=== PATIENT | male | born 1990 | race African-American/Black ===

== ENCOUNTER 2020-04-10 16:56 | Inpatient (IN) | payer OTHER ==
[2020-04-10] MEDS ORDERED: SODIUM CHLORIDE 1,000 ML IV STA (17:49)
[2020-04-10] MEDS ORDERED: SODIUM CHLORIDE 2,000 ML IV STA (18:03)
[2020-04-10 18:51] LABS: BASO % 0.6 % (0-2.0); EOS % 0.5 % (0-4.5); HEMATOCRIT 51.9 % (35.4-49); HEMOGLOBIN 17.6 GM/dL (11.7-16.9); LYMPH % 22.4 % (8-40); MCH 31.1 pg (25.7-33.7); MCHC 33.9 g/dl (32.0-35.9); MEAN CELL VOLUME 91.9 fl (80-96); MEAN PLT VOLUME 8.6 fl (7.5-11.1); MONO % 6.9 % (3.8-10.2); NEUT % 69.6 % (42.8-82.8); PLATELET COUNT 319 K/MM3 (134-434); RBC 5.65 M/mm3 (4.00-5.60); RDW 13.5 % (11.9-15.9); VENOUS BASE EXCESS -4.4 mmol/L (-2-2); VENOUS PCO2 45.8 mmHg (38-52); VENOUS PH 7.303 (7.310-7.410); WHITE BLOOD COUNT 7.6 K/mm3 (4.0-10.0)
[2020-04-10 18:59] LABS: INR 0.86 (0.83-1.09); PROTHROMBIN TIME (PATIENT) 10.4 SEC (9.7-13.0)
[2020-04-10 19:02] LABS: ACTIVATED PTT 32.2 SECONDS (25.2-36.5)
[2020-04-10 19:07] LABS: POTASSIUM 3.5 mmol/L (3.5-5.1)
[2020-04-10 19:10] LABS: ALBUMIN 3.8 g/dl (3.4-5.0); BLOOD UREA NITROGEN 7.3 mg/dL (7-18)
[2020-04-10 19:12] LABS: CREATININE 0.9 mg/dL (0.55-1.3)
[2020-04-10 19:13] LABS: TOT PROT 8.1 g/dl (6.4-8.2)
[2020-04-10] MEDS ORDERED: ONDANSETRON 4 MG/2 ML VIAL IVPUSH ONE (19:15)
[2020-04-10 19:18] LABS: BILIRUBIN,TOTAL 0.5 mg/dL (0.2-1)
[2020-04-10] MEDS ORDERED: ONDANSETRON 4 MG/2 ML VIAL ONE (19:23)
[2020-04-10] MEDS ORDERED: FAMOTIDINE 20 MG/50 ML IVPB 20 MG/50 ML MG IVPB ONE ×2 (19:26→19:31)
[2020-04-10 19:36] LABS: MAGNESIUM 2.2 mg/dL (1.8-2.4)
[2020-04-10 19:40] LABS: PHOSPHOROUS 4.1 mg/dL (2.5-4.9)
[2020-04-10 20:58] LABS: EPI CELLS 9 /uL (0-25.1); HYALINE CASTS 0 /uL (0-3.1); URINE APPEARANCE CLEAR; URINE BACTERIA 5 /uL (0-1359); URINE BILIRUBIN NEGATIVE (NEGATIVE); URINE COLOR YELLOW; URINE GLUCOSE (UA) 3+ (NEGATIVE); URINE KETONE NEGATIVE (NEGATIVE); URINE LEUK ESTERASE NEGATIVE (NEGATIVE); URINE NITRITE NEGATIVE (NEGATIVE); URINE PROTEIN NEGATIVE (NEGATIVE); URINE RBC 1 /uL (0-23.9); URINE UROBILINOGEN 0.2 mg/dL (0.2-1.0); URINE WBC 6 /uL (0-25.8)
[2020-04-10 21:23] LABS: HIV INTERPRETATION NEGATIVE (NEGATIVE)
[2020-04-10] MEDS ORDERED: MAG HYDROX/AL HYDROX/SIMETH 30 ML UNIT-DOSE CUP PO ONE (21:33)
[2020-04-10] MEDS ORDERED: LIDOCAINE VISCOUS 2% ORAL/TOP 20 ML UNIT-DOSE CUP MM ONE (21:38)
[2020-04-10] MEDS ORDERED: LIDOCAINE VISCOUS 2% ORAL/TOP 20 ML UNIT-DOSE CUP ONE (21:48)
[2020-04-10] MEDS ORDERED: MAG HYDROX/AL HYDROX/SIMETH 30 ML UNIT-DOSE CUP ONE (21:48)
[2020-04-11] MEDS ORDERED: HYDROCORTISONE 0.5% TOPICAL OINTMENT TUBE TP PRN (00:28)
[2020-04-11] MEDS ORDERED: SODIUM CHLORIDE 1,000 ML IV SCH ×2 (01:30→10:29)
[2020-04-11] MEDS: KCL 10 MEQ IVPB 10 MEQ/100 ML INFUS.BAG IVPB SCH ×6 (01:50→12:00)
[2020-04-11] MEDS: SODIUM CHLORIDE 1,000 ML IV SCH ×2 (01:50→10:06)
[2020-04-11] MEDS ORDERED: KCL 10 MEQ IVPB 10 MEQ/100 ML INFUS.BAG IVPB ONE ×4 (02:51→10:11)
[2020-04-11 03:38] LABS: POTASSIUM 3.3 mmol/L (3.5-5.1)
[2020-04-11 03:39] LABS: CALCIUM 8.2 mg/dL (8.5-10.1)
[2020-04-11 03:40] LABS: BLOOD UREA NITROGEN 6.6 mg/dL (7-18); MAGNESIUM 1.8 mg/dL (1.8-2.4)
[2020-04-11 03:44] LABS: CREATININE 0.7 mg/dL (0.55-1.3); IRON SERUM 66 ug/dL (50-175)
[2020-04-11 03:45] LABS: TOTAL IRON BINDING CAPACITY 270 ug/dL (250-450)
[2020-04-11 07:17] LABS: COCAINE, UR NEGATIVE ng/ml (CUTOFF=300); PHENCYCLIDINE,URINE NEGATIVE ng/ml (CUTOFF=25); URINE AMPHETAMINES NEGATIVE ng/ml (CUTOFF=500); URINE BARBITURATES NEGATIVE ng/ml (CUTOFF=200)
[2020-04-11 07:20] LABS: METHADONE, UR NEGATIVE ng/ml (CUTOFF=300); OPIATES, URI NEGATIVE ng/ml (CUTOFF=300); URINE BENZODIAZEPINES NEGATIVE ng/ml (CUTOFF=200)
[2020-04-11 08:20] LABS: HEMATOCRIT 45.6 % (35.4-49); HEMOGLOBIN 15.3 GM/dL (11.7-16.9); MCH 30.5 pg (25.7-33.7); MCHC 33.5 g/dl (32.0-35.9); MEAN CELL VOLUME 90.9 fl (80-96); MEAN PLT VOLUME 8.6 fl (7.5-11.1); PLATELET COUNT 311 K/MM3 (134-434); RBC 5.02 M/mm3 (4.00-5.60); RDW 13.4 % (11.9-15.9); WHITE BLOOD COUNT 6.7 K/mm3 (4.0-10.0)
[2020-04-11] MEDS: INSULIN SLIDING SCALE (NOVOLOG) 1 VIAL SQ SCH ×4 (08:26→22:50)
[2020-04-11 08:50] LABS: POTASSIUM 3.5 mmol/L (3.5-5.1)
[2020-04-11 08:52] LABS: ALBUMIN 3.1 g/dl (3.4-5.0); BLOOD UREA NITROGEN 6.2 mg/dL (7-18); CALCIUM 8.5 mg/dL (8.5-10.1); MAGNESIUM 2.1 mg/dL (1.8-2.4)
[2020-04-11 08:57] LABS: BILIRUBIN,TOTAL 0.5 mg/dL (0.2-1); CREATININE 0.6 mg/dL (0.55-1.3); PHOSPHOROUS 2.6 mg/dL (2.5-4.9); TOT PROT 6.6 g/dl (6.4-8.2)
[2020-04-11] MEDS ORDERED: NEOMYCIN/BACI/POLY/HC TOPICAL OINT 15 GM TUBE TP SCH (10:00)
[2020-04-11] MEDS ORDERED: ENOXAPARIN NA (PORCINE) 40 MG/0.4 ML DISP.SYRIN SQ ONE (10:11)
[2020-04-11] MEDS: ENOXAPARIN NA (PORCINE) 40 MG/0.4 ML DISP.SYRIN SQ SCH (11:00)
[2020-04-11] MEDS ORDERED: INSULIN (LEVEMIR) 100 UNITS/ML UNITS SQ SCH ×3 (12:24→22:00)
[2020-04-11] MEDS ORDERED: SODIUM CHLORIDE 1,000 ML IV STA (15:51)
[2020-04-12] MEDS: INSULIN SLIDING SCALE (NOVOLOG) 1 VIAL SQ SCH ×4 (06:44→21:23)
[2020-04-12 09:24] LABS: HEMATOCRIT 48.9 % (35.4-49); HEMOGLOBIN 16.1 GM/dL (11.7-16.9); MCHC 32.9 g/dl (32.0-35.9); MEAN CELL VOLUME 91.2 fl (80-96); MEAN PLT VOLUME 7.9 fl (7.5-11.1); PLATELET COUNT 316 K/MM3 (134-434); RBC 5.36 M/mm3 (4.00-5.60); RDW 13.3 % (11.9-15.9); WHITE BLOOD COUNT 6.4 K/mm3 (4.0-10.0)
[2020-04-12 09:47] LABS: POTASSIUM 3.2 mmol/L (3.5-5.1)
[2020-04-12 09:49] LABS: BLOOD UREA NITROGEN 14.4 mg/dL (7-18); CALCIUM 9.2 mg/dL (8.5-10.1); MAGNESIUM 2.2 mg/dL (1.8-2.4)
[2020-04-12 09:52] LABS: CREATININE 0.7 mg/dL (0.55-1.3)
[2020-04-12] MEDS: ENOXAPARIN NA (PORCINE) 40 MG/0.4 ML DISP.SYRIN SQ SCH (09:52)
[2020-04-12 09:53] LABS: PHOSPHOROUS 2.5 mg/dL (2.5-4.9)
[2020-04-12] MEDS ORDERED: POTASSIUM CHLORIDE TABS 10 MEQ TABLET.ER (FP) PO ONE (10:45)
[2020-04-12] MEDS: KCL 10 MEQ IVPB 10 MEQ/100 ML INFUS.BAG IVPB SCH ×2 (12:29→13:08)
[2020-04-12] MEDS ORDERED: POTASSIUM CHLORIDE TABS 20 MEQ TABLET.ER (FP) PO ONE ×2 (12:43→14:00)
[2020-04-12] MEDS ORDERED: SODIUM CHLORIDE 0.9%/KCL 20 MEQ/1,000 ML INFUS.BAG IV SCH (14:45)
[2020-04-12 15:21] VITALS: BMI 16.9
[2020-04-12] MEDS: LOPERAMIDE HCL 2 MG CAPSULE PO SCH (17:02)
[2020-04-12] MEDS: BANATROL PLUS POWDER PACKET PO SCH (21:23)
[2020-04-12] MEDS ORDERED: INSULIN (LEVEMIR) 100 UNITS/ML UNITS SQ SCH (22:00)
[2020-04-13] MEDS: INSULIN SLIDING SCALE (NOVOLOG) 1 VIAL SQ SCH ×2 (06:56→11:48)
[2020-04-13] MEDS: BANATROL PLUS POWDER PACKET PO SCH ×2 (06:56→15:22)
[2020-04-13] MEDS ORDERED: INSULIN (LEVEMIR) 100 UNITS/ML UNITS SQ SCH ×2 (07:00→10:25)
[2020-04-13 08:36] LABS: HEMATOCRIT 44.9 % (35.4-49); HEMOGLOBIN 14.5 GM/dL (11.7-16.9); MCH 29.6 pg (25.7-33.7); MCHC 32.4 g/dl (32.0-35.9); MEAN CELL VOLUME 91.5 fl (80-96); MEAN PLT VOLUME 8.2 fl (7.5-11.1); PLATELET COUNT 312 K/MM3 (134-434); RDW 13.5 % (11.9-15.9); WHITE BLOOD COUNT 6.4 K/mm3 (4.0-10.0)
[2020-04-13 08:56] LABS: POTASSIUM 4.1 mmol/L (3.5-5.1)
[2020-04-13 09:00] LABS: CALCIUM 8.9 mg/dL (8.5-10.1)
[2020-04-13 09:01] LABS: BLOOD UREA NITROGEN 17.8 mg/dL (7-18); MAGNESIUM 2.4 mg/dL (1.8-2.4)
[2020-04-13 09:04] LABS: CREATININE 0.6 mg/dL (0.55-1.3); PHOSPHOROUS 2.8 mg/dL (2.5-4.9)
[2020-04-13] MEDS: LOPERAMIDE HCL 2 MG CAPSULE PO SCH ×2 (09:34→12:32)
[2020-04-13] MEDS: ENOXAPARIN NA (PORCINE) 40 MG/0.4 ML DISP.SYRIN SQ SCH (09:35)
[2020-04-13] MEDS ORDERED: MULTIVITAMINS (DAILY MVI) TABLET (FP) PO SCH (10:00)
[2020-04-13 16:05] VITALS: BP 113/80; PULSE 130; TEMP 98.7
== END 2020-04-13 17:03 | disposition home or self-care (01) | DRG 420 ==
LOC: JER 16:56 → JERBED 22:22 → J6WEST-2 04-11 14:21
PROVIDERS: ADMIT Internal Medicine; ATTEND Student in an Organized Health Care Education/Training Program
DX: E10.10 Type 1 diabetes mellitus with ketoacidosis without coma (principal); R64 Cachexia; Z68.1 Body mass index [BMI] 19.9 or less, adult; R62.7 Adult failure to thrive; R35.8 Other polyuria; R63.1 Polydipsia; K52.9 Noninfective gastroenteritis and colitis, unspecified; R11.2 Nausea with vomiting, unspecified; F32.9 Major depressive disorder, single episode, unspecified; E87.6 Hypokalemia; R81 Glycosuria; F12.90 Cannabis use, unspecified, uncomplicated; E46 Unspecified protein-calorie malnutrition; H53.8 Other visual disturbances; Z91.11 Patient's noncompliance with dietary regimen; Z91.14 Patient's other noncompliance with medication regimen
CPT/HCPCS: 36415; 70470-TC; 71046-TC-FY; 71260-TC; 74177-TC; 80048; 80053; 80307; 81003; 82010; 82272; 82306; 82550; 82607; 82747; 82803; 82962; 83036; 83516; 83540; 83550; 83735; 84100; 84439; 84443; 84484; 85014; 85025; 85027; 85610; 85730; 87045; 87046; 87070; 87086; 87324; 87328; 87329; 87389; 87449; 87798; 87880; 93005; 93010; 99285-25; C9803; Q9967; U0003

== ENCOUNTER 2022-08-20 00:41 | Inpatient (IN) | payer OTHER ==
[2022-08-20] MEDS ORDERED: DEXTROSE 50%-WATER - 25 GM/50 ML VIAL IVPUSH ONE ×2 (01:15→06:44)
[2022-08-20] MEDS ORDERED: DEXTROSE 50%-WATER 25 GM/50 ML DISP.SYRIN ONE ×2 (01:52→06:14)
[2022-08-20 01:55] LABS: HEMATOCRIT 18.4 % (35.4-49); MCH 26.5 pg (25.7-33.7); MCHC 30.6 g/dl (32.0-35.9); MEAN CELL VOLUME 86.9 fl (80-96); PLATELET COUNT 622 10^3/uL (134-434); RBC 2.12 M/mm3 (4.00-5.60); RDW 16.8 % (11.9-15.9); WHITE BLOOD COUNT 15.4 K/mm3 (4.0-10.0)
[2022-08-20 01:59] LABS: HEMOGLOBIN 5.6 GM/dL (11.7-16.9)
[2022-08-20 02:37] LABS: LACTIC ACID 2.4 mmol/L (0.4-2.0)
[2022-08-20 03:02] LABS: INR 1.88 (0.83-1.09); PROTHROMBIN TIME (PATIENT) 21.7 SEC (9.7-13.0)
[2022-08-20 03:15] LABS: POTASSIUM 3.2 mmol/L (3.5-5.1)
[2022-08-20 03:17] LABS: ALBUMIN 1.1 g/dl (3.4-5.0); CALCIUM 9.3 mg/dL (8.5-10.1)
[2022-08-20 03:18] LABS: BLOOD UREA NITROGEN 14.3 mg/dL (7-18)
[2022-08-20 03:21] LABS: CREATININE 1.1 mg/dL (0.55-1.3)
[2022-08-20 03:22] LABS: BILIRUBIN,TOTAL 0.1 mg/dL (0.2-1); TOT PROT 6.3 g/dl (6.4-8.2)
[2022-08-20 05:21] LABS: ANISOCYTOSIS 3+; MACROCYTOSIS 1+
[2022-08-20] MEDS ORDERED: INSULIN (NOVOLOG) ASPART 100 UNITS/ML 10ML VIAL SQ SCH (07:00)
[2022-08-20] MEDS: LACTATED RINGERS SOLUTION 1,000 ML/1,000 ML INFUS.BAG IV SCH (08:08)
[2022-08-20 08:38] LABS: EPI CELLS 8 /uL (0-25.1); HYALINE CASTS 9 /uL (0-3.1); PH,URINE 6.5 (5.0-8.0); URINE APPEARANCE CLOUDY; URINE BILIRUBIN NEGATIVE (NEGATIVE); URINE COLOR YELLOW; URINE GLUCOSE (UA) TRACE (NEGATIVE); URINE KETONE TRACE (NEGATIVE); URINE LEUK ESTERASE 2+ (NEGATIVE); URINE NITRITE NEGATIVE (NEGATIVE); URINE PROTEIN 2+ (NEGATIVE); URINE RBC 84 /uL (0-23.9); URINE UROBILINOGEN 0.2 mg/dL (0.2-1.0); URINE WBC 433 /uL (0-25.8)
[2022-08-20] MEDS ORDERED: VANCOMYCIN/WATER FOR INJ (PEG) 1,000 MG/200 ML BAG IVPB SCH ×2 (10:00)
[2022-08-20] MEDS ORDERED: VANCOMYCIN 1 GM in D5W (PRE-DOCKED) 1,000 MG/250 ML (RESTRICTED TO ID ONLY IVPB SCH (10:00)
[2022-08-20] MEDS: PIPERACILLIN/TAZOB 3.375 GM 3.375 GM in DEXTROSE 5%-WATER - 50 ML IVPB SCH ×2 (10:00→18:34)
[2022-08-20 10:43] LABS: HEMATOCRIT 23.4 % (35.4-49); HEMOGLOBIN 7.6 GM/dL (11.7-16.9); MCH 27.5 pg (25.7-33.7); MCHC 32.5 g/dl (32.0-35.9); MEAN CELL VOLUME 84.6 fl (80-96); MEAN PLT VOLUME 6.8 fl (7.5-11.1); PLATELET COUNT 603 10^3/uL (134-434); RBC 2.76 M/mm3 (4.00-5.60); RDW 15.9 % (11.9-15.9); WHITE BLOOD COUNT 18.2 K/mm3 (4.0-10.0)
[2022-08-20] MEDS ORDERED: ACETAMINOPHEN 1000 MG/100 ML BAG IVPB PRN (10:51)
[2022-08-20 10:53] LABS: URINE BACTERIA MODERATE /uL (0-1359); URINE CRYSTALS NO SEEN /hpf; YEAST MANY (NEGATIVE)
[2022-08-20 11:10] LABS: POTASSIUM 3.5 mmol/L (3.5-5.1)
[2022-08-20 11:16] LABS: BLOOD UREA NITROGEN 14.9 mg/dL (7-18); CALCIUM 8.9 mg/dL (8.5-10.1)
[2022-08-20] MEDS: INSULIN SLIDING SCALE (NOVOLOG) 1 VIAL SQ SCH ×3 (11:35→21:16)
[2022-08-20] MEDS: ACETAMINOPHEN 1000 MG/100 ML BAG IVPB PRN (12:00)
[2022-08-20 12:20] LABS: MAGNESIUM 1.6 mg/dL (1.8-2.4); PHOSPHOROUS 2.7 mg/dL (2.5-4.9)
[2022-08-20] MEDS ORDERED: BISMUTH SUBSALICYLATE 262 MG/15 ML BTL PO PRN (14:58)
[2022-08-20] MEDS ORDERED: ERGOCALCIFEROL (VIT D2) 50,000 UNIT (1.25 MG) CAPSULE PO SCH ×2 (15:00→16:00)
[2022-08-20] MEDS ORDERED: PROMETHAZINE HCL 25 MG/1 ML VIAL IVPB PRN (16:06)
[2022-08-20] MEDS ORDERED: ONDANSETRON 4 MG/2 ML VIAL IVPUSH PRN (16:06)
[2022-08-20] MEDS ORDERED: LACTATED RINGERS SOLUTION 1,000 ML IV SCH (16:15)
[2022-08-20] MEDS ORDERED: METOCLOPRAMIDE HCL INJECTION 10 MG/2 ML VIAL IVPUSH ONE (16:31)
[2022-08-20] MEDS ORDERED: FAMOTIDINE 20 MG/50 ML IVPB 20 MG/50 ML MG IVPB ONE (16:32)
[2022-08-20] MEDS: CALCIUM ACETATE 667 MG CAPSULE (FP) PO SCH (16:40)
[2022-08-20] MEDS: DAPTOMYCIN 300 MG in SODIUM CHLORIDE 50 ML IVPB SCH (16:42)
[2022-08-20] MEDS: MIDODRINE HCL 5 MG TABLET PO SCH (18:05)
[2022-08-20] MEDS: CHOLESTYRAMINE/ASPARTAME 4 GM PACKET PO SCH ×2 (18:05→21:16)
[2022-08-20] MEDS: risperiDONE 1 MG TABLET PO SCH (21:16)
[2022-08-20] MEDS ORDERED: MIRTAZAPINE 15 MG TABLET (FP) PO SCH (22:00)
[2022-08-20] MEDS ORDERED: ATORVASTATIN CA 10 MG TABLET (FP) PO SCH (22:00)
[2022-08-21] MEDS: PIPERACILLIN/TAZOB 3.375 GM 3.375 GM in DEXTROSE 5%-WATER - 50 ML IVPB SCH ×3 (01:03→17:32)
[2022-08-21] MEDS ORDERED: DEXTROSE 50%-WATER 25 GM/50 ML DISP.SYRIN ONE ×2 (05:36→11:02)
[2022-08-21] MEDS ORDERED: DEXTROSE 50%-WATER - 25 GM/50 ML VIAL IVPUSH ONE (05:53)
[2022-08-21] MEDS ORDERED: DEXTROSE 5%-LACTATED RINGERS 1,000 ML IV SCH ×2 (06:00→13:11)
[2022-08-21] MEDS: INSULIN SLIDING SCALE (NOVOLOG) 1 VIAL SQ SCH ×4 (06:18→21:11)
[2022-08-21] MEDS ORDERED: LEVOTHYROXINE NA 25 MCG TABLET (FP) PO SCH (07:00)
[2022-08-21] MEDS: ACETAMINOPHEN 1000 MG/100 ML BAG IVPB PRN (07:13)
[2022-08-21] MEDS ORDERED: ETOMIDATE 20 MG/10 ML VIAL IVPUSH ONE (07:49)
[2022-08-21 08:05] LABS: POTASSIUM 3.3 mmol/L (3.5-5.1)
[2022-08-21 08:07] LABS: HEMATOCRIT 30.3 % (35.4-49); HEMOGLOBIN 10.3 GM/dL (11.7-16.9); MCH 28.2 pg (25.7-33.7); MCHC 33.8 g/dl (32.0-35.9); MEAN CELL VOLUME 83.4 fl (80-96); MEAN PLT VOLUME 6.8 fl (7.5-11.1); PLATELET COUNT 597 10^3/uL (134-434); RBC 3.63 M/mm3 (4.00-5.60); RDW 16.1 % (11.9-15.9); WHITE BLOOD COUNT 18.6 K/mm3 (4.0-10.0)
[2022-08-21 08:09] LABS: CALCIUM 8.4 mg/dL (8.5-10.1)
[2022-08-21 08:11] LABS: MAGNESIUM 1.5 mg/dL (1.8-2.4)
[2022-08-21 08:13] LABS: CREATININE 1.2 mg/dL (0.55-1.3)
[2022-08-21] MEDS ORDERED: ROCURONIUM BROMIDE 50 MG/5 ML SYRINGE ONE (08:24)
[2022-08-21] MEDS ORDERED: SUCCINYLCHOLINE CHLORIDE 200 MG/10 ML SYRINGE ONE (08:24)
[2022-08-21] MEDS: CALCIUM ACETATE 667 MG CAPSULE (FP) PO SCH ×3 (08:49→17:32)
[2022-08-21] MEDS: MIDODRINE HCL 5 MG TABLET PO SCH ×3 (09:08→17:32)
[2022-08-21] MEDS: LACTATED RINGERS SOLUTION 1,000 ML/1,000 ML INFUS.BAG IV SCH (09:08)
[2022-08-21] MEDS: risperiDONE 1 MG TABLET PO SCH ×2 (09:09→21:09)
[2022-08-21] MEDS: CHOLESTYRAMINE/ASPARTAME 4 GM PACKET PO SCH ×4 (09:09→21:08)
[2022-08-21] MEDS ORDERED: ONDANSETRON 4 MG/2 ML VIAL ONE (09:42)
[2022-08-21] MEDS ORDERED: DEXAMETHASONE SOD PHOSPHATE 4 MG/1 ML VIAL ONE (09:42)
[2022-08-21] MEDS ORDERED: GLYCOPYRROLATE 0.2 MG/1 ML VIAL ONE ×2 (09:43)
[2022-08-21] MEDS ORDERED: NEOSTIGMINE METHYLSULFATE 0.5 MG/1 ML - 10 ML MDV ONE (09:43)
[2022-08-21] MEDS ORDERED: THIAMINE HCL 100 MG TABLET (FP) PO SCH (10:00)
[2022-08-21] MEDS ORDERED: PATIENT'S OWN MEDICATION (NON-FORMULARY) (Budesonide [Budesonide Er] 9 MG Tabdr...Er) PO SCH (10:00)
[2022-08-21] MEDS ORDERED: CHOLECALCIFEROL (VIT D3) 1,000 UNIT (25 MCG) TABLET PO SCH (10:00)
[2022-08-21] MEDS ORDERED: FERROUS SO4 325 MG TABLET (FP) PO SCH ×2 (10:00→14:50)
[2022-08-21] MEDS ORDERED: MEGESTROL ACETATE 400 MG/10 ML UNIT DOSE CUP PO SCH (10:00)
[2022-08-21] MEDS ORDERED: MAGNESIUM 2GM/50ML STERILE WATER IVPB IVPB ONE (10:00)
[2022-08-21] MEDS ORDERED: oxyCODONE HCL 5 MG TABLET PO PRN (10:29)
[2022-08-21] MEDS ORDERED: ONDANSETRON 4 MG/2 ML VIAL IVPUSH PRN (10:29)
[2022-08-21] MEDS: KCL 10 MEQ IVPB 10 MEQ/100 ML INFUS.BAG IVPB SCH ×2 (11:01→12:29)
[2022-08-21] MEDS ORDERED: DEXTROSE 50%-WATER 25 GM/50 ML DISP.SYRIN IVPUSH ONE (11:30)
[2022-08-21 11:59] LABS: HIV INTERPRETATION NEGATIVE (NEGATIVE)
[2022-08-21] MEDS ORDERED: SODIUM CHLORIDE 500 ML IV STA (13:13)
[2022-08-21] MEDS: CLINDAMYCIN 600MG PREMIX IVPB 600 MG/50 ML BAG IVPB SCH ×2 (14:06→17:32)
[2022-08-21] MEDS: DAPTOMYCIN 300 MG in SODIUM CHLORIDE 50 ML IVPB SCH (14:41)
[2022-08-21] MEDS: DEXTROSE 5%-LACTATED RINGERS 1,000 ML IV SCH (15:01)
[2022-08-21 16:24] VITALS: BMI 16.2
[2022-08-21] MEDS: AMINO ACIDS/PROTEIN HYDROLYS 30 ML LIQUID.PKT PO SCH (17:33)
[2022-08-21] MEDS ORDERED: BISMUTH SUBSALICYLATE 262 MG/15 ML BTL PO PRN (19:34)
[2022-08-21 20:14] LABS: BASO % 0.2 % (0-2.0); EOS % 0.1 % (0-4.5); HEMATOCRIT 35.8 % (35.4-49); HEMOGLOBIN 11.6 GM/dL (11.7-16.9); LYMPH % 4.8 % (8-40); MCH 27.2 pg (25.7-33.7); MCHC 32.5 g/dl (32.0-35.9); MEAN CELL VOLUME 83.8 fl (80-96); MEAN PLT VOLUME 6.9 fl (7.5-11.1); MONO % 1.8 % (3.8-10.2); NEUT % 93.1 % (42.8-82.8); PLATELET COUNT 579 10^3/uL (134-434); RBC 4.27 M/mm3 (4.00-5.60); RDW 16.2 % (11.9-15.9); WHITE BLOOD COUNT 24.7 K/mm3 (4.0-10.0)
[2022-08-21 20:34] LABS: BLOOD UREA NITROGEN 16.4 mg/dL (7-18); CALCIUM 8.5 mg/dL (8.5-10.1); MAGNESIUM 1.9 mg/dL (1.8-2.4)
[2022-08-21 20:38] LABS: CREATININE 1.2 mg/dL (0.55-1.3); LACTIC ACID 2.6 mmol/L (0.4-2.0); PHOSPHOROUS 4.2 mg/dL (2.5-4.9)
[2022-08-21 20:39] LABS: BILIRUBIN,TOTAL 0.2 mg/dL (0.2-1); TOT PROT 5.8 g/dl (6.4-8.2)
[2022-08-21] MEDS ORDERED: ALBUMIN HUMAN 5% 250 ML IV SOLUTION IV ONE (20:43)
[2022-08-21] MEDS ORDERED: LACTATED RINGERS SOLUTION 1000 ML INFUS.BAG IV ONE (20:43)
[2022-08-21 20:53] LABS: ANISOCYTOSIS 2+; MACROCYTOSIS 1+; OVALOCYTE 1+
[2022-08-21] MEDS: MIRTAZAPINE 15 MG TABLET (FP) PO SCH (21:07)
[2022-08-21] MEDS: CALCIUM CARBONATE 650 MG TABLET PO SCH (21:07)
[2022-08-21] MEDS: ATORVASTATIN CA 10 MG TABLET (FP) PO SCH (21:08)
[2022-08-21] MEDS: CHLORHEXIDINE GLUCONATE 4% CLEANSER FOR DECOLONIZATION TP SCH (21:08)
[2022-08-21] MEDS: MUPIROCIN 2% TOPICAL OINTMENT FOR DECOLONIZATION NS SCH (21:09)
[2022-08-22] MEDS: CLINDAMYCIN 600MG PREMIX IVPB 600 MG/50 ML BAG IVPB SCH ×3 (02:09→17:14)
[2022-08-22] MEDS: PIPERACILLIN/TAZOB 3.375 GM 3.375 GM in DEXTROSE 5%-WATER - 50 ML IVPB SCH ×3 (03:11→17:05)
[2022-08-22] MEDS: DEXTROSE 5%-LACTATED RINGERS 1,000 ML IV SCH (03:20)
[2022-08-22] MEDS: INSULIN SLIDING SCALE (NOVOLOG) 1 VIAL SQ SCH ×4 (06:15→21:17)
[2022-08-22] MEDS: LEVOTHYROXINE NA 25 MCG TABLET (FP) PO SCH (06:16)
[2022-08-22] MEDS ORDERED: INSULIN (NOVOLOG) ASPART 100 UNITS/ML 10ML VIAL ONE (06:16)
[2022-08-22] MEDS: AMINO ACIDS/PROTEIN HYDROLYS 30 ML LIQUID.PKT PO SCH ×3 (07:20→17:06)
[2022-08-22] MEDS: CALCIUM ACETATE 667 MG CAPSULE (FP) PO SCH ×3 (07:21→17:05)
[2022-08-22] MEDS: CALCIUM CARBONATE 650 MG TABLET PO SCH ×2 (07:21→21:15)
[2022-08-22 08:14] LABS: BLOOD UREA NITROGEN 17.3 mg/dL (7-18)
[2022-08-22 08:16] LABS: CALCIUM 8.3 mg/dL (8.5-10.1); HEMATOCRIT 34.7 % (35.4-49); HEMOGLOBIN 11.6 GM/dL (11.7-16.9); MAGNESIUM 1.7 mg/dL (1.8-2.4); MCH 28.3 pg (25.7-33.7); MCHC 33.5 g/dl (32.0-35.9); MEAN CELL VOLUME 84.3 fl (80-96); PLATELET COUNT 591 10^3/uL (134-434); RBC 4.12 M/mm3 (4.00-5.60); RDW 16.6 % (11.9-15.9); WHITE BLOOD COUNT 24.1 K/mm3 (4.0-10.0)
[2022-08-22 08:17] LABS: CREATININE 1.2 mg/dL (0.55-1.3); PHOSPHOROUS 4.2 mg/dL (2.5-4.9)
[2022-08-22] MEDS: ZINC SULFATE 220 MG CAPSULE (FP) PO SCH (09:27)
[2022-08-22] MEDS: CHOLECALCIFEROL (VIT D3) 1,000 UNIT (25 MCG) TABLET PO SCH (09:27)
[2022-08-22] MEDS: MIDODRINE HCL 5 MG TABLET PO SCH ×3 (09:27→17:04)
[2022-08-22] MEDS: THIAMINE HCL 100 MG TABLET (FP) PO SCH (09:27)
[2022-08-22] MEDS: MULTIVITAMINS (DAILY MVI) TABLET (FP) PO SCH (09:28)
[2022-08-22] MEDS: FERROUS SO4 325 MG TABLET (FP) PO SCH (09:28)
[2022-08-22] MEDS: risperiDONE 1 MG TABLET PO SCH ×2 (09:30→21:16)
[2022-08-22] MEDS: predniSONE 20 MG TABLET (UD) PO SCH (09:30)
[2022-08-22] MEDS: ASCORBIC ACID 250 MG TABLET (FP) PO SCH (09:30)
[2022-08-22] MEDS: CHOLESTYRAMINE/ASPARTAME 4 GM PACKET PO SCH ×4 (09:30→21:16)
[2022-08-22] MEDS: MEGESTROL ACETATE 400 MG/10 ML UNIT DOSE CUP PO SCH (09:30)
[2022-08-22] MEDS: LACTATED RINGERS SOLUTION 1,000 ML/1,000 ML INFUS.BAG IV SCH (09:31)
[2022-08-22] MEDS: SODIUM HYPOCHLORITE 0.25%- 473 ML BULK BOTTLE TP SCH (09:32)
[2022-08-22] MEDS: MUPIROCIN 2% TOPICAL OINTMENT FOR DECOLONIZATION NS SCH ×2 (09:32→21:15)
[2022-08-22] MEDS ORDERED: SODIUM HYPOCHLORITE 0.25%- 473 ML BULK BOTTLE TP SCH (10:00)
[2022-08-22] MEDS ORDERED: DAPTOMYCIN 300 MG in SODIUM CHLORIDE 50 ML IVPB SCH (15:00)
[2022-08-22] MEDS: CHLORHEXIDINE GLUCONATE 4% CLEANSER FOR DECOLONIZATION TP SCH (21:14)
[2022-08-22] MEDS: ATORVASTATIN CA 10 MG TABLET (FP) PO SCH (21:14)
[2022-08-22] MEDS: MIRTAZAPINE 15 MG TABLET (FP) PO SCH (21:14)
[2022-08-22] MEDS: INSULIN (LEVEMIR) 100 UNITS/ML UNITS SQ SCH (21:14)
[2022-08-23] MEDS: PIPERACILLIN/TAZOB 3.375 GM 3.375 GM in DEXTROSE 5%-WATER - 50 ML IVPB SCH ×2 (02:00→10:54)
[2022-08-23] MEDS: CLINDAMYCIN 600MG PREMIX IVPB 600 MG/50 ML BAG IVPB SCH ×3 (02:58→17:26)
[2022-08-23] MEDS: INSULIN (NOVOLOG) ASPART 100 UNITS/ML 10ML VIAL SQ SCH ×3 (06:19→17:01)
[2022-08-23] MEDS: LEVOTHYROXINE NA 25 MCG TABLET (FP) PO SCH (06:19)
[2022-08-23] MEDS: INSULIN SLIDING SCALE (NOVOLOG) 1 VIAL SQ SCH ×4 (06:25→22:49)
[2022-08-23] MEDS: INSULIN (LEVEMIR) 100 UNITS/ML UNITS SQ SCH ×2 (06:26→22:47)
[2022-08-23 07:37] LABS: HEMATOCRIT 33.4 % (35.4-49); HEMOGLOBIN 11.3 GM/dL (11.7-16.9); MCH 28.2 pg (25.7-33.7); MCHC 33.7 g/dl (32.0-35.9); MEAN CELL VOLUME 83.6 fl (80-96); MEAN PLT VOLUME 7.2 fl (7.5-11.1); PLATELET COUNT 625 10^3/uL (134-434); RBC 3.99 M/mm3 (4.00-5.60); WHITE BLOOD COUNT 16.8 K/mm3 (4.0-10.0)
[2022-08-23 08:01] LABS: BLOOD UREA NITROGEN 21.8 mg/dL (7-18)
[2022-08-23 08:04] LABS: CALCIUM 8.3 mg/dL (8.5-10.1); CREATININE 1.1 mg/dL (0.55-1.3); MAGNESIUM 1.7 mg/dL (1.8-2.4); PHOSPHOROUS 2.9 mg/dL (2.5-4.9)
[2022-08-23] MEDS: CALCIUM CARBONATE 650 MG TABLET PO SCH ×2 (08:25→22:45)
[2022-08-23] MEDS: AMINO ACIDS/PROTEIN HYDROLYS 30 ML LIQUID.PKT PO SCH ×3 (08:25→17:01)
[2022-08-23] MEDS: CALCIUM ACETATE 667 MG CAPSULE (FP) PO SCH ×3 (08:25→17:01)
[2022-08-23] MEDS ORDERED: MAGNESIUM SULF 50% (8.12 MEQ/2 ML-1 GM VIAL) IVPB ONE (08:56)
[2022-08-23] MEDS: SODIUM HYPOCHLORITE 0.25%- 473 ML BULK BOTTLE TP SCH (10:00)
[2022-08-23] MEDS: CHOLESTYRAMINE/ASPARTAME 4 GM PACKET PO SCH ×4 (10:30→23:20)
[2022-08-23] MEDS: MUPIROCIN 2% TOPICAL OINTMENT FOR DECOLONIZATION NS SCH (10:30)
[2022-08-23] MEDS: MEGESTROL ACETATE 400 MG/10 ML UNIT DOSE CUP PO SCH (10:30)
[2022-08-23] MEDS: risperiDONE 1 MG TABLET PO SCH ×2 (10:30→23:20)
[2022-08-23] MEDS: MIDODRINE HCL 5 MG TABLET PO SCH ×3 (10:30→17:44)
[2022-08-23] MEDS: MULTIVITAMINS (DAILY MVI) TABLET (FP) PO SCH (10:57)
[2022-08-23] MEDS: ZINC SULFATE 220 MG CAPSULE (FP) PO SCH (10:58)
[2022-08-23] MEDS: ASCORBIC ACID 250 MG TABLET (FP) PO SCH (10:58)
[2022-08-23] MEDS: FERROUS SO4 325 MG TABLET (FP) PO SCH (10:58)
[2022-08-23] MEDS: predniSONE 20 MG TABLET (UD) PO SCH (10:58)
[2022-08-23] MEDS: CHOLECALCIFEROL (VIT D3) 1,000 UNIT (25 MCG) TABLET PO SCH (10:58)
[2022-08-23] MEDS: THIAMINE HCL 100 MG TABLET (FP) PO SCH (10:58)
[2022-08-23] MEDS: LACTATED RINGERS SOLUTION 1,000 ML/1,000 ML INFUS.BAG IV SCH ×2 (11:24→15:05)
[2022-08-23] MEDS ORDERED: ACETAMINOPHEN 500 MG TABLET (FP) PO PRN (13:37)
[2022-08-23] MEDS ORDERED: BISMUTH SUBSALICYLATE 262 MG/15 ML BTL PO PRN (14:48)
[2022-08-23] MEDS: DAPTOMYCIN 300 MG in SODIUM CHLORIDE 50 ML IVPB SCH (15:00)
[2022-08-23] MEDS ORDERED: INSULIN (NOVOLOG) ASPART 100 UNITS/ML 10ML VIAL ONE (17:13)
[2022-08-23] MEDS ORDERED: PIPERACILLIN/TAZOB 3.375 GM 3.375 GM in DEXTROSE 5%-WATER - 50 ML IVPB SCH (18:00)
[2022-08-23] MEDS ORDERED: CHLORHEXIDINE GLUCONATE 4% CLEANSER FOR DECOLONIZATION TP SCH (22:00)
[2022-08-23] MEDS ORDERED: MUPIROCIN 2% TOPICAL OINTMENT FOR DECOLONIZATION NS SCH (22:00)
[2022-08-23] MEDS: MIRTAZAPINE 15 MG TABLET (FP) PO SCH (22:45)
[2022-08-23] MEDS: ATORVASTATIN CA 10 MG TABLET (FP) PO SCH (22:46)
[2022-08-24] MEDS: MEROPENEM 1 GM in DEXTROSE 5%-WATER 100 ML IVPB SCH ×3 (01:20→17:26)
[2022-08-24] MEDS: CLINDAMYCIN 600MG PREMIX IVPB 600 MG/50 ML BAG IVPB SCH ×3 (02:34→17:26)
[2022-08-24] MEDS: LEVOTHYROXINE NA 25 MCG TABLET (FP) PO SCH (07:18)
[2022-08-24] MEDS: INSULIN (NOVOLOG) ASPART 100 UNITS/ML 10ML VIAL SQ SCH ×3 (07:19→16:32)
[2022-08-24] MEDS: INSULIN SLIDING SCALE (NOVOLOG) 1 VIAL SQ SCH ×4 (07:21→22:27)
[2022-08-24] MEDS: INSULIN (LEVEMIR) 100 UNITS/ML UNITS SQ SCH ×2 (07:22→22:26)
[2022-08-24] MEDS: LACTATED RINGERS SOLUTION 1,000 ML/1,000 ML INFUS.BAG IV SCH ×2 (07:41→17:25)
[2022-08-24] MEDS: CALCIUM ACETATE 667 MG CAPSULE (FP) PO SCH ×3 (07:58→17:45)
[2022-08-24] MEDS: AMINO ACIDS/PROTEIN HYDROLYS 30 ML LIQUID.PKT PO SCH ×3 (07:58→17:26)
[2022-08-24] MEDS: CALCIUM CARBONATE 650 MG TABLET PO SCH ×2 (07:59→22:30)
[2022-08-24 09:03] LABS: BASO % 0.5 % (0-2.0); EOS % 0.5 % (0-4.5); HEMATOCRIT 33.6 % (35.4-49); HEMOGLOBIN 11.3 GM/dL (11.7-16.9); LYMPH % 15.8 % (8-40); MCH 28.4 pg (25.7-33.7); MCHC 33.5 g/dl (32.0-35.9); MEAN CELL VOLUME 84.7 fl (80-96); MEAN PLT VOLUME 7.1 fl (7.5-11.1); MONO % 4.3 % (3.8-10.2); NEUT % 78.9 % (42.8-82.8); PLATELET COUNT 548 10^3/uL (134-434); RBC 3.97 M/mm3 (4.00-5.60); RDW 15.7 % (11.9-15.9); WHITE BLOOD COUNT 12.5 K/mm3 (4.0-10.0)
[2022-08-24 09:25] LABS: POTASSIUM 3.5 mmol/L (3.5-5.1)
[2022-08-24 09:28] LABS: CALCIUM 8.3 mg/dL (8.5-10.1)
[2022-08-24 09:29] LABS: BLOOD UREA NITROGEN 20.7 mg/dL (7-18); MAGNESIUM 1.9 mg/dL (1.8-2.4)
[2022-08-24 09:31] LABS: CREATININE 1.1 mg/dL (0.55-1.3); PHOSPHOROUS 1.6 mg/dL (2.5-4.9)
[2022-08-24 09:33] LABS: BILIRUBIN,TOTAL 0.3 mg/dL (0.2-1); TOT PROT 6.3 g/dl (6.4-8.2)
[2022-08-24 09:34] LABS: ALBUMIN 1.4 g/dl (3.4-5.0)
[2022-08-24] MEDS: CHOLECALCIFEROL (VIT D3) 1,000 UNIT (25 MCG) TABLET PO SCH (10:24)
[2022-08-24] MEDS: ASCORBIC ACID 250 MG TABLET (FP) PO SCH (10:28)
[2022-08-24] MEDS: MULTIVITAMINS (DAILY MVI) TABLET (FP) PO SCH (10:28)
[2022-08-24] MEDS: ZINC SULFATE 220 MG CAPSULE (FP) PO SCH (10:28)
[2022-08-24] MEDS: predniSONE 20 MG TABLET (UD) PO SCH (10:29)
[2022-08-24] MEDS: FERROUS SO4 325 MG TABLET (FP) PO SCH (10:29)
[2022-08-24] MEDS: THIAMINE HCL 100 MG TABLET (FP) PO SCH (10:29)
[2022-08-24] MEDS: MIDODRINE HCL 5 MG TABLET PO SCH ×3 (10:34→17:59)
[2022-08-24] MEDS: SODIUM HYPOCHLORITE 0.25%- 473 ML BULK BOTTLE TP SCH (10:34)
[2022-08-24] MEDS: CHOLESTYRAMINE/ASPARTAME 4 GM PACKET PO SCH ×5 (10:36→22:36)
[2022-08-24] MEDS: risperiDONE 1 MG TABLET PO SCH ×2 (10:40→22:30)
[2022-08-24] MEDS: MEGESTROL ACETATE 400 MG/10 ML UNIT DOSE CUP PO SCH (10:41)
[2022-08-24] MEDS: DAPTOMYCIN 300 MG in SODIUM CHLORIDE 50 ML IVPB SCH (14:08)
[2022-08-24] MEDS ORDERED: INSULIN (NOVOLOG) ASPART 100 UNITS/ML 10ML VIAL ONE ×2 (16:42→22:23)
[2022-08-24] MEDS: ATORVASTATIN CA 10 MG TABLET (FP) PO SCH (22:29)
[2022-08-24] MEDS: MIRTAZAPINE 15 MG TABLET (FP) PO SCH (22:29)
[2022-08-25] MEDS: LACTATED RINGERS SOLUTION 1,000 ML/1,000 ML INFUS.BAG IV SCH ×2 (00:30→15:09)
[2022-08-25] MEDS: CLINDAMYCIN 600MG PREMIX IVPB 600 MG/50 ML BAG IVPB SCH ×2 (01:27→10:11)
[2022-08-25] MEDS: MEROPENEM 1 GM in DEXTROSE 5%-WATER 100 ML IVPB SCH ×3 (02:10→18:46)
[2022-08-25] MEDS: INSULIN SLIDING SCALE (NOVOLOG) 1 VIAL SQ SCH ×4 (06:43→21:51)
[2022-08-25] MEDS: INSULIN (LEVEMIR) 100 UNITS/ML UNITS SQ SCH ×2 (06:44→21:36)
[2022-08-25] MEDS: LEVOTHYROXINE NA 25 MCG TABLET (FP) PO SCH (06:44)
[2022-08-25] MEDS: INSULIN (NOVOLOG) ASPART 100 UNITS/ML 10ML VIAL SQ SCH ×3 (06:45→16:37)
[2022-08-25] MEDS: CALCIUM ACETATE 667 MG CAPSULE (FP) PO SCH ×3 (08:37→18:47)
[2022-08-25] MEDS: CALCIUM CARBONATE 650 MG TABLET PO SCH ×2 (08:37→21:36)
[2022-08-25] MEDS: AMINO ACIDS/PROTEIN HYDROLYS 30 ML LIQUID.PKT PO SCH ×3 (08:40→18:16)
[2022-08-25] MEDS: THIAMINE HCL 100 MG TABLET (FP) PO SCH (10:11)
[2022-08-25] MEDS: FERROUS SO4 325 MG TABLET (FP) PO SCH (10:11)
[2022-08-25] MEDS: ZINC SULFATE 220 MG CAPSULE (FP) PO SCH (10:11)
[2022-08-25] MEDS: MULTIVITAMINS (DAILY MVI) TABLET (FP) PO SCH (10:11)
[2022-08-25] MEDS: ASCORBIC ACID 250 MG TABLET (FP) PO SCH (10:11)
[2022-08-25] MEDS: predniSONE 20 MG TABLET (UD) PO SCH (10:11)
[2022-08-25] MEDS: CHOLESTYRAMINE/ASPARTAME 4 GM PACKET PO SCH ×4 (10:12→21:31)
[2022-08-25] MEDS: CHOLECALCIFEROL (VIT D3) 1,000 UNIT (25 MCG) TABLET PO SCH (10:12)
[2022-08-25] MEDS: risperiDONE 1 MG TABLET PO SCH ×2 (10:12→21:36)
[2022-08-25] MEDS: MEGESTROL ACETATE 400 MG/10 ML UNIT DOSE CUP PO SCH (10:14)
[2022-08-25] MEDS: MIDODRINE HCL 5 MG TABLET PO SCH ×3 (10:14→18:47)
[2022-08-25] MEDS: SODIUM HYPOCHLORITE 0.25%- 473 ML BULK BOTTLE TP SCH (11:31)
[2022-08-25] MEDS: DAPTOMYCIN 300 MG in SODIUM CHLORIDE 50 ML IVPB SCH (16:26)
[2022-08-25] MEDS ORDERED: INSULIN (NOVOLOG) ASPART 100 UNITS/ML 10ML VIAL ONE (21:34)
[2022-08-25] MEDS: ATORVASTATIN CA 10 MG TABLET (FP) PO SCH (21:36)
[2022-08-25] MEDS: MIRTAZAPINE 15 MG TABLET (FP) PO SCH (21:36)
[2022-08-26] MEDS: MEROPENEM 1 GM in DEXTROSE 5%-WATER 100 ML IVPB SCH ×3 (01:45→17:44)
[2022-08-26] MEDS: LEVOTHYROXINE NA 25 MCG TABLET (FP) PO SCH (06:11)
[2022-08-26] MEDS: INSULIN SLIDING SCALE (NOVOLOG) 1 VIAL SQ SCH ×4 (06:12→22:09)
[2022-08-26] MEDS: INSULIN (NOVOLOG) ASPART 100 UNITS/ML 10ML VIAL SQ SCH ×3 (06:12→17:02)
[2022-08-26] MEDS: INSULIN (LEVEMIR) 100 UNITS/ML UNITS SQ SCH ×2 (06:12→21:53)
[2022-08-26] MEDS: CALCIUM CARBONATE 650 MG TABLET PO SCH ×2 (08:41→21:53)
[2022-08-26] MEDS: CALCIUM ACETATE 667 MG CAPSULE (FP) PO SCH ×3 (08:41→17:45)
[2022-08-26] MEDS: AMINO ACIDS/PROTEIN HYDROLYS 30 ML LIQUID.PKT PO SCH ×3 (08:42→17:45)
[2022-08-26 11:27] LABS: HEMATOCRIT 32.9 % (35.4-49); HEMOGLOBIN 10.8 GM/dL (11.7-16.9); MCH 27.9 pg (25.7-33.7); MCHC 32.9 g/dl (32.0-35.9); MEAN CELL VOLUME 84.8 fl (80-96); PLATELET COUNT 614 10^3/uL (134-434); RBC 3.87 M/mm3 (4.00-5.60); RDW 15.6 % (11.9-15.9); WHITE BLOOD COUNT 16.2 K/mm3 (4.0-10.0)
[2022-08-26] MEDS: LACTATED RINGERS SOLUTION 1,000 ML/1,000 ML INFUS.BAG IV SCH ×2 (11:29→15:38)
[2022-08-26] MEDS: FERROUS SO4 325 MG TABLET (FP) PO SCH (11:41)
[2022-08-26] MEDS: predniSONE 20 MG TABLET (UD) PO SCH (11:41)
[2022-08-26] MEDS ORDERED: DEXTROSE 50%-WATER 25 GM/50 ML DISP.SYRIN IVPUSH ONE (11:41)
[2022-08-26] MEDS: ZINC SULFATE 220 MG CAPSULE (FP) PO SCH (11:42)
[2022-08-26] MEDS: MEGESTROL ACETATE 400 MG/10 ML UNIT DOSE CUP PO SCH (11:42)
[2022-08-26] MEDS: CHOLESTYRAMINE/ASPARTAME 4 GM PACKET PO SCH ×5 (11:42→22:09)
[2022-08-26] MEDS: MIDODRINE HCL 5 MG TABLET PO SCH ×3 (11:42→18:04)
[2022-08-26] MEDS: risperiDONE 1 MG TABLET PO SCH ×2 (11:44→21:53)
[2022-08-26] MEDS: MULTIVITAMINS (DAILY MVI) TABLET (FP) PO SCH (11:44)
[2022-08-26] MEDS: ASCORBIC ACID 250 MG TABLET (FP) PO SCH (11:44)
[2022-08-26] MEDS: CHOLECALCIFEROL (VIT D3) 1,000 UNIT (25 MCG) TABLET PO SCH (11:44)
[2022-08-26] MEDS: THIAMINE HCL 100 MG TABLET (FP) PO SCH (11:44)
[2022-08-26 11:50] LABS: POTASSIUM 4.2 mmol/L (3.5-5.1)
[2022-08-26 11:58] LABS: CALCIUM 8.6 mg/dL (8.5-10.1)
[2022-08-26 11:59] LABS: MAGNESIUM 1.7 mg/dL (1.8-2.4)
[2022-08-26 12:02] LABS: CREATININE 0.8 mg/dL (0.55-1.3); PHOSPHOROUS 1.3 mg/dL (2.5-4.9)
[2022-08-26] MEDS: SODIUM HYPOCHLORITE 0.25%- 473 ML BULK BOTTLE TP SCH (13:09)
[2022-08-26] MEDS ORDERED: PROPOFOL 20 ML ONE (13:13)
[2022-08-26] MEDS ORDERED: MIDAZOLAM HCL 2 MG/2 ML SINGLE DOSE VIAL ONE (13:14)
[2022-08-26] MEDS ORDERED: MAGNESIUM SULF 50% (8.12 MEQ/2 ML-1 GM VIAL) IVPB ONE ×2 (14:00→15:04)
[2022-08-26] MEDS ORDERED: SODIUM PHOSPHATE - 30 MM in DEXTROSE 5%-WATER - 250 ML IVPB ONE ×2 (14:12→15:04)
[2022-08-26] MEDS ORDERED: THIAMINE HCL 200 MG/2 ML VIAL IVPB SCH (14:15)
[2022-08-26] MEDS ORDERED: DEXTROSE 5%-LACTATED RINGERS 1,000 ML IV SCH (14:15)
[2022-08-26] MEDS ORDERED: LACTATED RINGERS SOLUTION 1,000 ML/1,000 ML INFUS.BAG IV SCH (15:04)
[2022-08-26] MEDS ORDERED: SODIUM PHOSPHATE - 30 MM in DEXTROSE 5%-WATER - 500 ML IVPB ONE (15:04)
[2022-08-26] MEDS ORDERED: BISMUTH SUBSALICYLATE 262 MG/15 ML BTL PO PRN (15:04)
[2022-08-26] MEDS: SODIUM PHOSPHATE - 30 MM in DEXTROSE 5%-WATER - 500 ML IVPB ONE ×2 (15:36→17:45)
[2022-08-26] MEDS ORDERED: THIAMINE HCL 500 MG in SODIUM CHLORIDE 250 ML IM SCH (16:00)
[2022-08-26] MEDS: THIAMINE HCL 500 MG in SODIUM CHLORIDE 250 ML IVPB SCH (16:30)
[2022-08-26] MEDS: DEXTROSE 5%-LACTATED RINGERS 1,000 ML IV SCH (18:03)
[2022-08-26] MEDS: ATORVASTATIN CA 10 MG TABLET (FP) PO SCH (21:53)
[2022-08-26] MEDS: MIRTAZAPINE 15 MG TABLET (FP) PO SCH (21:53)
[2022-08-27] MEDS: MEROPENEM 1 GM in DEXTROSE 5%-WATER 100 ML IVPB SCH ×3 (01:20→17:10)
[2022-08-27] MEDS: THIAMINE HCL 500 MG in SODIUM CHLORIDE 250 ML IVPB SCH ×3 (06:05→17:11)
[2022-08-27] MEDS: INSULIN (NOVOLOG) ASPART 100 UNITS/ML 10ML VIAL SQ SCH ×3 (06:08→17:12)
[2022-08-27] MEDS: INSULIN (LEVEMIR) 100 UNITS/ML UNITS SQ SCH ×2 (06:08→22:29)
[2022-08-27] MEDS: INSULIN SLIDING SCALE (NOVOLOG) 1 VIAL SQ SCH ×4 (06:09→22:26)
[2022-08-27] MEDS: LEVOTHYROXINE NA 25 MCG TABLET (FP) PO SCH (06:10)
[2022-08-27] MEDS: CALCIUM ACETATE 667 MG CAPSULE (FP) PO SCH ×3 (08:59→17:08)
[2022-08-27] MEDS: ERGOCALCIFEROL (VIT D2) 50,000 UNIT (1.25 MG) CAPSULE PO SCH (08:59)
[2022-08-27] MEDS: CALCIUM CARBONATE 650 MG TABLET PO SCH ×2 (09:00→22:27)
[2022-08-27] MEDS: AMINO ACIDS/PROTEIN HYDROLYS 30 ML LIQUID.PKT PO SCH ×3 (09:00→17:08)
[2022-08-27] MEDS: ACETAMINOPHEN 500 MG TABLET (FP) PO PRN ×2 (09:14→18:43)
[2022-08-27] MEDS: ZINC SULFATE 220 MG CAPSULE (FP) PO SCH (09:14)
[2022-08-27] MEDS: THIAMINE HCL 100 MG TABLET (FP) PO SCH (09:15)
[2022-08-27] MEDS: FERROUS SO4 325 MG TABLET (FP) PO SCH (09:15)
[2022-08-27] MEDS: MULTIVITAMINS (DAILY MVI) TABLET (FP) PO SCH (09:15)
[2022-08-27] MEDS: MEGESTROL ACETATE 400 MG/10 ML UNIT DOSE CUP PO SCH (09:15)
[2022-08-27] MEDS: ASCORBIC ACID 250 MG TABLET (FP) PO SCH (09:15)
[2022-08-27] MEDS: CHOLECALCIFEROL (VIT D3) 1,000 UNIT (25 MCG) TABLET PO SCH (09:15)
[2022-08-27] MEDS: MIDODRINE HCL 5 MG TABLET PO SCH ×3 (09:17→17:09)
[2022-08-27] MEDS: CHOLESTYRAMINE/ASPARTAME 4 GM PACKET PO SCH ×5 (09:17→22:40)
[2022-08-27] MEDS: risperiDONE 1 MG TABLET PO SCH (09:18)
[2022-08-27] MEDS ORDERED: ERGOCALCIFEROL (VIT D2) 50,000 UNIT (1.25 MG) CAPSULE PO SCH ×2 (10:00)
[2022-08-27 10:28] LABS: HEMATOCRIT 25.5 % (35.4-49); HEMOGLOBIN 8.8 GM/dL (11.7-16.9); MCH 29.1 pg (25.7-33.7); MCHC 34.6 g/dl (32.0-35.9); MEAN CELL VOLUME 84.2 fl (80-96); MEAN PLT VOLUME 7.6 fl (7.5-11.1); PLATELET COUNT 543 10^3/uL (134-434); RBC 3.03 M/mm3 (4.00-5.60); RDW 15.8 % (11.9-15.9); WHITE BLOOD COUNT 15.4 K/mm3 (4.0-10.0)
[2022-08-27 10:52] LABS: POTASSIUM 4.1 mmol/L (3.5-5.1)
[2022-08-27 10:56] LABS: BLOOD UREA NITROGEN 12.5 mg/dL (7-18); CALCIUM 8.3 mg/dL (8.5-10.1); MAGNESIUM 2.1 mg/dL (1.8-2.4)
[2022-08-27 10:59] LABS: CREATININE 0.9 mg/dL (0.55-1.3)
[2022-08-27 11:00] LABS: PHOSPHOROUS 2.5 mg/dL (2.5-4.9)
[2022-08-27] MEDS: LOPERAMIDE HCL 2 MG CAPSULE PO SCH (17:08)
[2022-08-27] MEDS: DEXTROSE 5%-LACTATED RINGERS 1,000 ML IV SCH (17:13)
[2022-08-27] MEDS: SODIUM HYPOCHLORITE 0.25%- 473 ML BULK BOTTLE TP SCH (18:05)
[2022-08-27] MEDS ORDERED: INSULIN (NOVOLOG) ASPART 100 UNITS/ML 10ML VIAL ONE (21:46)
[2022-08-27] MEDS: MIRTAZAPINE 15 MG TABLET (FP) PO SCH (22:27)
[2022-08-27] MEDS: BISMUTH SUBSALICYLATE 524 MG/30 ML PO SCH ×2 (22:28→22:39)
[2022-08-27] MEDS: OLANZapine 5 MG TABLET PO SCH (22:28)
[2022-08-27] MEDS: ATORVASTATIN CA 10 MG TABLET (FP) PO SCH (22:28)
[2022-08-28] MEDS: LOPERAMIDE HCL 2 MG CAPSULE PO SCH ×3 (00:58→17:23)
[2022-08-28] MEDS: MEROPENEM 1 GM in DEXTROSE 5%-WATER 100 ML IVPB SCH ×3 (01:29→17:23)
[2022-08-28] MEDS: THIAMINE HCL 500 MG in SODIUM CHLORIDE 250 ML IVPB SCH ×2 (03:36→13:49)
[2022-08-28] MEDS: BISMUTH SUBSALICYLATE 524 MG/30 ML PO SCH ×3 (06:08→21:29)
[2022-08-28] MEDS: INSULIN SLIDING SCALE (NOVOLOG) 1 VIAL SQ SCH ×4 (06:09→21:29)
[2022-08-28] MEDS: INSULIN (NOVOLOG) ASPART 100 UNITS/ML 10ML VIAL SQ SCH ×3 (06:09→17:33)
[2022-08-28] MEDS: LEVOTHYROXINE NA 25 MCG TABLET (FP) PO SCH (06:17)
[2022-08-28] MEDS: INSULIN (LEVEMIR) 100 UNITS/ML UNITS SQ SCH ×2 (06:17→21:28)
[2022-08-28 08:13] LABS: HEMATOCRIT 25.6 % (35.4-49); HEMOGLOBIN 8.6 GM/dL (11.7-16.9); MCH 28.2 pg (25.7-33.7); MCHC 33.5 g/dl (32.0-35.9); MEAN CELL VOLUME 84.1 fl (80-96); MEAN PLT VOLUME 7.6 fl (7.5-11.1); PLATELET COUNT 619 10^3/uL (134-434); RBC 3.04 M/mm3 (4.00-5.60); RDW 15.3 % (11.9-15.9); WHITE BLOOD COUNT 15.3 K/mm3 (4.0-10.0)
[2022-08-28 08:55] LABS: CALCIUM 8.8 mg/dL (8.5-10.1)
[2022-08-28 08:56] LABS: BLOOD UREA NITROGEN 16.2 mg/dL (7-18); MAGNESIUM 1.9 mg/dL (1.8-2.4)
[2022-08-28 08:59] LABS: CREATININE 0.9 mg/dL (0.55-1.3); PHOSPHOROUS 2.2 mg/dL (2.5-4.9)
[2022-08-28] MEDS ORDERED: LACTATED RINGERS SOLUTION 1,000 ML/1,000 ML INFUS.BAG IV STA (10:01)
[2022-08-28] MEDS: CALCIUM ACETATE 667 MG CAPSULE (FP) PO SCH (10:10)
[2022-08-28] MEDS: CALCIUM CARBONATE 650 MG TABLET PO SCH ×2 (10:11→21:27)
[2022-08-28] MEDS: AMINO ACIDS/PROTEIN HYDROLYS 30 ML LIQUID.PKT PO SCH ×4 (10:12→17:23)
[2022-08-28] MEDS: FERROUS SO4 325 MG TABLET (FP) PO SCH (10:12)
[2022-08-28] MEDS: MEGESTROL ACETATE 400 MG/10 ML UNIT DOSE CUP PO SCH (10:12)
[2022-08-28] MEDS: MIDODRINE HCL 5 MG TABLET PO SCH ×3 (10:13→17:23)
[2022-08-28] MEDS: ZINC SULFATE 220 MG CAPSULE (FP) PO SCH (10:13)
[2022-08-28] MEDS: MULTIVITAMINS (DAILY MVI) TABLET (FP) PO SCH (10:14)
[2022-08-28] MEDS: CHOLESTYRAMINE/ASPARTAME 4 GM PACKET PO SCH ×4 (10:14→21:29)
[2022-08-28] MEDS: ASCORBIC ACID 250 MG TABLET (FP) PO SCH (10:15)
[2022-08-28] MEDS: THIAMINE HCL 100 MG TABLET (FP) PO SCH (10:15)
[2022-08-28] MEDS: CHOLECALCIFEROL (VIT D3) 1,000 UNIT (25 MCG) TABLET PO SCH (10:15)
[2022-08-28] MEDS: AMINO ACIDS 4.25%/D5W 1,000 ML IV SCH (10:16)
[2022-08-28] MEDS: SODIUM HYPOCHLORITE 0.25%- 473 ML BULK BOTTLE TP SCH (11:39)
[2022-08-28 13:16] LABS: VENOUS BASE EXCESS -3.7 mmol/L (-2-2); VENOUS O2 SATURATION 98.9 % (70-80); VENOUS PH 7.415 (7.310-7.410)
[2022-08-28] MEDS ORDERED: NAPH,MB-DB/K PH,MBDB POWDER PACKET PO ONE (14:00)
[2022-08-28] MEDS: MESALAMINE 800 MG TABLET.DR PO SCH ×2 (15:09→21:26)
[2022-08-28] MEDS: DEXTROSE 5%-LACTATED RINGERS 1,000 ML IV SCH (15:10)
[2022-08-28] MEDS: BANATROL PLUS POWDER PACKET PO SCH (21:27)
[2022-08-28] MEDS: ATORVASTATIN CA 10 MG TABLET (FP) PO SCH (21:28)
[2022-08-28] MEDS: MIRTAZAPINE 15 MG TABLET (FP) PO SCH (21:29)
[2022-08-28] MEDS: OLANZapine 5 MG TABLET PO SCH (21:30)
[2022-08-29] MEDS: LOPERAMIDE HCL 2 MG CAPSULE PO SCH ×4 (00:04→23:55)
[2022-08-29] MEDS: MEROPENEM 1 GM in DEXTROSE 5%-WATER 100 ML IVPB SCH ×3 (01:00→17:18)
[2022-08-29] MEDS: BISMUTH SUBSALICYLATE 524 MG/30 ML PO SCH ×3 (05:10→22:38)
[2022-08-29] MEDS: BANATROL PLUS POWDER PACKET PO SCH ×3 (05:10→22:35)
[2022-08-29] MEDS: MESALAMINE 800 MG TABLET.DR PO SCH ×3 (05:10→22:35)
[2022-08-29] MEDS: INSULIN (NOVOLOG) ASPART 100 UNITS/ML 10ML VIAL SQ SCH ×3 (06:01→16:54)
[2022-08-29] MEDS: INSULIN (LEVEMIR) 100 UNITS/ML UNITS SQ SCH ×2 (06:01→22:35)
[2022-08-29] MEDS: LEVOTHYROXINE NA 25 MCG TABLET (FP) PO SCH (06:01)
[2022-08-29] MEDS: INSULIN SLIDING SCALE (NOVOLOG) 1 VIAL SQ SCH ×4 (06:01→22:53)
[2022-08-29] MEDS: CALCIUM CARBONATE 650 MG TABLET PO SCH ×2 (08:43→22:34)
[2022-08-29] MEDS: AMINO ACIDS/PROTEIN HYDROLYS 30 ML LIQUID.PKT PO SCH ×5 (08:43→16:58)
[2022-08-29 09:20] LABS: HEMATOCRIT 26.1 % (35.4-49); HEMOGLOBIN 8.8 GM/dL (11.7-16.9); MCH 28.3 pg (25.7-33.7); MCHC 33.5 g/dl (32.0-35.9); MEAN CELL VOLUME 84.3 fl (80-96); PLATELET COUNT 652 10^3/uL (134-434); RDW 15.5 % (11.9-15.9); WHITE BLOOD COUNT 16.5 K/mm3 (4.0-10.0)
[2022-08-29 09:42] LABS: POTASSIUM 3.9 mmol/L (3.5-5.1)
[2022-08-29 09:45] LABS: BLOOD UREA NITROGEN 21.5 mg/dL (7-18); CALCIUM 8.6 mg/dL (8.5-10.1); MAGNESIUM 1.8 mg/dL (1.8-2.4)
[2022-08-29 09:49] LABS: PHOSPHOROUS 1.6 mg/dL (2.5-4.9)
[2022-08-29] MEDS ORDERED: THIAMINE HCL 200 MG/2 ML VIAL IVPB SCH (10:00)
[2022-08-29] MEDS: AMINO ACIDS 4.25%/D5W 1,000 ML IV SCH (10:35)
[2022-08-29] MEDS: ACETAMINOPHEN 500 MG TABLET (FP) PO PRN ×2 (10:37→18:07)
[2022-08-29] MEDS: CHOLECALCIFEROL (VIT D3) 1,000 UNIT (25 MCG) TABLET PO SCH (10:38)
[2022-08-29] MEDS: ZINC SULFATE 220 MG CAPSULE (FP) PO SCH (10:38)
[2022-08-29] MEDS: MIDODRINE HCL 5 MG TABLET PO SCH ×3 (10:39→18:00)
[2022-08-29] MEDS: THIAMINE HCL 100 MG TABLET (FP) PO SCH (10:39)
[2022-08-29] MEDS: FERROUS SO4 325 MG TABLET (FP) PO SCH (10:39)
[2022-08-29] MEDS: CHOLESTYRAMINE/ASPARTAME 4 GM PACKET PO SCH ×6 (10:39→22:34)
[2022-08-29] MEDS: ASCORBIC ACID 250 MG TABLET (FP) PO SCH (10:39)
[2022-08-29] MEDS: MEGESTROL ACETATE 400 MG/10 ML UNIT DOSE CUP PO SCH (10:40)
[2022-08-29] MEDS: MULTIVITAMINS (DAILY MVI) TABLET (FP) PO SCH (10:40)
[2022-08-29] MEDS: THIAMINE HCL 200 MG/2 ML VIAL IVPB SCH (10:55)
[2022-08-29] MEDS: SODIUM HYPOCHLORITE 0.25%- 473 ML BULK BOTTLE TP SCH (11:45)
[2022-08-29] MEDS ORDERED: SODIUM PHOSPHATE - 30 MM in SODIUM CHLORIDE 250 ML IVPB ONE (16:04)
[2022-08-29] MEDS: DEXTROSE 5%-LACTATED RINGERS 1,000 ML IV SCH ×2 (16:52→17:21)
[2022-08-29 17:09] LABS: GLIADIN ANTIBODY IGA 6 units (0-19); GLIADIN ANTIBODY IGG 4 units (0-19); TRANSGLUTAMINASE IGG 3 U/mL (0-5)
[2022-08-29] MEDS ORDERED: SODIUM PHOSPHATE - 15 MM in SODIUM CHLORIDE 250 ML IVPB ONE (17:10)
[2022-08-29] MEDS: OLANZapine 5 MG TABLET PO SCH (22:34)
[2022-08-29] MEDS: ATORVASTATIN CA 10 MG TABLET (FP) PO SCH (22:34)
[2022-08-29] MEDS: MIRTAZAPINE 15 MG TABLET (FP) PO SCH (22:34)
[2022-08-30] MEDS: MEROPENEM 1 GM in DEXTROSE 5%-WATER 100 ML IVPB SCH ×3 (01:50→18:48)
[2022-08-30] MEDS: DEXTROSE 5%-LACTATED RINGERS 1,000 ML IV SCH ×3 (02:01→15:09)
[2022-08-30] MEDS: BISMUTH SUBSALICYLATE 524 MG/30 ML PO SCH ×3 (06:16→21:44)
[2022-08-30] MEDS: LEVOTHYROXINE NA 25 MCG TABLET (FP) PO SCH (06:16)
[2022-08-30] MEDS: MESALAMINE 800 MG TABLET.DR PO SCH ×3 (06:16→21:43)
[2022-08-30] MEDS: BANATROL PLUS POWDER PACKET PO SCH ×3 (06:16→21:44)
[2022-08-30] MEDS: INSULIN (LEVEMIR) 100 UNITS/ML UNITS SQ SCH ×2 (06:23→21:44)
[2022-08-30] MEDS: INSULIN SLIDING SCALE (NOVOLOG) 1 VIAL SQ SCH ×4 (06:24→21:52)
[2022-08-30] MEDS: INSULIN (NOVOLOG) ASPART 100 UNITS/ML 10ML VIAL SQ SCH ×3 (06:24→17:14)
[2022-08-30] MEDS: ACETAMINOPHEN 500 MG TABLET (FP) PO PRN (06:30)
[2022-08-30] MEDS: AMINO ACIDS/PROTEIN HYDROLYS 30 ML LIQUID.PKT PO SCH ×3 (07:58→17:09)
[2022-08-30] MEDS: CALCIUM CARBONATE 650 MG TABLET PO SCH ×2 (08:00→21:42)
[2022-08-30] MEDS: THIAMINE HCL 200 MG/2 ML VIAL IVPB SCH (09:21)
[2022-08-30] MEDS: LOPERAMIDE HCL 2 MG CAPSULE PO SCH ×3 (09:22→23:46)
[2022-08-30] MEDS: FERROUS SO4 325 MG TABLET (FP) PO SCH (09:22)
[2022-08-30] MEDS: MULTIVITAMINS (DAILY MVI) TABLET (FP) PO SCH (09:22)
[2022-08-30] MEDS: ASCORBIC ACID 250 MG TABLET (FP) PO SCH (09:22)
[2022-08-30] MEDS: ZINC SULFATE 220 MG CAPSULE (FP) PO SCH (09:22)
[2022-08-30] MEDS: THIAMINE HCL 100 MG TABLET (FP) PO SCH (09:22)
[2022-08-30] MEDS: CHOLECALCIFEROL (VIT D3) 1,000 UNIT (25 MCG) TABLET PO SCH (09:22)
[2022-08-30] MEDS: SODIUM HYPOCHLORITE 0.25%- 473 ML BULK BOTTLE TP SCH (09:24)
[2022-08-30] MEDS: MIDODRINE HCL 5 MG TABLET PO SCH ×3 (09:26→18:27)
[2022-08-30] MEDS: CHOLESTYRAMINE/ASPARTAME 4 GM PACKET PO SCH ×4 (09:26→21:43)
[2022-08-30] MEDS: AMINO ACIDS 4.25%/D5W 1,000 ML IV SCH ×2 (09:26→10:36)
[2022-08-30] MEDS: MEGESTROL ACETATE 400 MG/10 ML UNIT DOSE CUP PO SCH (09:27)
[2022-08-30 09:49] LABS: POTASSIUM 3.9 mmol/L (3.5-5.1)
[2022-08-30 09:52] LABS: HEMOGLOBIN 8.7 GM/dL (11.7-16.9); MCH 28.9 pg (25.7-33.7); MCHC 34.9 g/dl (32.0-35.9); PLATELET COUNT 677 10^3/uL (134-434); RBC 3.01 M/mm3 (4.00-5.60); RDW 15.3 % (11.9-15.9); WHITE BLOOD COUNT 17.9 K/mm3 (4.0-10.0)
[2022-08-30 09:56] LABS: ALBUMIN 1.5 g/dl (3.4-5.0); CALCIUM 8.5 mg/dL (8.5-10.1); MAGNESIUM 1.6 mg/dL (1.8-2.4)
[2022-08-30 09:57] LABS: BLOOD UREA NITROGEN 21.7 mg/dL (7-18)
[2022-08-30 09:59] LABS: CREATININE 0.9 mg/dL (0.55-1.3); PHOSPHOROUS 1.9 mg/dL (2.5-4.9)
[2022-08-30 10:00] LABS: BILIRUBIN,TOTAL 0.1 mg/dL (0.2-1); TOT PROT 6.7 g/dl (6.4-8.2)
[2022-08-30] MEDS ORDERED: MAGNESIUM SULF 50% (8.12 MEQ/2 ML-1 GM VIAL) IVPB ONE (13:03)
[2022-08-30] MEDS ORDERED: SODIUM PHOSPHATE - 30 MM in SODIUM CHLORIDE 500 ML IVPB ONE (13:04)
[2022-08-30] MEDS: OLANZapine 5 MG TABLET PO SCH (21:43)
[2022-08-30] MEDS: ATORVASTATIN CA 10 MG TABLET (FP) PO SCH (21:43)
[2022-08-30] MEDS: MIRTAZAPINE 15 MG TABLET (FP) PO SCH (21:43)
[2022-08-31] MEDS: MEROPENEM 1 GM in DEXTROSE 5%-WATER 100 ML IVPB SCH ×3 (02:14→17:02)
[2022-08-31] MEDS: DEXTROSE 5%-LACTATED RINGERS 1,000 ML IV SCH ×2 (03:15→15:14)
[2022-08-31] MEDS: MESALAMINE 800 MG TABLET.DR PO SCH ×3 (06:28→21:53)
[2022-08-31] MEDS: LEVOTHYROXINE NA 25 MCG TABLET (FP) PO SCH (06:28)
[2022-08-31] MEDS: INSULIN (LEVEMIR) 100 UNITS/ML UNITS SQ SCH ×2 (06:28→21:55)
[2022-08-31] MEDS: INSULIN (NOVOLOG) ASPART 100 UNITS/ML 10ML VIAL SQ SCH ×3 (06:31→16:30)
[2022-08-31] MEDS: BANATROL PLUS POWDER PACKET PO SCH ×3 (06:31→21:51)
[2022-08-31] MEDS: BISMUTH SUBSALICYLATE 524 MG/30 ML PO SCH ×3 (06:31→21:54)
[2022-08-31] MEDS: INSULIN SLIDING SCALE (NOVOLOG) 1 VIAL SQ SCH ×4 (07:02→21:52)
[2022-08-31] MEDS: LOPERAMIDE HCL 2 MG CAPSULE PO SCH ×2 (08:49→17:02)
[2022-08-31] MEDS: AMINO ACIDS/PROTEIN HYDROLYS 30 ML LIQUID.PKT PO SCH ×4 (08:49→17:09)
[2022-08-31] MEDS: CALCIUM CARBONATE 650 MG TABLET PO SCH ×3 (08:49→21:55)
[2022-08-31] MEDS: CHOLECALCIFEROL (VIT D3) 1,000 UNIT (25 MCG) TABLET PO SCH (10:07)
[2022-08-31] MEDS: SODIUM HYPOCHLORITE 0.25%- 473 ML BULK BOTTLE TP SCH (10:07)
[2022-08-31] MEDS: ASCORBIC ACID 250 MG TABLET (FP) PO SCH (10:07)
[2022-08-31] MEDS: FERROUS SO4 325 MG TABLET (FP) PO SCH (10:07)
[2022-08-31] MEDS: MULTIVITAMINS (DAILY MVI) TABLET (FP) PO SCH (10:07)
[2022-08-31] MEDS: ZINC SULFATE 220 MG CAPSULE (FP) PO SCH (10:07)
[2022-08-31] MEDS: CHOLESTYRAMINE/ASPARTAME 4 GM PACKET PO SCH ×4 (10:08→21:51)
[2022-08-31] MEDS: THIAMINE HCL 100 MG TABLET (FP) PO SCH (10:08)
[2022-08-31] MEDS: MIDODRINE HCL 5 MG TABLET PO SCH ×3 (10:09→17:03)
[2022-08-31] MEDS: MEGESTROL ACETATE 400 MG/10 ML UNIT DOSE CUP PO SCH (10:09)
[2022-08-31] MEDS: THIAMINE HCL 200 MG/2 ML VIAL IVPB SCH (11:24)
[2022-08-31] MEDS: AMINO ACIDS 4.25%/D5W 1,000 ML IV SCH ×2 (11:25→15:14)
[2022-08-31] MEDS: MIRTAZAPINE 15 MG TABLET (FP) PO SCH (21:53)
[2022-08-31] MEDS: OLANZapine 5 MG TABLET PO SCH (21:53)
[2022-08-31] MEDS: ATORVASTATIN CA 10 MG TABLET (FP) PO SCH (21:53)
[2022-08-31] MEDS: morphine SULFATE 4 MG/ML VIAL IVPUSH PRN (22:19)
[2022-09-01] MEDS: MEROPENEM 1 GM in DEXTROSE 5%-WATER 100 ML IVPB SCH ×3 (01:45→17:18)
[2022-09-01] MEDS: LOPERAMIDE HCL 2 MG CAPSULE PO SCH ×3 (01:45→17:18)
[2022-09-01] MEDS: BANATROL PLUS POWDER PACKET PO SCH ×3 (06:05→21:55)
[2022-09-01] MEDS: INSULIN SLIDING SCALE (NOVOLOG) 1 VIAL SQ SCH ×4 (06:12→21:50)
[2022-09-01] MEDS: BISMUTH SUBSALICYLATE 524 MG/30 ML PO SCH ×3 (06:14→21:54)
[2022-09-01] MEDS: INSULIN (LEVEMIR) 100 UNITS/ML UNITS SQ SCH ×2 (06:19→21:51)
[2022-09-01] MEDS: INSULIN (NOVOLOG) ASPART 100 UNITS/ML 10ML VIAL SQ SCH ×3 (06:19→16:42)
[2022-09-01] MEDS: LEVOTHYROXINE NA 25 MCG TABLET (FP) PO SCH (06:19)
[2022-09-01] MEDS: MESALAMINE 800 MG TABLET.DR PO SCH ×3 (06:19→21:55)
[2022-09-01] MEDS: AMINO ACIDS/PROTEIN HYDROLYS 30 ML LIQUID.PKT PO SCH ×3 (08:31→17:26)
[2022-09-01] MEDS: CALCIUM CARBONATE 650 MG TABLET PO SCH ×2 (08:49→23:36)
[2022-09-01] MEDS: SODIUM HYPOCHLORITE 0.25%- 473 ML BULK BOTTLE TP SCH (10:02)
[2022-09-01] MEDS: ASCORBIC ACID 250 MG TABLET (FP) PO SCH ×2 (10:03→10:20)
[2022-09-01] MEDS: MULTIVITAMINS (DAILY MVI) TABLET (FP) PO SCH ×2 (10:03→10:20)
[2022-09-01] MEDS: THIAMINE HCL 100 MG TABLET (FP) PO SCH ×2 (10:03→10:20)
[2022-09-01] MEDS: FERROUS SO4 325 MG TABLET (FP) PO SCH ×2 (10:03→10:21)
[2022-09-01] MEDS: ZINC SULFATE 220 MG CAPSULE (FP) PO SCH ×2 (10:03→10:20)
[2022-09-01] MEDS: CHOLECALCIFEROL (VIT D3) 1,000 UNIT (25 MCG) TABLET PO SCH ×2 (10:03→10:20)
[2022-09-01] MEDS: MIDODRINE HCL 5 MG TABLET PO SCH ×4 (10:07→17:18)
[2022-09-01 10:08] LABS: HEMATOCRIT 23.6 % (35.4-49); HEMOGLOBIN 8.3 GM/dL (11.7-16.9); MEAN CELL VOLUME 82.9 fl (80-96); MEAN PLT VOLUME 7.3 fl (7.5-11.1); PLATELET COUNT 613 10^3/uL (134-434); RBC 2.85 M/mm3 (4.00-5.60); WHITE BLOOD COUNT 10.9 K/mm3 (4.0-10.0)
[2022-09-01] MEDS: MEGESTROL ACETATE 400 MG/10 ML UNIT DOSE CUP PO SCH (10:08)
[2022-09-01] MEDS: CHOLESTYRAMINE/ASPARTAME 4 GM PACKET PO SCH ×4 (10:08→21:53)
[2022-09-01] MEDS: THIAMINE HCL 200 MG/2 ML VIAL IVPB SCH ×2 (10:20→12:25)
[2022-09-01 11:10] LABS: POTASSIUM 3.7 mmol/L (3.5-5.1)
[2022-09-01] MEDS: AMINO ACIDS 4.25%/D5W 1,000 ML IV SCH ×2 (11:13→14:25)
[2022-09-01 11:23] LABS: CALCIUM 8.8 mg/dL (8.5-10.1)
[2022-09-01 11:24] LABS: ALBUMIN 1.6 g/dl (3.4-5.0)
[2022-09-01 11:26] LABS: PHOSPHOROUS 2.1 mg/dL (2.5-4.9)
[2022-09-01 11:27] LABS: BILIRUBIN,TOTAL 0.2 mg/dL (0.2-1); CREATININE 0.8 mg/dL (0.55-1.3); TOT PROT 6.8 g/dl (6.4-8.2)
[2022-09-01] MEDS: morphine SULFATE 4 MG/ML VIAL IVPUSH PRN ×2 (13:19→23:37)
[2022-09-01] MEDS ORDERED: POTASSIUM PHOSPHATE 20 MM in SODIUM CHLORIDE 250 ML IVPB ONE (14:01)
[2022-09-01] MEDS ORDERED: NAPH,MB-DB/K PH,MBDB POWDER PACKET PO ONE (14:03)
[2022-09-01] MEDS: DEXTROSE 5%-LACTATED RINGERS 1,000 ML IV SCH (16:43)
[2022-09-01] MEDS ORDERED: MEROPENEM 1 GM VIAL (RESTRICTED TO ID) IVPB ONE (17:16)
[2022-09-01] MEDS: ACETAMINOPHEN 500 MG TABLET (FP) PO PRN (17:17)
[2022-09-01] MEDS ORDERED: SODIUM CHLORIDE 1,000 ML IV STA (18:40)
[2022-09-01] MEDS: ATORVASTATIN CA 10 MG TABLET (FP) PO SCH (21:51)
[2022-09-01] MEDS: OLANZapine 5 MG TABLET PO SCH (21:51)
[2022-09-01] MEDS: MIRTAZAPINE 15 MG TABLET (FP) PO SCH (21:51)
[2022-09-02] MEDS: LOPERAMIDE HCL 2 MG CAPSULE PO SCH ×3 (00:07→17:33)
[2022-09-02] MEDS: MEROPENEM 1 GM in DEXTROSE 5%-WATER 100 ML IVPB SCH ×3 (02:12→17:34)
[2022-09-02] MEDS: DEXTROSE 5%-LACTATED RINGERS 1,000 ML IV SCH ×2 (05:38→14:23)
[2022-09-02] MEDS: BISMUTH SUBSALICYLATE 524 MG/30 ML PO SCH ×3 (06:03→21:04)
[2022-09-02] MEDS: BANATROL PLUS POWDER PACKET PO SCH ×3 (06:03→21:03)
[2022-09-02] MEDS: INSULIN (NOVOLOG) ASPART 100 UNITS/ML 10ML VIAL SQ SCH ×3 (06:03→17:33)
[2022-09-02] MEDS: LEVOTHYROXINE NA 25 MCG TABLET (FP) PO SCH (06:04)
[2022-09-02] MEDS: INSULIN (LEVEMIR) 100 UNITS/ML UNITS SQ SCH ×2 (06:04→21:06)
[2022-09-02] MEDS: MESALAMINE 800 MG TABLET.DR PO SCH ×3 (06:04→21:03)
[2022-09-02] MEDS: INSULIN SLIDING SCALE (NOVOLOG) 1 VIAL SQ SCH ×4 (06:04→21:06)
[2022-09-02 08:53] LABS: HEMATOCRIT 22.8 % (35.4-49); HEMOGLOBIN 7.6 GM/dL (11.7-16.9); MCH 27.6 pg (25.7-33.7); MCHC 33.2 g/dl (32.0-35.9); MEAN CELL VOLUME 83.1 fl (80-96); PLATELET COUNT 523 10^3/uL (134-434); RBC 2.74 M/mm3 (4.00-5.60); RDW 15.5 % (11.9-15.9); WHITE BLOOD COUNT 8.4 K/mm3 (4.0-10.0)
[2022-09-02 09:15] LABS: POTASSIUM 3.2 mmol/L (3.5-5.1)
[2022-09-02 09:17] LABS: CALCIUM 8.4 mg/dL (8.5-10.1)
[2022-09-02 09:18] LABS: ALBUMIN 1.4 g/dl (3.4-5.0); BLOOD UREA NITROGEN 14.7 mg/dL (7-18); MAGNESIUM 1.6 mg/dL (1.8-2.4)
[2022-09-02 09:21] LABS: CREATININE 0.8 mg/dL (0.55-1.3); PHOSPHOROUS 1.8 mg/dL (2.5-4.9)
[2022-09-02 09:22] LABS: TOT PROT 6.3 g/dl (6.4-8.2)
[2022-09-02 09:23] LABS: BILIRUBIN,TOTAL 0.2 mg/dL (0.2-1)
[2022-09-02] MEDS: SODIUM HYPOCHLORITE 0.25%- 473 ML BULK BOTTLE TP SCH (09:50)
[2022-09-02] MEDS: THIAMINE HCL 200 MG/2 ML VIAL IVPB SCH (09:51)
[2022-09-02] MEDS: AMINO ACIDS 4.25%/D5W 1,000 ML IV SCH (09:51)
[2022-09-02] MEDS: CALCIUM CARBONATE 650 MG TABLET PO SCH ×2 (10:20→21:03)
[2022-09-02] MEDS: AMINO ACIDS/PROTEIN HYDROLYS 30 ML LIQUID.PKT PO SCH ×3 (10:20→17:33)
[2022-09-02] MEDS: FERROUS SO4 325 MG TABLET (FP) PO SCH (10:20)
[2022-09-02] MEDS: CHOLECALCIFEROL (VIT D3) 1,000 UNIT (25 MCG) TABLET PO SCH (10:21)
[2022-09-02] MEDS: MIDODRINE HCL 5 MG TABLET PO SCH ×3 (10:21→17:34)
[2022-09-02] MEDS: MEGESTROL ACETATE 400 MG/10 ML UNIT DOSE CUP PO SCH (10:21)
[2022-09-02] MEDS: ZINC SULFATE 220 MG CAPSULE (FP) PO SCH (10:21)
[2022-09-02] MEDS: ASCORBIC ACID 250 MG TABLET (FP) PO SCH (10:21)
[2022-09-02] MEDS: THIAMINE HCL 100 MG TABLET (FP) PO SCH (10:21)
[2022-09-02] MEDS: MULTIVITAMINS (DAILY MVI) TABLET (FP) PO SCH (10:21)
[2022-09-02] MEDS: CHOLESTYRAMINE/ASPARTAME 4 GM PACKET PO SCH ×4 (10:21→21:04)
[2022-09-02] MEDS ORDERED: MAGNESIUM SULF 50% (8.12 MEQ/2 ML-1 GM VIAL) IVPB ONE (12:30)
[2022-09-02] MEDS ORDERED: POTASSIUM PHOSPHATE 30 MM in SODIUM CHLORIDE 500 ML IVPB ONE (13:00)
[2022-09-02] MEDS: morphine SULFATE 4 MG/ML VIAL IVPUSH PRN (13:36)
[2022-09-02] MEDS: MIRTAZAPINE 15 MG TABLET (FP) PO SCH (21:04)
[2022-09-02] MEDS: NAPH,MB-DB/K PH,MBDB POWDER PACKET PO SCH (21:04)
[2022-09-02] MEDS: OLANZapine 5 MG TABLET PO SCH (21:04)
[2022-09-03] MEDS: LOPERAMIDE HCL 2 MG CAPSULE PO SCH ×3 (00:04→16:08)
[2022-09-03] MEDS: MEROPENEM 1 GM in DEXTROSE 5%-WATER 100 ML IVPB SCH ×3 (01:05→17:07)
[2022-09-03] MEDS: MESALAMINE 800 MG TABLET.DR PO SCH ×3 (06:14→21:46)
[2022-09-03] MEDS: BISMUTH SUBSALICYLATE 524 MG/30 ML PO SCH ×3 (06:14→21:45)
[2022-09-03] MEDS: BANATROL PLUS POWDER PACKET PO SCH ×4 (06:14→21:47)
[2022-09-03] MEDS: INSULIN (LEVEMIR) 100 UNITS/ML UNITS SQ SCH ×2 (06:15→21:48)
[2022-09-03] MEDS: INSULIN (NOVOLOG) ASPART 100 UNITS/ML 10ML VIAL SQ SCH ×3 (06:15→16:32)
[2022-09-03] MEDS: LEVOTHYROXINE NA 25 MCG TABLET (FP) PO SCH (06:16)
[2022-09-03] MEDS: INSULIN SLIDING SCALE (NOVOLOG) 1 VIAL SQ SCH ×4 (06:16→21:48)
[2022-09-03] MEDS ORDERED: ERAVACYCLINE DI HYDROCHLORIDE IVPB SCH ×2 (08:30→12:15)
[2022-09-03] MEDS ORDERED: SODIUM CHLORIDE IVPB SCH ×2 (08:30→12:15)
[2022-09-03 09:10] LABS: HEMATOCRIT 22.7 % (35.4-49); HEMOGLOBIN 7.6 GM/dL (11.7-16.9); MCH 27.8 pg (25.7-33.7); MCHC 33.6 g/dl (32.0-35.9); MEAN CELL VOLUME 82.7 fl (80-96); MEAN PLT VOLUME 7.3 fl (7.5-11.1); PLATELET COUNT 482 10^3/uL (134-434); RBC 2.75 M/mm3 (4.00-5.60); RDW 15.1 % (11.9-15.9); WHITE BLOOD COUNT 8.1 K/mm3 (4.0-10.0)
[2022-09-03 09:30] LABS: POTASSIUM 3.7 mmol/L (3.5-5.1)
[2022-09-03 09:36] LABS: CALCIUM 8.5 mg/dL (8.5-10.1)
[2022-09-03 09:37] LABS: ALBUMIN 1.4 g/dl (3.4-5.0); MAGNESIUM 1.9 mg/dL (1.8-2.4)
[2022-09-03 09:40] LABS: CREATININE 0.8 mg/dL (0.55-1.3)
[2022-09-03 09:41] LABS: BILIRUBIN,TOTAL 0.2 mg/dL (0.2-1); TOT PROT 6.4 g/dl (6.4-8.2)
[2022-09-03] MEDS: CALCIUM CARBONATE 650 MG TABLET PO SCH ×2 (09:51→21:47)
[2022-09-03] MEDS: AMINO ACIDS/PROTEIN HYDROLYS 30 ML LIQUID.PKT PO SCH ×3 (09:52→17:08)
[2022-09-03] MEDS: CHOLECALCIFEROL (VIT D3) 1,000 UNIT (25 MCG) TABLET PO SCH (09:53)
[2022-09-03] MEDS: FERROUS SO4 325 MG TABLET (FP) PO SCH (09:53)
[2022-09-03] MEDS: THIAMINE HCL 100 MG TABLET (FP) PO SCH (09:53)
[2022-09-03] MEDS: ZINC SULFATE 220 MG CAPSULE (FP) PO SCH (09:53)
[2022-09-03] MEDS: NAPH,MB-DB/K PH,MBDB POWDER PACKET PO SCH (09:54)
[2022-09-03] MEDS: MULTIVITAMINS (DAILY MVI) TABLET (FP) PO SCH (09:54)
[2022-09-03] MEDS: ASCORBIC ACID 250 MG TABLET (FP) PO SCH (09:54)
[2022-09-03] MEDS: SODIUM HYPOCHLORITE 0.25%- 473 ML BULK BOTTLE TP SCH (09:57)
[2022-09-03] MEDS: predniSONE 20 MG TABLET (UD) PO SCH (09:57)
[2022-09-03] MEDS: CHOLESTYRAMINE/ASPARTAME 4 GM PACKET PO SCH ×5 (09:58→21:47)
[2022-09-03] MEDS: ERGOCALCIFEROL (VIT D2) 50,000 UNIT (1.25 MG) CAPSULE PO SCH (09:58)
[2022-09-03] MEDS: MIDODRINE HCL 5 MG TABLET PO SCH ×3 (10:00→17:10)
[2022-09-03] MEDS: AMINO ACIDS 4.25%/D5W 1,000 ML IV SCH (11:05)
[2022-09-03] MEDS: morphine SULFATE 4 MG/ML VIAL IVPUSH PRN (11:36)
[2022-09-03] MEDS ORDERED: POTASSIUM PHOSPHATE 20 MM in SODIUM CHLORIDE 250 ML IVPB ONE (11:58)
[2022-09-03] MEDS: THIAMINE HCL 200 MG/2 ML VIAL IVPB SCH (13:48)
[2022-09-03] MEDS: DEXTROSE 5%-LACTATED RINGERS 1,000 ML IV SCH (16:12)
[2022-09-03] MEDS: MIRTAZAPINE 15 MG TABLET (FP) PO SCH (21:46)
[2022-09-03] MEDS: OLANZapine 5 MG TABLET PO SCH (21:46)
[2022-09-04] MEDS: ERAVACYCLINE DI HYDROCHLORIDE IVPB SCH ×2 (00:04→12:48)
[2022-09-04] MEDS: SODIUM CHLORIDE IVPB SCH ×2 (00:04→12:48)
[2022-09-04] MEDS: DEXTROSE 5%-LACTATED RINGERS 1,000 ML IV SCH ×2 (00:07→16:10)
[2022-09-04] MEDS: LOPERAMIDE HCL 2 MG CAPSULE PO SCH ×3 (00:35→16:10)
[2022-09-04] MEDS: MEROPENEM 1 GM in DEXTROSE 5%-WATER 100 ML IVPB SCH ×3 (01:34→17:49)
[2022-09-04] MEDS: INSULIN (LEVEMIR) 100 UNITS/ML UNITS SQ SCH ×2 (06:10→22:28)
[2022-09-04] MEDS: MESALAMINE 800 MG TABLET.DR PO SCH ×3 (06:10→22:30)
[2022-09-04] MEDS: BISMUTH SUBSALICYLATE 524 MG/30 ML PO SCH ×3 (06:10→22:32)
[2022-09-04] MEDS: LEVOTHYROXINE NA 25 MCG TABLET (FP) PO SCH (06:10)
[2022-09-04] MEDS ORDERED: INSULIN (NOVOLOG) ASPART 100 UNITS/ML 10ML VIAL ONE (06:36)
[2022-09-04] MEDS: INSULIN SLIDING SCALE (NOVOLOG) 1 VIAL SQ SCH ×4 (06:47→22:29)
[2022-09-04] MEDS: INSULIN (NOVOLOG) ASPART 100 UNITS/ML 10ML VIAL SQ SCH ×3 (06:47→16:10)
[2022-09-04] MEDS: BANATROL PLUS POWDER PACKET PO SCH ×3 (06:51→22:31)
[2022-09-04] MEDS ORDERED: INSULIN (LEVEMIR) 100 UNITS/ML UNITS SQ ONE (06:58)
[2022-09-04 08:20] LABS: POTASSIUM 4.1 mmol/L (3.5-5.1)
[2022-09-04 08:26] LABS: ALBUMIN 1.4 g/dl (3.4-5.0); HEMATOCRIT 24.3 % (35.4-49); HEMOGLOBIN 8.5 GM/dL (11.7-16.9); MCH 28.6 pg (25.7-33.7); MCHC 34.8 g/dl (32.0-35.9); MEAN CELL VOLUME 82.2 fl (80-96); MEAN PLT VOLUME 7.8 fl (7.5-11.1); PLATELET COUNT 541 10^3/uL (134-434); RBC 2.95 M/mm3 (4.00-5.60); RDW 14.8 % (11.9-15.9); WHITE BLOOD COUNT 8.4 K/mm3 (4.0-10.0)
[2022-09-04 08:27] LABS: CREATININE 0.8 mg/dL (0.55-1.3)
[2022-09-04 08:29] LABS: BILIRUBIN,TOTAL 0.1 mg/dL (0.2-1); TOT PROT 6.7 g/dl (6.4-8.2)
[2022-09-04 08:31] LABS: BLOOD UREA NITROGEN 22.6 mg/dL (7-18); MAGNESIUM 1.8 mg/dL (1.8-2.4); PHOSPHOROUS 2.4 mg/dL (2.5-4.9)
[2022-09-04] MEDS: AMINO ACIDS/PROTEIN HYDROLYS 30 ML LIQUID.PKT PO SCH ×4 (09:28→17:50)
[2022-09-04] MEDS: CHOLECALCIFEROL (VIT D3) 1,000 UNIT (25 MCG) TABLET PO SCH (09:30)
[2022-09-04] MEDS: FERROUS SO4 325 MG TABLET (FP) PO SCH (09:30)
[2022-09-04] MEDS: ZINC SULFATE 220 MG CAPSULE (FP) PO SCH (09:30)
[2022-09-04] MEDS: ASCORBIC ACID 250 MG TABLET (FP) PO SCH (09:30)
[2022-09-04] MEDS: MULTIVITAMINS (DAILY MVI) TABLET (FP) PO SCH (09:31)
[2022-09-04] MEDS: SODIUM HYPOCHLORITE 0.25%- 473 ML BULK BOTTLE TP SCH (09:32)
[2022-09-04] MEDS: MIDODRINE HCL 5 MG TABLET PO SCH ×3 (09:32→17:51)
[2022-09-04] MEDS: CHOLESTYRAMINE/ASPARTAME 4 GM PACKET PO SCH ×4 (09:37→22:32)
[2022-09-04] MEDS ORDERED: SODIUM PHOSPHATE - 20 MM in SODIUM CHLORIDE 250 ML IVPB ONE (10:03)
[2022-09-04] MEDS: AMINO ACIDS 4.25%/D5W 1,000 ML IV SCH (10:33)
[2022-09-04] MEDS: THIAMINE HCL 200 MG/2 ML VIAL IVPB SCH (10:37)
[2022-09-04] MEDS: predniSONE 20 MG TABLET (UD) PO SCH (10:40)
[2022-09-04] MEDS: CALCIUM CARBONATE 650 MG TABLET PO SCH (12:22)
[2022-09-04 16:08] LABS: STOOL OSMO 551 mOsmol/kg (Not Estab.)
[2022-09-04] MEDS: OLANZapine 5 MG TABLET PO SCH (22:29)
[2022-09-04] MEDS: MIRTAZAPINE 15 MG TABLET (FP) PO SCH (22:29)
[2022-09-05] MEDS: CALCIUM CARBONATE 650 MG TABLET PO SCH ×3 (00:48→22:13)
[2022-09-05] MEDS: SODIUM CHLORIDE IVPB SCH ×2 (00:48→14:23)
[2022-09-05] MEDS: ERAVACYCLINE DI HYDROCHLORIDE IVPB SCH ×2 (00:48→14:23)
[2022-09-05] MEDS: LOPERAMIDE HCL 2 MG CAPSULE PO SCH ×3 (00:49→17:04)
[2022-09-05] MEDS: MEROPENEM 1 GM in DEXTROSE 5%-WATER 100 ML IVPB SCH ×3 (02:18→17:05)
[2022-09-05] MEDS: BANATROL PLUS POWDER PACKET PO SCH ×3 (06:31→22:14)
[2022-09-05] MEDS: BISMUTH SUBSALICYLATE 524 MG/30 ML PO SCH ×3 (06:31→22:14)
[2022-09-05] MEDS: MESALAMINE 800 MG TABLET.DR PO SCH ×3 (06:31→22:13)
[2022-09-05] MEDS: LEVOTHYROXINE NA 25 MCG TABLET (FP) PO SCH (06:31)
[2022-09-05] MEDS: INSULIN (LEVEMIR) 100 UNITS/ML UNITS SQ SCH ×2 (06:32→22:11)
[2022-09-05] MEDS: INSULIN SLIDING SCALE (NOVOLOG) 1 VIAL SQ SCH ×4 (06:34→22:12)
[2022-09-05] MEDS: INSULIN (NOVOLOG) ASPART 100 UNITS/ML 10ML VIAL SQ SCH ×3 (06:35→16:57)
[2022-09-05 08:22] LABS: POTASSIUM 4.1 mmol/L (3.5-5.1)
[2022-09-05 08:25] LABS: CALCIUM 8.6 mg/dL (8.5-10.1)
[2022-09-05 08:26] LABS: ALBUMIN 1.4 g/dl (3.4-5.0); MAGNESIUM 1.8 mg/dL (1.8-2.4)
[2022-09-05 08:29] LABS: CREATININE 0.9 mg/dL (0.55-1.3); PHOSPHOROUS 2.9 mg/dL (2.5-4.9)
[2022-09-05 08:31] LABS: BILIRUBIN,TOTAL 0.2 mg/dL (0.2-1); TOT PROT 6.8 g/dl (6.4-8.2)
[2022-09-05 08:32] LABS: INR 1.25 (0.83-1.09); PROTHROMBIN TIME (PATIENT) 14.5 SEC (9.7-13.0)
[2022-09-05] MEDS: AMINO ACIDS/PROTEIN HYDROLYS 30 ML LIQUID.PKT PO SCH ×3 (08:34→16:58)
[2022-09-05 08:42] LABS: HEMATOCRIT 22.5 % (35.4-49); HEMOGLOBIN 8.2 GM/dL (11.7-16.9); MCH 29.8 pg (25.7-33.7); MCHC 36.4 g/dl (32.0-35.9); MEAN CELL VOLUME 81.9 fl (80-96); MEAN PLT VOLUME 7.5 fl (7.5-11.1); PLATELET COUNT 561 10^3/uL (134-434); RBC 2.74 M/mm3 (4.00-5.60); RDW 14.8 % (11.9-15.9); WHITE BLOOD COUNT 7.5 K/mm3 (4.0-10.0)
[2022-09-05] MEDS: SODIUM HYPOCHLORITE 0.25%- 473 ML BULK BOTTLE TP SCH (09:15)
[2022-09-05] MEDS: THIAMINE HCL 200 MG/2 ML VIAL IVPB SCH (09:24)
[2022-09-05] MEDS: CHOLECALCIFEROL (VIT D3) 1,000 UNIT (25 MCG) TABLET PO SCH (09:25)
[2022-09-05] MEDS: predniSONE 20 MG TABLET (UD) PO SCH (09:25)
[2022-09-05] MEDS: MULTIVITAMINS (DAILY MVI) TABLET (FP) PO SCH (09:25)
[2022-09-05] MEDS: FERROUS SO4 325 MG TABLET (FP) PO SCH (09:25)
[2022-09-05] MEDS: ZINC SULFATE 220 MG CAPSULE (FP) PO SCH (09:25)
[2022-09-05] MEDS: ASCORBIC ACID 250 MG TABLET (FP) PO SCH (09:25)
[2022-09-05] MEDS: MIDODRINE HCL 5 MG TABLET PO SCH ×3 (09:26→17:05)
[2022-09-05] MEDS: CHOLESTYRAMINE/ASPARTAME 4 GM PACKET PO SCH ×4 (09:26→22:14)
[2022-09-05] MEDS: AMINO ACIDS 4.25%/D5W 1,000 ML IV SCH (14:22)
[2022-09-05] MEDS ORDERED: INSULIN (LEVEMIR) 100 UNITS/ML UNITS SQ ONE (18:21)
[2022-09-05] MEDS ORDERED: INSULIN (NOVOLOG) ASPART 100 UNITS/ML 10ML VIAL ONE (18:21)
[2022-09-05] MEDS: MIRTAZAPINE 15 MG TABLET (FP) PO SCH (22:12)
[2022-09-05] MEDS: OLANZapine 5 MG TABLET PO SCH (22:13)
[2022-09-06] MEDS: LOPERAMIDE HCL 2 MG CAPSULE PO SCH ×4 (00:44→23:52)
[2022-09-06] MEDS: SODIUM CHLORIDE IVPB SCH ×3 (01:06→23:52)
[2022-09-06] MEDS: ERAVACYCLINE DI HYDROCHLORIDE IVPB SCH ×3 (01:06→23:52)
[2022-09-06] MEDS: AMINO ACIDS 4.25%/D5W 1,000 ML IV SCH ×4 (01:37→22:49)
[2022-09-06] MEDS: MEROPENEM 1 GM in DEXTROSE 5%-WATER 100 ML IVPB SCH ×3 (02:08→17:52)
[2022-09-06] MEDS: INSULIN (LEVEMIR) 100 UNITS/ML UNITS SQ SCH ×2 (06:34→22:40)
[2022-09-06] MEDS: LEVOTHYROXINE NA 25 MCG TABLET (FP) PO SCH (06:34)
[2022-09-06] MEDS: MESALAMINE 800 MG TABLET.DR PO SCH ×3 (06:34→22:41)
[2022-09-06] MEDS: INSULIN (NOVOLOG) ASPART 100 UNITS/ML 10ML VIAL SQ SCH ×3 (06:35→16:33)
[2022-09-06] MEDS: INSULIN SLIDING SCALE (NOVOLOG) 1 VIAL SQ SCH ×4 (06:35→22:42)
[2022-09-06] MEDS: BISMUTH SUBSALICYLATE 524 MG/30 ML PO SCH ×3 (06:36→22:40)
[2022-09-06] MEDS: BANATROL PLUS POWDER PACKET PO SCH ×3 (06:36→22:37)
[2022-09-06 08:26] LABS: INR 1.17 (0.83-1.09); PROTHROMBIN TIME (PATIENT) 13.6 SEC (9.7-13.0)
[2022-09-06 08:28] LABS: HEMATOCRIT 25.5 % (35.4-49); HEMOGLOBIN 8.9 GM/dL (11.7-16.9); MCH 28.6 pg (25.7-33.7); MEAN CELL VOLUME 81.8 fl (80-96); MEAN PLT VOLUME 7.4 fl (7.5-11.1); PLATELET COUNT 556 10^3/uL (134-434); RBC 3.12 M/mm3 (4.00-5.60); RDW 14.5 % (11.9-15.9); WHITE BLOOD COUNT 9.4 K/mm3 (4.0-10.0)
[2022-09-06 08:39] LABS: POTASSIUM 3.7 mmol/L (3.5-5.1)
[2022-09-06 08:44] LABS: ALBUMIN 1.6 g/dl (3.4-5.0)
[2022-09-06 08:45] LABS: BLOOD UREA NITROGEN 45.2 mg/dL (7-18)
[2022-09-06 08:46] LABS: MAGNESIUM 1.7 mg/dL (1.8-2.4)
[2022-09-06 08:48] LABS: PHOSPHOROUS 1.9 mg/dL (2.5-4.9)
[2022-09-06 08:49] LABS: BILIRUBIN,TOTAL 0.4 mg/dL (0.2-1); CREATININE 0.9 mg/dL (0.55-1.3); TOT PROT 7.3 g/dl (6.4-8.2)
[2022-09-06] MEDS: CALCIUM CARBONATE 650 MG TABLET PO SCH ×2 (09:00→22:41)
[2022-09-06] MEDS: AMINO ACIDS/PROTEIN HYDROLYS 30 ML LIQUID.PKT PO SCH ×3 (09:00→17:53)
[2022-09-06] MEDS: ZINC SULFATE 220 MG CAPSULE (FP) PO SCH (11:11)
[2022-09-06] MEDS: predniSONE 20 MG TABLET (UD) PO SCH (11:12)
[2022-09-06] MEDS: CHOLECALCIFEROL (VIT D3) 1,000 UNIT (25 MCG) TABLET PO SCH (11:12)
[2022-09-06] MEDS: THIAMINE HCL 200 MG/2 ML VIAL IVPB SCH (11:13)
[2022-09-06] MEDS: ASCORBIC ACID 250 MG TABLET (FP) PO SCH (11:13)
[2022-09-06] MEDS: MIDODRINE HCL 5 MG TABLET PO SCH ×3 (11:14→17:52)
[2022-09-06] MEDS: FERROUS SO4 325 MG TABLET (FP) PO SCH (11:14)
[2022-09-06] MEDS: CHOLESTYRAMINE/ASPARTAME 4 GM PACKET PO SCH ×4 (11:15→22:42)
[2022-09-06] MEDS: MULTIVITAMINS (DAILY MVI) TABLET (FP) PO SCH (11:27)
[2022-09-06] MEDS ORDERED: MAGNESIUM SULF 50% (8.12 MEQ/2 ML-1 GM VIAL) IVPB ONE (11:33)
[2022-09-06] MEDS ORDERED: POTASSIUM PHOSPHATE 30 MM in SODIUM CHLORIDE 500 ML IVPB ONE ×2 (13:00→14:30)
[2022-09-06] MEDS: OLANZapine 5 MG TABLET PO SCH (22:41)
[2022-09-06] MEDS: MIRTAZAPINE 15 MG TABLET (FP) PO SCH (22:41)
[2022-09-07] MEDS ORDERED: MEROPENEM 1 GM VIAL (RESTRICTED TO ID) IVPB ONE ×2 (02:21→17:11)
[2022-09-07] MEDS: MEROPENEM 1 GM in DEXTROSE 5%-WATER 100 ML IVPB SCH ×3 (02:24→17:24)
[2022-09-07] MEDS: BISMUTH SUBSALICYLATE 524 MG/30 ML PO SCH ×3 (06:15→21:04)
[2022-09-07] MEDS: BANATROL PLUS POWDER PACKET PO SCH ×3 (06:15→21:03)
[2022-09-07] MEDS: LEVOTHYROXINE NA 25 MCG TABLET (FP) PO SCH (06:16)
[2022-09-07] MEDS: MESALAMINE 800 MG TABLET.DR PO SCH ×3 (06:16→21:03)
[2022-09-07] MEDS: INSULIN (LEVEMIR) 100 UNITS/ML UNITS SQ SCH ×2 (06:16→21:03)
[2022-09-07] MEDS: INSULIN (NOVOLOG) ASPART 100 UNITS/ML 10ML VIAL SQ SCH ×3 (06:17→16:27)
[2022-09-07] MEDS: INSULIN SLIDING SCALE (NOVOLOG) 1 VIAL SQ SCH ×4 (06:17→21:04)
[2022-09-07 07:54] LABS: HEMOGLOBIN 8.8 GM/dL (11.7-16.9); MCH 27.7 pg (25.7-33.7); MCHC 33.9 g/dl (32.0-35.9); MEAN CELL VOLUME 81.8 fl (80-96); MEAN PLT VOLUME 6.7 fl (7.5-11.1); PLATELET COUNT 541 10^3/uL (134-434); RBC 3.17 M/mm3 (4.00-5.60); RDW 14.7 % (11.9-15.9); WHITE BLOOD COUNT 9.5 K/mm3 (4.0-10.0)
[2022-09-07 08:02] LABS: INR 1.24 (0.83-1.09); PROTHROMBIN TIME (PATIENT) 14.4 SEC (9.7-13.0)
[2022-09-07] MEDS: AMINO ACIDS/PROTEIN HYDROLYS 30 ML LIQUID.PKT PO SCH ×3 (08:10→17:45)
[2022-09-07] MEDS: CALCIUM CARBONATE 650 MG TABLET PO SCH ×2 (08:10→21:03)
[2022-09-07] MEDS: LOPERAMIDE HCL 2 MG CAPSULE PO SCH ×2 (08:11→16:21)
[2022-09-07 08:13] LABS: POTASSIUM 3.5 mmol/L (3.5-5.1)
[2022-09-07 08:22] LABS: ALBUMIN 1.6 g/dl (3.4-5.0); BLOOD UREA NITROGEN 38.9 mg/dL (7-18); CALCIUM 8.5 mg/dL (8.5-10.1)
[2022-09-07 08:23] LABS: MAGNESIUM 1.9 mg/dL (1.8-2.4)
[2022-09-07 08:26] LABS: CREATININE 0.9 mg/dL (0.55-1.3); PHOSPHOROUS 2.6 mg/dL (2.5-4.9)
[2022-09-07 08:27] LABS: BILIRUBIN,TOTAL 0.1 mg/dL (0.2-1); TOT PROT 7.1 g/dl (6.4-8.2)
[2022-09-07] MEDS: ZINC SULFATE 220 MG CAPSULE (FP) PO SCH (09:15)
[2022-09-07] MEDS: MULTIVITAMINS (DAILY MVI) TABLET (FP) PO SCH (09:16)
[2022-09-07] MEDS: ASCORBIC ACID 250 MG TABLET (FP) PO SCH (09:16)
[2022-09-07] MEDS: predniSONE 20 MG TABLET (UD) PO SCH (09:23)
[2022-09-07] MEDS: THIAMINE HCL 200 MG/2 ML VIAL IVPB SCH (09:23)
[2022-09-07] MEDS: MIDODRINE HCL 5 MG TABLET PO SCH ×3 (09:23→17:26)
[2022-09-07] MEDS: FERROUS SO4 325 MG TABLET (FP) PO SCH (09:23)
[2022-09-07] MEDS: CHOLESTYRAMINE/ASPARTAME 4 GM PACKET PO SCH ×4 (09:24→21:05)
[2022-09-07] MEDS: CHOLECALCIFEROL (VIT D3) 1,000 UNIT (25 MCG) TABLET PO SCH (09:25)
[2022-09-07] MEDS: SODIUM CHLORIDE IVPB SCH ×2 (11:16→23:00)
[2022-09-07] MEDS: ERAVACYCLINE DI HYDROCHLORIDE IVPB SCH ×2 (11:16→23:00)
[2022-09-07] MEDS: AMINO ACIDS 4.25%/D5W 1,000 ML IV SCH (13:39)
[2022-09-07] MEDS ORDERED: INSULIN (NOVOLOG) ASPART 100 UNITS/ML 10ML VIAL ONE (20:32)
[2022-09-07] MEDS: MIRTAZAPINE 15 MG TABLET (FP) PO SCH (21:05)
[2022-09-07] MEDS: OLANZapine 5 MG TABLET PO SCH (21:05)
[2022-09-08] MEDS: LOPERAMIDE HCL 2 MG CAPSULE PO SCH ×3 (01:03→17:17)
[2022-09-08] MEDS: MEROPENEM 1 GM in DEXTROSE 5%-WATER 100 ML IVPB SCH ×3 (01:03→19:02)
[2022-09-08] MEDS: AMINO ACIDS 4.25%/D5W 1,000 ML IV SCH ×2 (02:14→15:41)
[2022-09-08] MEDS: BANATROL PLUS POWDER PACKET PO SCH ×2 (06:12→14:16)
[2022-09-08] MEDS: MESALAMINE 800 MG TABLET.DR PO SCH ×3 (06:12→22:40)
[2022-09-08] MEDS: BISMUTH SUBSALICYLATE 524 MG/30 ML PO SCH ×3 (06:12→22:40)
[2022-09-08] MEDS: INSULIN (NOVOLOG) ASPART 100 UNITS/ML 10ML VIAL SQ SCH ×3 (06:13→17:17)
[2022-09-08] MEDS: INSULIN (LEVEMIR) 100 UNITS/ML UNITS SQ SCH ×2 (06:13→22:01)
[2022-09-08] MEDS: INSULIN SLIDING SCALE (NOVOLOG) 1 VIAL SQ SCH ×4 (06:13→22:02)
[2022-09-08] MEDS: LEVOTHYROXINE NA 25 MCG TABLET (FP) PO SCH (06:14)
[2022-09-08 07:52] LABS: POTASSIUM 3.6 mmol/L (3.5-5.1)
[2022-09-08 07:56] LABS: CALCIUM 8.8 mg/dL (8.5-10.1)
[2022-09-08 07:57] LABS: ALBUMIN 1.6 g/dl (3.4-5.0); MAGNESIUM 1.8 mg/dL (1.8-2.4)
[2022-09-08 08:00] LABS: CREATININE 0.8 mg/dL (0.55-1.3); PHOSPHOROUS 1.4 mg/dL (2.5-4.9)
[2022-09-08 08:01] LABS: BILIRUBIN,TOTAL 0.3 mg/dL (0.2-1)
[2022-09-08 08:04] LABS: HEMATOCRIT 25.2 % (35.4-49); HEMOGLOBIN 8.6 GM/dL (11.7-16.9); MCH 28.2 pg (25.7-33.7); MCHC 34.1 g/dl (32.0-35.9); MEAN CELL VOLUME 82.5 fl (80-96); MEAN PLT VOLUME 7.5 fl (7.5-11.1); PLATELET COUNT 543 10^3/uL (134-434); RBC 3.05 M/mm3 (4.00-5.60); RDW 14.9 % (11.9-15.9)
[2022-09-08 08:11] LABS: INR 1.18 (0.83-1.09); PROTHROMBIN TIME (PATIENT) 13.7 SEC (9.7-13.0)
[2022-09-08] MEDS: CALCIUM CARBONATE 650 MG TABLET PO SCH ×2 (09:00→22:40)
[2022-09-08] MEDS: THIAMINE HCL 200 MG/2 ML VIAL IVPB SCH (10:11)
[2022-09-08] MEDS: CHOLECALCIFEROL (VIT D3) 1,000 UNIT (25 MCG) TABLET PO SCH (10:11)
[2022-09-08] MEDS: AMINO ACIDS/PROTEIN HYDROLYS 30 ML LIQUID.PKT PO SCH ×2 (10:11→13:04)
[2022-09-08] MEDS: predniSONE 20 MG TABLET (UD) PO SCH (10:12)
[2022-09-08] MEDS: MULTIVITAMINS (DAILY MVI) TABLET (FP) PO SCH (10:12)
[2022-09-08] MEDS: ZINC SULFATE 220 MG CAPSULE (FP) PO SCH (10:12)
[2022-09-08] MEDS: ASCORBIC ACID 250 MG TABLET (FP) PO SCH (10:13)
[2022-09-08] MEDS: FERROUS SO4 325 MG TABLET (FP) PO SCH (10:13)
[2022-09-08] MEDS: SODIUM CHLORIDE IVPB SCH (12:00)
[2022-09-08] MEDS: ERAVACYCLINE DI HYDROCHLORIDE IVPB SCH (12:00)
[2022-09-08] MEDS: CHOLESTYRAMINE/ASPARTAME 4 GM PACKET PO SCH ×4 (12:01→21:48)
[2022-09-08] MEDS: MIDODRINE HCL 5 MG TABLET PO SCH ×3 (12:01→19:03)
[2022-09-08] MEDS ORDERED: POTASSIUM PHOSPHATE 40 MM in SODIUM CHLORIDE 500 ML IVPB ONE (12:40)
[2022-09-08] MEDS: SILVER SULFADIAZINE 1% TOP CREAM 400 GM JAR TP SCH (15:00)
[2022-09-08] MEDS: OLANZapine 5 MG TABLET PO SCH (22:40)
[2022-09-08] MEDS: MIRTAZAPINE 15 MG TABLET (FP) PO SCH (22:40)
[2022-09-09] MEDS: LOPERAMIDE HCL 2 MG CAPSULE PO SCH ×3 (00:40→17:13)
[2022-09-09] MEDS: SODIUM CHLORIDE IVPB SCH ×2 (01:36→14:33)
[2022-09-09] MEDS: ERAVACYCLINE DI HYDROCHLORIDE IVPB SCH ×2 (01:36→14:33)
[2022-09-09] MEDS: MEROPENEM 1 GM in DEXTROSE 5%-WATER 100 ML IVPB SCH ×3 (03:00→17:13)
[2022-09-09] MEDS: INSULIN SLIDING SCALE (NOVOLOG) 1 VIAL SQ SCH ×4 (06:59→22:44)
[2022-09-09] MEDS: INSULIN (NOVOLOG) ASPART 100 UNITS/ML 10ML VIAL SQ SCH ×3 (07:00→17:12)
[2022-09-09] MEDS: MESALAMINE 800 MG TABLET.DR PO SCH ×2 (07:03→15:23)
[2022-09-09] MEDS: LEVOTHYROXINE NA 25 MCG TABLET (FP) PO SCH (07:03)
[2022-09-09] MEDS: INSULIN (LEVEMIR) 100 UNITS/ML UNITS SQ SCH ×2 (07:03→22:44)
[2022-09-09] MEDS: BISMUTH SUBSALICYLATE 524 MG/30 ML PO SCH ×3 (07:08→22:45)
[2022-09-09] MEDS: AMINO ACIDS/PROTEIN HYDROLYS 30 ML LIQUID.PKT PO SCH ×2 (07:50→08:01)
[2022-09-09] MEDS: CALCIUM CARBONATE 650 MG TABLET PO SCH ×2 (07:50→22:41)
[2022-09-09] MEDS: AMINO ACIDS 4.25%/D5W 1,000 ML IV SCH ×2 (07:51→13:31)
[2022-09-09 08:42] LABS: HEMATOCRIT 26.5 % (35.4-49); HEMOGLOBIN 9.2 GM/dL (11.7-16.9); MCH 28.3 pg (25.7-33.7); MCHC 34.6 g/dl (32.0-35.9); MEAN CELL VOLUME 81.9 fl (80-96); MEAN PLT VOLUME 7.4 fl (7.5-11.1); PLATELET COUNT 582 10^3/uL (134-434); RBC 3.24 M/mm3 (4.00-5.60); RDW 14.8 % (11.9-15.9); WHITE BLOOD COUNT 11.2 K/mm3 (4.0-10.0)
[2022-09-09 09:02] LABS: POTASSIUM 3.8 mmol/L (3.5-5.1)
[2022-09-09 09:09] LABS: ALBUMIN 1.7 g/dl (3.4-5.0); CALCIUM 8.7 mg/dL (8.5-10.1)
[2022-09-09 09:10] LABS: BLOOD UREA NITROGEN 43.5 mg/dL (7-18); MAGNESIUM 1.8 mg/dL (1.8-2.4)
[2022-09-09 09:12] LABS: PHOSPHOROUS 2.5 mg/dL (2.5-4.9)
[2022-09-09 09:13] LABS: BILIRUBIN,TOTAL 0.2 mg/dL (0.2-1); CREATININE 0.8 mg/dL (0.55-1.3); TOT PROT 7.1 g/dl (6.4-8.2)
[2022-09-09] MEDS: CHOLECALCIFEROL (VIT D3) 1,000 UNIT (25 MCG) TABLET PO SCH (09:30)
[2022-09-09] MEDS: ASCORBIC ACID 250 MG TABLET (FP) PO SCH (09:30)
[2022-09-09] MEDS: MULTIVITAMINS (DAILY MVI) TABLET (FP) PO SCH (09:30)
[2022-09-09] MEDS: FERROUS SO4 325 MG TABLET (FP) PO SCH (09:30)
[2022-09-09] MEDS: predniSONE 20 MG TABLET (UD) PO SCH (09:30)
[2022-09-09] MEDS: ZINC SULFATE 220 MG CAPSULE (FP) PO SCH (09:30)
[2022-09-09] MEDS: CHOLESTYRAMINE/ASPARTAME 4 GM PACKET PO SCH ×4 (10:35→22:46)
[2022-09-09] MEDS: MIDODRINE HCL 5 MG TABLET PO SCH ×3 (10:35→18:22)
[2022-09-09] MEDS: SILVER SULFADIAZINE 1% TOP CREAM 400 GM JAR TP SCH (10:38)
[2022-09-09] MEDS: THIAMINE HCL 200 MG/2 ML VIAL IVPB SCH (10:40)
[2022-09-09] MEDS: MIRTAZAPINE 15 MG TABLET (FP) PO SCH (22:41)
[2022-09-09] MEDS: OLANZapine 5 MG TABLET PO SCH (22:41)
[2022-09-10] MEDS: LOPERAMIDE HCL 2 MG CAPSULE PO SCH ×3 (00:32→17:28)
[2022-09-10] MEDS: ERAVACYCLINE DI HYDROCHLORIDE IVPB SCH ×3 (00:33→23:08)
[2022-09-10] MEDS: SODIUM CHLORIDE IVPB SCH ×3 (00:33→23:08)
[2022-09-10] MEDS: AMINO ACIDS 4.25%/D5W 1,000 ML IV SCH ×2 (00:38→13:40)
[2022-09-10] MEDS ORDERED: MEROPENEM 1 GM VIAL (RESTRICTED TO ID) IVPB ONE (01:35)
[2022-09-10] MEDS: MEROPENEM 1 GM in DEXTROSE 5%-WATER 100 ML IVPB SCH ×3 (02:07→17:23)
[2022-09-10] MEDS: MESALAMINE 800 MG TABLET.DR PO SCH ×4 (06:22→21:56)
[2022-09-10] MEDS: BISMUTH SUBSALICYLATE 524 MG/30 ML PO SCH ×3 (06:23→21:55)
[2022-09-10] MEDS: INSULIN (LEVEMIR) 100 UNITS/ML UNITS SQ SCH ×2 (06:23→22:05)
[2022-09-10] MEDS: INSULIN SLIDING SCALE (NOVOLOG) 1 VIAL SQ SCH ×4 (06:24→22:05)
[2022-09-10] MEDS: INSULIN (NOVOLOG) ASPART 100 UNITS/ML 10ML VIAL SQ SCH ×3 (06:24→17:37)
[2022-09-10] MEDS: LEVOTHYROXINE NA 25 MCG TABLET (FP) PO SCH (06:25)
[2022-09-10] MEDS ORDERED: predniSONE 20 MG TABLET (UD) PO SCH (10:30)
[2022-09-10 11:21] LABS: HEMOGLOBIN 8.9 GM/dL (11.7-16.9); MCH 27.3 pg (25.7-33.7); MCHC 33.1 g/dl (32.0-35.9); MEAN CELL VOLUME 82.6 fl (80-96); MEAN PLT VOLUME 7.1 fl (7.5-11.1); PLATELET COUNT 627 10^3/uL (134-434); RBC 3.27 M/mm3 (4.00-5.60); RDW 15.6 % (11.9-15.9); WHITE BLOOD COUNT 11.9 K/mm3 (4.0-10.0)
[2022-09-10] MEDS: MULTIVITAMINS (DAILY MVI) TABLET (FP) PO SCH (11:46)
[2022-09-10] MEDS: ZINC SULFATE 220 MG CAPSULE (FP) PO SCH (11:46)
[2022-09-10] MEDS: AMINO ACIDS/PROTEIN HYDROLYS 30 ML LIQUID.PKT PO SCH (11:46)
[2022-09-10] MEDS: ASCORBIC ACID 250 MG TABLET (FP) PO SCH (11:46)
[2022-09-10] MEDS: CHOLECALCIFEROL (VIT D3) 1,000 UNIT (25 MCG) TABLET PO SCH (11:47)
[2022-09-10] MEDS: CHOLESTYRAMINE/ASPARTAME 4 GM PACKET PO SCH ×4 (11:47→21:55)
[2022-09-10] MEDS: FERROUS SO4 325 MG TABLET (FP) PO SCH (11:47)
[2022-09-10] MEDS: CALCIUM CARBONATE 650 MG TABLET PO SCH ×2 (11:48→21:55)
[2022-09-10] MEDS: MIDODRINE HCL 5 MG TABLET PO SCH ×3 (11:48→17:28)
[2022-09-10] MEDS: ERGOCALCIFEROL (VIT D2) 50,000 UNIT (1.25 MG) CAPSULE PO SCH (11:49)
[2022-09-10] MEDS: SILVER SULFADIAZINE 1% TOP CREAM 400 GM JAR TP SCH (11:53)
[2022-09-10 12:05] LABS: POTASSIUM 3.6 mmol/L (3.5-5.1)
[2022-09-10 12:10] LABS: CALCIUM 8.5 mg/dL (8.5-10.1)
[2022-09-10 12:11] LABS: ALBUMIN 1.7 g/dl (3.4-5.0); MAGNESIUM 1.8 mg/dL (1.8-2.4)
[2022-09-10 12:12] LABS: BLOOD UREA NITROGEN 50.5 mg/dL (7-18)
[2022-09-10 12:14] LABS: CREATININE 0.8 mg/dL (0.55-1.3); PHOSPHOROUS 1.5 mg/dL (2.5-4.9)
[2022-09-10 12:15] LABS: BILIRUBIN,TOTAL 0.3 mg/dL (0.2-1); TOT PROT 7.1 g/dl (6.4-8.2)
[2022-09-10] MEDS: THIAMINE HCL 200 MG/2 ML VIAL IVPB SCH (13:10)
[2022-09-10] MEDS ORDERED: SODIUM PHOSPHATE - 30 MM in DEXTROSE 5%-WATER - 500 ML IVPB ONE (16:00)
[2022-09-10] MEDS: BUDESONIDE PO SCH (17:24)
[2022-09-10] MEDS: MIRTAZAPINE 15 MG TABLET (FP) PO SCH (21:54)
[2022-09-10] MEDS: OLANZapine 5 MG TABLET PO SCH (21:55)
[2022-09-11] MEDS: LOPERAMIDE HCL 2 MG CAPSULE PO SCH ×4 (00:33→23:58)
[2022-09-11] MEDS ORDERED: MEROPENEM 1 GM VIAL (RESTRICTED TO ID) IVPB ONE ×2 (01:04→17:36)
[2022-09-11] MEDS: MEROPENEM 1 GM in DEXTROSE 5%-WATER 100 ML IVPB SCH ×3 (01:14→17:48)
[2022-09-11] MEDS: MESALAMINE 800 MG TABLET.DR PO SCH ×3 (06:10→21:59)
[2022-09-11] MEDS: BISMUTH SUBSALICYLATE 524 MG/30 ML PO SCH ×3 (06:10→21:58)
[2022-09-11] MEDS: INSULIN SLIDING SCALE (NOVOLOG) 1 VIAL SQ SCH ×4 (06:17→22:25)
[2022-09-11] MEDS: INSULIN (LEVEMIR) 100 UNITS/ML UNITS SQ SCH ×2 (06:20→22:26)
[2022-09-11] MEDS: INSULIN (NOVOLOG) ASPART 100 UNITS/ML 10ML VIAL SQ SCH ×3 (06:20→17:25)
[2022-09-11] MEDS: LEVOTHYROXINE NA 25 MCG TABLET (FP) PO SCH (06:23)
[2022-09-11] MEDS: AMINO ACIDS/PROTEIN HYDROLYS 30 ML LIQUID.PKT PO SCH (08:34)
[2022-09-11] MEDS: CALCIUM CARBONATE 650 MG TABLET PO SCH ×2 (08:34→22:13)
[2022-09-11 10:17] LABS: HEMATOCRIT 27.4 % (35.4-49); HEMOGLOBIN 9.3 GM/dL (11.7-16.9); MCH 28.2 pg (25.7-33.7); MCHC 33.8 g/dl (32.0-35.9); MEAN CELL VOLUME 83.3 fl (80-96); MEAN PLT VOLUME 7.5 fl (7.5-11.1); PLATELET COUNT 637 10^3/uL (134-434); RBC 3.29 M/mm3 (4.00-5.60); RDW 15.4 % (11.9-15.9); WHITE BLOOD COUNT 11.4 K/mm3 (4.0-10.0)
[2022-09-11] MEDS: SILVER SULFADIAZINE 1% TOP CREAM 400 GM JAR TP SCH (10:25)
[2022-09-11 10:38] LABS: POTASSIUM 3.6 mmol/L (3.5-5.1)
[2022-09-11 10:43] LABS: BLOOD UREA NITROGEN 43.4 mg/dL (7-18); CALCIUM 8.3 mg/dL (8.5-10.1); MAGNESIUM 1.8 mg/dL (1.8-2.4)
[2022-09-11 10:44] LABS: ALBUMIN 1.7 g/dl (3.4-5.0)
[2022-09-11 10:46] LABS: CREATININE 0.7 mg/dL (0.55-1.3); PHOSPHOROUS 2.4 mg/dL (2.5-4.9)
[2022-09-11 10:48] LABS: BILIRUBIN,TOTAL 0.5 mg/dL (0.2-1)
[2022-09-11] MEDS: FERROUS SO4 325 MG TABLET (FP) PO SCH (11:23)
[2022-09-11] MEDS: CHOLECALCIFEROL (VIT D3) 1,000 UNIT (25 MCG) TABLET PO SCH (11:23)
[2022-09-11] MEDS: ZINC SULFATE 220 MG CAPSULE (FP) PO SCH (11:23)
[2022-09-11] MEDS: MULTIVITAMINS (DAILY MVI) TABLET (FP) PO SCH (11:23)
[2022-09-11] MEDS: ASCORBIC ACID 250 MG TABLET (FP) PO SCH (11:23)
[2022-09-11] MEDS: BUDESONIDE PO SCH (11:24)
[2022-09-11] MEDS: CHOLESTYRAMINE/ASPARTAME 4 GM PACKET PO SCH ×4 (11:25→22:04)
[2022-09-11] MEDS: MIDODRINE HCL 5 MG TABLET PO SCH ×3 (11:25→17:48)
[2022-09-11] MEDS: THIAMINE HCL 200 MG/2 ML VIAL IVPB SCH (11:30)
[2022-09-11] MEDS: SODIUM CHLORIDE IVPB SCH ×2 (12:21→23:14)
[2022-09-11] MEDS: ERAVACYCLINE DI HYDROCHLORIDE IVPB SCH ×2 (12:21→23:14)
[2022-09-11] MEDS: AMINO ACIDS 4.25%/D5W 1,000 ML IV SCH (14:14)
[2022-09-11] MEDS ORDERED: SODIUM PHOSPHATE - 30 MM in DEXTROSE 5%-WATER - 500 ML IVPB ONE (14:30)
[2022-09-11] MEDS: MIRTAZAPINE 15 MG TABLET (FP) PO SCH (22:01)
[2022-09-11] MEDS: OLANZapine 5 MG TABLET PO SCH (22:02)
[2022-09-12] MEDS: MEROPENEM 1 GM in DEXTROSE 5%-WATER 100 ML IVPB SCH ×3 (01:19→18:01)
[2022-09-12] MEDS: BISMUTH SUBSALICYLATE 524 MG/30 ML PO SCH ×3 (06:12→22:12)
[2022-09-12] MEDS: INSULIN (LEVEMIR) 100 UNITS/ML UNITS SQ SCH ×2 (07:05→22:18)
[2022-09-12] MEDS: MESALAMINE 800 MG TABLET.DR PO SCH ×3 (07:05→22:12)
[2022-09-12] MEDS: INSULIN SLIDING SCALE (NOVOLOG) 1 VIAL SQ SCH ×4 (07:06→22:17)
[2022-09-12] MEDS: INSULIN (NOVOLOG) ASPART 100 UNITS/ML 10ML VIAL SQ SCH ×3 (07:06→18:01)
[2022-09-12] MEDS: LEVOTHYROXINE NA 25 MCG TABLET (FP) PO SCH (07:07)
[2022-09-12 08:17] LABS: HEMATOCRIT 28.4 % (35.4-49); HEMOGLOBIN 9.5 GM/dL (11.7-16.9); MCH 27.7 pg (25.7-33.7); MCHC 33.3 g/dl (32.0-35.9); PLATELET COUNT 633 10^3/uL (134-434); RBC 3.42 M/mm3 (4.00-5.60); RDW 15.9 % (11.9-15.9); WHITE BLOOD COUNT 14.5 K/mm3 (4.0-10.0)
[2022-09-12 08:38] LABS: POTASSIUM 3.6 mmol/L (3.5-5.1)
[2022-09-12 08:43] LABS: CALCIUM 8.6 mg/dL (8.5-10.1)
[2022-09-12 08:44] LABS: ALBUMIN 1.7 g/dl (3.4-5.0); BLOOD UREA NITROGEN 47.8 mg/dL (7-18); MAGNESIUM 1.7 mg/dL (1.8-2.4)
[2022-09-12 08:46] LABS: PHOSPHOROUS 2.9 mg/dL (2.5-4.9)
[2022-09-12 08:47] LABS: CREATININE 0.9 mg/dL (0.55-1.3)
[2022-09-12 08:48] LABS: BILIRUBIN,TOTAL 0.3 mg/dL (0.2-1); TOT PROT 6.8 g/dl (6.4-8.2)
[2022-09-12] MEDS: CALCIUM CARBONATE 650 MG TABLET PO SCH ×2 (09:01→22:13)
[2022-09-12] MEDS: LOPERAMIDE HCL 2 MG CAPSULE PO SCH ×3 (09:02→23:52)
[2022-09-12] MEDS: AMINO ACIDS/PROTEIN HYDROLYS 30 ML LIQUID.PKT PO SCH (09:02)
[2022-09-12] MEDS: THIAMINE HCL 200 MG/2 ML VIAL IVPB SCH (10:25)
[2022-09-12] MEDS: MIDODRINE HCL 5 MG TABLET PO SCH ×3 (11:48→18:01)
[2022-09-12] MEDS: FERROUS SO4 325 MG TABLET (FP) PO SCH (11:48)
[2022-09-12] MEDS: BUDESONIDE PO SCH ×2 (11:48→12:50)
[2022-09-12] MEDS: CHOLESTYRAMINE/ASPARTAME 4 GM PACKET PO SCH ×4 (11:48→22:14)
[2022-09-12] MEDS: ZINC SULFATE 220 MG CAPSULE (FP) PO SCH (11:48)
[2022-09-12] MEDS: MULTIVITAMINS (DAILY MVI) TABLET (FP) PO SCH (11:49)
[2022-09-12] MEDS: CHOLECALCIFEROL (VIT D3) 1,000 UNIT (25 MCG) TABLET PO SCH (11:49)
[2022-09-12] MEDS: SILVER SULFADIAZINE 1% TOP CREAM 400 GM JAR TP SCH (11:49)
[2022-09-12] MEDS: ASCORBIC ACID 250 MG TABLET (FP) PO SCH (11:49)
[2022-09-12] MEDS: ERAVACYCLINE DI HYDROCHLORIDE IVPB SCH ×2 (12:13→23:52)
[2022-09-12] MEDS: SODIUM CHLORIDE IVPB SCH ×2 (12:13→23:52)
[2022-09-12] MEDS ORDERED: MAGNESIUM SULF 50% (8.12 MEQ/2 ML-1 GM VIAL) IVPB ONE (13:00)
[2022-09-12] MEDS: AMINO ACIDS 4.25%/D5W 1,000 ML IV SCH (14:16)
[2022-09-12] MEDS ORDERED: ROCURONIUM BROMIDE 50 MG/5 ML SYRINGE ONE (18:02)
[2022-09-12] MEDS ORDERED: PROPOFOL 20 ML ONE (18:02)
[2022-09-12] MEDS ORDERED: ONDANSETRON 4 MG/2 ML VIAL IVPUSH PRN ×2 (18:07→21:04)
[2022-09-12] MEDS ORDERED: LACTATED RINGERS SOLUTION 1,000 ML IV SCH ×2 (18:15→21:04)
[2022-09-12] MEDS ORDERED: LIDOCAINE HCL/PF 2% SDV 5ML VIAL ONE (18:19)
[2022-09-12] MEDS: MIRTAZAPINE 15 MG TABLET (FP) PO SCH (22:11)
[2022-09-12] MEDS: OLANZapine 5 MG TABLET PO SCH (22:11)
[2022-09-13] MEDS: MEROPENEM 1 GM in DEXTROSE 5%-WATER 100 ML IVPB SCH ×3 (02:08→17:22)
[2022-09-13] MEDS: BISMUTH SUBSALICYLATE 524 MG/30 ML PO SCH ×3 (05:05→22:17)
[2022-09-13] MEDS: MESALAMINE 800 MG TABLET.DR PO SCH ×3 (06:06→22:16)
[2022-09-13] MEDS: LEVOTHYROXINE NA 25 MCG TABLET (FP) PO SCH (06:06)
[2022-09-13] MEDS: INSULIN SLIDING SCALE (NOVOLOG) 1 VIAL SQ SCH ×4 (06:10→22:23)
[2022-09-13] MEDS: INSULIN (LEVEMIR) 100 UNITS/ML UNITS SQ SCH ×2 (06:14→22:21)
[2022-09-13] MEDS: INSULIN (NOVOLOG) ASPART 100 UNITS/ML 10ML VIAL SQ SCH ×3 (06:14→16:33)
[2022-09-13] MEDS ORDERED: INSULIN (LEVEMIR) 100 UNITS/ML UNITS SQ ONE (06:16)
[2022-09-13] MEDS ORDERED: INSULIN (NOVOLOG) ASPART 100 UNITS/ML 10ML VIAL ONE ×2 (06:16→19:55)
[2022-09-13] MEDS ORDERED: CALCIUM ACETATE 667 MG CAPSULE (FP) PO SCH (08:00)
[2022-09-13] MEDS: LOPERAMIDE HCL 2 MG CAPSULE PO SCH ×2 (08:57→17:18)
[2022-09-13] MEDS: CALCIUM CARBONATE 650 MG TABLET PO SCH ×2 (08:57→22:15)
[2022-09-13] MEDS: AMINO ACIDS/PROTEIN HYDROLYS 30 ML LIQUID.PKT PO SCH ×2 (08:58→09:01)
[2022-09-13] MEDS: BUDESONIDE 9 MG PO SCH (10:02)
[2022-09-13] MEDS: ZINC SULFATE 220 MG CAPSULE (FP) PO SCH (10:03)
[2022-09-13] MEDS: FERROUS SO4 325 MG TABLET (FP) PO SCH (10:03)
[2022-09-13] MEDS: MIDODRINE HCL 5 MG TABLET PO SCH ×3 (10:03→17:20)
[2022-09-13] MEDS: CHOLESTYRAMINE/ASPARTAME 4 GM PACKET PO SCH ×5 (10:04→22:17)
[2022-09-13] MEDS: ASCORBIC ACID 250 MG TABLET (FP) PO SCH (10:05)
[2022-09-13] MEDS: CHOLECALCIFEROL (VIT D3) 1,000 UNIT (25 MCG) TABLET PO SCH (10:05)
[2022-09-13] MEDS: MULTIVITAMINS (DAILY MVI) TABLET (FP) PO SCH (10:05)
[2022-09-13] MEDS: THIAMINE HCL 200 MG/2 ML VIAL IVPB SCH (10:07)
[2022-09-13 10:33] LABS: POTASSIUM 3.8 mmol/L (3.5-5.1)
[2022-09-13 10:34] LABS: HEMATOCRIT 27.8 % (35.4-49); HEMOGLOBIN 9.4 GM/dL (11.7-16.9); MCH 27.7 pg (25.7-33.7); MCHC 33.9 g/dl (32.0-35.9); MEAN CELL VOLUME 81.9 fl (80-96); MEAN PLT VOLUME 7.5 fl (7.5-11.1); PLATELET COUNT 638 10^3/uL (134-434); RDW 16.1 % (11.9-15.9); WHITE BLOOD COUNT 13.9 K/mm3 (4.0-10.0)
[2022-09-13 10:40] LABS: CALCIUM 8.5 mg/dL (8.5-10.1)
[2022-09-13 10:41] LABS: ALBUMIN 1.7 g/dl (3.4-5.0); BLOOD UREA NITROGEN 40.3 mg/dL (7-18); MAGNESIUM 2.5 mg/dL (1.8-2.4); PHOSPHOROUS 3.5 mg/dL (2.5-4.9)
[2022-09-13 10:42] LABS: BILIRUBIN,TOTAL 0.3 mg/dL (0.2-1); TOT PROT 6.5 g/dl (6.4-8.2)
[2022-09-13 10:43] LABS: CREATININE 0.9 mg/dL (0.55-1.3)
[2022-09-13] MEDS: SODIUM CHLORIDE IVPB SCH (11:36)
[2022-09-13] MEDS: ERAVACYCLINE DI HYDROCHLORIDE IVPB SCH (11:36)
[2022-09-13] MEDS: AMINO ACIDS 4.25%/D5W 1,000 ML IV SCH (13:24)
[2022-09-13] MEDS: SILVER SULFADIAZINE 1% TOP CREAM 400 GM JAR TP SCH (13:40)
[2022-09-13] MEDS: morphine SULFATE 4 MG/ML VIAL IVPUSH PRN (13:54)
[2022-09-13] MEDS: MIRTAZAPINE 15 MG TABLET (FP) PO SCH (22:14)
[2022-09-13] MEDS: OLANZapine 5 MG TABLET PO SCH (22:14)
[2022-09-14] MEDS: LOPERAMIDE HCL 2 MG CAPSULE PO SCH ×3 (01:46→16:58)
[2022-09-14] MEDS: SODIUM CHLORIDE IVPB SCH ×2 (01:46→12:37)
[2022-09-14] MEDS: ERAVACYCLINE DI HYDROCHLORIDE IVPB SCH ×2 (01:46→12:37)
[2022-09-14] MEDS: MEROPENEM 1 GM in DEXTROSE 5%-WATER 100 ML IVPB SCH ×3 (02:52→17:29)
[2022-09-14] MEDS: BISMUTH SUBSALICYLATE 524 MG/30 ML PO SCH ×3 (06:29→21:28)
[2022-09-14] MEDS: SILVER SULFADIAZINE 1% TOP CREAM 400 GM JAR TP SCH (06:30)
[2022-09-14] MEDS: LEVOTHYROXINE NA 25 MCG TABLET (FP) PO SCH (06:31)
[2022-09-14] MEDS: MESALAMINE 800 MG TABLET.DR PO SCH ×3 (06:31→21:26)
[2022-09-14] MEDS: INSULIN (NOVOLOG) ASPART 100 UNITS/ML 10ML VIAL SQ SCH ×3 (06:34→16:52)
[2022-09-14] MEDS: INSULIN (LEVEMIR) 100 UNITS/ML UNITS SQ SCH ×2 (06:34→21:24)
[2022-09-14] MEDS: INSULIN SLIDING SCALE (NOVOLOG) 1 VIAL SQ SCH ×4 (06:34→21:27)
[2022-09-14] MEDS ORDERED: INSULIN (LEVEMIR) 100 UNITS/ML UNITS SQ ONE (06:46)
[2022-09-14] MEDS ORDERED: INSULIN (NOVOLOG) ASPART 100 UNITS/ML 10ML VIAL ONE (06:46)
[2022-09-14] MEDS: CALCIUM CARBONATE 650 MG TABLET PO SCH ×2 (09:01→21:26)
[2022-09-14] MEDS: AMINO ACIDS/PROTEIN HYDROLYS 30 ML LIQUID.PKT PO SCH (09:01)
[2022-09-14] MEDS: AMINO ACIDS 4.25%/D5W 1,000 ML IV SCH ×2 (09:34→13:43)
[2022-09-14] MEDS: MIDODRINE HCL 5 MG TABLET PO SCH ×3 (09:41→17:29)
[2022-09-14] MEDS: CHOLECALCIFEROL (VIT D3) 1,000 UNIT (25 MCG) TABLET PO SCH (09:45)
[2022-09-14] MEDS: MULTIVITAMINS (DAILY MVI) TABLET (FP) PO SCH (09:45)
[2022-09-14] MEDS: ASCORBIC ACID 250 MG TABLET (FP) PO SCH (09:45)
[2022-09-14] MEDS: ZINC SULFATE 220 MG CAPSULE (FP) PO SCH (09:45)
[2022-09-14] MEDS: FERROUS SO4 325 MG TABLET (FP) PO SCH (09:45)
[2022-09-14] MEDS: THIAMINE HCL 200 MG/2 ML VIAL IVPB SCH (09:48)
[2022-09-14] MEDS: CHOLESTYRAMINE/ASPARTAME 4 GM PACKET PO SCH ×4 (09:48→21:29)
[2022-09-14 09:54] LABS: HEMATOCRIT 27.3 % (35.4-49); MCH 27.2 pg (25.7-33.7); MCHC 32.8 g/dl (32.0-35.9); MEAN PLT VOLUME 7.1 fl (7.5-11.1); PLATELET COUNT 589 10^3/uL (134-434); RBC 3.29 M/mm3 (4.00-5.60); RDW 15.8 % (11.9-15.9); WHITE BLOOD COUNT 17.4 K/mm3 (4.0-10.0)
[2022-09-14] MEDS: BUDESONIDE 9 MG PO SCH (10:10)
[2022-09-14 10:23] LABS: POTASSIUM 3.3 mmol/L (3.5-5.1)
[2022-09-14 10:25] LABS: ALBUMIN 1.6 g/dl (3.4-5.0); BLOOD UREA NITROGEN 47.1 mg/dL (7-18); CALCIUM 8.1 mg/dL (8.5-10.1)
[2022-09-14 10:28] LABS: CREATININE 0.8 mg/dL (0.55-1.3); PHOSPHOROUS 1.5 mg/dL (2.5-4.9)
[2022-09-14 10:30] LABS: BILIRUBIN,TOTAL 0.2 mg/dL (0.2-1); TOT PROT 6.2 g/dl (6.4-8.2)
[2022-09-14] MEDS: morphine SULFATE 4 MG/ML VIAL IVPUSH PRN (16:56)
[2022-09-14] MEDS ORDERED: POTASSIUM PHOSPHATE 30 MM in SODIUM CHLORIDE 500 ML IVPB ONE (17:30)
[2022-09-14] MEDS: MIRTAZAPINE 15 MG TABLET (FP) PO SCH (21:25)
[2022-09-14] MEDS: OLANZapine 5 MG TABLET PO SCH (21:25)
[2022-09-15] MEDS: LOPERAMIDE HCL 2 MG CAPSULE PO SCH ×3 (00:17→16:12)
[2022-09-15] MEDS: ERAVACYCLINE DI HYDROCHLORIDE IVPB SCH ×3 (01:00→17:08)
[2022-09-15] MEDS: SODIUM CHLORIDE IVPB SCH ×3 (01:00→17:08)
[2022-09-15] MEDS: MEROPENEM 1 GM in DEXTROSE 5%-WATER 100 ML IVPB SCH ×3 (01:03→17:08)
[2022-09-15] MEDS: AMINO ACIDS 4.25%/D5W 1,000 ML IV SCH ×2 (04:36→13:51)
[2022-09-15] MEDS: INSULIN SLIDING SCALE (NOVOLOG) 1 VIAL SQ SCH ×4 (06:05→22:34)
[2022-09-15] MEDS: BISMUTH SUBSALICYLATE 524 MG/30 ML PO SCH ×3 (06:05→22:33)
[2022-09-15] MEDS: INSULIN (NOVOLOG) ASPART 100 UNITS/ML 10ML VIAL SQ SCH ×3 (06:05→16:12)
[2022-09-15] MEDS: INSULIN (LEVEMIR) 100 UNITS/ML UNITS SQ SCH ×2 (06:05→22:34)
[2022-09-15] MEDS: MESALAMINE 800 MG TABLET.DR PO SCH ×3 (06:06→22:50)
[2022-09-15] MEDS: LEVOTHYROXINE NA 25 MCG TABLET (FP) PO SCH (06:06)
[2022-09-15] MEDS: MULTIVITAMINS (DAILY MVI) TABLET (FP) PO SCH (09:55)
[2022-09-15] MEDS: ZINC SULFATE 220 MG CAPSULE (FP) PO SCH (09:55)
[2022-09-15] MEDS: AMINO ACIDS/PROTEIN HYDROLYS 30 ML LIQUID.PKT PO SCH (09:55)
[2022-09-15] MEDS: CHOLECALCIFEROL (VIT D3) 1,000 UNIT (25 MCG) TABLET PO SCH (09:55)
[2022-09-15] MEDS: ASCORBIC ACID 250 MG TABLET (FP) PO SCH (09:56)
[2022-09-15] MEDS: CHOLESTYRAMINE/ASPARTAME 4 GM PACKET PO SCH ×4 (09:56→22:34)
[2022-09-15] MEDS: MIDODRINE HCL 5 MG TABLET PO SCH ×3 (09:56→17:09)
[2022-09-15] MEDS: THIAMINE HCL 200 MG/2 ML VIAL IVPB SCH (09:56)
[2022-09-15] MEDS: CALCIUM CARBONATE 650 MG TABLET PO SCH ×2 (09:56→22:33)
[2022-09-15] MEDS: FERROUS SO4 325 MG TABLET (FP) PO SCH (09:56)
[2022-09-15] MEDS: SILVER SULFADIAZINE 1% TOP CREAM 400 GM JAR TP SCH (09:56)
[2022-09-15] MEDS: BUDESONIDE 9 MG PO SCH (09:58)
[2022-09-15 10:23] LABS: BASO % 0.5 % (0-2.0); EOS % 1.5 % (0-4.5); HEMATOCRIT 25.3 % (35.4-49); HEMOGLOBIN 8.6 GM/dL (11.7-16.9); LYMPH % 15.1 % (8-40); MCHC 33.9 g/dl (32.0-35.9); MEAN CELL VOLUME 82.6 fl (80-96); MEAN PLT VOLUME 7.2 fl (7.5-11.1); MONO % 7.3 % (3.8-10.2); NEUT % 75.6 % (42.8-82.8); PLATELET COUNT 521 10^3/uL (134-434); RBC 3.07 M/mm3 (4.00-5.60); RDW 15.8 % (11.9-15.9)
[2022-09-15 10:29] LABS: POTASSIUM 3.6 mmol/L (3.5-5.1)
[2022-09-15 10:33] LABS: ALBUMIN 1.5 g/dl (3.4-5.0); BLOOD UREA NITROGEN 43.6 mg/dL (7-18); MAGNESIUM 1.9 mg/dL (1.8-2.4)
[2022-09-15 10:36] LABS: CREATININE 0.6 mg/dL (0.55-1.3); PHOSPHOROUS 2.1 mg/dL (2.5-4.9)
[2022-09-15 10:37] LABS: BILIRUBIN,TOTAL 0.3 mg/dL (0.2-1)
[2022-09-15] MEDS: morphine SULFATE 4 MG/ML VIAL IVPUSH PRN ×2 (15:12→22:55)
[2022-09-15] MEDS ORDERED: SODIUM PHOSPHATE - 20 MM in SODIUM CHLORIDE 250 ML IVPB ONE (17:00)
[2022-09-15] MEDS: MIRTAZAPINE 15 MG TABLET (FP) PO SCH (22:32)
[2022-09-15] MEDS: OLANZapine 5 MG TABLET PO SCH (22:32)
[2022-09-16] MEDS: MEROPENEM 1 GM in DEXTROSE 5%-WATER 100 ML IVPB SCH ×3 (01:31→18:27)
[2022-09-16] MEDS: LOPERAMIDE HCL 2 MG CAPSULE PO SCH ×3 (01:32→16:33)
[2022-09-16] MEDS: AMINO ACIDS 4.25%/D5W 1,000 ML IV SCH ×2 (06:15→13:53)
[2022-09-16] MEDS: LEVOTHYROXINE NA 25 MCG TABLET (FP) PO SCH (06:16)
[2022-09-16] MEDS: BISMUTH SUBSALICYLATE 524 MG/30 ML PO SCH ×3 (06:17→21:52)
[2022-09-16] MEDS: ERAVACYCLINE DI HYDROCHLORIDE IVPB SCH ×2 (06:25→16:52)
[2022-09-16] MEDS: INSULIN SLIDING SCALE (NOVOLOG) 1 VIAL SQ SCH ×4 (06:25→21:52)
[2022-09-16] MEDS: SODIUM CHLORIDE IVPB SCH ×2 (06:25→16:52)
[2022-09-16] MEDS: INSULIN (NOVOLOG) ASPART 100 UNITS/ML 10ML VIAL SQ SCH ×3 (06:25→16:36)
[2022-09-16] MEDS: INSULIN (LEVEMIR) 100 UNITS/ML UNITS SQ SCH ×2 (06:32→21:52)
[2022-09-16] MEDS: MESALAMINE 800 MG TABLET.DR PO SCH ×3 (06:32→21:37)
[2022-09-16] MEDS: THIAMINE HCL 200 MG/2 ML VIAL IVPB SCH (09:58)
[2022-09-16] MEDS: CALCIUM CARBONATE 650 MG TABLET PO SCH ×2 (11:25→21:52)
[2022-09-16] MEDS: CHOLESTYRAMINE/ASPARTAME 4 GM PACKET PO SCH ×4 (11:26→21:41)
[2022-09-16] MEDS: MULTIVITAMINS (DAILY MVI) TABLET (FP) PO SCH (11:26)
[2022-09-16] MEDS: FERROUS SO4 325 MG TABLET (FP) PO SCH (11:26)
[2022-09-16] MEDS: AMINO ACIDS/PROTEIN HYDROLYS 30 ML LIQUID.PKT PO SCH (11:26)
[2022-09-16] MEDS: ZINC SULFATE 220 MG CAPSULE (FP) PO SCH (11:26)
[2022-09-16] MEDS: BUDESONIDE 9 MG PO SCH (11:26)
[2022-09-16] MEDS: MIDODRINE HCL 5 MG TABLET PO SCH ×3 (11:26→17:41)
[2022-09-16] MEDS: ASCORBIC ACID 250 MG TABLET (FP) PO SCH (11:26)
[2022-09-16] MEDS: CHOLECALCIFEROL (VIT D3) 1,000 UNIT (25 MCG) TABLET PO SCH (11:27)
[2022-09-16 12:45] LABS: HEMOGLOBIN 8.8 GM/dL (11.7-16.9); MCHC 32.8 g/dl (32.0-35.9); MEAN CELL VOLUME 82.3 fl (80-96); MEAN PLT VOLUME 6.7 fl (7.5-11.1); PLATELET COUNT 539 10^3/uL (134-434); RBC 3.27 M/mm3 (4.00-5.60); RDW 15.9 % (11.9-15.9); WHITE BLOOD COUNT 13.8 K/mm3 (4.0-10.0)
[2022-09-16 13:04] LABS: POTASSIUM 3.2 mmol/L (3.5-5.1)
[2022-09-16 13:13] LABS: CALCIUM 8.4 mg/dL (8.5-10.1)
[2022-09-16 13:14] LABS: BLOOD UREA NITROGEN 39.3 mg/dL (7-18); MAGNESIUM 1.7 mg/dL (1.8-2.4)
[2022-09-16 13:17] LABS: CREATININE 0.8 mg/dL (0.55-1.3); PHOSPHOROUS 2.2 mg/dL (2.5-4.9)
[2022-09-16] MEDS: SILVER SULFADIAZINE 1% TOP CREAM 400 GM JAR TP SCH (14:59)
[2022-09-16] MEDS: morphine SULFATE 4 MG/ML VIAL IVPUSH PRN ×2 (16:50→21:38)
[2022-09-16] MEDS ORDERED: MAGNESIUM SULF 50% (8.12 MEQ/2 ML-1 GM VIAL) IVPB ONE (17:45)
[2022-09-16] MEDS: KCL 10 MEQ IVPB 10 MEQ/100 ML INFUS.BAG IVPB SCH ×2 (20:32→22:44)
[2022-09-16] MEDS ORDERED: INSULIN (NOVOLOG) ASPART 100 UNITS/ML 10ML VIAL ONE (21:32)
[2022-09-16] MEDS: MIRTAZAPINE 15 MG TABLET (FP) PO SCH (21:41)
[2022-09-16] MEDS: OLANZapine 5 MG TABLET PO SCH (21:41)
[2022-09-17] MEDS: LOPERAMIDE HCL 2 MG CAPSULE PO SCH ×3 (00:30→16:00)
[2022-09-17] MEDS: MEROPENEM 1 GM in DEXTROSE 5%-WATER 100 ML IVPB SCH ×3 (01:19→19:09)
[2022-09-17] MEDS: SODIUM CHLORIDE IVPB SCH ×2 (05:21→17:25)
[2022-09-17] MEDS: ERAVACYCLINE DI HYDROCHLORIDE IVPB SCH ×2 (05:21→17:25)
[2022-09-17] MEDS: AMINO ACIDS 4.25%/D5W 1,000 ML IV SCH ×2 (05:22→14:19)
[2022-09-17] MEDS: MESALAMINE 800 MG TABLET.DR PO SCH ×3 (05:52→22:16)
[2022-09-17] MEDS: BISMUTH SUBSALICYLATE 524 MG/30 ML PO SCH ×4 (05:52→22:28)
[2022-09-17] MEDS: INSULIN (NOVOLOG) ASPART 100 UNITS/ML 10ML VIAL SQ SCH ×3 (06:05→16:35)
[2022-09-17] MEDS: INSULIN (LEVEMIR) 100 UNITS/ML UNITS SQ SCH ×2 (06:05→22:32)
[2022-09-17] MEDS: LEVOTHYROXINE NA 25 MCG TABLET (FP) PO SCH (06:06)
[2022-09-17] MEDS: INSULIN SLIDING SCALE (NOVOLOG) 1 VIAL SQ SCH ×4 (06:06→22:32)
[2022-09-17 08:57] LABS: HEMATOCRIT 27.4 % (35.4-49); HEMOGLOBIN 9.2 GM/dL (11.7-16.9); MCH 27.5 pg (25.7-33.7); MCHC 33.6 g/dl (32.0-35.9); MEAN PLT VOLUME 6.9 fl (7.5-11.1); PLATELET COUNT 539 10^3/uL (134-434); RBC 3.34 M/mm3 (4.00-5.60); RDW 16.2 % (11.9-15.9); WHITE BLOOD COUNT 13.4 K/mm3 (4.0-10.0)
[2022-09-17 09:10] LABS: POTASSIUM 3.6 mmol/L (3.5-5.1)
[2022-09-17 09:12] LABS: BLOOD UREA NITROGEN 35.1 mg/dL (7-18); CALCIUM 8.1 mg/dL (8.5-10.1)
[2022-09-17 09:16] LABS: CREATININE 0.7 mg/dL (0.55-1.3); PHOSPHOROUS 2.4 mg/dL (2.5-4.9)
[2022-09-17] MEDS: BUDESONIDE 9 MG PO SCH (10:24)
[2022-09-17] MEDS: ZINC SULFATE 220 MG CAPSULE (FP) PO SCH (10:48)
[2022-09-17] MEDS: FERROUS SO4 325 MG TABLET (FP) PO SCH (10:48)
[2022-09-17] MEDS: MULTIVITAMINS (DAILY MVI) TABLET (FP) PO SCH (10:48)
[2022-09-17] MEDS: CHOLECALCIFEROL (VIT D3) 1,000 UNIT (25 MCG) TABLET PO SCH (10:48)
[2022-09-17] MEDS: THIAMINE HCL 200 MG/2 ML VIAL IVPB SCH (10:48)
[2022-09-17] MEDS: ASCORBIC ACID 250 MG TABLET (FP) PO SCH (10:49)
[2022-09-17] MEDS: MIDODRINE HCL 5 MG TABLET PO SCH ×3 (10:49→18:36)
[2022-09-17] MEDS: SILVER SULFADIAZINE 1% TOP CREAM 400 GM JAR TP SCH (10:50)
[2022-09-17] MEDS: CALCIUM CARBONATE 650 MG TABLET PO SCH ×2 (10:52→22:17)
[2022-09-17] MEDS: CHOLESTYRAMINE/ASPARTAME 4 GM PACKET PO SCH ×4 (10:53→22:18)
[2022-09-17] MEDS: AMINO ACIDS/PROTEIN HYDROLYS 30 ML LIQUID.PKT PO SCH (10:53)
[2022-09-17] MEDS: ERGOCALCIFEROL (VIT D2) 50,000 UNIT (1.25 MG) CAPSULE PO SCH (13:17)
[2022-09-17] MEDS: SODIUM PHOSPHATE - 20 MM in SODIUM CHLORIDE 250 ML IVPB ONE ×2 (14:16→16:36)
[2022-09-17] MEDS: morphine SULFATE 4 MG/ML VIAL IVPUSH PRN (16:41)
[2022-09-17] MEDS: OLANZapine 5 MG TABLET PO SCH (22:16)
[2022-09-17] MEDS: MIRTAZAPINE 15 MG TABLET (FP) PO SCH (22:17)
[2022-09-18] MEDS: LOPERAMIDE HCL 2 MG CAPSULE PO SCH ×3 (00:27→17:10)
[2022-09-18] MEDS: MEROPENEM 1 GM in DEXTROSE 5%-WATER 100 ML IVPB SCH ×3 (01:52→17:10)
[2022-09-18] MEDS: SODIUM CHLORIDE IVPB SCH ×2 (04:51→17:10)
[2022-09-18] MEDS: ERAVACYCLINE DI HYDROCHLORIDE IVPB SCH ×2 (04:51→17:10)
[2022-09-18] MEDS: BISMUTH SUBSALICYLATE 524 MG/30 ML PO SCH ×3 (05:38→22:54)
[2022-09-18] MEDS: LEVOTHYROXINE NA 25 MCG TABLET (FP) PO SCH (05:59)
[2022-09-18] MEDS: INSULIN (NOVOLOG) ASPART 100 UNITS/ML 10ML VIAL SQ SCH ×3 (06:07→17:10)
[2022-09-18] MEDS: INSULIN (LEVEMIR) 100 UNITS/ML UNITS SQ SCH ×2 (06:07→23:00)
[2022-09-18] MEDS: INSULIN SLIDING SCALE (NOVOLOG) 1 VIAL SQ SCH ×4 (06:08→23:00)
[2022-09-18] MEDS: MESALAMINE 800 MG TABLET.DR PO SCH ×3 (06:09→22:54)
[2022-09-18 10:20] LABS: HEMATOCRIT 23.5 % (35.4-49); HEMOGLOBIN 7.5 GM/dL (11.7-16.9); MCH 27.8 pg (25.7-33.7); MCHC 32.1 g/dl (32.0-35.9); MEAN CELL VOLUME 86.7 fl (80-96); MEAN PLT VOLUME 7.6 fl (7.5-11.1); PLATELET COUNT 437 10^3/uL (134-434); RBC 2.71 M/mm3 (4.00-5.60); WHITE BLOOD COUNT 14.2 K/mm3 (4.0-10.0)
[2022-09-18] MEDS: CHOLECALCIFEROL (VIT D3) 1,000 UNIT (25 MCG) TABLET PO SCH (10:41)
[2022-09-18] MEDS: MULTIVITAMINS (DAILY MVI) TABLET (FP) PO SCH (10:41)
[2022-09-18] MEDS: BUDESONIDE 9 MG PO SCH (10:42)
[2022-09-18] MEDS: ASCORBIC ACID 250 MG TABLET (FP) PO SCH (10:42)
[2022-09-18] MEDS: ZINC SULFATE 220 MG CAPSULE (FP) PO SCH (10:42)
[2022-09-18] MEDS: FERROUS SO4 325 MG TABLET (FP) PO SCH (10:42)
[2022-09-18] MEDS: AMINO ACIDS/PROTEIN HYDROLYS 30 ML LIQUID.PKT PO SCH (10:43)
[2022-09-18] MEDS: CHOLESTYRAMINE/ASPARTAME 4 GM PACKET PO SCH ×4 (10:44→22:54)
[2022-09-18] MEDS: CALCIUM CARBONATE 650 MG TABLET PO SCH ×2 (10:44→22:53)
[2022-09-18] MEDS: MIDODRINE HCL 5 MG TABLET PO SCH ×3 (10:44→17:13)
[2022-09-18] MEDS: SILVER SULFADIAZINE 1% TOP CREAM 400 GM JAR TP SCH (10:45)
[2022-09-18] MEDS: THIAMINE HCL 200 MG/2 ML VIAL IVPB SCH (10:45)
[2022-09-18] MEDS ORDERED: MAGNESIUM SULF 50% (8.12 MEQ/2 ML-1 GM VIAL) IVPB ONE (11:19)
[2022-09-18] MEDS ORDERED: POTASSIUM PHOSPHATE 30 MM in SODIUM CHLORIDE 500 ML IVPB ONE (11:20)
[2022-09-18] MEDS: morphine SULFATE 4 MG/ML VIAL IVPUSH PRN ×2 (12:11→20:30)
[2022-09-18 12:44] LABS: POTASSIUM 3.3 mmol/L (3.5-5.1)
[2022-09-18 12:46] LABS: BLOOD UREA NITROGEN 33.4 mg/dL (7-18); MAGNESIUM 1.8 mg/dL (1.8-2.4)
[2022-09-18 12:49] LABS: CREATININE 0.8 mg/dL (0.55-1.3); PHOSPHOROUS 2.3 mg/dL (2.5-4.9)
[2022-09-18] MEDS: AMINO ACIDS 4.25%/D5W 1,000 ML IV SCH (14:55)
[2022-09-18 17:13] LABS: HEMATOCRIT 22.5 % (35.4-49); HEMOGLOBIN 7.1 GM/dL (11.7-16.9); MCH 26.4 pg (25.7-33.7); MCHC 31.8 g/dl (32.0-35.9); MEAN PLT VOLUME 6.9 fl (7.5-11.1); PLATELET COUNT 456 10^3/uL (134-434); RBC 2.71 M/mm3 (4.00-5.60); RDW 15.7 % (11.9-15.9); WHITE BLOOD COUNT 14.1 K/mm3 (4.0-10.0)
[2022-09-18 18:11] LABS: RETICULOCYTES 1.07 % (0.5-1.5)
[2022-09-18] MEDS: OLANZapine 5 MG TABLET PO SCH (22:53)
[2022-09-18] MEDS: MIRTAZAPINE 15 MG TABLET (FP) PO SCH (22:53)
[2022-09-19] MEDS: LOPERAMIDE HCL 2 MG CAPSULE PO SCH ×3 (00:34→17:04)
[2022-09-19] MEDS ORDERED: MEROPENEM 1 GM VIAL (RESTRICTED TO ID) IVPB ONE (02:05)
[2022-09-19] MEDS: MEROPENEM 1 GM in DEXTROSE 5%-WATER 100 ML IVPB SCH ×3 (02:10→18:11)
[2022-09-19] MEDS: ERAVACYCLINE DI HYDROCHLORIDE IVPB SCH ×2 (05:30→17:05)
[2022-09-19] MEDS: SODIUM CHLORIDE IVPB SCH ×2 (05:30→17:05)
[2022-09-19] MEDS: AMINO ACIDS 4.25%/D5W 1,000 ML IV SCH ×2 (05:35→15:57)
[2022-09-19] MEDS: BISMUTH SUBSALICYLATE 524 MG/30 ML PO SCH ×3 (06:22→22:48)
[2022-09-19] MEDS: LEVOTHYROXINE NA 25 MCG TABLET (FP) PO SCH (06:23)
[2022-09-19] MEDS: MESALAMINE 800 MG TABLET.DR PO SCH ×3 (06:23→22:48)
[2022-09-19] MEDS: INSULIN (NOVOLOG) ASPART 100 UNITS/ML 10ML VIAL SQ SCH ×3 (06:34→16:35)
[2022-09-19] MEDS: INSULIN (LEVEMIR) 100 UNITS/ML UNITS SQ SCH ×2 (06:34→23:51)
[2022-09-19] MEDS: INSULIN SLIDING SCALE (NOVOLOG) 1 VIAL SQ SCH ×4 (06:36→23:52)
[2022-09-19] MEDS: CALCIUM CARBONATE 650 MG TABLET PO SCH ×2 (08:45→22:48)
[2022-09-19] MEDS: AMINO ACIDS/PROTEIN HYDROLYS 30 ML LIQUID.PKT PO SCH (08:45)
[2022-09-19] MEDS: morphine SULFATE 4 MG/ML VIAL IVPUSH PRN (09:19)
[2022-09-19] MEDS: ASCORBIC ACID 250 MG TABLET (FP) PO SCH (09:20)
[2022-09-19] MEDS: ZINC SULFATE 220 MG CAPSULE (FP) PO SCH (09:20)
[2022-09-19] MEDS: CHOLECALCIFEROL (VIT D3) 1,000 UNIT (25 MCG) TABLET PO SCH (09:21)
[2022-09-19] MEDS: FERROUS SO4 325 MG TABLET (FP) PO SCH (09:21)
[2022-09-19] MEDS: MULTIVITAMINS (DAILY MVI) TABLET (FP) PO SCH (09:23)
[2022-09-19] MEDS: MIDODRINE HCL 5 MG TABLET PO SCH ×3 (09:25→18:06)
[2022-09-19] MEDS: CHOLESTYRAMINE/ASPARTAME 4 GM PACKET PO SCH ×4 (10:28→22:49)
[2022-09-19] MEDS: SILVER SULFADIAZINE 1% TOP CREAM 400 GM JAR TP SCH (10:30)
[2022-09-19] MEDS: BUDESONIDE 9 MG PO SCH (10:40)
[2022-09-19] MEDS: THIAMINE HCL 200 MG/2 ML VIAL IVPB SCH (16:28)
[2022-09-19] MEDS: OLANZapine 5 MG TABLET PO SCH (22:49)
[2022-09-19] MEDS: MIRTAZAPINE 15 MG TABLET (FP) PO SCH (22:49)
[2022-09-20] MEDS: morphine SULFATE 4 MG/ML VIAL IVPUSH PRN (00:17)
[2022-09-20] MEDS: LOPERAMIDE HCL 2 MG CAPSULE PO SCH ×3 (01:07→16:29)
[2022-09-20] MEDS: MEROPENEM 1 GM in DEXTROSE 5%-WATER 100 ML IVPB SCH ×3 (02:57→17:49)
[2022-09-20] MEDS: SODIUM CHLORIDE IVPB SCH ×2 (04:04→16:28)
[2022-09-20] MEDS: ERAVACYCLINE DI HYDROCHLORIDE IVPB SCH ×2 (04:04→16:28)
[2022-09-20] MEDS: LEVOTHYROXINE NA 25 MCG TABLET (FP) PO SCH (06:18)
[2022-09-20] MEDS: INSULIN (LEVEMIR) 100 UNITS/ML UNITS SQ SCH ×2 (06:23→21:50)
[2022-09-20] MEDS: BISMUTH SUBSALICYLATE 524 MG/30 ML PO SCH ×4 (06:24→21:58)
[2022-09-20] MEDS: MESALAMINE 800 MG TABLET.DR PO SCH ×3 (06:24→21:56)
[2022-09-20] MEDS: INSULIN SLIDING SCALE (NOVOLOG) 1 VIAL SQ SCH ×4 (06:24→22:05)
[2022-09-20] MEDS: INSULIN (NOVOLOG) ASPART 100 UNITS/ML 10ML VIAL SQ SCH ×3 (06:26→16:29)
[2022-09-20] MEDS: AMINO ACIDS/PROTEIN HYDROLYS 30 ML LIQUID.PKT PO SCH (08:37)
[2022-09-20] MEDS: CALCIUM CARBONATE 650 MG TABLET PO SCH ×2 (08:37→21:56)
[2022-09-20] MEDS: MULTIVITAMINS (DAILY MVI) TABLET (FP) PO SCH (09:09)
[2022-09-20] MEDS: MIDODRINE HCL 5 MG TABLET PO SCH ×3 (09:09→17:49)
[2022-09-20] MEDS: ASCORBIC ACID 250 MG TABLET (FP) PO SCH (09:09)
[2022-09-20] MEDS: CHOLECALCIFEROL (VIT D3) 1,000 UNIT (25 MCG) TABLET PO SCH (09:10)
[2022-09-20] MEDS: BUDESONIDE 9 MG PO SCH (09:10)
[2022-09-20] MEDS: ZINC SULFATE 220 MG CAPSULE (FP) PO SCH (09:10)
[2022-09-20] MEDS: FERROUS SO4 325 MG TABLET (FP) PO SCH (09:10)
[2022-09-20] MEDS: CHOLESTYRAMINE/ASPARTAME 4 GM PACKET PO SCH ×5 (09:10→21:59)
[2022-09-20] MEDS: SILVER SULFADIAZINE 1% TOP CREAM 400 GM JAR TP SCH ×2 (09:16→23:16)
[2022-09-20] MEDS: THIAMINE HCL 100 MG TABLET (FP) PO SCH (09:16)
[2022-09-20 10:16] LABS: HEMATOCRIT 25.1 % (35.4-49); HEMOGLOBIN 8.5 GM/dL (11.7-16.9); MCH 27.8 pg (25.7-33.7); MCHC 33.9 g/dl (32.0-35.9); MEAN CELL VOLUME 82.1 fl (80-96); MEAN PLT VOLUME 7.3 fl (7.5-11.1); PLATELET COUNT 406 10^3/uL (134-434); RBC 3.06 M/mm3 (4.00-5.60); RDW 15.8 % (11.9-15.9); WHITE BLOOD COUNT 12.3 K/mm3 (4.0-10.0)
[2022-09-20] MEDS: AMINO ACIDS 4.25%/D5W 1,000 ML IV SCH ×3 (10:31→23:19)
[2022-09-20 10:33] LABS: POTASSIUM 3.5 mmol/L (3.5-5.1)
[2022-09-20 10:35] LABS: CALCIUM 8.4 mg/dL (8.5-10.1)
[2022-09-20 10:36] LABS: BLOOD UREA NITROGEN 32.4 mg/dL (7-18); MAGNESIUM 2.1 mg/dL (1.8-2.4)
[2022-09-20 10:39] LABS: PHOSPHOROUS 2.2 mg/dL (2.5-4.9)
[2022-09-20 10:40] LABS: CREATININE 0.8 mg/dL (0.55-1.3)
[2022-09-20] MEDS: OLANZapine 5 MG TABLET PO SCH (21:55)
[2022-09-20] MEDS: MIRTAZAPINE 15 MG TABLET (FP) PO SCH (21:55)
[2022-09-21] MEDS: LOPERAMIDE HCL 2 MG CAPSULE PO SCH ×4 (00:25→23:47)
[2022-09-21] MEDS: MEROPENEM 1 GM in DEXTROSE 5%-WATER 100 ML IVPB SCH ×3 (01:39→17:50)
[2022-09-21] MEDS: ERAVACYCLINE DI HYDROCHLORIDE IVPB SCH ×2 (04:56→17:05)
[2022-09-21] MEDS: SODIUM CHLORIDE IVPB SCH ×2 (04:56→17:05)
[2022-09-21] MEDS: MESALAMINE 800 MG TABLET.DR PO SCH ×3 (06:18→22:41)
[2022-09-21] MEDS: LEVOTHYROXINE NA 25 MCG TABLET (FP) PO SCH (06:18)
[2022-09-21] MEDS: BISMUTH SUBSALICYLATE 524 MG/30 ML PO SCH ×3 (06:26→22:42)
[2022-09-21] MEDS: INSULIN SLIDING SCALE (NOVOLOG) 1 VIAL SQ SCH ×4 (06:27→22:56)
[2022-09-21] MEDS: INSULIN (LEVEMIR) 100 UNITS/ML UNITS SQ SCH ×2 (06:27→22:56)
[2022-09-21] MEDS: INSULIN (NOVOLOG) ASPART 100 UNITS/ML 10ML VIAL SQ SCH ×3 (06:28→17:03)
[2022-09-21] MEDS: ASCORBIC ACID 500 MG TABLET (FP) PO SCH ×2 (09:55→22:40)
[2022-09-21] MEDS: MULTIVITAMINS (DAILY MVI) TABLET (FP) PO SCH (09:56)
[2022-09-21] MEDS: CALCIUM CARBONATE 650 MG TABLET PO SCH ×2 (09:56→22:41)
[2022-09-21] MEDS: MIDODRINE HCL 5 MG TABLET PO SCH ×3 (09:56→17:06)
[2022-09-21] MEDS: THIAMINE HCL 100 MG TABLET (FP) PO SCH (09:56)
[2022-09-21] MEDS: CHOLECALCIFEROL (VIT D3) 1,000 UNIT (25 MCG) TABLET PO SCH (09:56)
[2022-09-21] MEDS: ZINC SULFATE 220 MG CAPSULE (FP) PO SCH (09:57)
[2022-09-21] MEDS: FERROUS SO4 325 MG TABLET (FP) PO SCH (09:57)
[2022-09-21] MEDS: BUDESONIDE 9 MG PO SCH (09:58)
[2022-09-21] MEDS: SILVER SULFADIAZINE 1% TOP CREAM 400 GM JAR TP SCH ×2 (10:00→22:40)
[2022-09-21] MEDS: AMINO ACIDS/PROTEIN HYDROLYS 30 ML LIQUID.PKT PO SCH (10:54)
[2022-09-21] MEDS: CHOLESTYRAMINE/ASPARTAME 4 GM PACKET PO SCH ×4 (10:55→22:40)
[2022-09-21] MEDS: AMINO ACIDS 4.25%/D5W 1,000 ML IV SCH (12:41)
[2022-09-21] MEDS: OLANZapine 5 MG TABLET PO SCH (22:40)
[2022-09-21] MEDS: MIRTAZAPINE 15 MG TABLET (FP) PO SCH (22:40)
[2022-09-22] MEDS: MEROPENEM 1 GM in DEXTROSE 5%-WATER 100 ML IVPB SCH ×3 (02:26→17:31)
[2022-09-22] MEDS: ERAVACYCLINE DI HYDROCHLORIDE IVPB SCH ×2 (06:09→17:27)
[2022-09-22] MEDS: SODIUM CHLORIDE IVPB SCH ×2 (06:09→17:27)
[2022-09-22] MEDS: MESALAMINE 800 MG TABLET.DR PO SCH ×3 (06:21→23:32)
[2022-09-22] MEDS: BISMUTH SUBSALICYLATE 524 MG/30 ML PO SCH ×3 (06:22→22:58)
[2022-09-22] MEDS: LEVOTHYROXINE NA 25 MCG TABLET (FP) PO SCH (06:22)
[2022-09-22] MEDS: INSULIN (LEVEMIR) 100 UNITS/ML UNITS SQ SCH ×2 (06:27→17:27)
[2022-09-22] MEDS: INSULIN (NOVOLOG) ASPART 100 UNITS/ML 10ML VIAL SQ SCH ×2 (06:27→11:21)
[2022-09-22] MEDS: INSULIN SLIDING SCALE (NOVOLOG) 1 VIAL SQ SCH ×4 (06:28→22:58)
[2022-09-22] MEDS: CALCIUM CARBONATE 650 MG TABLET PO SCH ×2 (09:18→23:03)
[2022-09-22] MEDS: AMINO ACIDS/PROTEIN HYDROLYS 30 ML LIQUID.PKT PO SCH (09:19)
[2022-09-22] MEDS: FERROUS SO4 325 MG TABLET (FP) PO SCH (09:19)
[2022-09-22] MEDS: LOPERAMIDE HCL 2 MG CAPSULE PO SCH ×2 (09:19→17:28)
[2022-09-22] MEDS: CHOLESTYRAMINE/ASPARTAME 4 GM PACKET PO SCH ×4 (09:20→23:03)
[2022-09-22] MEDS: ZINC SULFATE 220 MG CAPSULE (FP) PO SCH (09:20)
[2022-09-22] MEDS: MIDODRINE HCL 5 MG TABLET PO SCH ×3 (09:20→17:27)
[2022-09-22] MEDS: THIAMINE HCL 100 MG TABLET (FP) PO SCH (09:21)
[2022-09-22] MEDS: MULTIVITAMINS (DAILY MVI) TABLET (FP) PO SCH (09:21)
[2022-09-22] MEDS: CHOLECALCIFEROL (VIT D3) 1,000 UNIT (25 MCG) TABLET PO SCH (09:21)
[2022-09-22] MEDS: ASCORBIC ACID 500 MG TABLET (FP) PO SCH ×2 (09:21→22:59)
[2022-09-22] MEDS: BUDESONIDE 9 MG PO SCH (09:27)
[2022-09-22] MEDS: SILVER SULFADIAZINE 1% TOP CREAM 400 GM JAR TP SCH ×2 (09:28→23:04)
[2022-09-22 11:04] LABS: CHLORIDE 105 mmol/L (98-107); POTASSIUM 3.4 mmol/L (3.5-5.1); SODIUM 136 mmol/L (136-145)
[2022-09-22 11:12] LABS: ANION GAP 7 MMOL/L (8-16); BLOOD UREA NITROGEN 37.7 mg/dL (7-18); CALCIUM 8.9 mg/dL (8.5-10.1); CO2 25 mmol/L (21-32); MAGNESIUM 1.9 mg/dL (1.8-2.4)
[2022-09-22 11:15] LABS: CREATININE 0.7 mg/dL (0.55-1.3); PHOSPHOROUS 2.4 mg/dL (2.5-4.9)
[2022-09-22 11:19] LABS: GLUCOSE,RANDOM 46 mg/dL (74-106)
[2022-09-22] MEDS ORDERED: DEXTROSE 50%-WATER 25 GM/50 ML DISP.SYRIN IVPUSH PRN (14:28)
[2022-09-22] MEDS ORDERED: POTASSIUM PHOSPHATE 30 MM in DEXTROSE 5%-WATER - 500 ML IVPB ONE (16:35)
[2022-09-22] MEDS: AMINO ACIDS 4.25%/D5W 1,000 ML IV SCH (17:30)
[2022-09-22] MEDS: MIRTAZAPINE 15 MG TABLET (FP) PO SCH (22:58)
[2022-09-22] MEDS: OLANZapine 10 MG TABLET PO SCH (22:59)
[2022-09-23] MEDS: MEROPENEM 1 GM in DEXTROSE 5%-WATER 100 ML IVPB SCH ×3 (02:49→17:41)
[2022-09-23] MEDS: BISMUTH SUBSALICYLATE 524 MG/30 ML PO SCH ×3 (05:52→22:28)
[2022-09-23] MEDS: ERAVACYCLINE DI HYDROCHLORIDE IVPB SCH ×2 (05:52→17:42)
[2022-09-23] MEDS: SODIUM CHLORIDE IVPB SCH ×2 (05:52→17:42)
[2022-09-23] MEDS: MESALAMINE 800 MG TABLET.DR PO SCH ×3 (05:52→22:27)
[2022-09-23] MEDS: LEVOTHYROXINE NA 25 MCG TABLET (FP) PO SCH (06:03)
[2022-09-23] MEDS: INSULIN SLIDING SCALE (NOVOLOG) 1 VIAL SQ SCH ×4 (06:03→22:27)
[2022-09-23] MEDS: INSULIN (LEVEMIR) 100 UNITS/ML UNITS SQ SCH (06:40)
[2022-09-23] MEDS: AMINO ACIDS/PROTEIN HYDROLYS 30 ML LIQUID.PKT PO SCH ×2 (07:53→09:23)
[2022-09-23] MEDS: LOPERAMIDE HCL 2 MG CAPSULE PO SCH ×3 (07:53→17:41)
[2022-09-23] MEDS: CALCIUM CARBONATE 650 MG TABLET PO SCH ×2 (07:53→22:26)
[2022-09-23] MEDS: MULTIVITAMINS (DAILY MVI) TABLET (FP) PO SCH (09:10)
[2022-09-23] MEDS: CHOLECALCIFEROL (VIT D3) 1,000 UNIT (25 MCG) TABLET PO SCH (09:11)
[2022-09-23] MEDS: ZINC SULFATE 220 MG CAPSULE (FP) PO SCH (09:11)
[2022-09-23] MEDS: FERROUS SO4 325 MG TABLET (FP) PO SCH (09:11)
[2022-09-23] MEDS: ASCORBIC ACID 500 MG TABLET (FP) PO SCH ×2 (09:11→22:26)
[2022-09-23] MEDS: THIAMINE HCL 100 MG TABLET (FP) PO SCH (09:11)
[2022-09-23] MEDS: CHOLESTYRAMINE/ASPARTAME 4 GM PACKET PO SCH ×5 (09:11→22:28)
[2022-09-23] MEDS: BUDESONIDE 9 MG PO SCH (09:15)
[2022-09-23] MEDS: SILVER SULFADIAZINE 1% TOP CREAM 400 GM JAR TP SCH ×2 (10:43→22:28)
[2022-09-23] MEDS ORDERED: DEXTROSE 50%-WATER - 25 GM/50 ML VIAL IVPUSH PRN (11:59)
[2022-09-23] MEDS: MIDODRINE HCL 5 MG TABLET PO SCH ×3 (12:10→17:42)
[2022-09-23] MEDS: AMINO ACIDS 4.25%/D5W 1,000 ML IV SCH (13:43)
[2022-09-23] MEDS: OLANZapine 10 MG TABLET PO SCH (22:26)
[2022-09-23] MEDS: MIRTAZAPINE 15 MG TABLET (FP) PO SCH (22:26)
[2022-09-24] MEDS ORDERED: MEROPENEM 1 GM VIAL (RESTRICTED TO ID) IVPB ONE (01:18)
[2022-09-24] MEDS: LOPERAMIDE HCL 2 MG CAPSULE PO SCH ×3 (01:21→17:04)
[2022-09-24] MEDS: MEROPENEM 1 GM in DEXTROSE 5%-WATER 100 ML IVPB SCH ×3 (02:25→17:02)
[2022-09-24] MEDS: SODIUM CHLORIDE IVPB SCH ×2 (05:52→17:06)
[2022-09-24] MEDS: ERAVACYCLINE DI HYDROCHLORIDE IVPB SCH ×2 (05:52→17:06)
[2022-09-24] MEDS ORDERED: INSULIN (NOVOLOG) ASPART 100 UNITS/ML 10ML VIAL ONE (06:10)
[2022-09-24] MEDS: INSULIN (LEVEMIR) 100 UNITS/ML UNITS SQ SCH (06:43)
[2022-09-24] MEDS: MESALAMINE 800 MG TABLET.DR PO SCH ×3 (06:43→22:46)
[2022-09-24] MEDS: LEVOTHYROXINE NA 25 MCG TABLET (FP) PO SCH (06:43)
[2022-09-24] MEDS: BISMUTH SUBSALICYLATE 524 MG/30 ML PO SCH ×3 (06:44→22:45)
[2022-09-24] MEDS: INSULIN SLIDING SCALE (NOVOLOG) 1 VIAL SQ SCH ×3 (06:44→16:52)
[2022-09-24] MEDS: CALCIUM CARBONATE 650 MG TABLET PO SCH ×2 (08:53→22:45)
[2022-09-24] MEDS: AMINO ACIDS/PROTEIN HYDROLYS 30 ML LIQUID.PKT PO SCH (09:02)
[2022-09-24] MEDS: AMINO ACIDS 4.25%/D5W 1,000 ML IV SCH ×2 (09:47→12:54)
[2022-09-24] MEDS: CHOLECALCIFEROL (VIT D3) 1,000 UNIT (25 MCG) TABLET PO SCH (09:53)
[2022-09-24] MEDS: FERROUS SO4 325 MG TABLET (FP) PO SCH (09:53)
[2022-09-24] MEDS: THIAMINE HCL 100 MG TABLET (FP) PO SCH (09:53)
[2022-09-24] MEDS: ZINC SULFATE 220 MG CAPSULE (FP) PO SCH (09:53)
[2022-09-24] MEDS: CHOLESTYRAMINE/ASPARTAME 4 GM PACKET PO SCH ×4 (09:54→22:45)
[2022-09-24] MEDS: MULTIVITAMINS (DAILY MVI) TABLET (FP) PO SCH (09:54)
[2022-09-24] MEDS: SILVER SULFADIAZINE 1% TOP CREAM 400 GM JAR TP SCH ×2 (09:54→22:46)
[2022-09-24] MEDS: ASCORBIC ACID 500 MG TABLET (FP) PO SCH ×2 (09:54→22:44)
[2022-09-24] MEDS: MIDODRINE HCL 5 MG TABLET PO SCH ×3 (09:55→17:06)
[2022-09-24] MEDS: ERGOCALCIFEROL (VIT D2) 50,000 UNIT (1.25 MG) CAPSULE PO SCH (09:55)
[2022-09-24] MEDS: BUDESONIDE 9 MG PO SCH (09:56)
[2022-09-24 11:07] LABS: HEMATOCRIT 23.9 % (35.4-49); HEMOGLOBIN 8.2 GM/dL (11.7-16.9); MCH 27.9 pg (25.7-33.7); MCHC 34.3 g/dl (32.0-35.9); MEAN CELL VOLUME 81.4 fl (80-96); MEAN PLT VOLUME 7.5 fl (7.5-11.1); PLATELET COUNT 395 10^3/uL (134-434); RBC 2.93 M/mm3 (4.00-5.60); RDW 15.5 % (11.9-15.9); WHITE BLOOD COUNT 10.3 K/mm3 (4.0-10.0)
[2022-09-24 11:35] LABS: POTASSIUM 3.5 mmol/L (3.5-5.1)
[2022-09-24 11:40] LABS: CHOLESTEROL 70 mg/dL (50-200)
[2022-09-24 11:41] LABS: LDL CHOLESTEROL (ONLY SJRH) 22 mg/dL (5-100)
[2022-09-24 11:43] LABS: CALCIUM 8.3 mg/dL (8.5-10.1); HDL CHOLESTEROL 28 mg/dL (40-60)
[2022-09-24 11:44] LABS: MAGNESIUM 1.7 mg/dL (1.8-2.4)
[2022-09-24 11:48] LABS: CREATININE 0.7 mg/dL (0.55-1.3); PHOSPHOROUS 2.2 mg/dL (2.5-4.9)
[2022-09-24] MEDS ORDERED: MAGNESIUM 2GM/50ML STERILE WATER IVPB IVPB ONE (12:30)
[2022-09-24] MEDS ORDERED: SODIUM PHOSPHATE - 20 MM in SODIUM CHLORIDE 250 ML IVPB ONE (13:00)
[2022-09-24] MEDS ORDERED: SODIUM CHLORIDE 500 ML IV STA (15:03)
[2022-09-24] MEDS ORDERED: ACETAMINOPHEN 1000 MG/100 ML BAG IVPB ONE (15:06)
[2022-09-24] MEDS: oxyCODONE HCL 5 MG TABLET PO PRN (15:17)
[2022-09-24] MEDS: OLANZapine 10 MG TABLET PO SCH (22:44)
[2022-09-24] MEDS: MIRTAZAPINE 15 MG TABLET (FP) PO SCH (22:44)
[2022-09-25] MEDS: INSULIN SLIDING SCALE (NOVOLOG) 1 VIAL SQ SCH ×5 (00:23→22:27)
[2022-09-25] MEDS: AMINO ACIDS 4.25%/D5W 1,000 ML IV SCH ×3 (00:32→23:27)
[2022-09-25] MEDS: oxyCODONE HCL 5 MG TABLET PO PRN ×4 (01:56→22:42)
[2022-09-25] MEDS: LOPERAMIDE HCL 2 MG CAPSULE PO SCH ×3 (01:57→17:32)
[2022-09-25] MEDS: MEROPENEM 1 GM in DEXTROSE 5%-WATER 100 ML IVPB SCH ×3 (01:57→17:32)
[2022-09-25] MEDS: BISMUTH SUBSALICYLATE 524 MG/30 ML PO SCH ×3 (07:07→22:26)
[2022-09-25] MEDS: SODIUM CHLORIDE IVPB SCH ×2 (07:07→18:24)
[2022-09-25] MEDS: ERAVACYCLINE DI HYDROCHLORIDE IVPB SCH ×2 (07:07→18:24)
[2022-09-25] MEDS: MESALAMINE 800 MG TABLET.DR PO SCH ×3 (07:07→22:26)
[2022-09-25] MEDS: INSULIN (LEVEMIR) 100 UNITS/ML UNITS SQ SCH (07:07)
[2022-09-25] MEDS: LEVOTHYROXINE NA 25 MCG TABLET (FP) PO SCH (07:08)
[2022-09-25] MEDS: BUDESONIDE 9 MG PO SCH (10:00)
[2022-09-25] MEDS: MIDODRINE HCL 5 MG TABLET PO SCH ×3 (10:19→17:32)
[2022-09-25] MEDS: CHOLECALCIFEROL (VIT D3) 1,000 UNIT (25 MCG) TABLET PO SCH (10:20)
[2022-09-25] MEDS: CALCIUM CARBONATE 650 MG TABLET PO SCH ×2 (11:21→22:27)
[2022-09-25] MEDS: AMINO ACIDS/PROTEIN HYDROLYS 30 ML LIQUID.PKT PO SCH (11:21)
[2022-09-25] MEDS: CHOLESTYRAMINE/ASPARTAME 4 GM PACKET PO SCH ×4 (11:21→22:26)
[2022-09-25] MEDS: ZINC SULFATE 220 MG CAPSULE (FP) PO SCH (11:21)
[2022-09-25] MEDS: MULTIVITAMINS (DAILY MVI) TABLET (FP) PO SCH (11:21)
[2022-09-25] MEDS: THIAMINE HCL 100 MG TABLET (FP) PO SCH (11:21)
[2022-09-25] MEDS: ASCORBIC ACID 500 MG TABLET (FP) PO SCH ×2 (11:21→22:25)
[2022-09-25] MEDS: FERROUS SO4 325 MG TABLET (FP) PO SCH (11:21)
[2022-09-25] MEDS: SILVER SULFADIAZINE 1% TOP CREAM 400 GM JAR TP SCH ×2 (11:22→22:45)
[2022-09-25 11:30] LABS: POTASSIUM 3.6 mmol/L (3.5-5.1)
[2022-09-25 11:36] LABS: BLOOD UREA NITROGEN 38.2 mg/dL (7-18)
[2022-09-25 11:37] LABS: CALCIUM 8.5 mg/dL (8.5-10.1)
[2022-09-25 11:38] LABS: MAGNESIUM 1.9 mg/dL (1.8-2.4)
[2022-09-25 11:40] LABS: CREATININE 0.7 mg/dL (0.55-1.3); PHOSPHOROUS 2.7 mg/dL (2.5-4.9)
[2022-09-25] MEDS ORDERED: INSULIN (LEVEMIR) 100 UNITS/ML UNITS SQ SCH (11:48)
[2022-09-25] MEDS ORDERED: ERAVACYCLINE DI HYDROCHLORIDE IVPB SCH (17:00)
[2022-09-25] MEDS ORDERED: SODIUM CHLORIDE IVPB SCH (17:00)
[2022-09-25] MEDS: OLANZapine 10 MG TABLET PO SCH (22:25)
[2022-09-25] MEDS: MIRTAZAPINE 15 MG TABLET (FP) PO SCH (22:25)
[2022-09-26] MEDS: LOPERAMIDE HCL 2 MG CAPSULE PO SCH ×4 (01:26→23:56)
[2022-09-26] MEDS: MEROPENEM 1 GM in DEXTROSE 5%-WATER 100 ML IVPB SCH ×3 (01:27→17:33)
[2022-09-26] MEDS ORDERED: SODIUM CHLORIDE 0.9% 500 ML INFUS.BAG IV ONE (05:06)
[2022-09-26] MEDS ORDERED: INSULIN (NOVOLOG) ASPART 100 UNITS/ML 10ML VIAL ONE (06:11)
[2022-09-26] MEDS: BISMUTH SUBSALICYLATE 524 MG/30 ML PO SCH ×3 (06:23→23:56)
[2022-09-26] MEDS: LEVOTHYROXINE NA 25 MCG TABLET (FP) PO SCH (06:24)
[2022-09-26] MEDS: MESALAMINE 800 MG TABLET.DR PO SCH ×3 (06:24→23:57)
[2022-09-26] MEDS: INSULIN SLIDING SCALE (NOVOLOG) 1 VIAL SQ SCH ×3 (06:28→16:51)
[2022-09-26 06:35] VITALS: RESP 18
[2022-09-26] MEDS: ERAVACYCLINE DI HYDROCHLORIDE IVPB SCH ×2 (06:55→18:19)
[2022-09-26] MEDS: SODIUM CHLORIDE IVPB SCH ×2 (06:55→18:19)
[2022-09-26] MEDS: AMINO ACIDS/PROTEIN HYDROLYS 30 ML LIQUID.PKT PO SCH (07:33)
[2022-09-26] MEDS: CALCIUM CARBONATE 650 MG TABLET PO SCH ×2 (08:39→23:57)
[2022-09-26] MEDS: FERROUS SO4 325 MG TABLET (FP) PO SCH (09:57)
[2022-09-26] MEDS: MULTIVITAMINS (DAILY MVI) TABLET (FP) PO SCH (09:57)
[2022-09-26] MEDS: CHOLECALCIFEROL (VIT D3) 1,000 UNIT (25 MCG) TABLET PO SCH (09:57)
[2022-09-26] MEDS: THIAMINE HCL 100 MG TABLET (FP) PO SCH (09:58)
[2022-09-26] MEDS: ASCORBIC ACID 500 MG TABLET (FP) PO SCH ×2 (09:58→23:55)
[2022-09-26] MEDS: BUDESONIDE 9 MG PO SCH (09:59)
[2022-09-26] MEDS: ZINC SULFATE 220 MG CAPSULE (FP) PO SCH (09:59)
[2022-09-26] MEDS: MIDODRINE HCL 5 MG TABLET PO SCH ×3 (10:00→17:31)
[2022-09-26] MEDS: SILVER SULFADIAZINE 1% TOP CREAM 400 GM JAR TP SCH (10:01)
[2022-09-26] MEDS: oxyCODONE HCL 5 MG TABLET PO PRN ×2 (10:01→14:19)
[2022-09-26] MEDS: CHOLESTYRAMINE/ASPARTAME 4 GM PACKET PO SCH ×4 (10:02→23:56)
[2022-09-26] MEDS: AMINO ACIDS 4.25%/D5W 1,000 ML IV SCH (14:34)
[2022-09-26] MEDS ORDERED: AMINO ACIDS 4.25%/D5W 1,000 ML IV SCH (15:00)
[2022-09-26 17:01] LABS: BLOOD UREA NITROGEN 41.5 mg/dL (7-18); CALCIUM 8.4 mg/dL (8.5-10.1); POTASSIUM 3.5 mmol/L (3.5-5.1)
[2022-09-26 17:02] LABS: MAGNESIUM 1.8 mg/dL (1.8-2.4)
[2022-09-26 17:05] LABS: CREATININE 0.7 mg/dL (0.55-1.3); PHOSPHOROUS 1.5 mg/dL (2.5-4.9)
[2022-09-26] MEDS ORDERED: POTASSIUM PHOSPHATE 30 MM in DEXTROSE 5%-WATER - 500 ML IVPB ONE (19:00)
[2022-09-26] MEDS: MIRTAZAPINE 15 MG TABLET (FP) PO SCH (23:55)
[2022-09-26] MEDS: OLANZapine 10 MG TABLET PO SCH (23:56)
[2022-09-27] MEDS: INSULIN SLIDING SCALE (NOVOLOG) 1 VIAL SQ SCH (00:02)
[2022-09-27 00:29] VITALS: BP 97/71; PULSE 88; TEMP 98.4
[2022-09-27] MEDS: MEROPENEM 1 GM in DEXTROSE 5%-WATER 100 ML IVPB SCH (01:31)
== END 2022-09-27 02:45 | disposition short-term general hospital (02) | DRG 710 ==
LOC: JER 00:41 → JERBED 05:13 → JICU 05:41 → J6S 08-23 14:37
PROVIDERS: ADMIT Internal Medicine Pulmonary Disease; ATTEND Internal Medicine
PROC: 30233N1 Transfusion of Nonautologous Red Blood Cells into Peripheral Vein, Percutaneous Approach (ICD-10-PCS; principal; 2022-08-20)
PROC: 02HV33Z Insertion of Infusion Device into Superior Vena Cava, Percutaneous Approach (ICD-10-PCS; 2022-08-20)
PROC: B518ZZA Fluoroscopy of Superior Vena Cava, Guidance (ICD-10-PCS; 2022-08-20)
PROC: 0KBN0ZZ Excision of Right Hip Muscle, Open Approach (ICD-10-PCS; 2022-08-21)
PROC: 0KBQ0ZZ Excision of Right Upper Leg Muscle, Open Approach (ICD-10-PCS; 2022-08-21)
PROC: 0KBQ0ZZ Excision of Right Upper Leg Muscle, Open Approach (ICD-10-PCS; 2022-08-26)
PROC: 0QB20ZX Excision of Right Pelvic Bone, Open Approach, Diagnostic (ICD-10-PCS; 2022-08-26)
PROC: 0JBL0ZZ Excision of Right Upper Leg Subcutaneous Tissue and Fascia, Open Approach (ICD-10-PCS; 2022-08-26)
PROC: 0JDL0ZZ Extraction of Right Upper Leg Subcutaneous Tissue and Fascia, Open Approach (ICD-10-PCS; 2022-08-26)
DX: A41.59 Other Gram-negative sepsis (principal); R65.20 Severe sepsis without septic shock; L89.210 Pressure ulcer of right hip, unstageable; L89.894 Pressure ulcer of other site, stage 4; M72.6 Necrotizing fasciitis; N17.9 Acute kidney failure, unspecified; E03.9 Hypothyroidism, unspecified; F31.89 Other bipolar disorder; K52.832 Lymphocytic colitis; R62.7 Adult failure to thrive; D64.9 Anemia, unspecified; D72.829 Elevated white blood cell count, unspecified; R64 Cachexia; K50.90 Crohn's disease, unspecified, without complications; N31.9 Neuromuscular dysfunction of bladder, unspecified; E43 Unspecified severe protein-calorie malnutrition; Z68.1 Body mass index [BMI] 19.9 or less, adult; Z93.51 Cutaneous-vesicostomy status; R33.9 Retention of urine, unspecified; L02.415 Cutaneous abscess of right lower limb; B96.4 Proteus (mirabilis) (morganii) as the cause of diseases classified elsewhere; B95.2 Enterococcus as the cause of diseases classified elsewhere; B96.5 Pseudomonas (aeruginosa) (mallei) (pseudomallei) as the cause of diseases classified elsewhere; B96.1 Klebsiella pneumoniae [K. pneumoniae] as the cause of diseases classified elsewhere; E11.65 Type 2 diabetes mellitus with hyperglycemia; M86.8X8 Other osteomyelitis, other site; D63.8 Anemia in other chronic diseases classified elsewhere; R53.2 Functional quadriplegia; L03.115 Cellulitis of right lower limb; N39.0 Urinary tract infection, site not specified; K52.9 Noninfective gastroenteritis and colitis, unspecified; R94.5 Abnormal results of liver function studies; E83.39 Other disorders of phosphorus metabolism; D75.838 Other thrombocytosis; L89.152 Pressure ulcer of sacral region, stage 2
CPT/HCPCS: 0241U-QW; 36415; 36430; 36569; 71045-TC-FY; 72194-TC; 73702-TC-RT; 74177-TC; 76705-TC; 77001-TC-FY; 80048; 80053; 80061; 81003; 82105; 82272; 82550; 82553; 82607; 82728; 82746; 82784; 82803; 82962; 82977; 83036; 83516; 83540; 83550; 83605; 83735; 83993; 84100; 84439; 84443; 84484; 84999; 85025; 85027; 85045; 85610; 86038; 86704; 86803; 86900; 86922; 87040; 87045; 87046; 87070; 87077; 87086; 87184; 87186; 87205; 87209; 87324; 87328; 87329; 87340; 87389; 87449; 88304-TC; 93005; 93010; 93306-TC; 94760; 99285-25; C1751; C9803-CS; J0878; P9058; Q9967; U0003; U0005

== ENCOUNTER 2022-11-03 18:45 | Inpatient (IN) | payer OTHER ==
[2022-11-03 21:17] LABS: BASO % 0.9 % (0-2.0); EOS % 3.1 % (0-4.5); HEMATOCRIT 26.9 % (35.4-49); HEMOGLOBIN 8.4 GM/dL (11.7-16.9); LYMPH % 22.8 % (8-40); MCHC 31.5 g/dl (32.0-35.9); MEAN CELL VOLUME 82.6 fl (80-96); MEAN PLT VOLUME 7.8 fl (7.5-11.1); MONO % 8.4 % (3.8-10.2); NEUT % 64.8 % (42.8-82.8); PLATELET COUNT 532 10^3/uL (134-434); RBC 3.25 M/mm3 (4.00-5.60); RDW 16.4 % (11.9-15.9); WHITE BLOOD COUNT 8.6 K/mm3 (4.0-10.0)
[2022-11-03 21:21] LABS: INR 1.14 (0.83-1.09); PROTHROMBIN TIME (PATIENT) 13.2 SEC (9.7-13.0)
[2022-11-03 21:23] LABS: ACTIVATED PTT 44.5 SECONDS (25.2-36.5)
[2022-11-03 21:33] LABS: POTASSIUM 4.2 mmol/L (3.5-5.1)
[2022-11-03 21:35] LABS: BLOOD UREA NITROGEN 18.3 mg/dL (7-18); CALCIUM 11.1 mg/dL (8.5-10.1)
[2022-11-03 21:38] LABS: CREATININE 1.1 mg/dL (0.55-1.3)
[2022-11-03 21:40] LABS: BILIRUBIN,TOTAL 0.2 mg/dL (0.2-1); TOT PROT 7.3 g/dl (6.4-8.2)
[2022-11-04] MEDS ORDERED: PATIENT'S OWN MEDICATION (NON-FORMULARY) (Calcium Alginate [Kendall] 1 EACH Bandage) TP PRN (11:07)
[2022-11-04] MEDS ORDERED: DOCUSATE SODIUM 100 MG CAPSULE (FP) PO PRN (11:12)
[2022-11-04] MEDS ORDERED: oxyCODONE HCL 5 MG TABLET ONE (11:39)
[2022-11-04] MEDS: oxyCODONE HCL 5 MG TABLET PO PRN (11:42)
[2022-11-04] MEDS ORDERED: GABAPENTIN 100 MG CAPSULE ONE (14:14)
[2022-11-04] MEDS: CHOLESTYRAMINE/ASPARTAME 4 GM PACKET PO SCH ×3 (14:17→22:52)
[2022-11-04] MEDS: CYPROHEPTADINE HCL 4 MG TABLET PO SCH ×2 (14:17→22:51)
[2022-11-04] MEDS: MIDODRINE HCL 5 MG TABLET PO SCH ×2 (14:17→18:10)
[2022-11-04] MEDS: GABAPENTIN 100 MG CAPSULE PO SCH ×2 (14:17→22:39)
[2022-11-04] MEDS: MESALAMINE 800 MG TABLET.DR PO SCH ×2 (14:17→22:40)
[2022-11-04 15:36] VITALS: BMI 14.4
[2022-11-04] MEDS: CEFTRIAXONE 1 GM in DEXTROSE 5%-WATER - 50 ML IVPB SCH (16:52)
[2022-11-04] MEDS: SODIUM CHLORIDE 1,000 ML IV SCH (16:53)
[2022-11-04] MEDS: INSULIN (NOVOLOG) ASPART 100 UNITS/ML 10ML VIAL SQ SCH ×2 (17:01→22:41)
[2022-11-04] MEDS: BISMUTH SUBSALICYLATE 524 MG/30 ML PO SCH (18:26)
[2022-11-04] MEDS ORDERED: MIRTAZAPINE 15 MG TABLET (FP) ONE (21:17)
[2022-11-04] MEDS ORDERED: INSULIN (LEVEMIR) 100 UNITS/ML UNITS SQ SCH (22:00)
[2022-11-04] MEDS ORDERED: MIRTAZAPINE 30 MG TABLET PO SCH (22:00)
[2022-11-04] MEDS: OLANZapine 10 MG TABLET PO SCH (22:39)
[2022-11-04] MEDS: NYSTATIN 100,000 UNIT/GM TOPICAL CREAM 15 GM TUBE TP SCH (22:41)
[2022-11-04] MEDS: CALCIUM CARBONATE 650 MG TABLET PO SCH (22:42)
[2022-11-04] MEDS: MIRTAZAPINE 15 MG TABLET (FP) PO SCH (23:00)
[2022-11-05] MEDS: SODIUM CHLORIDE 1,000 ML IV SCH ×2 (01:25→18:43)
[2022-11-05] MEDS: MESALAMINE 800 MG TABLET.DR PO SCH ×3 (06:20→23:21)
[2022-11-05] MEDS: GABAPENTIN 100 MG CAPSULE PO SCH ×3 (06:21→23:18)
[2022-11-05] MEDS: LEVOTHYROXINE NA 25 MCG TABLET (FP) PO SCH (06:21)
[2022-11-05] MEDS: INSULIN (NOVOLOG) ASPART 100 UNITS/ML 10ML VIAL SQ SCH ×4 (06:22→23:56)
[2022-11-05] MEDS: CYPROHEPTADINE HCL 4 MG TABLET PO SCH ×3 (06:22→23:19)
[2022-11-05] MEDS: BISMUTH SUBSALICYLATE 524 MG/30 ML PO SCH ×3 (06:24→18:32)
[2022-11-05 09:07] LABS: BASO % 0.6 % (0-2.0); EOS % 2.9 % (0-4.5); HEMATOCRIT 22.3 % (35.4-49); HEMOGLOBIN 7.2 GM/dL (11.7-16.9); LYMPH % 17.5 % (8-40); MCH 26.3 pg (25.7-33.7); MCHC 32.1 g/dl (32.0-35.9); MEAN PLT VOLUME 7.7 fl (7.5-11.1); MONO % 8.9 % (3.8-10.2); NEUT % 70.1 % (42.8-82.8); PLATELET COUNT 564 10^3/uL (134-434); RBC 2.72 M/mm3 (4.00-5.60); RDW 16.5 % (11.9-15.9); WHITE BLOOD COUNT 8.2 K/mm3 (4.0-10.0)
[2022-11-05 09:23] LABS: POTASSIUM 3.8 mmol/L (3.5-5.1)
[2022-11-05 09:26] LABS: ALBUMIN 1.8 g/dl (3.4-5.0); BLOOD UREA NITROGEN 19.8 mg/dL (7-18)
[2022-11-05 09:29] LABS: CREATININE 1.3 mg/dL (0.55-1.3)
[2022-11-05] MEDS: ARIPiprazole 5 MG TABLET PO SCH (09:29)
[2022-11-05] MEDS: TAMSULOSIN HCL 0.4 MG CAP PO SCH (09:29)
[2022-11-05] MEDS: FERROUS SO4 325 MG TABLET (FP) PO SCH (09:29)
[2022-11-05] MEDS: CALCIUM CARBONATE 650 MG TABLET PO SCH ×2 (09:29→23:22)
[2022-11-05] MEDS: ZINC SULFATE 220 MG CAPSULE (FP) PO SCH (09:29)
[2022-11-05 09:30] LABS: BILIRUBIN,TOTAL 0.2 mg/dL (0.2-1); TOT PROT 6.5 g/dl (6.4-8.2)
[2022-11-05] MEDS: PANTOPRAZOLE 40 MG TABLET PO SCH (09:30)
[2022-11-05] MEDS: MIDODRINE HCL 5 MG TABLET PO SCH ×3 (09:30→19:25)
[2022-11-05] MEDS: MULTIVITAMINS (DAILY MVI) TABLET (FP) PO SCH (09:30)
[2022-11-05] MEDS: THIAMINE HCL 100 MG TABLET (FP) PO SCH (09:30)
[2022-11-05] MEDS: ASCORBIC ACID 500 MG TABLET (FP) PO SCH (09:30)
[2022-11-05] MEDS: CHOLESTYRAMINE/ASPARTAME 4 GM PACKET PO SCH ×6 (09:30→23:19)
[2022-11-05] MEDS ORDERED: SILVER SULFADIAZINE 1% TOP CREAM 400 GM JAR TP SCH (10:00)
[2022-11-05] MEDS ORDERED: SILVER SULFADIAZINE 1% TOP CREAM 50 GM JAR TP SCH (10:00)
[2022-11-05] MEDS: CEFTRIAXONE 1 GM in DEXTROSE 5%-WATER - 50 ML IVPB SCH (10:37)
[2022-11-05] MEDS: AMINO ACIDS/PROTEIN HYDROLYS 30 ML LIQUID.PKT PO SCH (10:37)
[2022-11-05] MEDS ORDERED: ACETAMINOPHEN 1000 MG/100 ML BAG IVPB PRN (13:38)
[2022-11-05] MEDS: AMINO ACIDS 4.25%/D5W 1,000 ML IV SCH (17:13)
[2022-11-05] MEDS: MINERAL OIL/PET HY-PHL TOPICAL OINTMENT 454 GM JAR TP SCH ×2 (18:40→23:21)
[2022-11-05] MEDS: COLLAGENASE CLOSTRIDIUM HIST. 30 GRAMS TUBE TP SCH (18:40)
[2022-11-05] MEDS: NYSTATIN 100,000 UNIT/GM TOPICAL CREAM 15 GM TUBE TP SCH ×2 (18:42→23:22)
[2022-11-05] MEDS ORDERED: IRON SUCROSE INJECTION 200 MG in SODIUM CHLORIDE 90 ML IVPB ONE (19:00)
[2022-11-05] MEDS: oxyCODONE HCL 5 MG TABLET PO PRN (21:01)
[2022-11-05 22:20] LABS: EPI CELLS 3 /uL (0-25.1); HYALINE CASTS 4 /uL (0-3.1); PH,URINE 6.5 (5.0-8.0); URINE APPEARANCE CLOUDY; URINE BACTERIA >9,000 /uL (0-1359); URINE BILIRUBIN NEGATIVE (NEGATIVE); URINE COLOR ORANGE; URINE GLUCOSE (UA) NEGATIVE (NEGATIVE); URINE KETONE TRACE (NEGATIVE); URINE LEUK ESTERASE 3+ (NEGATIVE); URINE NITRITE NEGATIVE (NEGATIVE); URINE PROTEIN 2+ (NEGATIVE); URINE RBC 1694 /uL (0-23.9); URINE UROBILINOGEN 0.2 mg/dL (0.2-1.0); URINE WBC 1833 /uL (0-25.8)
[2022-11-05 22:33] LABS: YEAST OCCASIONAL (NEGATIVE)
[2022-11-05] MEDS: MIRTAZAPINE 15 MG TABLET (FP) PO SCH (23:18)
[2022-11-05] MEDS: OLANZapine 10 MG TABLET PO SCH (23:18)
[2022-11-06] MEDS: AMINO ACIDS 4.25%/D5W 1,000 ML IV SCH ×3 (02:26→12:49)
[2022-11-06] MEDS: MESALAMINE 800 MG TABLET.DR PO SCH ×3 (06:20→22:18)
[2022-11-06] MEDS: LEVOTHYROXINE NA 25 MCG TABLET (FP) PO SCH (06:21)
[2022-11-06] MEDS: CYPROHEPTADINE HCL 4 MG TABLET PO SCH ×3 (06:21→22:19)
[2022-11-06] MEDS: GABAPENTIN 100 MG CAPSULE PO SCH ×3 (06:21→22:16)
[2022-11-06] MEDS: BISMUTH SUBSALICYLATE 524 MG/30 ML PO SCH ×3 (06:21→16:45)
[2022-11-06] MEDS: INSULIN (NOVOLOG) ASPART 100 UNITS/ML 10ML VIAL SQ SCH ×2 (07:40→11:57)
[2022-11-06] MEDS ORDERED: INSULIN (NOVOLOG) ASPART 100 UNITS/ML 10ML VIAL ONE (07:45)
[2022-11-06] MEDS: TAMSULOSIN HCL 0.4 MG CAP PO SCH (08:25)
[2022-11-06] MEDS: AMINO ACIDS/PROTEIN HYDROLYS 30 ML LIQUID.PKT PO SCH ×2 (08:25→08:29)
[2022-11-06] MEDS: CALCIUM CARBONATE 650 MG TABLET PO SCH ×2 (08:25→22:18)
[2022-11-06 10:23] LABS: BASO % 0.4 % (0-2.0); EOS % 1.9 % (0-4.5); HEMATOCRIT 21.2 % (35.4-49); LYMPH % 29.8 % (8-40); MCHC 31.7 g/dl (32.0-35.9); MEAN CELL VOLUME 82.3 fl (80-96); MEAN PLT VOLUME 7.6 fl (7.5-11.1); MONO % 9.5 % (3.8-10.2); NEUT % 58.4 % (42.8-82.8); PLATELET COUNT 537 10^3/uL (134-434); RBC 2.58 M/mm3 (4.00-5.60); RDW 16.4 % (11.9-15.9); WHITE BLOOD COUNT 9.2 K/mm3 (4.0-10.0)
[2022-11-06] MEDS: PANTOPRAZOLE 40 MG TABLET PO SCH (10:43)
[2022-11-06] MEDS: CEFTRIAXONE 1 GM in DEXTROSE 5%-WATER - 50 ML IVPB SCH (10:43)
[2022-11-06] MEDS: FERROUS SO4 325 MG TABLET (FP) PO SCH (10:43)
[2022-11-06] MEDS: ZINC SULFATE 220 MG CAPSULE (FP) PO SCH (10:44)
[2022-11-06] MEDS: MULTIVITAMINS (DAILY MVI) TABLET (FP) PO SCH (10:44)
[2022-11-06] MEDS: ARIPiprazole 5 MG TABLET PO SCH (10:44)
[2022-11-06] MEDS: ASCORBIC ACID 500 MG TABLET (FP) PO SCH (10:44)
[2022-11-06] MEDS: MIDODRINE HCL 5 MG TABLET PO SCH ×3 (10:44→18:54)
[2022-11-06] MEDS: THIAMINE HCL 100 MG TABLET (FP) PO SCH (10:44)
[2022-11-06] MEDS: CHOLESTYRAMINE/ASPARTAME 4 GM PACKET PO SCH ×4 (10:45→22:17)
[2022-11-06 10:57] LABS: HEMOGLOBIN 6.7 GM/dL (11.7-16.9)
[2022-11-06 11:11] LABS: POTASSIUM 3.4 mmol/L (3.5-5.1)
[2022-11-06 11:29] LABS: CALCIUM 9.7 mg/dL (8.5-10.1)
[2022-11-06 11:30] LABS: ALBUMIN 1.7 g/dl (3.4-5.0); BLOOD UREA NITROGEN 17.3 mg/dL (7-18)
[2022-11-06 11:33] LABS: CREATININE 1.1 mg/dL (0.55-1.3)
[2022-11-06] MEDS: COLLAGENASE CLOSTRIDIUM HIST. 30 GRAMS TUBE TP SCH (11:34)
[2022-11-06] MEDS: MINERAL OIL/PET HY-PHL TOPICAL OINTMENT 454 GM JAR TP SCH ×2 (11:34→22:16)
[2022-11-06] MEDS: NYSTATIN 100,000 UNIT/GM TOPICAL CREAM 15 GM TUBE TP SCH ×2 (11:34→22:41)
[2022-11-06 11:35] LABS: BILIRUBIN,TOTAL 0.3 mg/dL (0.2-1); TOT PROT 6.4 g/dl (6.4-8.2)
[2022-11-06] MEDS ORDERED: ACETAMINOPHEN 1000 MG/100 ML BAG IVPB PRN (11:55)
[2022-11-06] MEDS: INSULIN SLIDING SCALE (NOVOLOG) 1 VIAL SQ SCH ×3 (12:48→22:42)
[2022-11-06] MEDS: MESALAMINE 500 MG PO SCH ×2 (12:52→12:53)
[2022-11-06] MEDS: BUDESONIDE 9 MG PO SCH (12:53)
[2022-11-06] MEDS ORDERED: POTASSIUM CHLORIDE ORAL LIQUID 20 MEQ/15 ML PO ONE ×2 (12:54→13:45)
[2022-11-06] MEDS ORDERED: BENZOIN/ALOE VERA/STORAX/TOLU 58 ML BOTTLE TP ONE (13:50)
[2022-11-06] MEDS: OLANZapine 10 MG TABLET PO SCH (22:17)
[2022-11-06] MEDS: MIRTAZAPINE 15 MG TABLET (FP) PO SCH (22:17)
[2022-11-07] MEDS: AMINO ACIDS 4.25%/D5W 1,000 ML IV SCH ×2 (01:34→17:36)
[2022-11-07] MEDS: GABAPENTIN 100 MG CAPSULE PO SCH ×2 (05:09→13:16)
[2022-11-07] MEDS: MESALAMINE 800 MG TABLET.DR PO SCH ×2 (05:09→13:16)
[2022-11-07] MEDS: CYPROHEPTADINE HCL 4 MG TABLET PO SCH ×2 (05:10→13:16)
[2022-11-07] MEDS: BISMUTH SUBSALICYLATE 524 MG/30 ML PO SCH ×3 (06:23→16:37)
[2022-11-07] MEDS: INSULIN SLIDING SCALE (NOVOLOG) 1 VIAL SQ SCH ×3 (06:23→17:08)
[2022-11-07] MEDS: LEVOTHYROXINE NA 25 MCG TABLET (FP) PO SCH (06:24)
[2022-11-07] MEDS: CALCIUM CARBONATE 650 MG TABLET PO SCH (08:47)
[2022-11-07] MEDS: TAMSULOSIN HCL 0.4 MG CAP PO SCH (08:47)
[2022-11-07] MEDS: ARIPiprazole 5 MG TABLET PO SCH (10:18)
[2022-11-07] MEDS: FERROUS SO4 325 MG TABLET (FP) PO SCH (10:18)
[2022-11-07] MEDS: MINERAL OIL/PET HY-PHL TOPICAL OINTMENT 454 GM JAR TP SCH ×2 (10:18→23:05)
[2022-11-07] MEDS: THIAMINE HCL 100 MG TABLET (FP) PO SCH (10:19)
[2022-11-07] MEDS: NYSTATIN 100,000 UNIT/GM TOPICAL CREAM 15 GM TUBE TP SCH ×2 (10:19→23:05)
[2022-11-07] MEDS: MULTIVITAMINS (DAILY MVI) TABLET (FP) PO SCH (10:19)
[2022-11-07] MEDS: ZINC SULFATE 220 MG CAPSULE (FP) PO SCH (10:19)
[2022-11-07] MEDS: MIDODRINE HCL 5 MG TABLET PO SCH ×3 (10:19→17:04)
[2022-11-07] MEDS: ASCORBIC ACID 500 MG TABLET (FP) PO SCH (10:19)
[2022-11-07] MEDS: CHOLESTYRAMINE/ASPARTAME 4 GM PACKET PO SCH ×3 (10:19→17:04)
[2022-11-07] MEDS: PANTOPRAZOLE 40 MG TABLET PO SCH (10:19)
[2022-11-07 10:42] LABS: BASO % 0.9 % (0-2.0); EOS % 2.7 % (0-4.5); HEMATOCRIT 34.7 % (35.4-49); HEMOGLOBIN 10.9 GM/dL (11.7-16.9); LYMPH % 16.2 % (8-40); MCH 30.5 pg (25.7-33.7); MCHC 31.5 g/dl (32.0-35.9); MEAN PLT VOLUME 9.2 fl (7.5-11.1); MONO % 10.3 % (3.8-10.2); NEUT % 69.9 % (42.8-82.8); PLATELET COUNT 132 10^3/uL (134-434); RBC 3.58 M/mm3 (4.00-5.60); RDW 14.3 % (11.9-15.9); WHITE BLOOD COUNT 4.4 K/mm3 (4.0-10.0)
[2022-11-07 10:43] LABS: MEAN CELL VOLUME 96.9 fl (80-96)
[2022-11-07] MEDS ORDERED: FENTANYL CITRATE/PF 50 MCG/ML VIAL ONE ×2 (12:22→12:45)
[2022-11-07] MEDS ORDERED: FENTANYL CITRATE/PF 50 MCG/ML VIAL IVPUSH ONE (12:40)
[2022-11-07] MEDS ORDERED: GLUCAGON 1 MG KIT IVPUSH ONE (12:50)
[2022-11-07] MEDS ORDERED: FENTANYL CITRATE/PF 50 MCG/ML VIAL IVPUSH SCH (14:23)
[2022-11-07] MEDS ORDERED: TRIPLE LUMEN FLUSH 4 ML ML IVPUSH PRN (14:29)
[2022-11-07] MEDS: COLLAGENASE CLOSTRIDIUM HIST. 30 GRAMS TUBE TP SCH (17:37)
[2022-11-08] MEDS: CALCIUM CARBONATE 650 MG TABLET PO SCH ×3 (00:03→22:05)
[2022-11-08] MEDS: MESALAMINE 800 MG TABLET.DR PO SCH ×5 (00:03→22:05)
[2022-11-08] MEDS: GABAPENTIN 100 MG CAPSULE PO SCH ×5 (00:04→22:07)
[2022-11-08] MEDS: CYPROHEPTADINE HCL 4 MG TABLET PO SCH ×5 (00:05→22:20)
[2022-11-08] MEDS: MIRTAZAPINE 15 MG TABLET (FP) PO SCH ×2 (00:08→22:07)
[2022-11-08] MEDS: OLANZapine 10 MG TABLET PO SCH ×2 (00:08→22:07)
[2022-11-08] MEDS: CHOLESTYRAMINE/ASPARTAME 4 GM PACKET PO SCH ×5 (00:08→22:20)
[2022-11-08] MEDS: INSULIN SLIDING SCALE (NOVOLOG) 1 VIAL SQ SCH ×5 (00:19→22:22)
[2022-11-08] MEDS: AMINO ACIDS 4.25%/D5W 1,000 ML IV SCH ×3 (06:40→17:08)
[2022-11-08] MEDS: LEVOTHYROXINE NA 25 MCG TABLET (FP) PO SCH ×2 (07:05→07:34)
[2022-11-08] MEDS: BISMUTH SUBSALICYLATE 524 MG/30 ML PO SCH ×5 (07:05→17:06)
[2022-11-08] MEDS: SODIUM CHLORIDE 1,000 ML IV SCH ×3 (08:44→17:08)
[2022-11-08] MEDS: TAMSULOSIN HCL 0.4 MG CAP PO SCH (11:38)
[2022-11-08] MEDS: PANTOPRAZOLE 40 MG TABLET PO SCH (11:39)
[2022-11-08] MEDS: MIDODRINE HCL 5 MG TABLET PO SCH ×3 (11:39→17:04)
[2022-11-08] MEDS: FERROUS SO4 325 MG TABLET (FP) PO SCH (11:39)
[2022-11-08] MEDS: ARIPiprazole 5 MG TABLET PO SCH (11:39)
[2022-11-08] MEDS: ZINC SULFATE 220 MG CAPSULE (FP) PO SCH (11:39)
[2022-11-08] MEDS: MULTIVITAMINS (DAILY MVI) TABLET (FP) PO SCH (11:40)
[2022-11-08] MEDS: THIAMINE HCL 100 MG TABLET (FP) PO SCH (11:40)
[2022-11-08] MEDS: ASCORBIC ACID 500 MG TABLET (FP) PO SCH (11:40)
[2022-11-08] MEDS: NYSTATIN 100,000 UNIT/GM TOPICAL CREAM 15 GM TUBE TP SCH ×2 (12:23→22:05)
[2022-11-08] MEDS: MINERAL OIL/PET HY-PHL TOPICAL OINTMENT 454 GM JAR TP SCH ×2 (12:23→22:04)
[2022-11-08] MEDS: COLLAGENASE CLOSTRIDIUM HIST. 30 GRAMS TUBE TP SCH (12:25)
[2022-11-08] MEDS ORDERED: ACETAMINOPHEN 1000 MG/100 ML BAG IVPB ONE (20:15)
[2022-11-09] MEDS: AMINO ACIDS 4.25%/D5W 1,000 ML IV SCH ×3 (03:07→15:45)
[2022-11-09] MEDS: GABAPENTIN 100 MG CAPSULE PO SCH ×3 (05:39→22:52)
[2022-11-09] MEDS: CYPROHEPTADINE HCL 4 MG TABLET PO SCH ×3 (05:39→22:50)
[2022-11-09] MEDS: MESALAMINE 800 MG TABLET.DR PO SCH ×3 (05:40→22:47)
[2022-11-09] MEDS: LEVOTHYROXINE NA 25 MCG TABLET (FP) PO SCH (06:11)
[2022-11-09] MEDS: BISMUTH SUBSALICYLATE 524 MG/30 ML PO SCH ×3 (06:16→16:41)
[2022-11-09] MEDS: INSULIN SLIDING SCALE (NOVOLOG) 1 VIAL SQ SCH ×4 (06:40→23:11)
[2022-11-09] MEDS: ASCORBIC ACID 500 MG TABLET (FP) PO SCH (10:00)
[2022-11-09] MEDS: ZINC SULFATE 220 MG CAPSULE (FP) PO SCH (10:00)
[2022-11-09] MEDS: MIDODRINE HCL 5 MG TABLET PO SCH ×3 (10:00→17:16)
[2022-11-09] MEDS: THIAMINE HCL 100 MG TABLET (FP) PO SCH (10:00)
[2022-11-09] MEDS: TAMSULOSIN HCL 0.4 MG CAP PO SCH (10:00)
[2022-11-09] MEDS: MULTIVITAMINS (DAILY MVI) TABLET (FP) PO SCH (10:00)
[2022-11-09] MEDS: FERROUS SO4 325 MG TABLET (FP) PO SCH (10:00)
[2022-11-09] MEDS: ARIPiprazole 5 MG TABLET PO SCH (10:00)
[2022-11-09] MEDS: CALCIUM CARBONATE 650 MG TABLET PO SCH ×2 (10:01→22:48)
[2022-11-09] MEDS: MINERAL OIL/PET HY-PHL TOPICAL OINTMENT 454 GM JAR TP SCH ×2 (10:05→23:10)
[2022-11-09] MEDS: NYSTATIN 100,000 UNIT/GM TOPICAL CREAM 15 GM TUBE TP SCH ×2 (10:05→23:10)
[2022-11-09] MEDS: PANTOPRAZOLE 40 MG TABLET PO SCH (10:06)
[2022-11-09] MEDS: CHOLESTYRAMINE/ASPARTAME 4 GM PACKET PO SCH ×4 (10:06→22:50)
[2022-11-09] MEDS: COLLAGENASE CLOSTRIDIUM HIST. 30 GRAMS TUBE TP SCH (10:06)
[2022-11-09] MEDS: predniSONE 20 MG TABLET (UD) PO SCH (14:21)
[2022-11-09] MEDS: SODIUM CHLORIDE 1,000 ML IV SCH (15:45)
[2022-11-09] MEDS: ACETAMINOPHEN 325 MG TABLET (FP) PO PRN (16:40)
[2022-11-09] MEDS ORDERED: INSULIN (NOVOLOG) ASPART 100 UNITS/ML 10ML VIAL ONE (17:14)
[2022-11-09 20:19] LABS: BASO % 0.1 % (0-2.0); HEMATOCRIT 27.2 % (35.4-49); HEMOGLOBIN 8.6 GM/dL (11.7-16.9); LYMPH % 3.5 % (8-40); MCH 25.8 pg (25.7-33.7); MCHC 31.7 g/dl (32.0-35.9); MEAN CELL VOLUME 81.3 fl (80-96); MEAN PLT VOLUME 7.1 fl (7.5-11.1); MONO % 2.3 % (3.8-10.2); NEUT % 94.1 % (42.8-82.8); PLATELET COUNT 534 10^3/uL (134-434); RBC 3.34 M/mm3 (4.00-5.60); RDW 16.8 % (11.9-15.9); WHITE BLOOD COUNT 17.9 K/mm3 (4.0-10.0)
[2022-11-09 20:24] LABS: CHLORIDE 111 mmol/L (98-107); POTASSIUM 3.5 mmol/L (3.5-5.1); SODIUM 135 mmol/L (136-145)
[2022-11-09 20:26] LABS: CALCIUM 10.2 mg/dL (8.5-10.1)
[2022-11-09 20:27] LABS: ALBUMIN 1.9 g/dl (3.4-5.0); ANION GAP 6 MMOL/L (8-16); BLOOD UREA NITROGEN 17.6 mg/dL (7-18); CO2 18 mmol/L (21-32); GLUCOSE,RANDOM 182 mg/dL (74-106); MAGNESIUM 1.4 mg/dL (1.8-2.4)
[2022-11-09 20:30] LABS: CREATININE 0.7 mg/dL (0.55-1.3); SGOT/AST 6 U/L (15-37); SGPT/ALT < 6 U/L (13-61)
[2022-11-09 20:31] LABS: BILIRUBIN,TOTAL < 0.1 mg/dL (0.2-1); TOT PROT 7.1 g/dl (6.4-8.2)
[2022-11-09 20:32] LABS: ALK PHOS 85 U/L (45-117)
[2022-11-09 20:35] LABS: PHOSPHOROUS 0.8 mg/dL (2.5-4.9)
[2022-11-09 20:55] LABS: ANISOCYTOSIS 2+; MACROCYTOSIS 1+; TARGET CELLS 1+
[2022-11-09] MEDS: OLANZapine 10 MG TABLET PO SCH (22:51)
[2022-11-09] MEDS: MIRTAZAPINE 15 MG TABLET (FP) PO SCH (22:52)
[2022-11-10] MEDS: CYPROHEPTADINE HCL 4 MG TABLET PO SCH ×3 (06:58→22:34)
[2022-11-10] MEDS: MESALAMINE 800 MG TABLET.DR PO SCH ×3 (06:58→22:34)
[2022-11-10] MEDS: LEVOTHYROXINE NA 25 MCG TABLET (FP) PO SCH (06:58)
[2022-11-10] MEDS: BISMUTH SUBSALICYLATE 524 MG/30 ML PO SCH ×4 (06:59→18:23)
[2022-11-10] MEDS: AMINO ACIDS 4.25%/D5W 1,000 ML IV SCH (06:59)
[2022-11-10] MEDS: GABAPENTIN 100 MG CAPSULE PO SCH ×3 (06:59→22:12)
[2022-11-10] MEDS: CALCIUM CARBONATE 650 MG TABLET PO SCH ×2 (07:01→22:37)
[2022-11-10] MEDS: INSULIN SLIDING SCALE (NOVOLOG) 1 VIAL SQ SCH ×4 (07:13→22:37)
[2022-11-10] MEDS ORDERED: MAGNESIUM SULF 50% (8.12 MEQ/2 ML-1 GM VIAL) IVPB ONE (10:10)
[2022-11-10] MEDS ORDERED: SODIUM PHOSPHATE - 30 MM in SODIUM CHLORIDE 500 ML IVPB ONE (10:11)
[2022-11-10] MEDS: ASCORBIC ACID 500 MG TABLET (FP) PO SCH (10:14)
[2022-11-10] MEDS: PANTOPRAZOLE 40 MG TABLET PO SCH (10:14)
[2022-11-10] MEDS: MULTIVITAMINS (DAILY MVI) TABLET (FP) PO SCH (10:14)
[2022-11-10] MEDS: FERROUS SO4 325 MG TABLET (FP) PO SCH (10:14)
[2022-11-10] MEDS: ARIPiprazole 5 MG TABLET PO SCH (10:14)
[2022-11-10] MEDS: predniSONE 20 MG TABLET (UD) PO SCH (10:14)
[2022-11-10] MEDS: MIDODRINE HCL 5 MG TABLET PO SCH ×3 (10:14→18:30)
[2022-11-10] MEDS: MINERAL OIL/PET HY-PHL TOPICAL OINTMENT 454 GM JAR TP SCH ×2 (10:15→22:11)
[2022-11-10] MEDS: ZINC SULFATE 220 MG CAPSULE (FP) PO SCH (10:15)
[2022-11-10] MEDS: CHOLESTYRAMINE/ASPARTAME 4 GM PACKET PO SCH ×5 (10:15→22:35)
[2022-11-10] MEDS: TAMSULOSIN HCL 0.4 MG CAP PO SCH (10:15)
[2022-11-10] MEDS: NYSTATIN 100,000 UNIT/GM TOPICAL CREAM 15 GM TUBE TP SCH ×2 (10:15→22:12)
[2022-11-10] MEDS: COLLAGENASE CLOSTRIDIUM HIST. 30 GRAMS TUBE TP SCH (10:16)
[2022-11-10] MEDS: THIAMINE HCL 100 MG TABLET (FP) PO SCH (10:17)
[2022-11-10] MEDS: NAPH,MB-DB/K PH,MBDB POWDER PACKET PO SCH ×2 (11:26→22:14)
[2022-11-10] MEDS: ACETAMINOPHEN 325 MG TABLET (FP) PO PRN (11:26)
[2022-11-10] MEDS ORDERED: INSULIN (NOVOLOG) ASPART 100 UNITS/ML 10ML VIAL ONE ×2 (11:45→11:49)
[2022-11-10 12:29] LABS: BASO % 0.2 % (0-2.0); EOS % 0.4 % (0-4.5); HEMATOCRIT 22.7 % (35.4-49); HEMOGLOBIN 7.1 GM/dL (11.7-16.9); LYMPH % 9.2 % (8-40); MCH 25.7 pg (25.7-33.7); MCHC 31.5 g/dl (32.0-35.9); MEAN CELL VOLUME 81.5 fl (80-96); MEAN PLT VOLUME 7.3 fl (7.5-11.1); MONO % 6.3 % (3.8-10.2); NEUT % 83.9 % (42.8-82.8); PLATELET COUNT 523 10^3/uL (134-434); RBC 2.78 M/mm3 (4.00-5.60); RDW 16.6 % (11.9-15.9); WHITE BLOOD COUNT 18.2 K/mm3 (4.0-10.0)
[2022-11-10 12:52] LABS: CHLORIDE 115 mmol/L (98-107); POTASSIUM 3.2 mmol/L (3.5-5.1); SODIUM 143 mmol/L (136-145)
[2022-11-10 13:15] LABS: ALBUMIN 1.6 g/dl (3.4-5.0); ANION GAP 11 MMOL/L (8-16); BLOOD UREA NITROGEN 22.2 mg/dL (7-18); CALCIUM 9.6 mg/dL (8.5-10.1); CO2 17 mmol/L (21-32); GLUCOSE,RANDOM 150 mg/dL (74-106); MAGNESIUM 1.9 mg/dL (1.8-2.4)
[2022-11-10 13:18] LABS: SGOT/AST 7 U/L (15-37); SGPT/ALT 8 U/L (13-61)
[2022-11-10 13:19] LABS: CREATININE 0.6 mg/dL (0.55-1.3)
[2022-11-10 13:20] LABS: BILIRUBIN,TOTAL 0.3 mg/dL (0.2-1); TOT PROT 6.4 g/dl (6.4-8.2)
[2022-11-10 13:21] LABS: ALK PHOS 81 U/L (45-117)
[2022-11-10 14:34] LABS: PHOSPHOROUS 10.3 mg/dL (2.5-4.9)
[2022-11-10] MEDS: SODIUM CHLORIDE 1,000 ML IV SCH (14:49)
[2022-11-10 17:36] LABS: BASO % 0.1 % (0-2.0); HEMATOCRIT 25.9 % (35.4-49); HEMOGLOBIN 8.2 GM/dL (11.7-16.9); LYMPH % 4.2 % (8-40); MCHC 31.6 g/dl (32.0-35.9); MEAN CELL VOLUME 82.2 fl (80-96); MEAN PLT VOLUME 7.5 fl (7.5-11.1); MONO % 1.3 % (3.8-10.2); NEUT % 94.4 % (42.8-82.8); PLATELET COUNT 567 10^3/uL (134-434); RBC 3.14 M/mm3 (4.00-5.60); RDW 16.9 % (11.9-15.9); WHITE BLOOD COUNT 17.3 K/mm3 (4.0-10.0)
[2022-11-10 18:23] LABS: ANISOCYTOSIS 2+; MACROCYTOSIS 1+; OVALOCYTE 1+
[2022-11-10 18:25] LABS: POTASSIUM 3.5 mmol/L (3.5-5.1)
[2022-11-10 18:28] LABS: ALBUMIN 1.8 g/dl (3.4-5.0); BLOOD UREA NITROGEN 21.2 mg/dL (7-18); MAGNESIUM 2.6 mg/dL (1.8-2.4)
[2022-11-10 18:30] LABS: PHOSPHOROUS 1.9 mg/dL (2.5-4.9)
[2022-11-10 18:31] LABS: CREATININE 0.8 mg/dL (0.55-1.3)
[2022-11-10 18:32] LABS: BILIRUBIN,TOTAL 0.1 mg/dL (0.2-1); TOT PROT 7.2 g/dl (6.4-8.2)
[2022-11-10] MEDS ORDERED: POTASSIUM PHOSPHATE 15 MM in SODIUM CHLORIDE 250 ML IVPB ONE (21:00)
[2022-11-10] MEDS: MIRTAZAPINE 15 MG TABLET (FP) PO SCH (22:10)
[2022-11-10] MEDS: OLANZapine 10 MG TABLET PO SCH (22:11)
[2022-11-11] MEDS: ACETAMINOPHEN 325 MG TABLET (FP) PO PRN ×4 (04:51→23:40)
[2022-11-11] MEDS: MESALAMINE 800 MG TABLET.DR PO SCH ×3 (05:14→23:00)
[2022-11-11] MEDS: CYPROHEPTADINE HCL 4 MG TABLET PO SCH ×3 (05:15→23:35)
[2022-11-11] MEDS: GABAPENTIN 100 MG CAPSULE PO SCH ×3 (05:15→23:00)
[2022-11-11] MEDS ORDERED: TUBE FEED DECLOGGING SOLUTION 12,000 UNITS GT ONE (05:43)
[2022-11-11] MEDS: BISMUTH SUBSALICYLATE 524 MG/30 ML PO SCH ×3 (06:01→16:11)
[2022-11-11] MEDS: LEVOTHYROXINE NA 25 MCG TABLET (FP) PO SCH (06:01)
[2022-11-11] MEDS: INSULIN SLIDING SCALE (NOVOLOG) 1 VIAL SQ SCH ×4 (06:02→23:00)
[2022-11-11 07:58] LABS: BASO % 0.2 % (0-2.0); EOS % 0.2 % (0-4.5); HEMATOCRIT 25.1 % (35.4-49); LYMPH % 6.7 % (8-40); MCH 26.1 pg (25.7-33.7); MCHC 31.9 g/dl (32.0-35.9); MEAN CELL VOLUME 81.8 fl (80-96); MEAN PLT VOLUME 7.3 fl (7.5-11.1); MONO % 3.9 % (3.8-10.2); PLATELET COUNT 596 10^3/uL (134-434); RBC 3.07 M/mm3 (4.00-5.60); RDW 16.6 % (11.9-15.9); WHITE BLOOD COUNT 16.3 K/mm3 (4.0-10.0)
[2022-11-11 08:10] LABS: POTASSIUM 3.3 mmol/L (3.5-5.1)
[2022-11-11 08:12] LABS: CALCIUM 9.3 mg/dL (8.5-10.1)
[2022-11-11 08:13] LABS: BLOOD UREA NITROGEN 21.1 mg/dL (7-18)
[2022-11-11 08:16] LABS: CREATININE 0.7 mg/dL (0.55-1.3); PHOSPHOROUS 4.1 mg/dL (2.5-4.9)
[2022-11-11] MEDS ORDERED: LACTATED RINGERS SOLUTION 1,000 ML/1,000 ML INFUS.BAG IV SCH (09:00)
[2022-11-11] MEDS ORDERED: predniSONE 20 MG TABLET (UD) PO SCH (10:00)
[2022-11-11] MEDS: PANTOPRAZOLE 40 MG TABLET PO SCH (10:05)
[2022-11-11] MEDS: TAMSULOSIN HCL 0.4 MG CAP PO SCH (10:05)
[2022-11-11] MEDS: predniSONE 20 MG TABLET (UD) PO SCH (10:05)
[2022-11-11] MEDS: ARIPiprazole 5 MG TABLET PO SCH (10:05)
[2022-11-11] MEDS: MIDODRINE HCL 5 MG TABLET PO SCH ×3 (10:05→18:10)
[2022-11-11] MEDS: THIAMINE HCL 100 MG TABLET (FP) PO SCH (10:05)
[2022-11-11] MEDS: FERROUS SO4 325 MG TABLET (FP) PO SCH (10:05)
[2022-11-11] MEDS: ASCORBIC ACID 500 MG TABLET (FP) PO SCH (10:05)
[2022-11-11] MEDS: MULTIVITAMINS (DAILY MVI) TABLET (FP) PO SCH (10:05)
[2022-11-11] MEDS: ZINC SULFATE 220 MG CAPSULE (FP) PO SCH (10:06)
[2022-11-11] MEDS: NAPH,MB-DB/K PH,MBDB POWDER PACKET PO SCH ×2 (10:06→23:30)
[2022-11-11] MEDS: NYSTATIN 100,000 UNIT/GM TOPICAL CREAM 15 GM TUBE TP SCH ×2 (10:08→23:00)
[2022-11-11] MEDS: MINERAL OIL/PET HY-PHL TOPICAL OINTMENT 454 GM JAR TP SCH ×2 (10:08→23:00)
[2022-11-11] MEDS: CHOLESTYRAMINE/ASPARTAME 4 GM PACKET PO SCH ×4 (10:08→23:38)
[2022-11-11] MEDS: COLLAGENASE CLOSTRIDIUM HIST. 30 GRAMS TUBE TP SCH (10:09)
[2022-11-11] MEDS: CALCIUM CARBONATE 650 MG TABLET PO SCH ×2 (10:16→23:00)
[2022-11-11] MEDS ORDERED: INSULIN (NOVOLOG) ASPART 100 UNITS/ML 10ML VIAL ONE (12:15)
[2022-11-11] MEDS: HEPARIN NA (PORCINE) 5,000 UNITS/ML 1ML VIAL SQ SCH (23:00)
[2022-11-11] MEDS: MIRTAZAPINE 15 MG TABLET (FP) PO SCH (23:00)
[2022-11-11] MEDS: OLANZapine 10 MG TABLET PO SCH (23:38)
[2022-11-12] MEDS: GABAPENTIN 100 MG CAPSULE PO SCH ×2 (07:00→14:10)
[2022-11-12] MEDS: MESALAMINE 800 MG TABLET.DR PO SCH ×3 (07:00→22:06)
[2022-11-12] MEDS: CYPROHEPTADINE HCL 4 MG TABLET PO SCH ×3 (07:00→22:10)
[2022-11-12] MEDS: INSULIN SLIDING SCALE (NOVOLOG) 1 VIAL SQ SCH ×4 (07:07→22:08)
[2022-11-12] MEDS: LEVOTHYROXINE NA 25 MCG TABLET (FP) PO SCH (07:09)
[2022-11-12] MEDS: BISMUTH SUBSALICYLATE 524 MG/30 ML PO SCH ×3 (07:11→18:07)
[2022-11-12] MEDS: NAPH,MB-DB/K PH,MBDB POWDER PACKET PO SCH ×3 (09:03→22:11)
[2022-11-12] MEDS: TAMSULOSIN HCL 0.4 MG CAP PO SCH (09:03)
[2022-11-12] MEDS: ZINC SULFATE 220 MG CAPSULE (FP) PO SCH (09:04)
[2022-11-12] MEDS: ARIPiprazole 5 MG TABLET PO SCH (09:04)
[2022-11-12] MEDS: ACETAMINOPHEN 325 MG TABLET (FP) PO PRN ×2 (09:04→18:09)
[2022-11-12] MEDS: PANTOPRAZOLE 40 MG TABLET PO SCH (09:04)
[2022-11-12] MEDS: ASCORBIC ACID 500 MG TABLET (FP) PO SCH (09:04)
[2022-11-12] MEDS: FERROUS SO4 325 MG TABLET (FP) PO SCH (09:04)
[2022-11-12] MEDS: THIAMINE HCL 100 MG TABLET (FP) PO SCH (09:04)
[2022-11-12] MEDS: MULTIVITAMINS (DAILY MVI) TABLET (FP) PO SCH (09:04)
[2022-11-12] MEDS: predniSONE 20 MG TABLET (UD) PO SCH (09:05)
[2022-11-12] MEDS: NYSTATIN 100,000 UNIT/GM TOPICAL CREAM 15 GM TUBE TP SCH ×2 (09:05→22:06)
[2022-11-12] MEDS: MINERAL OIL/PET HY-PHL TOPICAL OINTMENT 454 GM JAR TP SCH ×2 (09:05→22:02)
[2022-11-12] MEDS: CHOLESTYRAMINE/ASPARTAME 4 GM PACKET PO SCH ×3 (09:06→14:11)
[2022-11-12] MEDS: HEPARIN NA (PORCINE) 5,000 UNITS/ML 1ML VIAL SQ SCH ×2 (09:06→22:04)
[2022-11-12] MEDS: CALCIUM CARBONATE 650 MG TABLET PO SCH (09:06)
[2022-11-12] MEDS: MIDODRINE HCL 5 MG TABLET PO SCH ×3 (09:07→18:07)
[2022-11-12] MEDS: COLLAGENASE CLOSTRIDIUM HIST. 30 GRAMS TUBE TP SCH (09:07)
[2022-11-12 10:17] LABS: CHLORIDE 120 mmol/L (98-107); POTASSIUM 3.5 mmol/L (3.5-5.1); SODIUM 144 mmol/L (136-145)
[2022-11-12 10:18] LABS: BASO % 0.2 % (0-2.0); HEMATOCRIT 24.7 % (35.4-49); HEMOGLOBIN 7.8 GM/dL (11.7-16.9); LYMPH % 5.5 % (8-40); MCH 25.8 pg (25.7-33.7); MCHC 31.5 g/dl (32.0-35.9); MEAN PLT VOLUME 7.3 fl (7.5-11.1); MONO % 5.4 % (3.8-10.2); NEUT % 87.9 % (42.8-82.8); PLATELET COUNT 606 10^3/uL (134-434); RBC 3.01 M/mm3 (4.00-5.60); RDW 16.9 % (11.9-15.9); WHITE BLOOD COUNT 17.6 K/mm3 (4.0-10.0)
[2022-11-12 10:23] LABS: CALCIUM 10.4 mg/dL (8.5-10.1)
[2022-11-12 10:24] LABS: ALBUMIN 1.8 g/dl (3.4-5.0); ANION GAP 7 MMOL/L (8-16); BLOOD UREA NITROGEN 20.6 mg/dL (7-18); CO2 18 mmol/L (21-32); GLUCOSE,RANDOM 106 mg/dL (74-106); MAGNESIUM 2.2 mg/dL (1.8-2.4)
[2022-11-12 10:26] LABS: SGPT/ALT 15 U/L (13-61)
[2022-11-12 10:27] LABS: CREATININE 0.8 mg/dL (0.55-1.3); PHOSPHOROUS 2.4 mg/dL (2.5-4.9); SGOT/AST 4 U/L (15-37)
[2022-11-12 10:28] LABS: BILIRUBIN,TOTAL < 0.1 mg/dL (0.2-1)
[2022-11-12 10:29] LABS: ALK PHOS 97 U/L (45-117)
[2022-11-12] MEDS ORDERED: LOPERAMIDE HCL 1 MG/7.5 ML LIQUID GT SCH (15:45)
[2022-11-12] MEDS ORDERED: POTASSIUM PHOSPHATE 10 MM in SODIUM CHLORIDE 250 ML IVPB ONE (16:24)
[2022-11-12] MEDS: CHOLESTYRAMINE/ASPARTAME 4 GM PACKET GT SCH ×2 (17:30→22:11)
[2022-11-12] MEDS: GABAPENTIN 100 MG CAPSULE GT SCH (22:02)
[2022-11-12] MEDS: MIRTAZAPINE 15 MG TABLET (FP) GT SCH (22:03)
[2022-11-12] MEDS: OLANZapine 10 MG TABLET GT SCH (22:11)
[2022-11-13] MEDS: GABAPENTIN 100 MG CAPSULE GT SCH ×3 (06:45→22:48)
[2022-11-13] MEDS: MESALAMINE 800 MG TABLET.DR PO SCH ×3 (06:45→22:51)
[2022-11-13] MEDS: INSULIN SLIDING SCALE (NOVOLOG) 1 VIAL SQ SCH ×3 (06:46→18:10)
[2022-11-13] MEDS: CYPROHEPTADINE HCL 4 MG TABLET PO SCH ×3 (06:46→22:49)
[2022-11-13] MEDS: BISMUTH SUBSALICYLATE 524 MG/30 ML GT SCH ×3 (06:47→17:47)
[2022-11-13] MEDS ORDERED: BISMUTH SUBSALICYLATE 524 MG/30 ML PO SCH (07:30)
[2022-11-13] MEDS: LEVOTHYROXINE NA 25 MCG TABLET (FP) PO SCH (08:29)
[2022-11-13 08:41] LABS: BASO % 0.1 % (0-2.0); HEMATOCRIT 25.1 % (35.4-49); HEMOGLOBIN 7.7 GM/dL (11.7-16.9); LYMPH % 7.6 % (8-40); MCH 25.7 pg (25.7-33.7); MCHC 30.6 g/dl (32.0-35.9); MEAN CELL VOLUME 84.1 fl (80-96); MEAN PLT VOLUME 7.9 fl (7.5-11.1); MONO % 4.4 % (3.8-10.2); NEUT % 86.9 % (42.8-82.8); PLATELET COUNT 669 10^3/uL (134-434); RBC 2.99 M/mm3 (4.00-5.60); RDW 17.3 % (11.9-15.9); WHITE BLOOD COUNT 17.9 K/mm3 (4.0-10.0)
[2022-11-13 09:00] LABS: POTASSIUM 3.6 mmol/L (3.5-5.1)
[2022-11-13 09:05] LABS: CALCIUM 10.2 mg/dL (8.5-10.1)
[2022-11-13 09:06] LABS: ALBUMIN 1.8 g/dl (3.4-5.0); BLOOD UREA NITROGEN 20.5 mg/dL (7-18); MAGNESIUM 2.2 mg/dL (1.8-2.4)
[2022-11-13 09:08] LABS: CREATININE 0.9 mg/dL (0.55-1.3); PHOSPHOROUS 2.5 mg/dL (2.5-4.9)
[2022-11-13 09:10] LABS: BILIRUBIN,TOTAL 0.2 mg/dL (0.2-1); TOT PROT 6.9 g/dl (6.4-8.2)
[2022-11-13] MEDS: ACETAMINOPHEN 325 MG TABLET (FP) PO PRN ×2 (10:16→17:47)
[2022-11-13] MEDS: ASCORBIC ACID 500 MG TABLET (FP) PO SCH (10:17)
[2022-11-13] MEDS: predniSONE 20 MG TABLET (UD) PO SCH (10:17)
[2022-11-13] MEDS: MIDODRINE HCL 5 MG TABLET PO SCH ×3 (10:17→17:46)
[2022-11-13] MEDS: TAMSULOSIN HCL 0.4 MG CAP PO SCH (10:17)
[2022-11-13] MEDS: PANTOPRAZOLE 40 MG TABLET PO SCH (10:17)
[2022-11-13] MEDS: FERROUS SO4 325 MG TABLET (FP) PO SCH (10:17)
[2022-11-13] MEDS: ZINC SULFATE 220 MG CAPSULE (FP) GT SCH (10:17)
[2022-11-13] MEDS: MULTIVITAMINS (DAILY MVI) TABLET (FP) PO SCH (10:17)
[2022-11-13] MEDS: LOPERAMIDE HCL 2 MG CAPSULE GT SCH ×3 (10:17→22:48)
[2022-11-13] MEDS: THIAMINE HCL 100 MG TABLET (FP) PO SCH (10:17)
[2022-11-13] MEDS: ARIPiprazole 5 MG TABLET PO SCH (10:18)
[2022-11-13] MEDS: HEPARIN NA (PORCINE) 5,000 UNITS/ML 1ML VIAL SQ SCH ×2 (10:18→22:49)
[2022-11-13] MEDS: CHOLESTYRAMINE/ASPARTAME 4 GM PACKET GT SCH ×4 (10:18→22:51)
[2022-11-13] MEDS: BUDESONIDE 3 MG GT SCH (10:22)
[2022-11-13] MEDS: MINERAL OIL/PET HY-PHL TOPICAL OINTMENT 454 GM JAR TP SCH ×2 (10:24→22:52)
[2022-11-13] MEDS: COLLAGENASE CLOSTRIDIUM HIST. 30 GRAMS TUBE TP SCH (10:25)
[2022-11-13] MEDS: NYSTATIN 100,000 UNIT/GM TOPICAL CREAM 15 GM TUBE TP SCH ×2 (10:25→22:52)
[2022-11-13] MEDS: NAPH,MB-DB/K PH,MBDB POWDER PACKET PO SCH ×2 (10:25→22:48)
[2022-11-13] MEDS: OLANZapine 10 MG TABLET GT SCH (22:47)
[2022-11-13] MEDS: MIRTAZAPINE 15 MG TABLET (FP) GT SCH (22:48)
[2022-11-14] MEDS ORDERED: INSULIN (NOVOLOG) ASPART 100 UNITS/ML 10ML VIAL ONE (00:07)
[2022-11-14] MEDS: INSULIN SLIDING SCALE (NOVOLOG) 1 VIAL SQ SCH ×5 (00:08→23:37)
[2022-11-14] MEDS: CYPROHEPTADINE HCL 4 MG TABLET PO SCH ×3 (06:57→22:27)
[2022-11-14] MEDS: GABAPENTIN 100 MG CAPSULE GT SCH ×3 (06:58→22:27)
[2022-11-14] MEDS: LOPERAMIDE HCL 2 MG CAPSULE GT SCH ×3 (06:58→23:45)
[2022-11-14] MEDS: LEVOTHYROXINE NA 25 MCG TABLET (FP) PO SCH (06:58)
[2022-11-14] MEDS: BISMUTH SUBSALICYLATE 524 MG/30 ML GT SCH ×3 (07:01→17:39)
[2022-11-14] MEDS: MESALAMINE 800 MG TABLET.DR PO SCH ×3 (07:02→22:27)
[2022-11-14 09:49] LABS: BASO % 0.1 % (0-2.0); EOS % 1.2 % (0-4.5); HEMATOCRIT 24.5 % (35.4-49); HEMOGLOBIN 7.6 GM/dL (11.7-16.9); LYMPH % 8.5 % (8-40); MCH 25.8 pg (25.7-33.7); MCHC 30.9 g/dl (32.0-35.9); MEAN CELL VOLUME 83.4 fl (80-96); MEAN PLT VOLUME 7.7 fl (7.5-11.1); MONO % 3.6 % (3.8-10.2); NEUT % 86.6 % (42.8-82.8); PLATELET COUNT 664 10^3/uL (134-434); RBC 2.93 M/mm3 (4.00-5.60); RDW 17.4 % (11.9-15.9); WHITE BLOOD COUNT 14.4 K/mm3 (4.0-10.0)
[2022-11-14 10:02] LABS: POTASSIUM 3.5 mmol/L (3.5-5.1)
[2022-11-14 10:06] LABS: CALCIUM 9.6 mg/dL (8.5-10.1)
[2022-11-14 10:07] LABS: ALBUMIN 1.7 g/dl (3.4-5.0); MAGNESIUM 2.1 mg/dL (1.8-2.4)
[2022-11-14] MEDS: MIDODRINE HCL 5 MG TABLET PO SCH ×3 (10:09→17:38)
[2022-11-14] MEDS: ZINC SULFATE 220 MG CAPSULE (FP) GT SCH (10:09)
[2022-11-14 10:10] LABS: CREATININE 0.8 mg/dL (0.55-1.3); PHOSPHOROUS 2.8 mg/dL (2.5-4.9)
[2022-11-14] MEDS: NAPH,MB-DB/K PH,MBDB POWDER PACKET PO SCH ×2 (10:10→22:27)
[2022-11-14] MEDS: THIAMINE HCL 100 MG TABLET (FP) PO SCH (10:10)
[2022-11-14] MEDS: FERROUS SO4 325 MG TABLET (FP) PO SCH (10:10)
[2022-11-14] MEDS: ASCORBIC ACID 500 MG TABLET (FP) PO SCH (10:10)
[2022-11-14] MEDS: MULTIVITAMINS (DAILY MVI) TABLET (FP) PO SCH (10:10)
[2022-11-14] MEDS: PANTOPRAZOLE 40 MG TABLET PO SCH (10:10)
[2022-11-14] MEDS: BUDESONIDE 3 MG GT SCH (10:10)
[2022-11-14] MEDS: TAMSULOSIN HCL 0.4 MG CAP PO SCH (10:10)
[2022-11-14] MEDS: ARIPiprazole 5 MG TABLET PO SCH (10:10)
[2022-11-14 10:11] LABS: BILIRUBIN,TOTAL 0.2 mg/dL (0.2-1); TOT PROT 6.9 g/dl (6.4-8.2)
[2022-11-14] MEDS: HEPARIN NA (PORCINE) 5,000 UNITS/ML 1ML VIAL SQ SCH ×2 (10:11→22:27)
[2022-11-14] MEDS: CHOLESTYRAMINE/ASPARTAME 4 GM PACKET GT SCH ×4 (10:12→22:27)
[2022-11-14] MEDS: MINERAL OIL/PET HY-PHL TOPICAL OINTMENT 454 GM JAR TP SCH ×2 (10:26→22:27)
[2022-11-14] MEDS: NYSTATIN 100,000 UNIT/GM TOPICAL CREAM 15 GM TUBE TP SCH ×2 (10:27→22:27)
[2022-11-14] MEDS: ACETAMINOPHEN 325 MG TABLET (FP) PO PRN ×3 (10:28→17:39)
[2022-11-14] MEDS: COLLAGENASE CLOSTRIDIUM HIST. 30 GRAMS TUBE TP SCH (11:23)
[2022-11-14 21:13] VITALS: RESP 18
[2022-11-14] MEDS: OLANZapine 10 MG TABLET GT SCH (22:27)
[2022-11-14] MEDS: MIRTAZAPINE 15 MG TABLET (FP) GT SCH (22:27)
[2022-11-15] MEDS: ACETAMINOPHEN 325 MG TABLET (FP) PO PRN ×3 (00:03→23:07)
[2022-11-15] MEDS: MESALAMINE 800 MG TABLET.DR PO SCH ×3 (06:11→23:00)
[2022-11-15] MEDS: CYPROHEPTADINE HCL 4 MG TABLET PO SCH ×3 (06:11→23:00)
[2022-11-15] MEDS: GABAPENTIN 100 MG CAPSULE GT SCH ×3 (06:11→23:00)
[2022-11-15] MEDS: BISMUTH SUBSALICYLATE 524 MG/30 ML GT SCH ×3 (06:12→18:34)
[2022-11-15] MEDS: LEVOTHYROXINE NA 25 MCG TABLET (FP) PO SCH (06:12)
[2022-11-15] MEDS: INSULIN SLIDING SCALE (NOVOLOG) 1 VIAL SQ SCH ×4 (06:38→23:23)
[2022-11-15 09:30] LABS: POTASSIUM 3.2 mmol/L (3.5-5.1)
[2022-11-15 09:32] LABS: ALBUMIN 1.7 g/dl (3.4-5.0); CALCIUM 8.9 mg/dL (8.5-10.1)
[2022-11-15 09:33] LABS: BASO % 0.4 % (0-2.0); BLOOD UREA NITROGEN 19.3 mg/dL (7-18); EOS % 2.6 % (0-4.5); HEMATOCRIT 25.4 % (35.4-49); HEMOGLOBIN 7.8 GM/dL (11.7-16.9); LYMPH % 11.4 % (8-40); MCH 25.6 pg (25.7-33.7); MCHC 30.8 g/dl (32.0-35.9); MEAN CELL VOLUME 83.4 fl (80-96); MEAN PLT VOLUME 7.7 fl (7.5-11.1); MONO % 7.7 % (3.8-10.2); NEUT % 77.9 % (42.8-82.8); PLATELET COUNT 633 10^3/uL (134-434); RBC 3.05 M/mm3 (4.00-5.60); RDW 17.8 % (11.9-15.9); WHITE BLOOD COUNT 11.4 K/mm3 (4.0-10.0)
[2022-11-15 09:36] LABS: CREATININE 0.7 mg/dL (0.55-1.3)
[2022-11-15 09:37] LABS: BILIRUBIN,TOTAL 0.1 mg/dL (0.2-1); TOT PROT 6.5 g/dl (6.4-8.2)
[2022-11-15] MEDS: HEPARIN NA (PORCINE) 5,000 UNITS/ML 1ML VIAL SQ SCH ×2 (11:05→23:00)
[2022-11-15] MEDS: PANTOPRAZOLE 40 MG TABLET PO SCH (11:05)
[2022-11-15] MEDS: THIAMINE HCL 100 MG TABLET (FP) PO SCH (11:05)
[2022-11-15] MEDS: TAMSULOSIN HCL 0.4 MG CAP PO SCH (11:05)
[2022-11-15] MEDS: MULTIVITAMINS (DAILY MVI) TABLET (FP) PO SCH (11:05)
[2022-11-15] MEDS: ARIPiprazole 5 MG TABLET PO SCH (11:05)
[2022-11-15] MEDS: ASCORBIC ACID 500 MG TABLET (FP) PO SCH (11:05)
[2022-11-15] MEDS: ZINC SULFATE 220 MG CAPSULE (FP) GT SCH (11:06)
[2022-11-15] MEDS: LOPERAMIDE HCL 2 MG CAPSULE GT SCH ×3 (11:06→23:06)
[2022-11-15] MEDS: FERROUS SO4 325 MG TABLET (FP) PO SCH (11:06)
[2022-11-15] MEDS: MIDODRINE HCL 5 MG TABLET PO SCH ×3 (11:06→18:22)
[2022-11-15] MEDS: BUDESONIDE 3 MG GT SCH (11:08)
[2022-11-15] MEDS: NAPH,MB-DB/K PH,MBDB POWDER PACKET PO SCH ×2 (11:11→23:13)
[2022-11-15] MEDS: CHOLESTYRAMINE/ASPARTAME 4 GM PACKET GT SCH ×4 (11:12→23:13)
[2022-11-15] MEDS: MINERAL OIL/PET HY-PHL TOPICAL OINTMENT 454 GM JAR TP SCH ×2 (11:13→23:00)
[2022-11-15] MEDS: COLLAGENASE CLOSTRIDIUM HIST. 30 GRAMS TUBE TP SCH (11:13)
[2022-11-15] MEDS: NYSTATIN 100,000 UNIT/GM TOPICAL CREAM 15 GM TUBE TP SCH ×2 (11:13→23:00)
[2022-11-15] MEDS: MIRTAZAPINE 15 MG TABLET (FP) GT SCH (23:00)
[2022-11-15] MEDS: OLANZapine 10 MG TABLET GT SCH (23:00)
[2022-11-16] MEDS: LEVOTHYROXINE NA 25 MCG TABLET (FP) PO SCH (06:41)
[2022-11-16] MEDS: GABAPENTIN 100 MG CAPSULE GT SCH ×3 (06:41→21:30)
[2022-11-16] MEDS: CYPROHEPTADINE HCL 4 MG TABLET PO SCH ×3 (06:42→21:32)
[2022-11-16] MEDS: MESALAMINE 800 MG TABLET.DR PO SCH ×3 (06:44→21:31)
[2022-11-16] MEDS: BISMUTH SUBSALICYLATE 524 MG/30 ML GT SCH ×4 (06:44→17:16)
[2022-11-16] MEDS: LOPERAMIDE HCL 2 MG CAPSULE GT SCH ×2 (06:47→14:55)
[2022-11-16] MEDS: INSULIN SLIDING SCALE (NOVOLOG) 1 VIAL SQ SCH ×3 (07:01→17:30)
[2022-11-16] MEDS: FERROUS SO4 325 MG TABLET (FP) PO SCH (10:04)
[2022-11-16] MEDS: THIAMINE HCL 100 MG TABLET (FP) PO SCH (10:04)
[2022-11-16] MEDS: MIDODRINE HCL 5 MG TABLET PO SCH ×3 (10:04→17:25)
[2022-11-16] MEDS: NAPH,MB-DB/K PH,MBDB POWDER PACKET PO SCH ×2 (10:04→21:32)
[2022-11-16] MEDS: ASCORBIC ACID 500 MG TABLET (FP) PO SCH (10:05)
[2022-11-16] MEDS: TAMSULOSIN HCL 0.4 MG CAP PO SCH (10:05)
[2022-11-16] MEDS: HEPARIN NA (PORCINE) 5,000 UNITS/ML 1ML VIAL SQ SCH ×2 (10:05→21:30)
[2022-11-16] MEDS: MULTIVITAMINS (DAILY MVI) TABLET (FP) PO SCH (10:05)
[2022-11-16] MEDS: ARIPiprazole 5 MG TABLET PO SCH (10:05)
[2022-11-16] MEDS: ZINC SULFATE 220 MG CAPSULE (FP) GT SCH (10:05)
[2022-11-16] MEDS: PANTOPRAZOLE 40 MG TABLET PO SCH (10:05)
[2022-11-16] MEDS: BUDESONIDE 3 MG GT SCH (10:07)
[2022-11-16] MEDS: CHOLESTYRAMINE/ASPARTAME 4 GM PACKET GT SCH ×5 (10:07→21:32)
[2022-11-16] MEDS: MINERAL OIL/PET HY-PHL TOPICAL OINTMENT 454 GM JAR TP SCH ×2 (10:08→21:30)
[2022-11-16] MEDS: COLLAGENASE CLOSTRIDIUM HIST. 30 GRAMS TUBE TP SCH (10:09)
[2022-11-16 10:37] LABS: MAGNESIUM 2.1 mg/dL (1.8-2.4)
[2022-11-16 10:42] LABS: PHOSPHOROUS 4.3 mg/dL (2.5-4.9)
[2022-11-16] MEDS: NYSTATIN 100,000 UNIT/GM TOPICAL CREAM 15 GM TUBE TP SCH ×2 (11:03→21:31)
[2022-11-16] MEDS: ACETAMINOPHEN 325 MG TABLET (FP) PO PRN (15:40)
[2022-11-16] MEDS: MIRTAZAPINE 15 MG TABLET (FP) GT SCH (21:30)
[2022-11-16] MEDS: OLANZapine 10 MG TABLET GT SCH (21:30)
[2022-11-17] MEDS: INSULIN SLIDING SCALE (NOVOLOG) 1 VIAL SQ SCH ×4 (01:03→16:41)
[2022-11-17] MEDS: LOPERAMIDE HCL 2 MG CAPSULE GT SCH ×3 (01:03→16:29)
[2022-11-17] MEDS: CYPROHEPTADINE HCL 4 MG TABLET PO SCH ×2 (05:47→16:29)
[2022-11-17] MEDS: GABAPENTIN 100 MG CAPSULE GT SCH ×2 (05:47→16:29)
[2022-11-17] MEDS: LEVOTHYROXINE NA 25 MCG TABLET (FP) PO SCH (06:33)
[2022-11-17] MEDS: MESALAMINE 800 MG TABLET.DR PO SCH ×2 (06:34→16:29)
[2022-11-17] MEDS: BISMUTH SUBSALICYLATE 524 MG/30 ML GT SCH ×3 (06:40→16:36)
[2022-11-17] MEDS: ARIPiprazole 5 MG TABLET PO SCH (09:32)
[2022-11-17] MEDS: MIDODRINE HCL 5 MG TABLET PO SCH ×3 (09:32→19:06)
[2022-11-17] MEDS: ZINC SULFATE 220 MG CAPSULE (FP) GT SCH (09:32)
[2022-11-17] MEDS: FERROUS SO4 325 MG TABLET (FP) PO SCH (09:32)
[2022-11-17] MEDS: PANTOPRAZOLE 40 MG TABLET PO SCH (09:32)
[2022-11-17] MEDS: NAPH,MB-DB/K PH,MBDB POWDER PACKET PO SCH (09:32)
[2022-11-17] MEDS: ASCORBIC ACID 500 MG TABLET (FP) PO SCH (09:32)
[2022-11-17] MEDS: HEPARIN NA (PORCINE) 5,000 UNITS/ML 1ML VIAL SQ SCH (09:32)
[2022-11-17] MEDS: MINERAL OIL/PET HY-PHL TOPICAL OINTMENT 454 GM JAR TP SCH (09:33)
[2022-11-17] MEDS: NYSTATIN 100,000 UNIT/GM TOPICAL CREAM 15 GM TUBE TP SCH (09:33)
[2022-11-17] MEDS: MULTIVITAMINS (DAILY MVI) TABLET (FP) PO SCH (09:33)
[2022-11-17] MEDS: THIAMINE HCL 100 MG TABLET (FP) PO SCH (09:33)
[2022-11-17] MEDS: TAMSULOSIN HCL 0.4 MG CAP PO SCH (09:33)
[2022-11-17] MEDS: BUDESONIDE 3 MG GT SCH (09:34)
[2022-11-17] MEDS: CHOLESTYRAMINE/ASPARTAME 4 GM PACKET GT SCH ×3 (09:34→18:44)
[2022-11-17] MEDS: COLLAGENASE CLOSTRIDIUM HIST. 30 GRAMS TUBE TP SCH (09:35)
[2022-11-17 16:27] VITALS: BP 107/71; PULSE 95; TEMP 97.7
[2022-11-17] MEDS: ACETAMINOPHEN 325 MG TABLET (FP) PO PRN (16:31)
== END 2022-11-17 20:30 | DRG 249 ==
LOC: JER 18:45 → JERBED 11-04 04:30 → J8W 11-04 14:57
PROVIDERS: ADMIT Internal Medicine; ATTEND Internal Medicine
PROC: 0DH63UZ Insertion of Feeding Device into Stomach, Percutaneous Approach (ICD-10-PCS; principal; 2022-11-07)
PROC: 0T9B30Z Drainage of Bladder with Drainage Device, Percutaneous Approach (ICD-10-PCS; 2022-11-07)
PROC: 0D20XUZ Change Feeding Device in Upper Intestinal Tract, External Approach (ICD-10-PCS; 2022-11-17)
DX: K52.832 Lymphocytic colitis (principal); E43 Unspecified severe protein-calorie malnutrition; R64 Cachexia; L89.220 Pressure ulcer of left hip, unstageable; K94.23 Gastrostomy malfunction; Y83.8 Other surgical procedures as the cause of abnormal reaction of the patient, or of later complication, without mention of misadventure at the time of the procedure; N31.9 Neuromuscular dysfunction of bladder, unspecified; I95.89 Other hypotension; D64.9 Anemia, unspecified; R33.9 Retention of urine, unspecified; F31.9 Bipolar disorder, unspecified; E03.9 Hypothyroidism, unspecified; R62.7 Adult failure to thrive; Z68.1 Body mass index [BMI] 19.9 or less, adult; Z79.4 Long term (current) use of insulin; E10.9 Type 1 diabetes mellitus without complications; T83.028A Displacement of other urinary catheter, initial encounter; Y84.6 Urinary catheterization as the cause of abnormal reaction of the patient, or of later complication, without mention of misadventure at the time of the procedure; D75.839 Thrombocytosis, unspecified; R31.0 Gross hematuria
CPT/HCPCS: 36415; 36430; 49440; 49450; 51102; 71045-TC-FY; 72192-TC; 74018-TC-FY; 74177-TC; 80048; 80053; 81003; 82272; 82962; 83036; 83605; 83735; 84100; 84443; 85025; 85610; 85730; 86850; 86900; 86901; 86922; 87015; 87040; 87077; 87086; 87186; 87207; 87324; 87328; 87329; 87449; 87635; 93005; 93010; 99285-25; J1644; J1756; P9058; Q9967

== ENCOUNTER 2022-12-09 10:29 | Observation (INO) | payer OTHER ==
[2022-12-09 12:07] LABS: EOS % 2.8 % (0-4.5); HEMATOCRIT 23.9 % (35.4-49); HEMOGLOBIN 7.4 GM/dL (11.7-16.9); LYMPH % 20.6 % (8-40); MCH 25.5 pg (25.7-33.7); MCHC 30.8 g/dl (32.0-35.9); MEAN CELL VOLUME 82.8 fl (80-96); MEAN PLT VOLUME 7.6 fl (7.5-11.1); MONO % 6.4 % (3.8-10.2); NEUT % 69.2 % (42.8-82.8); PLATELET COUNT 653 10^3/uL (134-434); RBC 2.88 M/mm3 (4.00-5.60); RDW 16.5 % (11.9-15.9); WHITE BLOOD COUNT 8.7 K/mm3 (4.0-10.0)
[2022-12-09 12:14] LABS: INR 1.18 (0.83-1.09); PROTHROMBIN TIME (PATIENT) 13.7 SEC (9.7-13.0)
[2022-12-09 12:17] LABS: ACTIVATED PTT 43.2 SECONDS (25.2-36.5)
[2022-12-09 12:22] LABS: CHLORIDE 111 mmol/L (98-107); POTASSIUM 4.4 mmol/L (3.5-5.1); SODIUM 141 mmol/L (136-145)
[2022-12-09 12:25] LABS: ALBUMIN 1.5 g/dl (3.4-5.0); ANION GAP 6 MMOL/L (8-16); BLOOD UREA NITROGEN 22.8 mg/dL (7-18); CALCIUM 9.3 mg/dL (8.5-10.1); CO2 23 mmol/L (21-32); GLUCOSE,RANDOM 62 mg/dL (74-106)
[2022-12-09 12:28] LABS: CREATININE 0.7 mg/dL (0.55-1.3); SGOT/AST 17 U/L (15-37)
[2022-12-09 12:30] LABS: BILIRUBIN,TOTAL 0.2 mg/dL (0.2-1)
[2022-12-09 12:32] LABS: ALK PHOS 117 U/L (45-117)
[2022-12-09 12:43] LABS: SGPT/ALT < 6 U/L (13-61)
[2022-12-09] MEDS ORDERED: DEXTROSE 5%-WATER 500 ML PVC-FREE INFUS.BAG IV ONE (14:16)
[2022-12-09 16:38] VITALS: RESP 20
[2022-12-09 17:56] VITALS: BMI 14.3
[2022-12-09] MEDS: DEXTROSE 5%-NORMAL SALINE 1,000 ML IV SCH (18:57)
[2022-12-10 00:02] VITALS: TEMP 97.6
[2022-12-10] MEDS: DEXTROSE 5%-NORMAL SALINE 1,000 ML IV SCH (07:00)
[2022-12-10 14:35] VITALS: BP 86/62; PULSE 113
== END 2022-12-10 15:45 ==
LOC: JER 10:29 → JERBED 14:14 → J8W 17:06
PROVIDERS: ADMIT Internal Medicine; ATTEND Internal Medicine
PROC: 0D20XUZ Change Feeding Device in Upper Intestinal Tract, External Approach (ICD-10-PCS; principal; 2022-12-09)
DX: K94.23 Gastrostomy malfunction (principal); E11.9 Type 2 diabetes mellitus without complications; F31.9 Bipolar disorder, unspecified; R64 Cachexia; K50.90 Crohn's disease, unspecified, without complications; E03.9 Hypothyroidism, unspecified; Z87.440 Personal history of urinary (tract) infections; E46 Unspecified protein-calorie malnutrition; Z68.1 Body mass index [BMI] 19.9 or less, adult; N31.2 Flaccid neuropathic bladder, not elsewhere classified; I10 Essential (primary) hypertension; N17.9 Acute kidney failure, unspecified; D64.9 Anemia, unspecified
CPT/HCPCS: 0241U-QW; 36415; 49450; 80053; 82962; 85025; 85610; 85730; 86850; 86900; 86901; 93005; 93010; 99285-25; G0378

== ENCOUNTER 2022-12-19 14:39 | Inpatient (IN) | payer OTHER ==
[2022-12-19] MEDS ORDERED: ACETAMINOPHEN 1000 MG/100 ML BAG IVPB ONE (15:53)
[2022-12-19] MEDS ORDERED: SODIUM CHLORIDE 0.9% 500 ML INFUS.BAG IV ONE ×2 (15:53→20:18)
[2022-12-19] MEDS ORDERED: ACETAMINOPHEN INJECTION 100 ML IVPB ONE (16:32)
[2022-12-19] MEDS ORDERED: PIPERACILLIN/TAZOB 4.5 GM 4.5 GM in DEXTROSE 5%-WATER 100 ML IVPB ONE (16:48)
[2022-12-19] MEDS ORDERED: VANCOMYCIN 1,000 MG in DEXTROSE 5%-WATER - 250 ML IVPB ONE (16:48)
[2022-12-19 17:17] LABS: INR 1.24 (0.83-1.09); PROTHROMBIN TIME (PATIENT) 14.3 SEC (9.7-13.0)
[2022-12-19 17:20] LABS: ACTIVATED PTT 41.8 SECONDS (25.2-36.5)
[2022-12-19 17:35] LABS: POTASSIUM 4.3 mmol/L (3.5-5.1)
[2022-12-19 17:37] LABS: BLOOD UREA NITROGEN 23.8 mg/dL (7-18); CALCIUM 9.8 mg/dL (8.5-10.1)
[2022-12-19 17:38] LABS: ALBUMIN 1.5 g/dl (3.4-5.0)
[2022-12-19 17:40] LABS: CREATININE 0.9 mg/dL (0.55-1.3)
[2022-12-19 17:42] LABS: BILIRUBIN,TOTAL 0.2 mg/dL (0.2-1); TOT PROT 6.9 g/dl (6.4-8.2)
[2022-12-19] MEDS ORDERED: VANCOMYCIN 1 GRAM (PRE-DOCKED) 1,000 MG/250 ML BAG IVPB ONE (18:16)
[2022-12-19] MEDS ORDERED: PIPERACILLIN/TAZOB 4.5 GM 4.5 GM/100 ML BAG IVPB ONE (18:26)
[2022-12-19 18:38] LABS: BASO % 0.7 % (0-2.0); EOS % 2.2 % (0-4.5); HEMATOCRIT 20.8 % (35.4-49); LYMPH % 12.8 % (8-40); MCH 25.2 pg (25.7-33.7); MCHC 30.2 g/dl (32.0-35.9); MEAN CELL VOLUME 83.3 fl (80-96); MEAN PLT VOLUME 7.6 fl (7.5-11.1); NEUT % 77.3 % (42.8-82.8); PLATELET COUNT 831 10^3/uL (134-434); RDW 17.8 % (11.9-15.9); WHITE BLOOD COUNT 15.4 K/mm3 (4.0-10.0)
[2022-12-19 19:02] LABS: HEMOGLOBIN 6.3 GM/dL (11.7-16.9)
[2022-12-19] MEDS ORDERED: LOPERAMIDE HCL 2 MG CAPSULE PO PRN (21:30)
[2022-12-19 22:28] LABS: RETICULOCYTES 1.34 % (0.5-1.5)
[2022-12-20] MEDS ORDERED: ACETAMINOPHEN 1000 MG/100 ML BAG IVPB PRN ×2 (04:11→04:21)
[2022-12-20] MEDS ORDERED: MEROPENEM 1 GM VIAL (RESTRICTED TO ID) IVPB ONE (04:52)
[2022-12-20] MEDS: SODIUM CHLORIDE 1,000 ML IV SCH (04:53)
[2022-12-20] MEDS: MEROPENEM 1 GM in DEXTROSE 5%-WATER 100 ML IVPB SCH ×3 (04:55→17:13)
[2022-12-20] MEDS ORDERED: MEROPENEM 1 GM in DEXTROSE 5%-WATER 100 ML IVPB SCH (06:00)
[2022-12-20] MEDS: INSULIN SLIDING SCALE (NOVOLOG) 1 VIAL SQ SCH ×5 (07:10→21:56)
[2022-12-20] MEDS: LEVOTHYROXINE NA 25 MCG TABLET (FP) PO SCH (08:28)
[2022-12-20 09:50] LABS: HEMOGLOBIN 9.5 GM/dL (11.7-16.9); MCHC 32.9 g/dl (32.0-35.9); MEAN CELL VOLUME 81.9 fl (80-96); MEAN PLT VOLUME 6.9 fl (7.5-11.1); PLATELET COUNT 614 10^3/uL (134-434); RBC 3.54 M/mm3 (4.00-5.60); RDW 16.1 % (11.9-15.9); WHITE BLOOD COUNT 13.2 K/mm3 (4.0-10.0)
[2022-12-20 10:09] LABS: CHLORIDE 114 mmol/L (98-107); SODIUM 142 mmol/L (136-145)
[2022-12-20] MEDS: ZINC SULFATE 220 MG CAPSULE (FP) PO SCH (10:11)
[2022-12-20] MEDS: THIAMINE HCL 100 MG TABLET (FP) PO SCH (10:11)
[2022-12-20] MEDS: AMINO ACIDS/PROTEIN HYDROLYS 30 ML LIQUID.PKT PO SCH (10:11)
[2022-12-20] MEDS: TAMSULOSIN HCL 0.4 MG CAP PO SCH (10:12)
[2022-12-20] MEDS: CHOLECALCIFEROL (VIT D3) 1,000 UNIT (25 MCG) TABLET PO SCH (10:12)
[2022-12-20] MEDS: ASCORBIC ACID 500 MG TABLET (FP) PO SCH (10:12)
[2022-12-20] MEDS: PANTOPRAZOLE 40 MG TABLET PO SCH (10:12)
[2022-12-20] MEDS: FERROUS SO4 325 MG TABLET (FP) PO SCH (10:13)
[2022-12-20 10:17] LABS: ALBUMIN 1.3 g/dl (3.4-5.0); GLUCOSE,RANDOM 60 mg/dL (74-106)
[2022-12-20] MEDS: MIRTAZAPINE 15 MG TABLET (FP) PO SCH ×2 (10:17→21:48)
[2022-12-20] MEDS: NYSTATIN 100,000 UNIT/GM TOPICAL CREAM 15 GM TUBE TP SCH ×3 (10:17→21:49)
[2022-12-20] MEDS: OLANZapine 10 MG TABLET PO SCH ×2 (10:17→21:48)
[2022-12-20 10:18] LABS: ANION GAP 6 MMOL/L (8-16); BLOOD UREA NITROGEN 20.4 mg/dL (7-18); CALCIUM 8.8 mg/dL (8.5-10.1); CO2 22 mmol/L (21-32); MAGNESIUM 1.6 mg/dL (1.8-2.4); PHOSPHOROUS 4.2 mg/dL (2.5-4.9)
[2022-12-20 10:19] LABS: BILIRUBIN,TOTAL 0.3 mg/dL (0.2-1); TOT PROT 6.1 g/dl (6.4-8.2)
[2022-12-20 10:20] LABS: ALK PHOS 119 U/L (45-117); CREATININE 0.7 mg/dL (0.55-1.3)
[2022-12-20 10:21] LABS: SGOT/AST 8 U/L (15-37)
[2022-12-20 10:27] LABS: SGPT/ALT < 6 U/L (13-61)
[2022-12-20] MEDS ORDERED: MAGNESIUM 2GM/50ML STERILE WATER IVPB IVPB ONE (10:30)
[2022-12-20] MEDS ORDERED: PATIENT'S OWN MEDICATION (NON-FORMULARY) (Budesonide [Budesonide Er] 9 MG Tabdr...Er) PO SCH (10:30)
[2022-12-20] MEDS ORDERED: BISMUTH SUBSALICYLATE 524 MG/30 ML PO SCH (11:30)
[2022-12-20] MEDS: COLLAGENASE CLOSTRIDIUM HIST. 30 GRAMS TUBE TP SCH (11:38)
[2022-12-20] MEDS: INSULIN (LEVEMIR) 100 UNITS/ML UNITS SQ SCH ×2 (11:58→21:56)
[2022-12-20] MEDS: ARIPiprazole 5 MG TABLET PO SCH (12:28)
[2022-12-20] MEDS: MIDODRINE HCL 5 MG TABLET PO SCH ×2 (13:25→17:12)
[2022-12-20] MEDS: BISMUTH SUBSALICYLATE 262 MG/15 ML BTL PO SCH ×2 (13:26→17:15)
[2022-12-20] MEDS ORDERED: INSULIN (NOVOLOG) ASPART 100 UNITS/ML 10ML VIAL ONE (21:13)
[2022-12-20] MEDS: HEPARIN NA (PORCINE) 5,000 UNITS/ML 1ML VIAL SQ SCH (21:49)
[2022-12-20] MEDS: MESALAMINE 800 MG TABLET.DR PO SCH (22:10)
[2022-12-21] MEDS: MEROPENEM 1 GM in DEXTROSE 5%-WATER 100 ML IVPB SCH ×3 (01:11→18:03)
[2022-12-21] MEDS: MESALAMINE 800 MG TABLET.DR PO SCH ×4 (01:27→22:39)
[2022-12-21] MEDS: SODIUM CHLORIDE 1,000 ML IV SCH (05:49)
[2022-12-21] MEDS ORDERED: INSULIN (NOVOLOG) ASPART 100 UNITS/ML 10ML VIAL ONE (06:03)
[2022-12-21] MEDS: LEVOTHYROXINE NA 25 MCG TABLET (FP) PO SCH (06:08)
[2022-12-21] MEDS: BISMUTH SUBSALICYLATE 262 MG/15 ML BTL PO SCH ×3 (06:08→18:04)
[2022-12-21] MEDS: INSULIN SLIDING SCALE (NOVOLOG) 1 VIAL SQ SCH ×5 (06:12→22:44)
[2022-12-21] MEDS: INSULIN (LEVEMIR) 100 UNITS/ML UNITS SQ SCH ×2 (06:13→22:48)
[2022-12-21 09:13] LABS: BASO % 0.6 % (0-2.0); EOS % 2.9 % (0-4.5); HEMATOCRIT 30.3 % (35.4-49); HEMOGLOBIN 9.8 GM/dL (11.7-16.9); MCH 26.4 pg (25.7-33.7); MCHC 32.2 g/dl (32.0-35.9); MEAN CELL VOLUME 81.9 fl (80-96); MEAN PLT VOLUME 6.9 fl (7.5-11.1); MONO % 6.8 % (3.8-10.2); NEUT % 77.7 % (42.8-82.8); PLATELET COUNT 643 10^3/uL (134-434); RDW 16.6 % (11.9-15.9)
[2022-12-21 09:53] LABS: BLOOD UREA NITROGEN 15.6 mg/dL (7-18); CREATININE 0.8 mg/dL (0.55-1.3); MAGNESIUM 2.1 mg/dL (1.8-2.4); PHOSPHOROUS 2.4 mg/dL (2.5-4.9); POTASSIUM 3.2 mmol/L (3.5-5.1)
[2022-12-21] MEDS: PANTOPRAZOLE 40 MG TABLET PO SCH (11:21)
[2022-12-21] MEDS: THIAMINE HCL 100 MG TABLET (FP) PO SCH (11:22)
[2022-12-21] MEDS: ZINC SULFATE 220 MG CAPSULE (FP) PO SCH (11:22)
[2022-12-21] MEDS: AMINO ACIDS/PROTEIN HYDROLYS 30 ML LIQUID.PKT PO SCH (11:22)
[2022-12-21] MEDS: TAMSULOSIN HCL 0.4 MG CAP PO SCH (11:22)
[2022-12-21] MEDS: ASCORBIC ACID 500 MG TABLET (FP) PO SCH (11:22)
[2022-12-21] MEDS: MIDODRINE HCL 5 MG TABLET PO SCH ×3 (11:22→18:03)
[2022-12-21] MEDS: ARIPiprazole 5 MG TABLET PO SCH (11:23)
[2022-12-21] MEDS: FERROUS SO4 325 MG TABLET (FP) PO SCH (11:23)
[2022-12-21] MEDS: CHOLECALCIFEROL (VIT D3) 1,000 UNIT (25 MCG) TABLET PO SCH (11:24)
[2022-12-21] MEDS: HEPARIN NA (PORCINE) 5,000 UNITS/ML 1ML VIAL SQ SCH ×3 (11:24→22:39)
[2022-12-21] MEDS: COLLAGENASE CLOSTRIDIUM HIST. 30 GRAMS TUBE TP SCH (11:28)
[2022-12-21] MEDS: NYSTATIN 100,000 UNIT/GM TOPICAL CREAM 15 GM TUBE TP SCH ×2 (11:28→22:39)
[2022-12-21] MEDS ORDERED: POTASSIUM PHOSPHATE 15 MM in SODIUM CHLORIDE 250 ML IVPB ONE (12:00)
[2022-12-21] MEDS: KCL 10 MEQ IVPB 10 MEQ/100 ML INFUS.BAG IVPB SCH ×3 (12:24→15:48)
[2022-12-21] MEDS ORDERED: KCL 10 MEQ IVPB 10 MEQ/100 ML INFUS.BAG IVPB SCH (15:30)
[2022-12-21 16:49] VITALS: BMI 15.1
[2022-12-21] MEDS ORDERED: MEROPENEM 1 GM VIAL (RESTRICTED TO ID) IVPB ONE (17:24)
[2022-12-21] MEDS: MIRTAZAPINE 15 MG TABLET (FP) PO SCH (22:39)
[2022-12-21] MEDS: OLANZapine 10 MG TABLET PO SCH (22:39)
[2022-12-22] MEDS: SODIUM CHLORIDE 1,000 ML IV SCH (06:24)
[2022-12-22] MEDS: BISMUTH SUBSALICYLATE 262 MG/15 ML BTL PO SCH ×2 (06:27→13:12)
[2022-12-22] MEDS: MESALAMINE 800 MG TABLET.DR PO SCH ×3 (06:27→22:35)
[2022-12-22] MEDS: INSULIN SLIDING SCALE (NOVOLOG) 1 VIAL SQ SCH ×4 (06:32→22:55)
[2022-12-22] MEDS: INSULIN (LEVEMIR) 100 UNITS/ML UNITS SQ SCH ×2 (06:32→22:55)
[2022-12-22] MEDS: MEROPENEM 1 GM in DEXTROSE 5%-WATER 100 ML IVPB SCH ×3 (07:33→18:00)
[2022-12-22] MEDS: LEVOTHYROXINE NA 25 MCG TABLET (FP) PO SCH (07:33)
[2022-12-22] MEDS: AMINO ACIDS/PROTEIN HYDROLYS 30 ML LIQUID.PKT PO SCH (10:46)
[2022-12-22] MEDS: HEPARIN NA (PORCINE) 5,000 UNITS/ML 1ML VIAL SQ SCH ×2 (10:46→22:55)
[2022-12-22] MEDS: FERROUS SO4 325 MG TABLET (FP) PO SCH (10:47)
[2022-12-22] MEDS: MIDODRINE HCL 5 MG TABLET PO SCH ×3 (10:47→18:02)
[2022-12-22] MEDS: CHOLECALCIFEROL (VIT D3) 1,000 UNIT (25 MCG) TABLET PO SCH (10:47)
[2022-12-22] MEDS: ZINC SULFATE 220 MG CAPSULE (FP) PO SCH (10:47)
[2022-12-22] MEDS: THIAMINE HCL 100 MG TABLET (FP) PO SCH (10:47)
[2022-12-22] MEDS: PANTOPRAZOLE 40 MG TABLET PO SCH (10:47)
[2022-12-22] MEDS: TAMSULOSIN HCL 0.4 MG CAP PO SCH (10:47)
[2022-12-22] MEDS: ASCORBIC ACID 500 MG TABLET (FP) PO SCH (10:47)
[2022-12-22] MEDS: COLLAGENASE CLOSTRIDIUM HIST. 30 GRAMS TUBE TP SCH (10:48)
[2022-12-22] MEDS: NYSTATIN 100,000 UNIT/GM TOPICAL CREAM 15 GM TUBE TP SCH ×2 (10:48→22:50)
[2022-12-22] MEDS: ARIPiprazole 5 MG TABLET PO SCH (11:00)
[2022-12-22 11:11] LABS: BASO % 0.6 % (0-2.0); EOS % 3.2 % (0-4.5); HEMATOCRIT 29.6 % (35.4-49); HEMOGLOBIN 9.7 GM/dL (11.7-16.9); LYMPH % 20.2 % (8-40); MCH 26.6 pg (25.7-33.7); MCHC 32.7 g/dl (32.0-35.9); MEAN CELL VOLUME 81.2 fl (80-96); MEAN PLT VOLUME 6.7 fl (7.5-11.1); MONO % 5.9 % (3.8-10.2); NEUT % 70.1 % (42.8-82.8); PLATELET COUNT 562 10^3/uL (134-434); RBC 3.65 M/mm3 (4.00-5.60); RDW 16.6 % (11.9-15.9); WHITE BLOOD COUNT 9.8 K/mm3 (4.0-10.0)
[2022-12-22 11:24] LABS: CHLORIDE 112 mmol/L (98-107); POTASSIUM 4.3 mmol/L (3.5-5.1); SODIUM 138 mmol/L (136-145)
[2022-12-22 11:32] LABS: CALCIUM 7.9 mg/dL (8.5-10.1); GLUCOSE,RANDOM 121 mg/dL (74-106); MAGNESIUM 1.9 mg/dL (1.8-2.4)
[2022-12-22 11:33] LABS: SGOT/AST 10 U/L (15-37)
[2022-12-22 11:35] LABS: ALBUMIN 1.2 g/dl (3.4-5.0); ANION GAP 6 MMOL/L (8-16); BILIRUBIN,TOTAL 0.1 mg/dL (0.2-1); BLOOD UREA NITROGEN 14.9 mg/dL (7-18); CO2 21 mmol/L (21-32); CREATININE 0.6 mg/dL (0.55-1.3); PHOSPHOROUS 1.9 mg/dL (2.5-4.9)
[2022-12-22 11:36] LABS: ALK PHOS 126 U/L (45-117)
[2022-12-22 11:49] LABS: SGPT/ALT < 6 U/L (13-61)
[2022-12-22] MEDS: VANCOMYCIN/WATER FOR INJ (PEG) 750 MG/150 ML BAG IVPB SCH (15:29)
[2022-12-22] MEDS: BISMUTH SUBSALICYLATE 524 MG/30 ML PO SCH (18:01)
[2022-12-22] MEDS: OLANZapine 10 MG TABLET PO SCH (22:35)
[2022-12-22] MEDS: MIRTAZAPINE 15 MG TABLET (FP) PO SCH (22:36)
[2022-12-23] MEDS: MEROPENEM 1 GM in DEXTROSE 5%-WATER 100 ML IVPB SCH ×3 (01:09→17:56)
[2022-12-23] MEDS: VANCOMYCIN/WATER FOR INJ (PEG) 750 MG/150 ML BAG IVPB SCH ×2 (02:57→14:44)
[2022-12-23] MEDS: MESALAMINE 800 MG TABLET.DR PO SCH ×3 (05:49→22:02)
[2022-12-23] MEDS: LEVOTHYROXINE NA 25 MCG TABLET (FP) PO SCH (06:02)
[2022-12-23] MEDS: BISMUTH SUBSALICYLATE 524 MG/30 ML PO SCH ×3 (06:02→19:29)
[2022-12-23] MEDS: INSULIN (LEVEMIR) 100 UNITS/ML UNITS SQ SCH ×2 (06:35→22:13)
[2022-12-23] MEDS: INSULIN SLIDING SCALE (NOVOLOG) 1 VIAL SQ SCH ×4 (06:35→22:13)
[2022-12-23 10:18] LABS: BASO % 0.8 % (0-2.0); EOS % 3.6 % (0-4.5); HEMATOCRIT 29.9 % (35.4-49); HEMOGLOBIN 9.9 GM/dL (11.7-16.9); LYMPH % 17.7 % (8-40); MCH 26.9 pg (25.7-33.7); MEAN CELL VOLUME 81.6 fl (80-96); MEAN PLT VOLUME 6.6 fl (7.5-11.1); MONO % 4.7 % (3.8-10.2); NEUT % 73.2 % (42.8-82.8); PLATELET COUNT 549 10^3/uL (134-434); RBC 3.66 M/mm3 (4.00-5.60); RDW 16.2 % (11.9-15.9); WHITE BLOOD COUNT 10.9 K/mm3 (4.0-10.0)
[2022-12-23] MEDS: ARIPiprazole 5 MG TABLET PO SCH (10:47)
[2022-12-23] MEDS: TAMSULOSIN HCL 0.4 MG CAP PO SCH (10:48)
[2022-12-23] MEDS: MIDODRINE HCL 5 MG TABLET PO SCH ×3 (10:48→19:30)
[2022-12-23] MEDS: FERROUS SO4 325 MG TABLET (FP) PO SCH (10:48)
[2022-12-23] MEDS: ZINC SULFATE 220 MG CAPSULE (FP) PO SCH (10:48)
[2022-12-23] MEDS: AMINO ACIDS/PROTEIN HYDROLYS 30 ML LIQUID.PKT PO SCH (10:49)
[2022-12-23] MEDS: ASCORBIC ACID 500 MG TABLET (FP) PO SCH (10:50)
[2022-12-23] MEDS: THIAMINE HCL 100 MG TABLET (FP) PO SCH (10:50)
[2022-12-23] MEDS: CHOLECALCIFEROL (VIT D3) 1,000 UNIT (25 MCG) TABLET PO SCH (10:50)
[2022-12-23] MEDS: HEPARIN NA (PORCINE) 5,000 UNITS/ML 1ML VIAL SQ SCH (10:51)
[2022-12-23] MEDS: NYSTATIN 100,000 UNIT/GM TOPICAL CREAM 15 GM TUBE TP SCH ×2 (10:52→22:03)
[2022-12-23 10:58] LABS: CHLORIDE 111 mmol/L (98-107); POTASSIUM 3.9 mmol/L (3.5-5.1)
[2022-12-23 11:30] LABS: CALCIUM 8.4 mg/dL (8.5-10.1)
[2022-12-23 11:31] LABS: ALBUMIN 1.3 g/dl (3.4-5.0); BLOOD UREA NITROGEN 13.2 mg/dL (7-18); CO2 21 mmol/L (21-32); GLUCOSE,RANDOM 63 mg/dL (74-106); MAGNESIUM 1.9 mg/dL (1.8-2.4)
[2022-12-23 11:34] LABS: CREATININE 0.6 mg/dL (0.55-1.3)
[2022-12-23 11:35] LABS: BILIRUBIN,TOTAL 0.2 mg/dL (0.2-1)
[2022-12-23 11:36] LABS: ALK PHOS 123 U/L (45-117); SGOT/AST 6 U/L (15-37)
[2022-12-23 11:38] LABS: TOT PROT 6.5 g/dl (6.4-8.2)
[2022-12-23 11:40] LABS: ANION GAP 6 MMOL/L (8-16); SGPT/ALT < 6 U/L (13-61); SODIUM 138 mmol/L (136-145)
[2022-12-23] MEDS: CHOLESTYRAMINE/ASPARTAME 4 GM PACKET PO SCH ×4 (11:58→22:03)
[2022-12-23] MEDS ORDERED: NAPH,MB-DB/K PH,MBDB POWDER PACKET PO ONE (14:00)
[2022-12-23] MEDS ORDERED: NAPH,MB-DB/K PH,MBDB POWDER PACKET GT ONE (14:00)
[2022-12-23] MEDS: COLLAGENASE CLOSTRIDIUM HIST. 30 GRAMS TUBE TP SCH (14:07)
[2022-12-23] MEDS ORDERED: TUBE FEED DECLOGGING SOLUTION 12,000 UNITS GT ONE (16:00)
[2022-12-23] MEDS ORDERED: PEG 3350/NA SULF BICARB CL/KCL 4000 ML SOLN.RECON PO ONE (17:00)
[2022-12-23] MEDS: PANTOPRAZOLE 40 MG TABLET PO SCH (19:30)
[2022-12-23] MEDS: MIRTAZAPINE 15 MG TABLET (FP) PO SCH (22:02)
[2022-12-23] MEDS: OLANZapine 10 MG TABLET PO SCH (22:02)
[2022-12-24] MEDS: MEROPENEM 1 GM in DEXTROSE 5%-WATER 100 ML IVPB SCH ×3 (01:48→19:07)
[2022-12-24] MEDS: VANCOMYCIN/WATER FOR INJ (PEG) 750 MG/150 ML BAG IVPB SCH ×2 (02:37→14:28)
[2022-12-24] MEDS ORDERED: DEXTROSE 5%-NORMAL SALINE 1,000 ML IV SCH (04:15)
[2022-12-24] MEDS: LEVOTHYROXINE NA 25 MCG TABLET (FP) PO SCH (06:45)
[2022-12-24] MEDS: INSULIN (LEVEMIR) 100 UNITS/ML UNITS SQ SCH ×2 (06:52→21:49)
[2022-12-24] MEDS: MESALAMINE 800 MG TABLET.DR PO SCH ×3 (06:52→21:44)
[2022-12-24] MEDS: BISMUTH SUBSALICYLATE 524 MG/30 ML PO SCH ×3 (06:52→19:07)
[2022-12-24] MEDS: INSULIN SLIDING SCALE (NOVOLOG) 1 VIAL SQ SCH ×4 (06:52→21:49)
[2022-12-24] MEDS ORDERED: INSULIN (NOVOLOG) ASPART 100 UNITS/ML 10ML VIAL ONE (07:03)
[2022-12-24] MEDS ORDERED: INSULIN (LEVEMIR) 100 UNITS/ML UNITS SQ ONE (07:04)
[2022-12-24 10:44] LABS: BASO % 0.9 % (0-2.0); EOS % 4.4 % (0-4.5); HEMATOCRIT 31.3 % (35.4-49); HEMOGLOBIN 10.1 GM/dL (11.7-16.9); LYMPH % 17.5 % (8-40); MCH 27.3 pg (25.7-33.7); MCHC 32.2 g/dl (32.0-35.9); MEAN CELL VOLUME 84.7 fl (80-96); MONO % 5.7 % (3.8-10.2); NEUT % 71.5 % (42.8-82.8); PLATELET COUNT 574 10^3/uL (134-434); RDW 16.5 % (11.9-15.9); WHITE BLOOD COUNT 8.8 K/mm3 (4.0-10.0)
[2022-12-24 11:38] LABS: CHLORIDE 113 mmol/L (98-107); POTASSIUM 3.6 mmol/L (3.5-5.1); SODIUM 139 mmol/L (136-145)
[2022-12-24 12:06] LABS: GLUCOSE,RANDOM 77 mg/dL (74-106)
[2022-12-24 12:07] LABS: ALK PHOS 122 U/L (45-117); CREATININE 0.8 mg/dL (0.55-1.3); PHOSPHOROUS 2.6 mg/dL (2.5-4.9); SGOT/AST 7 U/L (15-37); SGPT/ALT < 6 U/L (13-61)
[2022-12-24 12:08] LABS: TOT PROT 6.5 g/dl (6.4-8.2)
[2022-12-24 12:09] LABS: BILIRUBIN,TOTAL 0.2 mg/dL (0.2-1)
[2022-12-24 12:12] LABS: ALBUMIN 1.4 g/dl (3.4-5.0); ANION GAP 8 MMOL/L (8-16); BLOOD UREA NITROGEN 13.6 mg/dL (7-18); CALCIUM 8.3 mg/dL (8.5-10.1); CO2 18 mmol/L (21-32)
[2022-12-24 12:13] LABS: MAGNESIUM 1.9 mg/dL (1.8-2.4)
[2022-12-24] MEDS: PANTOPRAZOLE 40 MG TABLET PO SCH (14:14)
[2022-12-24] MEDS: MIDODRINE HCL 5 MG TABLET PO SCH ×3 (14:14→19:08)
[2022-12-24] MEDS: CHOLESTYRAMINE/ASPARTAME 4 GM PACKET PO SCH ×4 (14:15→21:49)
[2022-12-24] MEDS: ZINC SULFATE 220 MG CAPSULE (FP) PO SCH (14:16)
[2022-12-24] MEDS: THIAMINE HCL 100 MG TABLET (FP) PO SCH (14:16)
[2022-12-24] MEDS: ASCORBIC ACID 500 MG TABLET (FP) PO SCH (14:16)
[2022-12-24] MEDS: CHOLECALCIFEROL (VIT D3) 1,000 UNIT (25 MCG) TABLET PO SCH (14:17)
[2022-12-24] MEDS: ARIPiprazole 5 MG TABLET PO SCH (14:18)
[2022-12-24] MEDS: ERGOCALCIFEROL (VIT D2) 50,000 UNIT (1.25 MG) CAPSULE PO SCH (14:18)
[2022-12-24] MEDS: NYSTATIN 100,000 UNIT/GM TOPICAL CREAM 15 GM TUBE TP SCH ×2 (14:19→21:45)
[2022-12-24] MEDS: COLLAGENASE CLOSTRIDIUM HIST. 30 GRAMS TUBE TP SCH (14:20)
[2022-12-24] MEDS: AMINO ACIDS/PROTEIN HYDROLYS 30 ML LIQUID.PKT PO SCH (14:36)
[2022-12-24] MEDS: FERROUS SO4 325 MG TABLET (FP) PO SCH (14:36)
[2022-12-24] MEDS: TAMSULOSIN HCL 0.4 MG CAP PO SCH (14:37)
[2022-12-24] MEDS ORDERED: oxyCODONE HCL 5 MG TABLET GT PRN (16:26)
[2022-12-24] MEDS ORDERED: MEROPENEM 1 GM VIAL (RESTRICTED TO ID) IVPB ONE (19:02)
[2022-12-24] MEDS: OLANZapine 10 MG TABLET PO SCH (21:44)
[2022-12-24] MEDS: MIRTAZAPINE 15 MG TABLET (FP) PO SCH (21:44)
[2022-12-25] MEDS: MEROPENEM 1 GM in DEXTROSE 5%-WATER 100 ML IVPB SCH ×3 (01:10→17:25)
[2022-12-25] MEDS: VANCOMYCIN/WATER FOR INJ (PEG) 750 MG/150 ML BAG IVPB SCH ×2 (02:15→13:50)
[2022-12-25] MEDS: MESALAMINE 800 MG TABLET.DR PO SCH ×3 (06:03→21:15)
[2022-12-25] MEDS: INSULIN SLIDING SCALE (NOVOLOG) 1 VIAL SQ SCH ×4 (06:03→21:19)
[2022-12-25] MEDS: INSULIN (LEVEMIR) 100 UNITS/ML UNITS SQ SCH ×2 (06:03→21:16)
[2022-12-25] MEDS: LEVOTHYROXINE NA 25 MCG TABLET (FP) PO SCH (06:04)
[2022-12-25] MEDS: BISMUTH SUBSALICYLATE 524 MG/30 ML PO SCH ×3 (06:04→17:28)
[2022-12-25] MEDS: FERROUS SO4 325 MG TABLET (FP) PO SCH (08:55)
[2022-12-25] MEDS: TAMSULOSIN HCL 0.4 MG CAP PO SCH (08:55)
[2022-12-25] MEDS: AMINO ACIDS/PROTEIN HYDROLYS 30 ML LIQUID.PKT PO SCH (08:56)
[2022-12-25 10:32] LABS: POTASSIUM 3.5 mmol/L (3.5-5.1)
[2022-12-25 10:35] LABS: CALCIUM 8.9 mg/dL (8.5-10.1)
[2022-12-25 10:36] LABS: ALBUMIN 1.4 g/dl (3.4-5.0); BLOOD UREA NITROGEN 12.8 mg/dL (7-18); MAGNESIUM 2.2 mg/dL (1.8-2.4)
[2022-12-25 10:38] LABS: CREATININE 0.8 mg/dL (0.55-1.3); PHOSPHOROUS 2.2 mg/dL (2.5-4.9)
[2022-12-25 10:40] LABS: BILIRUBIN,TOTAL 0.2 mg/dL (0.2-1); TOT PROT 7.4 g/dl (6.4-8.2)
[2022-12-25] MEDS: CHOLECALCIFEROL (VIT D3) 1,000 UNIT (25 MCG) TABLET PO SCH (11:22)
[2022-12-25] MEDS: ASCORBIC ACID 500 MG TABLET (FP) PO SCH (11:22)
[2022-12-25] MEDS: ZINC SULFATE 220 MG CAPSULE (FP) PO SCH (11:22)
[2022-12-25] MEDS: PANTOPRAZOLE 40 MG TABLET PO SCH (11:23)
[2022-12-25] MEDS: MIDODRINE HCL 5 MG TABLET PO SCH ×3 (11:23→19:41)
[2022-12-25] MEDS: THIAMINE HCL 100 MG TABLET (FP) PO SCH (11:23)
[2022-12-25] MEDS: ARIPiprazole 5 MG TABLET PO SCH (11:24)
[2022-12-25] MEDS: CHOLESTYRAMINE/ASPARTAME 4 GM PACKET PO SCH ×4 (11:26→21:16)
[2022-12-25] MEDS: COLLAGENASE CLOSTRIDIUM HIST. 30 GRAMS TUBE TP SCH (11:28)
[2022-12-25] MEDS: NYSTATIN 100,000 UNIT/GM TOPICAL CREAM 15 GM TUBE TP SCH ×2 (11:28→21:16)
[2022-12-25 13:37] LABS: BASO % 1.2 % (0-2.0); EOS % 3.8 % (0-4.5); HEMATOCRIT 33.6 % (35.4-49); HEMOGLOBIN 10.7 GM/dL (11.7-16.9); MCH 26.5 pg (25.7-33.7); MCHC 31.9 g/dl (32.0-35.9); MEAN CELL VOLUME 83.3 fl (80-96); MONO % 6.3 % (3.8-10.2); NEUT % 69.7 % (42.8-82.8); PLATELET COUNT 626 10^3/uL (134-434); RBC 4.03 M/mm3 (4.00-5.60); RDW 16.5 % (11.9-15.9)
[2022-12-25] MEDS ORDERED: DEXTROSE 50%-WATER 25 GM/50 ML DISP.SYRIN IVPUSH ONE (16:47)
[2022-12-25] MEDS: PEG 3350/NA SULF BICARB CL/KCL 4000 ML SOLN.RECON PO ONE ×2 (17:56→20:33)
[2022-12-25] MEDS: OLANZapine 10 MG TABLET PO SCH (21:15)
[2022-12-25] MEDS: MIRTAZAPINE 15 MG TABLET (FP) PO SCH (21:15)
[2022-12-26] MEDS: MEROPENEM 1 GM in DEXTROSE 5%-WATER 100 ML IVPB SCH ×3 (01:04→18:24)
[2022-12-26] MEDS: VANCOMYCIN/WATER FOR INJ (PEG) 750 MG/150 ML BAG IVPB SCH ×3 (01:24→15:25)
[2022-12-26] MEDS: MESALAMINE 800 MG TABLET.DR PO SCH ×4 (05:31→22:43)
[2022-12-26] MEDS: INSULIN SLIDING SCALE (NOVOLOG) 1 VIAL SQ SCH ×4 (06:05→22:43)
[2022-12-26] MEDS: INSULIN (LEVEMIR) 100 UNITS/ML UNITS SQ SCH ×2 (06:05→22:44)
[2022-12-26] MEDS: BISMUTH SUBSALICYLATE 524 MG/30 ML PO SCH ×3 (06:06→17:02)
[2022-12-26] MEDS: LEVOTHYROXINE NA 25 MCG TABLET (FP) PO SCH (06:13)
[2022-12-26] MEDS ORDERED: DEXTROSE 50%-WATER 25 GM/50 ML DISP.SYRIN IVPUSH ONE (06:14)
[2022-12-26] MEDS ORDERED: DEXTROSE 50%-WATER 25 GM/50 ML DISP.SYRIN ONE (06:23)
[2022-12-26] MEDS: AMINO ACIDS/PROTEIN HYDROLYS 30 ML LIQUID.PKT PO SCH (08:36)
[2022-12-26] MEDS: TAMSULOSIN HCL 0.4 MG CAP PO SCH (08:36)
[2022-12-26] MEDS: MIDODRINE HCL 5 MG TABLET PO SCH ×3 (08:58→18:24)
[2022-12-26] MEDS ORDERED: SODIUM CHLORIDE 1,000 ML IV STA ×2 (09:08→09:12)
[2022-12-26] MEDS: ASCORBIC ACID 500 MG TABLET (FP) PO SCH (10:11)
[2022-12-26] MEDS: THIAMINE HCL 100 MG TABLET (FP) PO SCH (10:11)
[2022-12-26] MEDS: PANTOPRAZOLE 40 MG TABLET PO SCH (10:11)
[2022-12-26] MEDS: CHOLECALCIFEROL (VIT D3) 1,000 UNIT (25 MCG) TABLET PO SCH (10:11)
[2022-12-26] MEDS: ZINC SULFATE 220 MG CAPSULE (FP) PO SCH (10:11)
[2022-12-26] MEDS: ARIPiprazole 5 MG TABLET PO SCH (10:11)
[2022-12-26] MEDS: CHOLESTYRAMINE/ASPARTAME 4 GM PACKET PO SCH ×4 (10:12→22:43)
[2022-12-26 10:24] LABS: BASO % 0.7 % (0-2.0); EOS % 3.1 % (0-4.5); HEMATOCRIT 32.5 % (35.4-49); HEMOGLOBIN 10.7 GM/dL (11.7-16.9); LYMPH % 22.3 % (8-40); MCH 26.8 pg (25.7-33.7); MCHC 32.9 g/dl (32.0-35.9); MEAN CELL VOLUME 81.3 fl (80-96); MEAN PLT VOLUME 6.8 fl (7.5-11.1); MONO % 5.2 % (3.8-10.2); NEUT % 68.7 % (42.8-82.8); PLATELET COUNT 622 10^3/uL (134-434); RDW 16.7 % (11.9-15.9); WHITE BLOOD COUNT 11.2 K/mm3 (4.0-10.0)
[2022-12-26 10:34] LABS: CHLORIDE 110 mmol/L (98-107); POTASSIUM 3.5 mmol/L (3.5-5.1); SODIUM 139 mmol/L (136-145)
[2022-12-26 10:46] LABS: CALCIUM 8.9 mg/dL (8.5-10.1); GLUCOSE,RANDOM 95 mg/dL (74-106)
[2022-12-26 10:47] LABS: ALBUMIN 1.5 g/dl (3.4-5.0); ANION GAP 11 MMOL/L (8-16); BILIRUBIN,TOTAL 0.2 mg/dL (0.2-1); BLOOD UREA NITROGEN 11.3 mg/dL (7-18); CO2 18 mmol/L (21-32); MAGNESIUM 2.1 mg/dL (1.8-2.4); PHOSPHOROUS 2.2 mg/dL (2.5-4.9); TOT PROT 7.1 g/dl (6.4-8.2)
[2022-12-26 10:48] LABS: ALK PHOS 130 U/L (45-117); CREATININE 0.7 mg/dL (0.55-1.3)
[2022-12-26 10:49] LABS: SGOT/AST 6 U/L (15-37); SGPT/ALT < 6 U/L (13-61)
[2022-12-26] MEDS: FERROUS SO4 325 MG TABLET (FP) PO SCH (14:17)
[2022-12-26] MEDS: COLLAGENASE CLOSTRIDIUM HIST. 30 GRAMS TUBE TP SCH (15:26)
[2022-12-26] MEDS: NYSTATIN 100,000 UNIT/GM TOPICAL CREAM 15 GM TUBE TP SCH ×2 (15:27→22:55)
[2022-12-26] MEDS ORDERED: NAPH,MB-DB/K PH,MBDB POWDER PACKET PO ONE (16:37)
[2022-12-26] MEDS: LOPERAMIDE HCL 2 MG CAPSULE PO SCH ×2 (16:59→22:43)
[2022-12-26] MEDS: OLANZapine 10 MG TABLET PO SCH (22:43)
[2022-12-26] MEDS: MIRTAZAPINE 15 MG TABLET (FP) PO SCH (22:43)
[2022-12-27] MEDS: MEROPENEM 1 GM in DEXTROSE 5%-WATER 100 ML IVPB SCH ×3 (01:55→17:10)
[2022-12-27] MEDS: LEVOTHYROXINE NA 25 MCG TABLET (FP) PO SCH (06:13)
[2022-12-27] MEDS: LOPERAMIDE HCL 2 MG CAPSULE PO SCH ×3 (06:13→21:22)
[2022-12-27] MEDS: MESALAMINE 800 MG TABLET.DR PO SCH ×3 (06:13→21:20)
[2022-12-27] MEDS: BISMUTH SUBSALICYLATE 524 MG/30 ML PO SCH ×3 (06:15→17:10)
[2022-12-27] MEDS: INSULIN (LEVEMIR) 100 UNITS/ML UNITS SQ SCH ×2 (06:59→21:19)
[2022-12-27] MEDS: INSULIN SLIDING SCALE (NOVOLOG) 1 VIAL SQ SCH ×4 (06:59→21:18)
[2022-12-27] MEDS: AMINO ACIDS/PROTEIN HYDROLYS 30 ML LIQUID.PKT PO SCH (08:33)
[2022-12-27] MEDS: TAMSULOSIN HCL 0.4 MG CAP PO SCH (08:33)
[2022-12-27] MEDS: FERROUS SO4 325 MG TABLET (FP) PO SCH (08:33)
[2022-12-27] MEDS: ZINC SULFATE 220 MG CAPSULE (FP) PO SCH (10:29)
[2022-12-27] MEDS: CHOLECALCIFEROL (VIT D3) 1,000 UNIT (25 MCG) TABLET PO SCH (10:29)
[2022-12-27] MEDS: MIDODRINE HCL 5 MG TABLET PO SCH ×3 (10:29→17:09)
[2022-12-27] MEDS: ASCORBIC ACID 500 MG TABLET (FP) PO SCH (10:29)
[2022-12-27] MEDS: THIAMINE HCL 100 MG TABLET (FP) PO SCH (10:30)
[2022-12-27] MEDS: PANTOPRAZOLE 40 MG TABLET PO SCH (10:30)
[2022-12-27] MEDS: NYSTATIN 100,000 UNIT/GM TOPICAL CREAM 15 GM TUBE TP SCH ×2 (10:31→21:27)
[2022-12-27] MEDS: ARIPiprazole 5 MG TABLET PO SCH (10:32)
[2022-12-27] MEDS: CHOLESTYRAMINE/ASPARTAME 4 GM PACKET PO SCH ×4 (10:32→21:26)
[2022-12-27] MEDS: COLLAGENASE CLOSTRIDIUM HIST. 30 GRAMS TUBE TP SCH (10:33)
[2022-12-27 10:50] LABS: BASO % 1.2 % (0-2.0); EOS % 3.4 % (0-4.5); HEMATOCRIT 33.7 % (35.4-49); HEMOGLOBIN 10.7 GM/dL (11.7-16.9); LYMPH % 18.7 % (8-40); MCH 26.1 pg (25.7-33.7); MCHC 31.7 g/dl (32.0-35.9); MEAN CELL VOLUME 82.4 fl (80-96); MONO % 5.5 % (3.8-10.2); NEUT % 71.2 % (42.8-82.8); PLATELET COUNT 663 10^3/uL (134-434); RBC 4.09 M/mm3 (4.00-5.60); RDW 16.6 % (11.9-15.9); WHITE BLOOD COUNT 9.7 K/mm3 (4.0-10.0)
[2022-12-27 11:10] LABS: POTASSIUM 3.4 mmol/L (3.5-5.1)
[2022-12-27 11:14] LABS: ALBUMIN 1.5 g/dl (3.4-5.0); BLOOD UREA NITROGEN 15.7 mg/dL (7-18); CALCIUM 8.7 mg/dL (8.5-10.1); MAGNESIUM 2.1 mg/dL (1.8-2.4)
[2022-12-27 11:18] LABS: CREATININE 0.8 mg/dL (0.55-1.3); PHOSPHOROUS 2.7 mg/dL (2.5-4.9)
[2022-12-27 11:20] LABS: BILIRUBIN,TOTAL 0.2 mg/dL (0.2-1)
[2022-12-27] MEDS: BUDESONIDE 9 MG PO SCH (17:10)
[2022-12-27] MEDS ORDERED: NAPH,MB-DB/K PH,MBDB POWDER PACKET GT ONE (17:37)
[2022-12-27] MEDS: OLANZapine 10 MG TABLET PO SCH (21:21)
[2022-12-27] MEDS: MIRTAZAPINE 15 MG TABLET (FP) PO SCH (21:21)
[2022-12-27] MEDS: ACETAMINOPHEN 325 MG TABLET (FP) PO PRN (21:21)
[2022-12-28] MEDS: MEROPENEM 1 GM in DEXTROSE 5%-WATER 100 ML IVPB SCH ×3 (02:57→17:58)
[2022-12-28] MEDS: MESALAMINE 800 MG TABLET.DR PO SCH ×3 (06:39→22:37)
[2022-12-28] MEDS: BISMUTH SUBSALICYLATE 524 MG/30 ML PO SCH ×3 (07:00→15:53)
[2022-12-28] MEDS: LOPERAMIDE HCL 2 MG CAPSULE PO SCH ×3 (07:00→22:36)
[2022-12-28] MEDS: LEVOTHYROXINE NA 25 MCG TABLET (FP) PO SCH (07:00)
[2022-12-28] MEDS: INSULIN (LEVEMIR) 100 UNITS/ML UNITS SQ SCH ×2 (07:40→22:38)
[2022-12-28] MEDS ORDERED: INSULIN (NOVOLOG) ASPART 100 UNITS/ML 10ML VIAL ONE (07:59)
[2022-12-28] MEDS: INSULIN SLIDING SCALE (NOVOLOG) 1 VIAL SQ SCH ×4 (08:07→22:39)
[2022-12-28] MEDS: FERROUS SO4 325 MG TABLET (FP) PO SCH (08:21)
[2022-12-28] MEDS: AMINO ACIDS/PROTEIN HYDROLYS 30 ML LIQUID.PKT PO SCH (08:21)
[2022-12-28] MEDS: TAMSULOSIN HCL 0.4 MG CAP PO SCH (08:21)
[2022-12-28 08:58] LABS: BASO % 1.4 % (0-2.0); EOS % 3.9 % (0-4.5); HEMATOCRIT 33.7 % (35.4-49); HEMOGLOBIN 11.2 GM/dL (11.7-16.9); LYMPH % 20.1 % (8-40); MCH 26.8 pg (25.7-33.7); MCHC 33.2 g/dl (32.0-35.9); MEAN CELL VOLUME 80.8 fl (80-96); MEAN PLT VOLUME 6.7 fl (7.5-11.1); MONO % 5.5 % (3.8-10.2); NEUT % 69.1 % (42.8-82.8); PLATELET COUNT 664 10^3/uL (134-434); RBC 4.17 M/mm3 (4.00-5.60); RDW 16.6 % (11.9-15.9); WHITE BLOOD COUNT 8.9 K/mm3 (4.0-10.0)
[2022-12-28 09:12] LABS: CHLORIDE 114 mmol/L (98-107); POTASSIUM 3.6 mmol/L (3.5-5.1); SODIUM 139 mmol/L (136-145)
[2022-12-28 09:18] LABS: ALBUMIN 1.4 g/dl (3.4-5.0); CALCIUM 8.3 mg/dL (8.5-10.1); GLUCOSE,RANDOM 151 mg/dL (74-106)
[2022-12-28 09:19] LABS: ANION GAP 7 MMOL/L (8-16); BLOOD UREA NITROGEN 15.1 mg/dL (7-18); CO2 18 mmol/L (21-32); MAGNESIUM 2.2 mg/dL (1.8-2.4)
[2022-12-28 09:22] LABS: CREATININE 0.8 mg/dL (0.55-1.3); PHOSPHOROUS 2.6 mg/dL (2.5-4.9); SGOT/AST 9 U/L (15-37); SGPT/ALT < 6 U/L (13-61)
[2022-12-28 09:23] LABS: BILIRUBIN,TOTAL 0.1 mg/dL (0.2-1); TOT PROT 6.8 g/dl (6.4-8.2)
[2022-12-28 09:25] LABS: ALK PHOS 147 U/L (45-117)
[2022-12-28] MEDS: CHOLECALCIFEROL (VIT D3) 1,000 UNIT (25 MCG) TABLET PO SCH (10:05)
[2022-12-28] MEDS: ZINC SULFATE 220 MG CAPSULE (FP) PO SCH (10:05)
[2022-12-28] MEDS: MIDODRINE HCL 5 MG TABLET PO SCH ×3 (10:05→17:59)
[2022-12-28] MEDS: THIAMINE HCL 100 MG TABLET (FP) PO SCH (10:06)
[2022-12-28] MEDS: PANTOPRAZOLE 40 MG TABLET PO SCH (10:06)
[2022-12-28] MEDS: ASCORBIC ACID 500 MG TABLET (FP) PO SCH (10:06)
[2022-12-28] MEDS: BUDESONIDE 9 MG PO SCH (10:07)
[2022-12-28] MEDS: ARIPiprazole 5 MG TABLET PO SCH (10:07)
[2022-12-28] MEDS: CHOLESTYRAMINE/ASPARTAME 4 GM PACKET PO SCH ×5 (10:08→22:48)
[2022-12-28] MEDS: NYSTATIN 100,000 UNIT/GM TOPICAL CREAM 15 GM TUBE TP SCH ×2 (10:20→22:39)
[2022-12-28] MEDS: COLLAGENASE CLOSTRIDIUM HIST. 30 GRAMS TUBE TP SCH (10:20)
[2022-12-28] MEDS: MIRTAZAPINE 15 MG TABLET (FP) PO SCH (22:36)
[2022-12-28] MEDS: OLANZapine 10 MG TABLET PO SCH (22:36)
[2022-12-29] MEDS: MEROPENEM 1 GM in DEXTROSE 5%-WATER 100 ML IVPB SCH ×2 (01:27→09:59)
[2022-12-29] MEDS ORDERED: SODIUM CHLORIDE 0.9% 500 ML INFUS.BAG IV ONE (05:01)
[2022-12-29] MEDS: MESALAMINE 800 MG TABLET.DR PO SCH ×3 (06:58→23:00)
[2022-12-29] MEDS: LEVOTHYROXINE NA 25 MCG TABLET (FP) PO SCH (06:59)
[2022-12-29] MEDS: LOPERAMIDE HCL 2 MG CAPSULE PO SCH ×3 (06:59→23:00)
[2022-12-29] MEDS: INSULIN SLIDING SCALE (NOVOLOG) 1 VIAL SQ SCH ×4 (07:07→23:04)
[2022-12-29] MEDS: INSULIN (LEVEMIR) 100 UNITS/ML UNITS SQ SCH ×2 (07:08→23:04)
[2022-12-29] MEDS: BISMUTH SUBSALICYLATE 524 MG/30 ML PO SCH ×4 (07:35→18:40)
[2022-12-29 09:33] LABS: BASO % 0.9 % (0-2.0); EOS % 2.8 % (0-4.5); HEMATOCRIT 28.9 % (35.4-49); HEMOGLOBIN 9.5 GM/dL (11.7-16.9); LYMPH % 17.1 % (8-40); MCH 26.6 pg (25.7-33.7); MEAN CELL VOLUME 80.6 fl (80-96); MEAN PLT VOLUME 6.7 fl (7.5-11.1); MONO % 4.1 % (3.8-10.2); NEUT % 75.1 % (42.8-82.8); PLATELET COUNT 579 10^3/uL (134-434); RBC 3.58 M/mm3 (4.00-5.60); RDW 16.6 % (11.9-15.9); WHITE BLOOD COUNT 11.4 K/mm3 (4.0-10.0)
[2022-12-29 09:47] LABS: CHLORIDE 118 mmol/L (98-107); POTASSIUM 3.2 mmol/L (3.5-5.1); SODIUM 142 mmol/L (136-145)
[2022-12-29 09:52] LABS: ANION GAP 5 MMOL/L (8-16); BLOOD UREA NITROGEN 13.1 mg/dL (7-18); CO2 18 mmol/L (21-32); GLUCOSE,RANDOM 74 mg/dL (74-106); MAGNESIUM 1.9 mg/dL (1.8-2.4)
[2022-12-29 09:55] LABS: CREATININE 0.6 mg/dL (0.55-1.3); SGOT/AST 6 U/L (15-37); SGPT/ALT 7 U/L (13-61)
[2022-12-29] MEDS: ARIPiprazole 5 MG TABLET PO SCH (09:55)
[2022-12-29] MEDS: PANTOPRAZOLE 40 MG TABLET PO SCH (09:55)
[2022-12-29] MEDS: AMINO ACIDS/PROTEIN HYDROLYS 30 ML LIQUID.PKT PO SCH (09:55)
[2022-12-29] MEDS: CHOLESTYRAMINE/ASPARTAME 4 GM PACKET PO SCH ×4 (09:55→23:00)
[2022-12-29 09:56] LABS: BILIRUBIN,TOTAL 0.1 mg/dL (0.2-1); TOT PROT 5.4 g/dl (6.4-8.2)
[2022-12-29] MEDS: FERROUS SO4 325 MG TABLET (FP) PO SCH (09:56)
[2022-12-29] MEDS: ZINC SULFATE 220 MG CAPSULE (FP) PO SCH (09:56)
[2022-12-29] MEDS: ASCORBIC ACID 500 MG TABLET (FP) PO SCH (09:56)
[2022-12-29] MEDS: TAMSULOSIN HCL 0.4 MG CAP PO SCH (09:56)
[2022-12-29 09:57] LABS: ALK PHOS 118 U/L (45-117)
[2022-12-29] MEDS: THIAMINE HCL 100 MG TABLET (FP) PO SCH (09:57)
[2022-12-29] MEDS: MIDODRINE HCL 5 MG TABLET PO SCH ×3 (09:57→18:41)
[2022-12-29] MEDS: CHOLECALCIFEROL (VIT D3) 1,000 UNIT (25 MCG) TABLET PO SCH (09:57)
[2022-12-29 09:59] LABS: ALBUMIN 1.1 g/dl (3.4-5.0); CALCIUM 6.6 mg/dL (8.5-10.1); PHOSPHOROUS 1.7 mg/dL (2.5-4.9)
[2022-12-29] MEDS: COLLAGENASE CLOSTRIDIUM HIST. 30 GRAMS TUBE TP SCH (10:01)
[2022-12-29] MEDS: NYSTATIN 100,000 UNIT/GM TOPICAL CREAM 15 GM TUBE TP SCH ×2 (10:01→23:01)
[2022-12-29] MEDS: BUDESONIDE 9 MG PO SCH (14:09)
[2022-12-29] MEDS ORDERED: NAPH,MB-DB/K PH,MBDB POWDER PACKET GT ONE ×3 (14:17→23:00)
[2022-12-29] MEDS ORDERED: POTASSIUM CHLORIDE ORAL LIQUID 20 MEQ/15 ML GT ONE (14:50)
[2022-12-29] MEDS ORDERED: MAGNESIUM 1GM/D5W 100ML - 100 ML IVPB IVPB ONE (15:00)
[2022-12-29] MEDS: OLANZapine 10 MG TABLET PO SCH (23:00)
[2022-12-29] MEDS: MIRTAZAPINE 15 MG TABLET (FP) PO SCH (23:00)
[2022-12-30] MEDS: LOPERAMIDE HCL 2 MG CAPSULE PO SCH ×3 (06:54→22:25)
[2022-12-30] MEDS: MESALAMINE 800 MG TABLET.DR PO SCH ×3 (06:54→22:28)
[2022-12-30] MEDS: LEVOTHYROXINE NA 25 MCG TABLET (FP) PO SCH (06:54)
[2022-12-30] MEDS: INSULIN SLIDING SCALE (NOVOLOG) 1 VIAL SQ SCH ×4 (07:00→22:30)
[2022-12-30] MEDS: INSULIN (LEVEMIR) 100 UNITS/ML UNITS SQ SCH ×2 (07:00→22:30)
[2022-12-30] MEDS: BISMUTH SUBSALICYLATE 524 MG/30 ML PO SCH ×3 (07:01→17:38)
[2022-12-30] MEDS ORDERED: LACTATED RINGERS SOLUTION 1,000 ML/1,000 ML INFUS.BAG IV SCH (09:30)
[2022-12-30 11:18] LABS: BASO % 1.3 % (0-2.0); EOS % 3.6 % (0-4.5); HEMATOCRIT 29.9 % (35.4-49); HEMOGLOBIN 9.8 GM/dL (11.7-16.9); LYMPH % 24.8 % (8-40); MCH 26.6 pg (25.7-33.7); MCHC 32.8 g/dl (32.0-35.9); MEAN PLT VOLUME 6.6 fl (7.5-11.1); MONO % 4.9 % (3.8-10.2); NEUT % 65.4 % (42.8-82.8); PLATELET COUNT 633 10^3/uL (134-434); RBC 3.69 M/mm3 (4.00-5.60); RDW 16.9 % (11.9-15.9); WHITE BLOOD COUNT 10.1 K/mm3 (4.0-10.0)
[2022-12-30] MEDS: THIAMINE HCL 100 MG TABLET (FP) PO SCH (11:34)
[2022-12-30] MEDS: ZINC SULFATE 220 MG CAPSULE (FP) PO SCH (11:34)
[2022-12-30] MEDS: MIDODRINE HCL 5 MG TABLET PO SCH ×3 (11:34→17:38)
[2022-12-30] MEDS: AMINO ACIDS/PROTEIN HYDROLYS 30 ML LIQUID.PKT PO SCH (11:34)
[2022-12-30] MEDS: CHOLECALCIFEROL (VIT D3) 1,000 UNIT (25 MCG) TABLET PO SCH (11:35)
[2022-12-30] MEDS: PANTOPRAZOLE 40 MG TABLET PO SCH (11:35)
[2022-12-30] MEDS: ASCORBIC ACID 500 MG TABLET (FP) PO SCH (11:35)
[2022-12-30] MEDS: FERROUS SO4 325 MG TABLET (FP) PO SCH (11:35)
[2022-12-30] MEDS: TAMSULOSIN HCL 0.4 MG CAP PO SCH (11:36)
[2022-12-30] MEDS: BUDESONIDE 9 MG PO SCH (11:38)
[2022-12-30] MEDS: COLLAGENASE CLOSTRIDIUM HIST. 30 GRAMS TUBE TP SCH (11:39)
[2022-12-30] MEDS: NYSTATIN 100,000 UNIT/GM TOPICAL CREAM 15 GM TUBE TP SCH ×2 (11:39→22:30)
[2022-12-30] MEDS: CHOLESTYRAMINE/ASPARTAME 4 GM PACKET PO SCH ×4 (11:39→22:32)
[2022-12-30 11:42] LABS: CHLORIDE 113 mmol/L (98-107); SODIUM 141 mmol/L (136-145)
[2022-12-30 11:52] LABS: ALBUMIN 1.3 g/dl (3.4-5.0); ANION GAP 6 MMOL/L (8-16); BLOOD UREA NITROGEN 15.2 mg/dL (7-18); CO2 21 mmol/L (21-32); GLUCOSE,RANDOM 67 mg/dL (74-106); MAGNESIUM 2.6 mg/dL (1.8-2.4)
[2022-12-30 11:55] LABS: CREATININE 0.7 mg/dL (0.55-1.3); SGOT/AST 9 U/L (15-37)
[2022-12-30 11:56] LABS: SGPT/ALT 7 U/L (13-61)
[2022-12-30 11:57] LABS: BILIRUBIN,TOTAL < 0.1 mg/dL (0.2-1); TOT PROT 6.5 g/dl (6.4-8.2)
[2022-12-30 11:58] LABS: ALK PHOS 143 U/L (45-117)
[2022-12-30 12:04] LABS: CALCIUM 8.1 mg/dL (8.5-10.1)
[2022-12-30] MEDS: ARIPiprazole 5 MG TABLET PO SCH (12:12)
[2022-12-30] MEDS ORDERED: NAPH,MB-DB/K PH,MBDB POWDER PACKET GT ONE ×3 (13:38→22:45)
[2022-12-30] MEDS: MIRTAZAPINE 15 MG TABLET (FP) PO SCH ×2 (22:26→22:27)
[2022-12-30] MEDS: OLANZapine 10 MG TABLET PO SCH (22:29)
[2022-12-30] MEDS: ACETAMINOPHEN 325 MG TABLET (FP) PO PRN (22:29)
[2022-12-31] MEDS: LEVOTHYROXINE NA 25 MCG TABLET (FP) PO SCH (06:34)
[2022-12-31] MEDS: MESALAMINE 800 MG TABLET.DR PO SCH ×3 (06:36→22:18)
[2022-12-31] MEDS: LOPERAMIDE HCL 2 MG CAPSULE PO SCH ×3 (06:37→22:18)
[2022-12-31] MEDS: BISMUTH SUBSALICYLATE 524 MG/30 ML PO SCH ×3 (06:37→18:51)
[2022-12-31] MEDS: INSULIN SLIDING SCALE (NOVOLOG) 1 VIAL SQ SCH ×4 (07:22→22:31)
[2022-12-31] MEDS: INSULIN (LEVEMIR) 100 UNITS/ML UNITS SQ SCH ×2 (07:22→22:30)
[2022-12-31] MEDS: MIDODRINE HCL 5 MG TABLET PO SCH ×3 (09:48→18:51)
[2022-12-31] MEDS: THIAMINE HCL 100 MG TABLET (FP) PO SCH (09:48)
[2022-12-31] MEDS: TAMSULOSIN HCL 0.4 MG CAP PO SCH (09:48)
[2022-12-31] MEDS: PANTOPRAZOLE 40 MG TABLET PO SCH (09:48)
[2022-12-31] MEDS: ZINC SULFATE 220 MG CAPSULE (FP) PO SCH (09:48)
[2022-12-31] MEDS: ASCORBIC ACID 500 MG TABLET (FP) PO SCH (09:48)
[2022-12-31] MEDS: CHOLECALCIFEROL (VIT D3) 1,000 UNIT (25 MCG) TABLET PO SCH (09:49)
[2022-12-31] MEDS: BUDESONIDE 9 MG PO SCH (09:49)
[2022-12-31] MEDS: ARIPiprazole 5 MG TABLET PO SCH (09:49)
[2022-12-31] MEDS: FERROUS SO4 325 MG TABLET (FP) PO SCH (09:49)
[2022-12-31] MEDS: AMINO ACIDS/PROTEIN HYDROLYS 30 ML LIQUID.PKT PO SCH (09:51)
[2022-12-31 10:25] LABS: BASO % 1.8 % (0-2.0); EOS % 3.9 % (0-4.5); HEMATOCRIT 31.1 % (35.4-49); HEMOGLOBIN 10.3 GM/dL (11.7-16.9); LYMPH % 21.3 % (8-40); MCH 26.8 pg (25.7-33.7); MEAN CELL VOLUME 81.4 fl (80-96); MEAN PLT VOLUME 6.8 fl (7.5-11.1); MONO % 4.4 % (3.8-10.2); NEUT % 68.6 % (42.8-82.8); PLATELET COUNT 620 10^3/uL (134-434); RBC 3.83 M/mm3 (4.00-5.60); RDW 17.1 % (11.9-15.9); WHITE BLOOD COUNT 9.6 K/mm3 (4.0-10.0)
[2022-12-31 10:31] LABS: POTASSIUM 4.4 mmol/L (3.5-5.1)
[2022-12-31] MEDS: CHOLESTYRAMINE/ASPARTAME 4 GM PACKET PO SCH ×4 (10:32→22:18)
[2022-12-31] MEDS: ERGOCALCIFEROL (VIT D2) 50,000 UNIT (1.25 MG) CAPSULE PO SCH (10:32)
[2022-12-31] MEDS: COLLAGENASE CLOSTRIDIUM HIST. 30 GRAMS TUBE TP SCH (10:32)
[2022-12-31] MEDS: NYSTATIN 100,000 UNIT/GM TOPICAL CREAM 15 GM TUBE TP SCH ×2 (10:32→22:31)
[2022-12-31 10:35] LABS: ALBUMIN 1.3 g/dl (3.4-5.0); BLOOD UREA NITROGEN 17.8 mg/dL (7-18); CALCIUM 8.1 mg/dL (8.5-10.1); MAGNESIUM 2.3 mg/dL (1.8-2.4)
[2022-12-31 10:38] LABS: CREATININE 0.8 mg/dL (0.55-1.3); PHOSPHOROUS 2.6 mg/dL (2.5-4.9)
[2022-12-31 10:40] LABS: BILIRUBIN,TOTAL 0.2 mg/dL (0.2-1); TOT PROT 6.6 g/dl (6.4-8.2)
[2022-12-31] MEDS ORDERED: NAPH,MB-DB/K PH,MBDB POWDER PACKET GT ONE (14:53)
[2022-12-31] MEDS: LACTOBACILLUS ACIDOPHILUS 1 TABLET GT SCH (22:18)
[2022-12-31] MEDS: OLANZapine 10 MG TABLET PO SCH (22:18)
[2022-12-31] MEDS: MIRTAZAPINE 15 MG TABLET (FP) PO SCH (22:18)
[2023-01-01] MEDS ORDERED: COSYNTROPIN 0.25 MG VIAL IVPUSH ONE (06:00)
[2023-01-01] MEDS: LEVOTHYROXINE NA 25 MCG TABLET (FP) PO SCH (06:49)
[2023-01-01] MEDS: LOPERAMIDE HCL 2 MG CAPSULE PO SCH ×3 (06:49→21:57)
[2023-01-01] MEDS: MESALAMINE 800 MG TABLET.DR PO SCH ×3 (06:50→21:57)
[2023-01-01] MEDS: INSULIN (LEVEMIR) 100 UNITS/ML UNITS SQ SCH ×2 (06:53→22:01)
[2023-01-01] MEDS: INSULIN SLIDING SCALE (NOVOLOG) 1 VIAL SQ SCH ×4 (07:05→22:03)
[2023-01-01] MEDS: BISMUTH SUBSALICYLATE 524 MG/30 ML PO SCH ×3 (07:05→17:11)
[2023-01-01] MEDS: FERROUS SO4 325 MG TABLET (FP) PO SCH (08:36)
[2023-01-01] MEDS: AMINO ACIDS/PROTEIN HYDROLYS 30 ML LIQUID.PKT PO SCH (08:36)
[2023-01-01] MEDS: TAMSULOSIN HCL 0.4 MG CAP PO SCH (08:36)
[2023-01-01] MEDS: ZINC SULFATE 220 MG CAPSULE (FP) PO SCH (09:18)
[2023-01-01] MEDS: THIAMINE HCL 100 MG TABLET (FP) PO SCH (09:18)
[2023-01-01] MEDS: PANTOPRAZOLE 40 MG TABLET PO SCH (09:18)
[2023-01-01] MEDS: ASCORBIC ACID 500 MG TABLET (FP) PO SCH (09:18)
[2023-01-01] MEDS: CHOLECALCIFEROL (VIT D3) 1,000 UNIT (25 MCG) TABLET PO SCH (09:18)
[2023-01-01] MEDS: LACTOBACILLUS ACIDOPHILUS 1 TABLET GT SCH ×2 (09:18→21:57)
[2023-01-01] MEDS: CHOLESTYRAMINE/ASPARTAME 4 GM PACKET PO SCH ×4 (09:19→21:57)
[2023-01-01] MEDS: BUDESONIDE 9 MG PO SCH (09:19)
[2023-01-01] MEDS: ARIPiprazole 5 MG TABLET PO SCH (09:19)
[2023-01-01] MEDS: MIDODRINE HCL 5 MG TABLET PO SCH ×3 (09:21→17:11)
[2023-01-01] MEDS: NYSTATIN 100,000 UNIT/GM TOPICAL CREAM 15 GM TUBE TP SCH ×2 (09:22→21:58)
[2023-01-01] MEDS: COLLAGENASE CLOSTRIDIUM HIST. 30 GRAMS TUBE TP SCH (09:22)
[2023-01-01 09:49] LABS: BASO % 1.8 % (0-2.0); EOS % 3.9 % (0-4.5); HEMATOCRIT 31.2 % (35.4-49); HEMOGLOBIN 10.1 GM/dL (11.7-16.9); LYMPH % 22.2 % (8-40); MCH 26.5 pg (25.7-33.7); MCHC 32.5 g/dl (32.0-35.9); MEAN CELL VOLUME 81.5 fl (80-96); MEAN PLT VOLUME 6.8 fl (7.5-11.1); MONO % 4.9 % (3.8-10.2); NEUT % 67.2 % (42.8-82.8); PLATELET COUNT 648 10^3/uL (134-434); RBC 3.83 M/mm3 (4.00-5.60); RDW 17.1 % (11.9-15.9); WHITE BLOOD COUNT 9.4 K/mm3 (4.0-10.0)
[2023-01-01 10:13] LABS: POTASSIUM 3.9 mmol/L (3.5-5.1)
[2023-01-01 10:15] LABS: BLOOD UREA NITROGEN 19.8 mg/dL (7-18); CALCIUM 8.2 mg/dL (8.5-10.1)
[2023-01-01 10:16] LABS: ALBUMIN 1.4 g/dl (3.4-5.0); MAGNESIUM 2.3 mg/dL (1.8-2.4)
[2023-01-01 10:19] LABS: CREATININE 0.9 mg/dL (0.55-1.3); PHOSPHOROUS 2.1 mg/dL (2.5-4.9)
[2023-01-01 10:20] LABS: BILIRUBIN,TOTAL 0.3 mg/dL (0.2-1); TOT PROT 6.7 g/dl (6.4-8.2)
[2023-01-01] MEDS ORDERED: NAPH,MB-DB/K PH,MBDB POWDER PACKET GT ONE (14:00)
[2023-01-01] MEDS: MIRTAZAPINE 15 MG TABLET (FP) PO SCH (21:57)
[2023-01-01] MEDS: OLANZapine 10 MG TABLET PO SCH (21:57)
[2023-01-02] MEDS: LEVOTHYROXINE NA 25 MCG TABLET (FP) PO SCH (06:20)
[2023-01-02] MEDS: MESALAMINE 800 MG TABLET.DR PO SCH ×3 (06:20→21:25)
[2023-01-02] MEDS: LOPERAMIDE HCL 2 MG CAPSULE PO SCH ×3 (06:20→21:25)
[2023-01-02] MEDS: BISMUTH SUBSALICYLATE 524 MG/30 ML PO SCH ×3 (06:21→17:06)
[2023-01-02] MEDS: INSULIN SLIDING SCALE (NOVOLOG) 1 VIAL SQ SCH ×4 (06:24→21:39)
[2023-01-02] MEDS: INSULIN (LEVEMIR) 100 UNITS/ML UNITS SQ SCH ×2 (06:24→21:39)
[2023-01-02 08:12] LABS: BASO % 1.2 % (0-2.0); EOS % 3.8 % (0-4.5); HEMATOCRIT 31.1 % (35.4-49); HEMOGLOBIN 10.2 GM/dL (11.7-16.9); LYMPH % 30.8 % (8-40); MCH 27.2 pg (25.7-33.7); MCHC 32.9 g/dl (32.0-35.9); MEAN CELL VOLUME 82.9 fl (80-96); MONO % 4.5 % (3.8-10.2); NEUT % 59.7 % (42.8-82.8); PLATELET COUNT 632 10^3/uL (134-434); RBC 3.76 M/mm3 (4.00-5.60); WHITE BLOOD COUNT 7.6 K/mm3 (4.0-10.0)
[2023-01-02 08:35] LABS: CHLORIDE 111 mmol/L (98-107); POTASSIUM 3.9 mmol/L (3.5-5.1); SODIUM 140 mmol/L (136-145)
[2023-01-02 08:43] LABS: BLOOD UREA NITROGEN 18.9 mg/dL (7-18); CALCIUM 8.2 mg/dL (8.5-10.1); MAGNESIUM 2.1 mg/dL (1.8-2.4)
[2023-01-02 08:45] LABS: ALBUMIN 1.4 g/dl (3.4-5.0); ANION GAP 4 MMOL/L (8-16); CO2 24 mmol/L (21-32); GLUCOSE,RANDOM 82 mg/dL (74-106)
[2023-01-02 08:46] LABS: SGPT/ALT 9 U/L (13-61)
[2023-01-02 08:47] LABS: CREATININE 0.8 mg/dL (0.55-1.3); PHOSPHOROUS 2.5 mg/dL (2.5-4.9); SGOT/AST 9 U/L (15-37)
[2023-01-02 08:48] LABS: BILIRUBIN,TOTAL < 0.1 mg/dL (0.2-1); TOT PROT 7.1 g/dl (6.4-8.2)
[2023-01-02 08:49] LABS: ALK PHOS 146 U/L (45-117)
[2023-01-02] MEDS: AMINO ACIDS/PROTEIN HYDROLYS 30 ML LIQUID.PKT PO SCH (09:17)
[2023-01-02] MEDS: FERROUS SO4 325 MG TABLET (FP) PO SCH (09:18)
[2023-01-02] MEDS: TAMSULOSIN HCL 0.4 MG CAP PO SCH (09:18)
[2023-01-02] MEDS: ASCORBIC ACID 500 MG TABLET (FP) PO SCH (09:18)
[2023-01-02] MEDS: CHOLECALCIFEROL (VIT D3) 1,000 UNIT (25 MCG) TABLET PO SCH (09:18)
[2023-01-02] MEDS: ZINC SULFATE 220 MG CAPSULE (FP) PO SCH (09:18)
[2023-01-02] MEDS: LACTOBACILLUS ACIDOPHILUS 1 TABLET GT SCH ×2 (09:18→21:25)
[2023-01-02] MEDS: THIAMINE HCL 100 MG TABLET (FP) PO SCH (09:18)
[2023-01-02] MEDS: ARIPiprazole 5 MG TABLET PO SCH (09:19)
[2023-01-02] MEDS: MIDODRINE HCL 5 MG TABLET PO SCH ×3 (09:19→17:06)
[2023-01-02] MEDS: PANTOPRAZOLE 40 MG TABLET PO SCH (09:20)
[2023-01-02] MEDS: NYSTATIN 100,000 UNIT/GM TOPICAL CREAM 15 GM TUBE TP SCH ×2 (09:20→21:26)
[2023-01-02] MEDS: CHOLESTYRAMINE/ASPARTAME 4 GM PACKET PO SCH ×3 (09:20→21:25)
[2023-01-02] MEDS: COLLAGENASE CLOSTRIDIUM HIST. 30 GRAMS TUBE TP SCH (09:21)
[2023-01-02] MEDS: BUDESONIDE 9 MG PO SCH (09:32)
[2023-01-02] MEDS ORDERED: NAPH,MB-DB/K PH,MBDB POWDER PACKET PO ONE (15:49)
[2023-01-02] MEDS ORDERED: INSULIN (NOVOLOG) ASPART 100 UNITS/ML 10ML VIAL ONE (21:05)
[2023-01-02] MEDS: MIRTAZAPINE 15 MG TABLET (FP) PO SCH (21:25)
[2023-01-02] MEDS: OLANZapine 10 MG TABLET PO SCH (21:25)
[2023-01-03] MEDS: LOPERAMIDE HCL 2 MG CAPSULE PO SCH ×3 (06:18→21:11)
[2023-01-03] MEDS: MESALAMINE 800 MG TABLET.DR PO SCH ×3 (06:18→21:08)
[2023-01-03] MEDS: BISMUTH SUBSALICYLATE 524 MG/30 ML PO SCH ×3 (06:18→16:22)
[2023-01-03] MEDS: LEVOTHYROXINE NA 25 MCG TABLET (FP) PO SCH (06:18)
[2023-01-03] MEDS: INSULIN SLIDING SCALE (NOVOLOG) 1 VIAL SQ SCH ×4 (06:24→21:40)
[2023-01-03] MEDS: INSULIN (LEVEMIR) 100 UNITS/ML UNITS SQ SCH ×2 (06:25→21:42)
[2023-01-03] MEDS: FERROUS SO4 325 MG TABLET (FP) PO SCH (08:37)
[2023-01-03] MEDS: AMINO ACIDS/PROTEIN HYDROLYS 30 ML LIQUID.PKT PO SCH (08:37)
[2023-01-03] MEDS: TAMSULOSIN HCL 0.4 MG CAP PO SCH (08:37)
[2023-01-03 10:28] LABS: BASO % 1.8 % (0-2.0); HEMATOCRIT 31.4 % (35.4-49); HEMOGLOBIN 10.2 GM/dL (11.7-16.9); LYMPH % 27.5 % (8-40); MCH 26.3 pg (25.7-33.7); MCHC 32.5 g/dl (32.0-35.9); MEAN PLT VOLUME 6.8 fl (7.5-11.1); MONO % 6.1 % (3.8-10.2); NEUT % 60.6 % (42.8-82.8); PLATELET COUNT 639 10^3/uL (134-434); RBC 3.87 M/mm3 (4.00-5.60); RDW 17.3 % (11.9-15.9); WHITE BLOOD COUNT 9.1 K/mm3 (4.0-10.0)
[2023-01-03] MEDS: THIAMINE HCL 100 MG TABLET (FP) PO SCH (10:37)
[2023-01-03] MEDS: CHOLESTYRAMINE/ASPARTAME 4 GM PACKET PO SCH ×4 (10:37→21:08)
[2023-01-03] MEDS: CHOLECALCIFEROL (VIT D3) 1,000 UNIT (25 MCG) TABLET PO SCH (10:37)
[2023-01-03] MEDS: PANTOPRAZOLE 40 MG TABLET PO SCH (10:37)
[2023-01-03] MEDS: ASCORBIC ACID 500 MG TABLET (FP) PO SCH (10:38)
[2023-01-03] MEDS: ZINC SULFATE 220 MG CAPSULE (FP) PO SCH (10:38)
[2023-01-03] MEDS: ARIPiprazole 5 MG TABLET PO SCH (10:38)
[2023-01-03] MEDS: BUDESONIDE 9 MG PO SCH (10:38)
[2023-01-03] MEDS: MIDODRINE HCL 5 MG TABLET PO SCH ×3 (10:38→18:02)
[2023-01-03] MEDS: LACTOBACILLUS ACIDOPHILUS 1 TABLET GT SCH ×2 (10:38→21:11)
[2023-01-03] MEDS: NYSTATIN 100,000 UNIT/GM TOPICAL CREAM 15 GM TUBE TP SCH ×2 (10:41→21:12)
[2023-01-03] MEDS: COLLAGENASE CLOSTRIDIUM HIST. 30 GRAMS TUBE TP SCH (10:42)
[2023-01-03 10:53] LABS: CHLORIDE 111 mmol/L (98-107); POTASSIUM 4.1 mmol/L (3.5-5.1); SODIUM 140 mmol/L (136-145)
[2023-01-03 10:55] LABS: CALCIUM 8.6 mg/dL (8.5-10.1)
[2023-01-03 10:56] LABS: ALBUMIN 1.5 g/dl (3.4-5.0); ANION GAP 2 MMOL/L (8-16); BLOOD UREA NITROGEN 19.8 mg/dL (7-18); CO2 27 mmol/L (21-32); GLUCOSE,RANDOM 63 mg/dL (74-106); MAGNESIUM 2.2 mg/dL (1.8-2.4)
[2023-01-03 10:59] LABS: CREATININE 0.8 mg/dL (0.55-1.3); PHOSPHOROUS 2.6 mg/dL (2.5-4.9); SGOT/AST 11 U/L (15-37); SGPT/ALT 11 U/L (13-61)
[2023-01-03 11:00] LABS: BILIRUBIN,TOTAL < 0.1 mg/dL (0.2-1); TOT PROT 6.8 g/dl (6.4-8.2)
[2023-01-03 11:02] LABS: ALK PHOS 141 U/L (45-117)
[2023-01-03] MEDS: MIRTAZAPINE 15 MG TABLET (FP) PO SCH (21:00)
[2023-01-03] MEDS: OLANZapine 10 MG TABLET PO SCH (21:11)
[2023-01-04] MEDS: MESALAMINE 800 MG TABLET.DR PO SCH ×3 (05:48→22:59)
[2023-01-04] MEDS: LOPERAMIDE HCL 2 MG CAPSULE PO SCH ×3 (05:49→22:59)
[2023-01-04] MEDS: BISMUTH SUBSALICYLATE 524 MG/30 ML PO SCH ×3 (06:29→17:56)
[2023-01-04] MEDS: LEVOTHYROXINE NA 25 MCG TABLET (FP) PO SCH (06:30)
[2023-01-04] MEDS: INSULIN (LEVEMIR) 100 UNITS/ML UNITS SQ SCH ×2 (06:36→23:58)
[2023-01-04] MEDS: INSULIN SLIDING SCALE (NOVOLOG) 1 VIAL SQ SCH ×4 (06:38→23:06)
[2023-01-04] MEDS: TAMSULOSIN HCL 0.4 MG CAP PO SCH (08:35)
[2023-01-04] MEDS: FERROUS SO4 325 MG TABLET (FP) PO SCH (08:35)
[2023-01-04] MEDS: AMINO ACIDS/PROTEIN HYDROLYS 30 ML LIQUID.PKT PO SCH (08:35)
[2023-01-04] MEDS: CHOLESTYRAMINE/ASPARTAME 4 GM PACKET PO SCH ×5 (09:31→23:01)
[2023-01-04] MEDS: ASCORBIC ACID 500 MG TABLET (FP) PO SCH (09:32)
[2023-01-04] MEDS: LACTOBACILLUS ACIDOPHILUS 1 TABLET GT SCH ×2 (09:32→22:59)
[2023-01-04] MEDS: THIAMINE HCL 100 MG TABLET (FP) PO SCH (09:32)
[2023-01-04] MEDS: ARIPiprazole 5 MG TABLET PO SCH (09:32)
[2023-01-04] MEDS: BUDESONIDE 9 MG PO SCH (09:32)
[2023-01-04] MEDS: CHOLECALCIFEROL (VIT D3) 1,000 UNIT (25 MCG) TABLET PO SCH (09:32)
[2023-01-04] MEDS: ZINC SULFATE 220 MG CAPSULE (FP) PO SCH (09:32)
[2023-01-04] MEDS: MIDODRINE HCL 5 MG TABLET PO SCH ×3 (09:33→18:14)
[2023-01-04] MEDS: PANTOPRAZOLE 40 MG TABLET PO SCH (09:33)
[2023-01-04] MEDS: NYSTATIN 100,000 UNIT/GM TOPICAL CREAM 15 GM TUBE TP SCH ×2 (10:36→23:59)
[2023-01-04] MEDS: COLLAGENASE CLOSTRIDIUM HIST. 30 GRAMS TUBE TP SCH (10:36)
[2023-01-04 10:53] LABS: EOS % 4.4 % (0-4.5); HEMATOCRIT 29.3 % (35.4-49); HEMOGLOBIN 9.7 GM/dL (11.7-16.9); LYMPH % 20.3 % (8-40); MCH 26.9 pg (25.7-33.7); MEAN CELL VOLUME 81.4 fl (80-96); MEAN PLT VOLUME 6.5 fl (7.5-11.1); MONO % 6.1 % (3.8-10.2); NEUT % 67.2 % (42.8-82.8); PLATELET COUNT 615 10^3/uL (134-434); RDW 16.9 % (11.9-15.9); WHITE BLOOD COUNT 10.4 K/mm3 (4.0-10.0)
[2023-01-04 11:11] LABS: POTASSIUM 3.7 mmol/L (3.5-5.1)
[2023-01-04 11:14] LABS: CALCIUM 7.9 mg/dL (8.5-10.1)
[2023-01-04 11:15] LABS: ALBUMIN 1.5 g/dl (3.4-5.0); BLOOD UREA NITROGEN 20.5 mg/dL (7-18); MAGNESIUM 2.1 mg/dL (1.8-2.4)
[2023-01-04 11:18] LABS: CREATININE 0.8 mg/dL (0.55-1.3); PHOSPHOROUS 2.8 mg/dL (2.5-4.9)
[2023-01-04 11:20] LABS: BILIRUBIN,TOTAL 0.1 mg/dL (0.2-1); TOT PROT 6.8 g/dl (6.4-8.2)
[2023-01-04] MEDS ORDERED: INSULIN (NOVOLOG) ASPART 100 UNITS/ML 10ML VIAL ONE (22:30)
[2023-01-04] MEDS: OLANZapine 10 MG TABLET PO SCH (22:59)
[2023-01-04] MEDS: MIRTAZAPINE 15 MG TABLET (FP) PO SCH (22:59)
[2023-01-05] MEDS: MESALAMINE 800 MG TABLET.DR PO SCH ×3 (05:50→22:19)
[2023-01-05] MEDS: LOPERAMIDE HCL 2 MG CAPSULE PO SCH ×3 (05:51→22:17)
[2023-01-05] MEDS: LEVOTHYROXINE NA 25 MCG TABLET (FP) PO SCH (06:04)
[2023-01-05] MEDS: INSULIN SLIDING SCALE (NOVOLOG) 1 VIAL SQ SCH ×4 (06:05→22:00)
[2023-01-05] MEDS: INSULIN (LEVEMIR) 100 UNITS/ML UNITS SQ SCH ×2 (06:12→22:20)
[2023-01-05] MEDS: BISMUTH SUBSALICYLATE 524 MG/30 ML PO SCH ×3 (06:51→16:40)
[2023-01-05] MEDS: FERROUS SO4 325 MG TABLET (FP) PO SCH (08:23)
[2023-01-05] MEDS: AMINO ACIDS/PROTEIN HYDROLYS 30 ML LIQUID.PKT PO SCH (08:23)
[2023-01-05] MEDS: TAMSULOSIN HCL 0.4 MG CAP PO SCH (08:23)
[2023-01-05] MEDS: CHOLESTYRAMINE/ASPARTAME 4 GM PACKET PO SCH ×4 (09:38→22:19)
[2023-01-05] MEDS: LACTOBACILLUS ACIDOPHILUS 1 TABLET GT SCH ×2 (09:39→22:19)
[2023-01-05] MEDS: MIDODRINE HCL 5 MG TABLET PO SCH ×3 (09:39→17:19)
[2023-01-05] MEDS: ZINC SULFATE 220 MG CAPSULE (FP) PO SCH (09:39)
[2023-01-05] MEDS: PANTOPRAZOLE 40 MG TABLET PO SCH (09:39)
[2023-01-05] MEDS: ASCORBIC ACID 500 MG TABLET (FP) PO SCH (09:39)
[2023-01-05] MEDS: THIAMINE HCL 100 MG TABLET (FP) PO SCH (09:39)
[2023-01-05] MEDS: ARIPiprazole 5 MG TABLET PO SCH (09:39)
[2023-01-05] MEDS: CHOLECALCIFEROL (VIT D3) 1,000 UNIT (25 MCG) TABLET PO SCH (09:40)
[2023-01-05] MEDS: BUDESONIDE 9 MG PO SCH (09:41)
[2023-01-05] MEDS: NYSTATIN 100,000 UNIT/GM TOPICAL CREAM 15 GM TUBE TP SCH ×2 (09:43→22:21)
[2023-01-05] MEDS: COLLAGENASE CLOSTRIDIUM HIST. 30 GRAMS TUBE TP SCH (09:53)
[2023-01-05 10:28] LABS: BASO % 2.3 % (0-2.0); EOS % 4.9 % (0-4.5); HEMATOCRIT 29.3 % (35.4-49); HEMOGLOBIN 9.5 GM/dL (11.7-16.9); LYMPH % 23.8 % (8-40); MCH 26.4 pg (25.7-33.7); MCHC 32.3 g/dl (32.0-35.9); MEAN CELL VOLUME 81.9 fl (80-96); MEAN PLT VOLUME 6.8 fl (7.5-11.1); MONO % 6.4 % (3.8-10.2); NEUT % 62.6 % (42.8-82.8); PLATELET COUNT 525 10^3/uL (134-434); RBC 3.58 M/mm3 (4.00-5.60); RDW 17.2 % (11.9-15.9); WHITE BLOOD COUNT 8.9 K/mm3 (4.0-10.0)
[2023-01-05 10:52] LABS: POTASSIUM 4.2 mmol/L (3.5-5.1)
[2023-01-05 10:55] LABS: CALCIUM 8.1 mg/dL (8.5-10.1)
[2023-01-05 10:56] LABS: ALBUMIN 1.4 g/dl (3.4-5.0); BLOOD UREA NITROGEN 23.1 mg/dL (7-18); MAGNESIUM 2.3 mg/dL (1.8-2.4)
[2023-01-05 10:58] LABS: PHOSPHOROUS 2.8 mg/dL (2.5-4.9)
[2023-01-05 10:59] LABS: CREATININE 0.7 mg/dL (0.55-1.3)
[2023-01-05 11:00] LABS: BILIRUBIN,TOTAL 0.2 mg/dL (0.2-1); TOT PROT 6.7 g/dl (6.4-8.2)
[2023-01-05] MEDS: MIRTAZAPINE 15 MG TABLET (FP) PO SCH (22:18)
[2023-01-05] MEDS: OLANZapine 10 MG TABLET PO SCH (22:19)
[2023-01-06] MEDS: LOPERAMIDE HCL 2 MG CAPSULE PO SCH ×2 (06:43→13:06)
[2023-01-06] MEDS: MESALAMINE 800 MG TABLET.DR PO SCH ×2 (06:43→13:06)
[2023-01-06] MEDS: BISMUTH SUBSALICYLATE 524 MG/30 ML PO SCH ×3 (06:44→16:31)
[2023-01-06] MEDS: INSULIN (LEVEMIR) 100 UNITS/ML UNITS SQ SCH (06:51)
[2023-01-06] MEDS: INSULIN SLIDING SCALE (NOVOLOG) 1 VIAL SQ SCH ×3 (06:51→16:33)
[2023-01-06] MEDS: LEVOTHYROXINE NA 25 MCG TABLET (FP) PO SCH (08:42)
[2023-01-06] MEDS: AMINO ACIDS/PROTEIN HYDROLYS 30 ML LIQUID.PKT PO SCH (08:42)
[2023-01-06] MEDS: FERROUS SO4 325 MG TABLET (FP) PO SCH (08:43)
[2023-01-06] MEDS: TAMSULOSIN HCL 0.4 MG CAP PO SCH (08:43)
[2023-01-06] MEDS: MIDODRINE HCL 5 MG TABLET PO SCH ×3 (09:10→17:50)
[2023-01-06] MEDS: THIAMINE HCL 100 MG TABLET (FP) PO SCH (09:12)
[2023-01-06] MEDS: ARIPiprazole 5 MG TABLET PO SCH (09:12)
[2023-01-06] MEDS: CHOLECALCIFEROL (VIT D3) 1,000 UNIT (25 MCG) TABLET PO SCH (09:12)
[2023-01-06] MEDS: ASCORBIC ACID 500 MG TABLET (FP) PO SCH (09:13)
[2023-01-06] MEDS: PANTOPRAZOLE 40 MG TABLET PO SCH (09:13)
[2023-01-06] MEDS: LACTOBACILLUS ACIDOPHILUS 1 TABLET GT SCH (09:13)
[2023-01-06] MEDS: CHOLESTYRAMINE/ASPARTAME 4 GM PACKET PO SCH ×3 (09:13→17:52)
[2023-01-06] MEDS: BUDESONIDE 9 MG PO SCH (09:13)
[2023-01-06] MEDS: ZINC SULFATE 220 MG CAPSULE (FP) PO SCH (09:15)
[2023-01-06 09:41] LABS: BASO % 1.7 % (0-2.0); EOS % 5.4 % (0-4.5); HEMATOCRIT 26.9 % (35.4-49); HEMOGLOBIN 8.6 GM/dL (11.7-16.9); MCH 26.7 pg (25.7-33.7); MCHC 32.1 g/dl (32.0-35.9); MEAN CELL VOLUME 83.2 fl (80-96); MEAN PLT VOLUME 7.3 fl (7.5-11.1); MONO % 6.2 % (3.8-10.2); NEUT % 64.7 % (42.8-82.8); PLATELET COUNT 531 10^3/uL (134-434); RBC 3.23 M/mm3 (4.00-5.60); RDW 16.6 % (11.9-15.9); WHITE BLOOD COUNT 9.9 K/mm3 (4.0-10.0)
[2023-01-06 09:56] LABS: CALCIUM 8.1 mg/dL (8.5-10.1)
[2023-01-06 09:57] LABS: ALBUMIN 1.4 g/dl (3.4-5.0); MAGNESIUM 2.2 mg/dL (1.8-2.4)
[2023-01-06 10:00] LABS: BLOOD UREA NITROGEN 24.2 mg/dL (7-18); CREATININE 0.6 mg/dL (0.55-1.3); PHOSPHOROUS 2.6 mg/dL (2.5-4.9)
[2023-01-06 10:02] LABS: BILIRUBIN,TOTAL 0.1 mg/dL (0.2-1)
[2023-01-06 10:05] LABS: TOT PROT 6.4 g/dl (6.4-8.2)
[2023-01-06] MEDS: NYSTATIN 100,000 UNIT/GM TOPICAL CREAM 15 GM TUBE TP SCH (10:19)
[2023-01-06] MEDS: COLLAGENASE CLOSTRIDIUM HIST. 30 GRAMS TUBE TP SCH (10:19)
[2023-01-06] MEDS ORDERED: INSULIN (NOVOLOG) ASPART 100 UNITS/ML 10ML VIAL ONE (10:59)
[2023-01-06 14:19] VITALS: RESP 18
[2023-01-06 17:51] VITALS: BP 87/56; PULSE 101; TEMP 98.5
== END 2023-01-06 18:57 | DRG 720 ==
LOC: JER 14:39 → JERBED 17:03 → J6S 12-20 02:24
PROVIDERS: ADMIT Internal Medicine; ATTEND Internal Medicine
PROC: 30233N1 Transfusion of Nonautologous Red Blood Cells into Peripheral Vein, Percutaneous Approach (ICD-10-PCS; 2022-12-19)
PROC: 0DH63UZ Insertion of Feeding Device into Stomach, Percutaneous Approach (ICD-10-PCS; 2022-12-24)
PROC: 0DBL8ZX Excision of Transverse Colon, Via Natural or Artificial Opening Endoscopic, Diagnostic (ICD-10-PCS; 2022-12-26)
PROC: 0DBN8ZX Excision of Sigmoid Colon, Via Natural or Artificial Opening Endoscopic, Diagnostic (ICD-10-PCS; 2022-12-26)
PROC: 0DBK8ZX Excision of Ascending Colon, Via Natural or Artificial Opening Endoscopic, Diagnostic (ICD-10-PCS; principal; 2022-12-26 10:15)
DX: A41.89 Other specified sepsis (principal); E10.65 Type 1 diabetes mellitus with hyperglycemia; D63.8 Anemia in other chronic diseases classified elsewhere; E43 Unspecified severe protein-calorie malnutrition; Z68.1 Body mass index [BMI] 19.9 or less, adult; E03.9 Hypothyroidism, unspecified; D75.839 Thrombocytosis, unspecified; F31.89 Other bipolar disorder; N31.9 Neuromuscular dysfunction of bladder, unspecified; I10 Essential (primary) hypertension; R64 Cachexia; R62.7 Adult failure to thrive; K52.832 Lymphocytic colitis; L89.223 Pressure ulcer of left hip, stage 3; L89.123 Pressure ulcer of left upper back, stage 3; D50.9 Iron deficiency anemia, unspecified; Z93.1 Gastrostomy status
CPT/HCPCS: 36415; 36430; 49450; 71045-TC-FY; 72193-TC; 73701-TC-RT; 80048; 80053; 82272; 82308; 82533; 82728; 82943; 82962; 83540; 83550; 83735; 84100; 84307; 84439; 84443; 84586; 85025; 85027; 85045; 85610; 85651; 85730; 86140; 86850; 86900; 86901; 86922; 87040; 87070; 87186; 87205; 87252; 87635; 88305-TC; 93005; 93010; 99285-25; G0480; J0834; J1644; P9058; Q9967

== ENCOUNTER 2023-09-03 08:50 | Inpatient (IN) | payer OTHER ==
[2023-09-03 09:53] LABS: VENOUS BASE EXCESS -6.4 mmol/L (-2-2); VENOUS O2 SATURATION 58.3 % (70-80); VENOUS PCO2 47.7 mmHg (38-52); VENOUS PH 7.251 (7.310-7.410)
[2023-09-03 09:56] LABS: BASO % 0.4 % (0-2.0); EOS % 0.8 % (0-4.5); HEMATOCRIT 23.2 % (35.4-49); HEMOGLOBIN 7.3 GM/dL (11.7-16.9); LYMPH % 14.9 % (8-40); MCH 25.9 pg (25.7-33.7); MCHC 31.4 g/dl (32.0-35.9); MEAN CELL VOLUME 82.5 fl (80-96); MEAN PLT VOLUME 9.1 fl (7.5-11.1); MONO % 7.3 % (3.8-10.2); NEUT % 76.6 % (42.8-82.8); PLATELET COUNT 239 10^3/uL (134-434); RBC 2.81 M/mm3 (4.00-5.60); RDW 18.7 % (11.9-15.9); WHITE BLOOD COUNT 7.7 K/mm3 (4.0-10.0)
[2023-09-03 09:58] LABS: EPI CELLS 1 /uL (0-25.1); HYALINE CASTS 0 /uL (0-3.1); PH,URINE 5.5 (5.0-8.0); URINE BILIRUBIN NEGATIVE (NEGATIVE); URINE COLOR YELLOW; URINE GLUCOSE (UA) NEGATIVE (NEGATIVE); URINE KETONE NEGATIVE (NEGATIVE); URINE LEUK ESTERASE 3+ (NEGATIVE); URINE NITRITE POSITIVE (NEGATIVE); URINE PROTEIN 3+ (NEGATIVE); URINE RBC 84 /uL (0-23.9); URINE UROBILINOGEN 0.2 mg/dL (0.2-1.0); URINE WBC 5459 /uL (0-25.8)
[2023-09-03 10:01] LABS: INR 1.24 (0.83-1.09); PROTHROMBIN TIME (PATIENT) 13.9 SEC (9.7-13.0)
[2023-09-03 10:04] LABS: ACTIVATED PTT 35.5 SECONDS (25.2-36.5)
[2023-09-03] MEDS: SODIUM CHLORIDE 0.9% 500 ML INFUS.BAG IV ONE (10:23)
[2023-09-03] MEDS ORDERED: ERTAPENEM SODIUM 1 GM VIAL ONE (10:55)
[2023-09-03] MEDS ORDERED: VANCOMYCIN 1 GRAM (PRE-DOCKED) 1,000 MG/250 ML BAG IVPB ONE (10:55)
[2023-09-03 11:02] LABS: CHLORIDE 112 mmol/L (98-107); POTASSIUM 4.5 mmol/L (3.5-5.1); SODIUM 134 mmol/L (136-145)
[2023-09-03 11:04] LABS: CALCIUM 8.5 mg/dL (8.5-10.1)
[2023-09-03 11:05] LABS: ALBUMIN 2.5 g/dl (3.4-5.0); ANION GAP 2 mmol/L (4-13); BLOOD UREA NITROGEN 41.2 mg/dL (7-18); CO2 21 mmol/L (21-32); GLUCOSE,RANDOM 91 mg/dL (74-106)
[2023-09-03 11:08] LABS: CREATININE 2.3 mg/dL (0.55-1.3); SGOT/AST 123 U/L (15-37); SGPT/ALT 189 U/L (13-61)
[2023-09-03 11:10] LABS: BILIRUBIN,TOTAL 0.3 mg/dL (0.2-1)
[2023-09-03 11:11] LABS: ALK PHOS 978 U/L (45-117)
[2023-09-03] MEDS: VANCOMYCIN 1 GM PREMIX - 1 GM/200 ML BAG IVPB ONE (11:14)
[2023-09-03] MEDS: ERTAPENEM SODIUM 1 GM in SODIUM CHLORIDE 50 ML IVPB ONE (11:14)
[2023-09-03 11:23] VITALS: BMI 16.2
[2023-09-03 13:10] LABS: URINE APPEARANCE TURBID
[2023-09-03] MEDS: SODIUM CHLORIDE 1,334 ML IV ONE (15:41)
[2023-09-03] MEDS: LACTATED RINGERS SOLUTION 1000 ML INFUS.BAG IV ONE (17:07)
[2023-09-03] MEDS ORDERED: ACETAMINOPHEN 325 MG TABLET (FP) PO PRN (19:17)
[2023-09-03] MEDS ORDERED: LOPERAMIDE HCL 2 MG CAPSULE PO PRN (19:17)
[2023-09-03] MEDS ORDERED: MEROPENEM 1 GM VIAL (RESTRICTED TO ID) IVPB ONE (19:38)
[2023-09-03] MEDS: SODIUM CHLORIDE 1,000 ML IV SCH (19:45)
[2023-09-03] MEDS: MEROPENEM 1 GM in DEXTROSE 5%-WATER 100 ML IVPB SCH (19:45)
[2023-09-03] MEDS: LACTATED RINGERS SOLUTION 1,000 ML/1,000 ML INFUS.BAG IV STA (20:28)
[2023-09-03] MEDS: INSULIN (LEVEMIR) 100 UNITS/ML UNITS SQ SCH (21:29)
[2023-09-03] MEDS: CHLORHEXIDINE GLUCONATE 4% CLEANSER FOR DECOLONIZATION TP SCH (21:29)
[2023-09-03] MEDS: MUPIROCIN 2% TOPICAL OINTMENT FOR DECOLONIZATION NS SCH (21:29)
[2023-09-03] MEDS: TAMSULOSIN HCL 0.4 MG CAP PO SCH (21:29)
[2023-09-03] MEDS: HEPARIN NA (PORCINE) 5,000 UNITS/ML 1ML VIAL SQ SCH (21:29)
[2023-09-03] MEDS: CYPROHEPTADINE HCL 4 MG TABLET PO SCH (21:30)
[2023-09-03] MEDS: CHOLESTYRAMINE/NUTRASWEET 4 GM PACKET PO SCH (21:30)
[2023-09-03] MEDS: GABAPENTIN 100 MG CAPSULE PO SCH (21:30)
[2023-09-03] MEDS: MIRTAZAPINE 15 MG TABLET (FP) PO SCH (21:30)
[2023-09-03] MEDS: OLANZapine 10 MG TABLET PO SCH (21:30)
[2023-09-03] MEDS ORDERED: MIRTAZAPINE 15 MG TABLET (FP) PO SCH ×2 (22:00)
[2023-09-03] MEDS ORDERED: TAMSULOSIN HCL 0.4 MG CAP PO SCH (22:00)
[2023-09-03] MEDS ORDERED: HEPARIN NA (PORCINE) 5,000 UNITS/ML 1ML VIAL SQ SCH (22:00)
[2023-09-03] MEDS ORDERED: GABAPENTIN 100 MG CAPSULE PO SCH (22:00)
[2023-09-03] MEDS ORDERED: CYPROHEPTADINE HCL 4 MG TABLET PO SCH (22:00)
[2023-09-04] MEDS: INSULIN ASPART SLIDING SCALE (NOVOLOG) 1 VIAL SQ SCH ×2 (06:30→22:14)
[2023-09-04] MEDS: LEVOTHYROXINE NA 25 MCG TABLET (FP) PO SCH (06:30)
[2023-09-04 07:52] LABS: BASO % 0.6 % (0-2.0); EOS % 1.3 % (0-4.5); HEMATOCRIT 22.4 % (35.4-49); HEMOGLOBIN 7.3 GM/dL (11.7-16.9); MCH 26.9 pg (25.7-33.7); MCHC 32.7 g/dl (32.0-35.9); MEAN CELL VOLUME 82.2 fl (80-96); MEAN PLT VOLUME 8.8 fl (7.5-11.1); MONO % 7.5 % (3.8-10.2); NEUT % 72.6 % (42.8-82.8); PLATELET COUNT 197 10^3/uL (134-434); RBC 2.73 M/mm3 (4.00-5.60); RDW 18.2 % (11.9-15.9); WHITE BLOOD COUNT 5.8 K/mm3 (4.0-10.0)
[2023-09-04 07:57] LABS: POTASSIUM 3.7 mmol/L (3.5-5.1)
[2023-09-04 08:01] LABS: CALCIUM 7.8 mg/dL (8.5-10.1)
[2023-09-04 08:02] LABS: ALBUMIN 2.2 g/dl (3.4-5.0); BLOOD UREA NITROGEN 24.9 mg/dL (7-18)
[2023-09-04 08:05] LABS: CREATININE 1.6 mg/dL (0.55-1.3)
[2023-09-04 08:07] LABS: BILIRUBIN,TOTAL 0.2 mg/dL (0.2-1)
[2023-09-04] MEDS ORDERED: ARIPiprazole 5 MG TABLET PO SCH (10:00)
[2023-09-04] MEDS: THIAMINE 100 MG TABLET PO SCH (10:10)
[2023-09-04] MEDS: PANTOPRAZOLE 40 MG TABLET PO SCH (10:10)
[2023-09-04] MEDS: CHOLECALCIFEROL (VIT D3) 1,000 UNIT (25 MCG) TABLET PO SCH (10:10)
[2023-09-04] MEDS: MIDODRINE HCL 5 MG TABLET PO SCH (10:10)
[2023-09-04] MEDS: ASCORBIC ACID 500 MG TABLET (FP) PO SCH (10:10)
[2023-09-04] MEDS: ARIPiprazole 5 MG TABLET PO SCH (10:10)
[2023-09-04] MEDS: ERGOCALCIFEROL (VIT D2) 50,000 UNIT (1.25 MG) CAPSULE PO SCH (10:10)
[2023-09-04] MEDS: VANCOMYCIN/WATER FOR INJ (PEG) 1,000 MG/200 ML BAG IVPB SCH (10:13)
[2023-09-04] MEDS: LACTATED RINGERS SOLUTION 1000 ML INFUS.BAG IV ONE (16:35)
[2023-09-04] MEDS: FLU VACCINE (FLULAVAL) PF 60 MCG/0.5 ML SYRINGE 2023-2024 IM ONE (16:35)
[2023-09-04 17:34] LABS: HEMATOCRIT 29.9 % (35.4-49); HEMOGLOBIN 9.6 GM/dL (11.7-16.9); MCH 27.2 pg (25.7-33.7); MEAN CELL VOLUME 84.8 fl (80-96); MEAN PLT VOLUME 8.6 fl (7.5-11.1); PLATELET COUNT 207 10^3/uL (134-434); RBC 3.52 M/mm3 (4.00-5.60); RDW 17.3 % (11.9-15.9); WHITE BLOOD COUNT 7.7 K/mm3 (4.0-10.0)
[2023-09-04] MEDS: AMINO ACIDS/PROTEIN HYDROLYS 30 ML LIQUID.PKT PO SCH (17:38)
[2023-09-04] MEDS: MEROPENEM 1 GM in DEXTROSE 5%-WATER 100 ML IVPB SCH ×2 (17:48→22:09)
[2023-09-04] MEDS: LOPERAMIDE HCL 2 MG CAPSULE PO ONE (18:52)
[2023-09-04] MEDS: INSULIN (LEVEMIR) 100 UNITS/ML UNITS SQ SCH (21:21)
[2023-09-04] MEDS ORDERED: ACETAMINOPHEN 325 MG TABLET (FP) PO PRN (22:07)
[2023-09-04] MEDS: SODIUM CHLORIDE 1,000 ML IV SCH (22:08)
[2023-09-04] MEDS: VANCOMYCIN 1,000 MG in DEXTROSE 5%-WATER - 250 ML IVPB SCH (22:11)
[2023-09-04] MEDS: PATIENT'S OWN MEDICATION (NON-FORMULARY) (Budesonide 3 MG Cap.Sr.24h) PO SCH (22:11)
[2023-09-05] MEDS: MEROPENEM 1 GM in DEXTROSE 5%-WATER 100 ML IVPB SCH (06:26)
[2023-09-05] MEDS: CYPROHEPTADINE HCL 4 MG TABLET PO SCH (06:26)
[2023-09-05] MEDS: GABAPENTIN 100 MG CAPSULE PO SCH (06:27)
[2023-09-05] MEDS: LEVOTHYROXINE NA 25 MCG TABLET (FP) PO SCH (06:27)
[2023-09-05] MEDS: INSULIN ASPART SLIDING SCALE (NOVOLOG) 1 VIAL SQ SCH (07:34)
[2023-09-05] MEDS ORDERED: BUDESONIDE 6 MG PO SCH (10:00)
[2023-09-05] MEDS ORDERED: MUPIROCIN 2% TOPICAL OINTMENT FOR DECOLONIZATION NS SCH (10:00)
[2023-09-05 11:24] LABS: BASO % 0.9 % (0-2.0); EOS % 2.1 % (0-4.5); HEMATOCRIT 29.3 % (35.4-49); HEMOGLOBIN 9.4 GM/dL (11.7-16.9); LYMPH % 29.2 % (8-40); MCHC 32.1 g/dl (32.0-35.9); MEAN CELL VOLUME 84.1 fl (80-96); MEAN PLT VOLUME 8.5 fl (7.5-11.1); MONO % 7.7 % (3.8-10.2); NEUT % 60.1 % (42.8-82.8); PLATELET COUNT 208 10^3/uL (134-434); RBC 3.49 M/mm3 (4.00-5.60); WHITE BLOOD COUNT 5.7 K/mm3 (4.0-10.0)
[2023-09-05 11:44] LABS: POTASSIUM 3.8 mmol/L (3.5-5.1)
[2023-09-05 11:48] LABS: BLOOD UREA NITROGEN 13.2 mg/dL (7-18); CALCIUM 8.2 mg/dL (8.5-10.1)
[2023-09-05 11:49] LABS: ALBUMIN 2.1 g/dl (3.4-5.0); MAGNESIUM 1.4 mg/dL (1.8-2.4)
[2023-09-05 11:51] LABS: CREATININE 1.2 mg/dL (0.55-1.3); PHOSPHOROUS 2.7 mg/dL (2.5-4.9)
[2023-09-05 11:53] LABS: BILIRUBIN,TOTAL 0.2 mg/dL (0.2-1)
[2023-09-05] MEDS: MIDODRINE HCL 5 MG TABLET PO SCH (12:02)
[2023-09-05] MEDS: CHOLECALCIFEROL (VIT D3) 1,000 UNIT (25 MCG) TABLET PO SCH (12:03)
[2023-09-05] MEDS: THIAMINE 100 MG TABLET PO SCH (12:03)
[2023-09-05] MEDS: PANTOPRAZOLE 40 MG TABLET PO SCH (12:03)
[2023-09-05] MEDS: ASCORBIC ACID 500 MG TABLET (FP) PO SCH (12:03)
[2023-09-05] MEDS: ARIPiprazole 5 MG TABLET PO SCH (12:03)
[2023-09-05] MEDS: HEPARIN NA (PORCINE) 5,000 UNITS/ML 1ML VIAL SQ SCH (12:04)
[2023-09-05] MEDS: CHOLESTYRAMINE/NUTRASWEET 4 GM PACKET PO SCH (12:05)
[2023-09-05] MEDS: LOPERAMIDE HCL 2 MG CAPSULE PO PRN (13:20)
[2023-09-05] MEDS ORDERED: CHLORHEXIDINE GLUCONATE 4% CLEANSER FOR DECOLONIZATION TP SCH (22:00)
[2023-09-05] MEDS: MIRTAZAPINE 15 MG TABLET (FP) PO SCH (23:15)
[2023-09-05] MEDS: OLANZapine 10 MG TABLET PO SCH (23:15)
[2023-09-05] MEDS: TAMSULOSIN HCL 0.4 MG CAP PO SCH (23:16)
[2023-09-05] MEDS: INSULIN (LEVEMIR) 100 UNITS/ML UNITS SQ SCH (23:16)
[2023-09-06 09:43] LABS: BASO % 0.6 % (0-2.0); EOS % 2.5 % (0-4.5); HEMATOCRIT 29.8 % (35.4-49); HEMOGLOBIN 9.6 GM/dL (11.7-16.9); LYMPH % 28.5 % (8-40); MCH 27.2 pg (25.7-33.7); MCHC 32.3 g/dl (32.0-35.9); MEAN CELL VOLUME 84.3 fl (80-96); MEAN PLT VOLUME 8.4 fl (7.5-11.1); MONO % 6.4 % (3.8-10.2); PLATELET COUNT 220 10^3/uL (134-434); RBC 3.53 M/mm3 (4.00-5.60); RDW 17.7 % (11.9-15.9); WHITE BLOOD COUNT 5.5 K/mm3 (4.0-10.0)
[2023-09-06 09:50] VITALS: RESP 16
[2023-09-06 10:15] LABS: ALBUMIN 2.3 g/dl (3.4-5.0); CALCIUM 8.4 mg/dL (8.5-10.1)
[2023-09-06 10:16] LABS: BLOOD UREA NITROGEN 10.9 mg/dL (7-18)
[2023-09-06 10:18] LABS: CREATININE 1.3 mg/dL (0.55-1.3)
[2023-09-06 10:20] LABS: BILIRUBIN,TOTAL 0.2 mg/dL (0.2-1); TOT PROT 6.3 g/dl (6.4-8.2)
[2023-09-06 15:11] VITALS: BP 98/65; PULSE 103; TEMP 99
[2023-09-11] MEDS ORDERED: ERGOCALCIFEROL (VIT D2) 50,000 UNIT (1.25 MG) CAPSULE PO SCH (10:00)
== END 2023-09-06 17:11 | DRG 720 ==
LOC: JER 08:50 → JERBED 10:21 → JICU 20:03 → J8W 09-04 22:07
PROVIDERS: ADMIT Internal Medicine; ATTEND Internal Medicine
PROC: 30233N1 Transfusion of Nonautologous Red Blood Cells into Peripheral Vein, Percutaneous Approach (ICD-10-PCS; principal; 2023-09-03)
DX: A41.9 Sepsis, unspecified organism (principal); E43 Unspecified severe protein-calorie malnutrition; I95.9 Hypotension, unspecified; N17.9 Acute kidney failure, unspecified; N31.9 Neuromuscular dysfunction of bladder, unspecified; Z93.1 Gastrostomy status; D64.9 Anemia, unspecified; Z93.59 Other cystostomy status; E03.9 Hypothyroidism, unspecified; F32.9 Major depressive disorder, single episode, unspecified; I10 Essential (primary) hypertension; N39.0 Urinary tract infection, site not specified; R62.7 Adult failure to thrive; Z68.1 Body mass index [BMI] 19.9 or less, adult; R64 Cachexia; B96.20 Unspecified Escherichia coli [E. coli] as the cause of diseases classified elsewhere
CPT/HCPCS: 0241U-QW; 36415; 36430; 71045-TC-FY; 72193-TC; 76775-TC; 80053; 81003; 82272; 82550; 82803; 82962; 83605; 83735; 84100; 84484; 85025; 85027; 85610; 85730; 86922; 87040; 87086; 87186; 93005; 93010; 93306-TC; 99285-25; J1644; P9038; P9058; Q9967

== ENCOUNTER 2024-02-17 17:16 | Inpatient (IN) | payer OTHER ==
[2024-02-17] MEDS ORDERED: DEXTROSE 50%-WATER 25 GM/50 ML DISP.SYRIN ONE (17:24)
[2024-02-17] MEDS: LORazepam 2 MG/ML SDV VIAL IVPUSH ONE (17:30)
[2024-02-17] MEDS: DEXTROSE 50%-WATER - 25 GM/50 ML VIAL IVPUSH ONE (17:30)
[2024-02-17] MEDS: SODIUM CHLORIDE 0.9% 500 ML INFUS.BAG IV ONE ×2 (17:44)
[2024-02-17] MEDS: LORazepam 2 MG/ML SDV VIAL IM ONE (18:15)
[2024-02-17 18:26] LABS: VENOUS BASE EXCESS -24.3 mmol/L (-2-2); VENOUS O2 SATURATION 98.5 % (70-80); VENOUS PCO2 17.4 mmHg (38-52)
[2024-02-17 18:27] LABS: BASO % 0.1 % (0-2.0); EOS % 0.1 % (0-4.5); HEMATOCRIT 14.2 % (35.4-49); LYMPH % 3.8 % (8-40); MCH 27.7 pg (25.7-33.7); MCHC 30.8 g/dl (32.0-35.9); MEAN PLT VOLUME 6.6 fl (7.5-11.1); MONO % 2.6 % (3.8-10.2); NEUT % 93.4 % (42.8-82.8); PLATELET COUNT 70 10^3/uL (134-434); RBC 1.57 M/mm3 (4.00-5.60); RDW 16.7 % (11.9-15.9)
[2024-02-17 18:31] LABS: EPI CELLS >36 /uL (0-25.1); HYALINE CASTS 60 /uL (0-3.1); URINE APPEARANCE TURBID; URINE BACTERIA >9,000 /uL (0-1359); URINE BILIRUBIN NEGATIVE (NEGATIVE); URINE COLOR YELLOW; URINE GLUCOSE (UA) NEGATIVE (NEGATIVE); URINE KETONE NEGATIVE (NEGATIVE); URINE LEUK ESTERASE 3+ (NEGATIVE); URINE NITRITE NEGATIVE (NEGATIVE); URINE PROTEIN 3+ (NEGATIVE); URINE UROBILINOGEN 0.2 mg/dL (0.2-1.0); URINE WBC 10026 /uL (0-25.8)
[2024-02-17 18:34] LABS: VENOUS PH 7.013 (7.310-7.410)
[2024-02-17 18:35] LABS: HEMOGLOBIN 4.4 GM/dL (11.7-16.9)
[2024-02-17 18:36] LABS: INR 1.5 (0.83-1.09); PROTHROMBIN TIME (PATIENT) 16.7 SEC (9.7-13.0)
[2024-02-17 18:38] LABS: ACTIVATED PTT 73.6 SECONDS (25.2-36.5)
[2024-02-17 18:54] LABS: URINE RBC 467.3 /uL (0-23.9)
[2024-02-17 19:01] LABS: ANISOCYTOSIS 2+; MACROCYTOSIS 1+
[2024-02-17 19:44] LABS: VENOUS BASE EXCESS -22.7 mmol/L (-2-2); VENOUS O2 SATURATION 95.8 % (70-80); VENOUS PCO2 24.2 mmHg (38-52); VENOUS PH 7.032 (7.310-7.410)
[2024-02-17] MEDS ORDERED: VANCOMYCIN 1 GRAM (PRE-DOCKED) 1,000 MG/250 ML BAG IVPB ONE (19:48)
[2024-02-17] MEDS ORDERED: THIAMINE HCL 200 MG/2 ML VIAL ONE (19:48)
[2024-02-17 19:50] LABS: HEMATOCRIT 22.3 % (35.4-49); MCH 27.4 pg (25.7-33.7); MCHC 31.4 g/dl (32.0-35.9); MEAN CELL VOLUME 87.2 fl (80-96); MEAN PLT VOLUME 7.7 fl (7.5-11.1); PLATELET COUNT 124 10^3/uL (134-434); RBC 2.56 M/mm3 (4.00-5.60); RDW 16.5 % (11.9-15.9); WHITE BLOOD COUNT 11.1 K/mm3 (4.0-10.0)
[2024-02-17] MEDS: VANCOMYCIN 1 GM PREMIX (F) 1 GM/200 ML BAG IVPB ONE (19:52)
[2024-02-17] MEDS: THIAMINE HCL 200 MG/2 ML VIAL IVPB ONE (19:52)
[2024-02-17 19:59] LABS: INR 1.15 (0.83-1.09); PROTHROMBIN TIME (PATIENT) 12.9 SEC (9.7-13.0)
[2024-02-17 20:02] LABS: ACTIVATED PTT 52.3 SECONDS (25.2-36.5)
[2024-02-17 20:12] LABS: CHLORIDE 114 mmol/L (98-107); POTASSIUM 3.3 mmol/L (3.5-5.1); SODIUM 137 mmol/L (136-145)
[2024-02-17 20:16] LABS: ANION GAP 16 mmol/L (4-13); CO2 8 mmol/L (21-32); GLUCOSE,RANDOM 138 mg/dL (74-106)
[2024-02-17 20:19] LABS: SGOT/AST 9 U/L (15-37); SGPT/ALT 13 U/L (13-61)
[2024-02-17 20:21] LABS: BILIRUBIN,TOTAL 0.2 mg/dL (0.2-1)
[2024-02-17] MEDS ORDERED: PIPERACILLIN/TAZOB 4.5 GM 4.5 GM/100 ML BAG IVPB ONE (20:29)
[2024-02-17 20:32] LABS: ANISOCYTOSIS 2+; MACROCYTOSIS 2+; OVALOCYTE 1+
[2024-02-17 20:37] LABS: ALBUMIN 2.2 g/dl (3.4-5.0); ALK PHOS 348 U/L (45-117); BLOOD UREA NITROGEN 132.2 mg/dL (7-18); CREATININE 8.9 mg/dL (0.55-1.3); TOT PROT 6.5 g/dl (6.4-8.2)
[2024-02-17] MEDS: PIPERACILLIN/TAZOB 4.5 GM 4.5 GM in DEXTROSE 5%-WATER 100 ML IVPB ONE (20:43)
[2024-02-17 20:47] LABS: CALCIUM 5.3 mg/dL (8.5-10.1)
[2024-02-17] MEDS: LACTATED RINGERS SOLUTION 1000 ML INFUS.BAG IV ONE ×2 (21:08→21:09)
[2024-02-17] MEDS ORDERED: SODIUM BICARBONATE 8.4% 50 MEQ/50 ML DISP.SYRIN ONE (21:13)
[2024-02-17] MEDS: SODIUM BICARBONATE 8.4% 50 MEQ/50 ML VIAL IVPUSH ONE (21:20)
[2024-02-17] MEDS: KCL 10 MEQ IVPB 10 MEQ/100 ML INFUS.BAG IVPB SCH (21:39)
[2024-02-17 23:59] LABS: ARTERIAL BLD GAS O2 SATURATION 97.9 % (95-98); ARTERIAL BLOOD GAS BASE EXCESS -15.7 mmol/L (-2-2); ARTERIAL BLOOD GAS PO2 124.8 mmHg (80-100)
[2024-02-18] MEDS: DEXTROSE 5%-LACTATED RINGERS 1,000 ML IV SCH ×2 (00:18→15:49)
[2024-02-18] MEDS: MUPIROCIN 2% TOPICAL OINTMENT FOR DECOLONIZATION NS SCH (00:19)
[2024-02-18] MEDS: MEROPENEM 500 MG in DEXTROSE 5%-WATER 100 ML IVPB SCH ×2 (00:21→16:10)
[2024-02-18] MEDS ORDERED: ACETAMINOPHEN 1000 MG/100 ML BAG IVPB PRN (00:45)
[2024-02-18 00:48] LABS: CHLORIDE 115 mmol/L (98-107); POTASSIUM 3.1 mmol/L (3.5-5.1); SODIUM 143 mmol/L (136-145)
[2024-02-18 00:51] LABS: ALBUMIN 1.9 g/dl (3.4-5.0); ANION GAP 15 mmol/L (4-13); CO2 13 mmol/L (21-32); GLUCOSE,RANDOM 122 mg/dL (74-106); MAGNESIUM 1.6 mg/dL (1.8-2.4)
[2024-02-18 00:54] LABS: PHOSPHOROUS 6.6 mg/dL (2.5-4.9); SGOT/AST 5 U/L (15-37); SGPT/ALT 11 U/L (13-61)
[2024-02-18 00:55] LABS: BILIRUBIN,TOTAL 0.3 mg/dL (0.2-1)
[2024-02-18 00:57] LABS: ALK PHOS 330 U/L (45-117)
[2024-02-18 01:42] LABS: BLOOD UREA NITROGEN 120.4 mg/dL (7-18); CALCIUM 5.1 mg/dL (8.5-10.1); CREATININE 8.1 mg/dL (0.55-1.3)
[2024-02-18] MEDS: CALCIUM GLUCONATE 10% - 1,000 MG/10 ML VIAL IVPB ONE ×3 (02:04→16:09)
[2024-02-18] MEDS: LACTATED RINGERS SOLUTION 1,000 ML/1,000 ML INFUS.BAG IV ONE (02:11)
[2024-02-18] MEDS: LEVOTHYROXINE NA 25 MCG TABLET (FP) PO SCH (06:10)
[2024-02-18 07:34] LABS: BASO % 0.3 % (0-2.0); EOS % 0.1 % (0-4.5); HEMATOCRIT 25.9 % (35.4-49); HEMOGLOBIN 8.5 GM/dL (11.7-16.9); LYMPH % 2.8 % (8-40); MCH 28.5 pg (25.7-33.7); MCHC 32.7 g/dl (32.0-35.9); MEAN CELL VOLUME 87.1 fl (80-96); MEAN PLT VOLUME 7.1 fl (7.5-11.1); NEUT % 92.8 % (42.8-82.8); PLATELET COUNT 122 10^3/uL (134-434); RBC 2.97 M/mm3 (4.00-5.60); RDW 15.3 % (11.9-15.9); WHITE BLOOD COUNT 12.7 K/mm3 (4.0-10.0)
[2024-02-18 07:46] LABS: ALBUMIN 1.9 g/dl (3.4-5.0)
[2024-02-18 07:49] LABS: BILIRUBIN,DIRECT 0.1 mg/dL (0.0-0.2)
[2024-02-18 07:51] LABS: BILIRUBIN,TOTAL 0.4 mg/dL (0.2-1); TOT PROT 5.9 g/dl (6.4-8.2)
[2024-02-18] MEDS ORDERED: NOREPINEPHRINE BITARTRATE 4 MG/4 ML ML IV ONE (08:34)
[2024-02-18 08:38] LABS: IRON SERUM 95 ug/dL (50-175); TOTAL IRON BINDING CAPACITY 87 ug/dL (250-450)
[2024-02-18] MEDS: FERROUS SO4 325 MG TABLET (FP) PO SCH (09:19)
[2024-02-18] MEDS: TAMSULOSIN HCL 0.4 MG CAP PO SCH (09:19)
[2024-02-18] MEDS: ZINC SULFATE 220 MG CAPSULE (FP) PO SCH (09:19)
[2024-02-18] MEDS: THIAMINE 100 MG TABLET PO SCH (09:19)
[2024-02-18] MEDS: MAGNESIUM 2GM/50ML STERILE WATER IVPB IVPB ONE (09:19)
[2024-02-18] MEDS: KCL 10 MEQ IVPB 10 MEQ/100 ML INFUS.BAG IVPB SCH ×2 (09:19→16:32)
[2024-02-18] MEDS: PANTOPRAZOLE SODIUM 40 MG VIAL IVPUSH SCH (09:19)
[2024-02-18] MEDS: HEPARIN NA (PORCINE) 5,000 UNITS/ML 1ML VIAL SQ SCH (09:19)
[2024-02-18 09:29] LABS: HEMATOCRIT 23.4 % (35.4-49); HEMOGLOBIN 7.5 GM/dL (11.7-16.9); MCH 27.9 pg (25.7-33.7); MCHC 32.2 g/dl (32.0-35.9); MEAN CELL VOLUME 86.8 fl (80-96); MEAN PLT VOLUME 6.8 fl (7.5-11.1); PLATELET COUNT 113 10^3/uL (134-434); RBC 2.69 M/mm3 (4.00-5.60); RDW 15.2 % (11.9-15.9); WHITE BLOOD COUNT 12.1 K/mm3 (4.0-10.0)
[2024-02-18 09:34] LABS: ANISOCYTOSIS 3+; MACROCYTOSIS 0
[2024-02-18 09:48] LABS: MAGNESIUM 1.4 mg/dL (1.8-2.4)
[2024-02-18 09:54] LABS: PHOSPHOROUS 5.7 mg/dL (2.5-4.9)
[2024-02-18 09:58] LABS: ANISOCYTOSIS 2+; MACROCYTOSIS 0
[2024-02-18 10:07] LABS: CHLORIDE 115 mmol/L (98-107); POTASSIUM 2.9 mmol/L (3.5-5.1); SODIUM 141 mmol/L (136-145)
[2024-02-18 10:09] LABS: CALCIUM 5.5 mg/dL (8.5-10.1)
[2024-02-18 10:10] LABS: ALBUMIN 1.7 g/dl (3.4-5.0); ANION GAP 15 mmol/L (4-13); CO2 11 mmol/L (21-32); GLUCOSE,RANDOM 232 mg/dL (74-106)
[2024-02-18 10:12] LABS: SGPT/ALT 8 U/L (13-61)
[2024-02-18 10:13] LABS: SGOT/AST 5 U/L (15-37)
[2024-02-18 10:14] LABS: BILIRUBIN,TOTAL 0.4 mg/dL (0.2-1); BLOOD UREA NITROGEN 113.6 mg/dL (7-18); CREATININE 7.7 mg/dL (0.55-1.3); TOT PROT 5.3 g/dl (6.4-8.2)
[2024-02-18 10:26] LABS: ALK PHOS 264 U/L (45-117)
[2024-02-18] MEDS: CHOLESTYRAMINE/NUTRASWEET 4 GM PACKET PO SCH (10:50)
[2024-02-18] MEDS: MIDODRINE HCL 5 MG TABLET PO SCH (10:50)
[2024-02-18] MEDS: NOREPINEPHRINE 0.9 % NACL 8 MG/250 ML BAG IVPB SCH (12:10)
[2024-02-18] MEDS: LACTATED RINGERS SOLUTION 1,000 ML/1,000 ML INFUS.BAG IV STA (12:10)
[2024-02-18 15:43] LABS: CHLORIDE 116 mmol/L (98-107); POTASSIUM 3.7 mmol/L (3.5-5.1); SODIUM 141 mmol/L (136-145)
[2024-02-18 15:46] LABS: ALBUMIN 1.8 g/dl (3.4-5.0); ANION GAP 13 mmol/L (4-13); CO2 12 mmol/L (21-32); GLUCOSE,RANDOM 60 mg/dL (74-106); MAGNESIUM 1.9 mg/dL (1.8-2.4)
[2024-02-18 15:47] LABS: BLOOD UREA NITROGEN 107.9 mg/dL (7-18); CALCIUM 5.7 mg/dL (8.5-10.1)
[2024-02-18 15:49] LABS: CREATININE 7.4 mg/dL (0.55-1.3); PHOSPHOROUS 5.3 mg/dL (2.5-4.9); SGOT/AST 5 U/L (15-37); SGPT/ALT 8 U/L (13-61)
[2024-02-18] MEDS: SODIUM BICARBONATE 8.4% 50 MEQ/50 ML DISP.SYRIN IVPUSH SCH (15:49)
[2024-02-18 15:51] LABS: BILIRUBIN,TOTAL 0.3 mg/dL (0.2-1); TOT PROT 5.6 g/dl (6.4-8.2)
[2024-02-18 15:56] LABS: ALK PHOS 282 U/L (45-117)
[2024-02-18] MEDS ORDERED: CALCIUM GLUCONATE IN NACL, 1,000 MG/100 ML BAG IVPB ONE (16:00)
[2024-02-18] MEDS: CALCIUM GLUCONATE IN NACL 1 GM/50 ML BAG IVPB ONE (16:03)
[2024-02-18] MEDS: MAGNESIUM SULF 50% (8.12 MEQ/2 ML-1 GM VIAL) IVPB ONE (16:11)
[2024-02-18] MEDS: SODIUM BICARBONATE 8.4% 50 MEQ/50 ML DISP.SYRIN IVPUSH ONE (16:11)
[2024-02-18] MEDS: MAGNESIUM 1GM/D5W 100ML - 100 ML IVPB IVPB ONE (16:32)
[2024-02-18] MEDS: PIPERACILLIN/TAZOB 2.25 GM 2.25 GM/50 ML BAG IVPB SCH (17:49)
[2024-02-18] MEDS: MIRTAZAPINE 15 MG TABLET (FP) PO SCH (21:44)
[2024-02-18] MEDS: CHLORHEXIDINE GLUCONATE 4% CLEANSER FOR DECOLONIZATION TP SCH (21:45)
[2024-02-19 06:59] LABS: BASO % 0.2 % (0-2.0); EOS % 0.5 % (0-4.5); HEMATOCRIT 22.8 % (35.4-49); HEMOGLOBIN 7.8 GM/dL (11.7-16.9); LYMPH % 9.1 % (8-40); MCH 28.9 pg (25.7-33.7); MCHC 34.2 g/dl (32.0-35.9); MEAN CELL VOLUME 84.4 fl (80-96); MEAN PLT VOLUME 7.4 fl (7.5-11.1); MONO % 5.7 % (3.8-10.2); NEUT % 84.5 % (42.8-82.8); PLATELET COUNT 110 10^3/uL (134-434); RDW 14.9 % (11.9-15.9); WHITE BLOOD COUNT 10.9 K/mm3 (4.0-10.0)
[2024-02-19 07:16] LABS: CHLORIDE 116 mmol/L (98-107); POTASSIUM 3.3 mmol/L (3.5-5.1); SODIUM 146 mmol/L (136-145)
[2024-02-19 07:23] LABS: ALBUMIN 1.7 g/dl (3.4-5.0); BLOOD UREA NITROGEN 101.5 mg/dL (7-18); GLUCOSE,RANDOM 101 mg/dL (74-106); SGOT/AST 7 U/L (15-37); SGPT/ALT 9 U/L (13-61)
[2024-02-19 07:25] LABS: BILIRUBIN,TOTAL 0.3 mg/dL (0.2-1); TOT PROT 5.6 g/dl (6.4-8.2)
[2024-02-19 07:26] LABS: ALK PHOS 302 U/L (45-117); ANION GAP 12 mmol/L (4-13); CO2 18 mmol/L (21-32); CREATININE 7.1 mg/dL (0.55-1.3); MAGNESIUM 1.8 mg/dL (1.8-2.4); PHOSPHOROUS 4.2 mg/dL (2.5-4.9)
[2024-02-19 07:34] LABS: CALCIUM 5.8 mg/dL (8.5-10.1)
[2024-02-19 08:28] LABS: ANISOCYTOSIS 0; MACROCYTOSIS 0
[2024-02-19] MEDS: MAGNESIUM 2GM/50ML STERILE WATER IVPB IVPB ONE (09:07)
[2024-02-19] MEDS: KCL 10 MEQ IVPB 10 MEQ/100 ML INFUS.BAG IVPB SCH (09:07)
[2024-02-19] MEDS: CALCIUM GLUCONATE IN NACL 1 GM/50 ML BAG IVPB ONE (18:14)
[2024-02-20 07:46] LABS: HEMATOCRIT 26.1 % (35.4-49); HEMOGLOBIN 8.7 GM/dL (11.7-16.9); MCH 28.3 pg (25.7-33.7); MCHC 33.2 g/dl (32.0-35.9); MEAN CELL VOLUME 85.3 fl (80-96); MEAN PLT VOLUME 7.1 fl (7.5-11.1); PLATELET COUNT 94 10^3/uL (134-434); RBC 3.06 M/mm3 (4.00-5.60); RDW 15.7 % (11.9-15.9); WHITE BLOOD COUNT 7.7 K/mm3 (4.0-10.0)
[2024-02-20 08:18] LABS: CHLORIDE 116 mmol/L (98-107); SODIUM 145 mmol/L (136-145)
[2024-02-20 08:36] LABS: POTASSIUM 2.9 mmol/L (3.5-5.1)
[2024-02-20 08:38] LABS: BILIRUBIN,TOTAL 0.4 mg/dL (0.2-1)
[2024-02-20 08:39] LABS: ALBUMIN 1.6 g/dl (3.4-5.0); ALK PHOS 289 U/L (45-117); ANION GAP 12 mmol/L (4-13); BLOOD UREA NITROGEN 94.1 mg/dL (7-18); CALCIUM 6.1 mg/dL (8.5-10.1); CO2 18 mmol/L (21-32); GLUCOSE,RANDOM 147 mg/dL (74-106); MAGNESIUM 2.3 mg/dL (1.8-2.4); SGPT/ALT 9 U/L (13-61)
[2024-02-20 08:40] LABS: CREATININE 6.5 mg/dL (0.55-1.3); SGOT/AST 7 U/L (15-37)
[2024-02-20 08:41] LABS: PHOSPHOROUS 3.7 mg/dL (2.5-4.9); TOT PROT 5.4 g/dl (6.4-8.2)
[2024-02-20 08:58] LABS: ANISOCYTOSIS 0; MACROCYTOSIS 0
[2024-02-20] MEDS ORDERED: CALCIUM CHLORIDE 10% 1 GM/10 ML *VIAL IVPUSH ONE (09:03)
[2024-02-20] MEDS: POTASSIUM CHLORIDE TABS 20 MEQ TABLET.ER (FP) PO ONE (10:36)
[2024-02-20] MEDS: KCL 10 MEQ IVPB 10 MEQ/100 ML INFUS.BAG IVPB SCH (10:37)
[2024-02-20] MEDS: CALCIUM GLUC IN NACL, ISO-OSM 1 GM/50 ML BAG IVPB ONE (10:37)
[2024-02-20] MEDS: CALCITRIOL 0.25 MCG CAPSULE (FP) PO SCH (11:31)
[2024-02-20] MEDS ORDERED: LACTATED RINGERS SOLUTION 1,000 ML/1,000 ML INFUS.BAG IV SCH (13:15)
[2024-02-20] MEDS: KCL 20 MEQ PREMIX BAG 20 MEQ/100 ML INFUS.BAG IVPB SCH (19:19)
[2024-02-20] MEDS: levETIRAcetam 500 MG/5 ML INJECTION VIAL IVPB SCH (21:47)
[2024-02-21 07:44] LABS: HEMATOCRIT 25.3 % (35.4-49); HEMOGLOBIN 8.5 GM/dL (11.7-16.9); MCH 28.6 pg (25.7-33.7); MCHC 33.6 g/dl (32.0-35.9); MEAN CELL VOLUME 85.2 fl (80-96); MEAN PLT VOLUME 7.2 fl (7.5-11.1); PLATELET COUNT 93 10^3/uL (134-434); RBC 2.97 M/mm3 (4.00-5.60); RDW 15.9 % (11.9-15.9); WHITE BLOOD COUNT 9.5 K/mm3 (4.0-10.0)
[2024-02-21 07:53] LABS: CHLORIDE 117 mmol/L (98-107); POTASSIUM 3.1 mmol/L (3.5-5.1); SODIUM 144 mmol/L (136-145)
[2024-02-21 07:57] LABS: ALBUMIN 1.6 g/dl (3.4-5.0); ANION GAP 10 mmol/L (4-13); BLOOD UREA NITROGEN 83.6 mg/dL (7-18); CO2 17 mmol/L (21-32); GLUCOSE,RANDOM 112 mg/dL (74-106)
[2024-02-21 08:00] LABS: CREATININE 6.3 mg/dL (0.55-1.3); SGOT/AST 6 U/L (15-37); SGPT/ALT 10 U/L (13-61)
[2024-02-21 08:02] LABS: BILIRUBIN,TOTAL 0.2 mg/dL (0.2-1); TOT PROT 5.5 g/dl (6.4-8.2)
[2024-02-21 08:03] LABS: ALK PHOS 270 U/L (45-117)
[2024-02-21 08:07] LABS: CALCIUM 6.1 mg/dL (8.5-10.1)
[2024-02-21 08:51] LABS: PLATELET ESTIMATE DECREASED
[2024-02-21] MEDS: POTASSIUM CHLORIDE ORAL LIQUID 20 MEQ/15 ML PO ONE (17:26)
[2024-02-21] MEDS: KCL 10 MEQ IVPB 10 MEQ/100 ML INFUS.BAG IVPB SCH (17:27)
[2024-02-22 07:35] LABS: BASO % 0.1 % (0-2.0); EOS % 0.3 % (0-4.5); HEMATOCRIT 28.4 % (35.4-49); HEMOGLOBIN 9.3 GM/dL (11.7-16.9); LYMPH % 2.6 % (8-40); MCHC 32.9 g/dl (32.0-35.9); MEAN CELL VOLUME 85.1 fl (80-96); MEAN PLT VOLUME 7.1 fl (7.5-11.1); MONO % 1.6 % (3.8-10.2); NEUT % 95.4 % (42.8-82.8); PLATELET COUNT 77 10^3/uL (134-434); RBC 3.33 M/mm3 (4.00-5.60); RDW 16.3 % (11.9-15.9); WHITE BLOOD COUNT 17.7 K/mm3 (4.0-10.0)
[2024-02-22 07:48] LABS: CHLORIDE 118 mmol/L (98-107); POTASSIUM 3.7 mmol/L (3.5-5.1); SODIUM 144 mmol/L (136-145)
[2024-02-22 07:59] LABS: ALBUMIN 1.5 g/dl (3.4-5.0); BLOOD UREA NITROGEN 75.6 mg/dL (7-18); SGOT/AST 8 U/L (15-37)
[2024-02-22 08:00] LABS: ANION GAP 10 mmol/L (4-13); CO2 16 mmol/L (21-32); CREATININE 6.2 mg/dL (0.55-1.3); GLUCOSE,RANDOM 154 mg/dL (74-106)
[2024-02-22 08:01] LABS: BILIRUBIN,TOTAL 0.3 mg/dL (0.2-1); TOT PROT 5.6 g/dl (6.4-8.2)
[2024-02-22 08:02] LABS: ALK PHOS 282 U/L (45-117)
[2024-02-22 08:05] LABS: SGPT/ALT 11 U/L (13-61)
[2024-02-22 08:13] LABS: CALCIUM 6.4 mg/dL (8.5-10.1)
[2024-02-22 08:51] LABS: ANISOCYTOSIS 1+; MACROCYTOSIS 1+
[2024-02-22 14:58] VITALS: BMI 17.3
[2024-02-23] MEDS: MIDODRINE HCL 5 MG TABLET PO SCH (17:22)
[2024-02-24 11:38] LABS: CHLORIDE 121 mmol/L (98-107); SODIUM 148 mmol/L (136-145)
[2024-02-24 11:41] LABS: ANION GAP 11 mmol/L (4-13); CO2 15 mmol/L (21-32); GLUCOSE,RANDOM 130 mg/dL (74-106); POTASSIUM 2.7 mmol/L (3.5-5.1)
[2024-02-24 11:42] LABS: ALBUMIN 1.3 g/dl (3.4-5.0)
[2024-02-24 11:44] LABS: CREATININE 5.9 mg/dL (0.55-1.3); PHOSPHOROUS 3.7 mg/dL (2.5-4.9); SGOT/AST 6 U/L (15-37); SGPT/ALT 7 U/L (13-61)
[2024-02-24 11:45] LABS: BILIRUBIN,TOTAL 0.4 mg/dL (0.2-1); TOT PROT 5.3 g/dl (6.4-8.2)
[2024-02-24 11:49] LABS: ALK PHOS 250 U/L (45-117)
[2024-02-24] MEDS: KCL 10 MEQ IVPB 10 MEQ/100 ML INFUS.BAG IVPB SCH (15:15)
[2024-02-24] MEDS: POTASSIUM CHLORIDE ORAL LIQUID 20 MEQ/15 ML PO SCH (21:26)
[2024-02-25 06:55] LABS: CHLORIDE 126 mmol/L (98-107); SODIUM 147 mmol/L (136-145)
[2024-02-25 06:59] LABS: ALBUMIN 1.4 g/dl (3.4-5.0); ANION GAP 7 mmol/L (4-13); BLOOD UREA NITROGEN 60.6 mg/dL (7-18); CO2 15 mmol/L (21-32); GLUCOSE,RANDOM 144 mg/dL (74-106)
[2024-02-25 07:01] LABS: SGOT/AST 4 U/L (15-37); SGPT/ALT 8 U/L (13-61)
[2024-02-25 07:03] LABS: BILIRUBIN,TOTAL 0.4 mg/dL (0.2-1); TOT PROT 5.3 g/dl (6.4-8.2)
[2024-02-25 07:04] LABS: ALK PHOS 246 U/L (45-117)
[2024-02-25 07:12] LABS: CALCIUM 6.6 mg/dL (8.5-10.1)
[2024-02-25] MEDS: CEFTRIAXONE 1 G/50 ML PREMIX 50 ML IVPB SCH (10:19)
[2024-02-25] MEDS: KCL 10 MEQ IVPB 10 MEQ/100 ML INFUS.BAG IVPB SCH (17:17)
[2024-02-25] MEDS: DEXTROSE 5%-LACTATED RINGERS 1,000 ML IV SCH (17:17)
[2024-02-25] MEDS ORDERED: INSULIN ASPART SLIDING SCALE (NOVOLOG) 1 VIAL SQ ONE (18:06)
[2024-02-26] MEDS: DEXTROSE 5%-0.45% SALINE 1,000 ML IV SCH (12:51)
[2024-02-26 16:09] LABS: C-ANCA <1:20 titer (Neg:<1:20)
[2024-02-26 20:07] LABS: ANTIGLOMERULAR BASEMENT MEN.AB <0.2 units (0.0-0.9)
[2024-02-27 07:09] LABS: ALBUMIN 1.4 g/dl (3.4-5.0); BLOOD UREA NITROGEN 56.7 mg/dL (7-18); CALCIUM 7.4 mg/dL (8.5-10.1)
[2024-02-27 07:13] LABS: CREATININE 6.9 mg/dL (0.55-1.3)
[2024-02-27 07:14] LABS: BILIRUBIN,TOTAL 0.4 mg/dL (0.2-1); TOT PROT 5.5 g/dl (6.4-8.2)
[2024-02-27 07:15] LABS: BASO % 0.4 % (0-2.0); EOS % 0.9 % (0-4.5); HEMATOCRIT 24.7 % (35.4-49); HEMOGLOBIN 7.8 GM/dL (11.7-16.9); LYMPH % 8.6 % (8-40); MCH 27.6 pg (25.7-33.7); MCHC 31.6 g/dl (32.0-35.9); MEAN CELL VOLUME 87.5 fl (80-96); MEAN PLT VOLUME 8.8 fl (7.5-11.1); MONO % 2.6 % (3.8-10.2); NEUT % 87.5 % (42.8-82.8); PLATELET COUNT 64 10^3/uL (134-434); RBC 2.82 M/mm3 (4.00-5.60); WHITE BLOOD COUNT 16.7 K/mm3 (4.0-10.0)
[2024-02-27] MEDS: SODIUM BICARBONATE 8.4% 50 MEQ/50 ML DISP.SYRIN IVPUSH ONE (13:36)
[2024-02-27] MEDS: DEXTROSE 5%-WATER - 1,000 ML IV SCH (13:36)
[2024-02-27] MEDS: SODIUM BICARBONATE 650 MG TABLET PO SCH ×2 (13:39→14:05)
[2024-02-28 08:20] LABS: BASO % 0.4 % (0-2.0); EOS % 0.9 % (0-4.5); HEMATOCRIT 23.5 % (35.4-49); HEMOGLOBIN 7.5 GM/dL (11.7-16.9); LYMPH % 10.1 % (8-40); MCH 27.7 pg (25.7-33.7); MCHC 32.1 g/dl (32.0-35.9); MEAN CELL VOLUME 86.4 fl (80-96); MEAN PLT VOLUME 9.1 fl (7.5-11.1); MONO % 2.5 % (3.8-10.2); NEUT % 86.1 % (42.8-82.8); PLATELET COUNT 68 10^3/uL (134-434); RBC 2.72 M/mm3 (4.00-5.60); RDW 16.7 % (11.9-15.9); WHITE BLOOD COUNT 12.6 K/mm3 (4.0-10.0)
[2024-02-28 08:34] LABS: CHLORIDE 129 mmol/L (98-107); POTASSIUM 3.5 mmol/L (3.5-5.1); SODIUM 148 mmol/L (136-145)
[2024-02-28 08:36] LABS: ALBUMIN 1.5 g/dl (3.4-5.0); CALCIUM 7.8 mg/dL (8.5-10.1)
[2024-02-28 08:38] LABS: ANION GAP 9 mmol/L (4-13); BLOOD UREA NITROGEN 54.1 mg/dL (7-18); CO2 11 mmol/L (21-32); GLUCOSE,RANDOM 103 mg/dL (74-106); MAGNESIUM 1.6 mg/dL (1.8-2.4)
[2024-02-28 08:39] LABS: PHOSPHOROUS 4.1 mg/dL (2.5-4.9)
[2024-02-28] MEDS: FLU VACCINE (FLULAVAL) PF 45 MCG/0.5 ML SYRINGE 2024-2025 IM ONE (08:39)
[2024-02-28 08:40] LABS: CREATININE 7.1 mg/dL (0.55-1.3); SGOT/AST 4 U/L (15-37)
[2024-02-28 08:42] LABS: BILIRUBIN,TOTAL 0.4 mg/dL (0.2-1); SGPT/ALT < 6 U/L (13-61); TOT PROT 5.6 g/dl (6.4-8.2)
[2024-02-28 08:43] LABS: ALK PHOS 291 U/L (45-117)
[2024-02-28] MEDS: levETIRAcetam 500 MG/5 ML INJECTION VIAL IVPB SCH (10:44)
[2024-02-28] MEDS: FERROUS SO4 325 MG TABLET (FP) PO SCH (10:45)
[2024-02-28] MEDS: CHOLESTYRAMINE/NUTRASWEET 4 GM PACKET PO SCH (10:45)
[2024-02-28] MEDS: PANTOPRAZOLE SODIUM 40 MG VIAL IVPUSH SCH (10:45)
[2024-02-28] MEDS: CALCITRIOL 0.25 MCG CAPSULE (FP) PO SCH (10:46)
[2024-02-28] MEDS: TAMSULOSIN HCL 0.4 MG CAP PO SCH (10:46)
[2024-02-28] MEDS: THIAMINE 100 MG TABLET PO SCH (10:46)
[2024-02-28] MEDS: ZINC SULFATE 220 MG CAPSULE (FP) PO SCH (10:46)
[2024-02-28] MEDS: HEPARIN NA (PORCINE) 5,000 UNITS/ML 1ML VIAL SQ SCH (10:47)
[2024-02-28] MEDS ORDERED: PETROLATUM,WHITE OINTMENT 3.5 OZ JAR TP ONE (13:00)
[2024-02-28] MEDS: PETROLATUM TP ONE (14:52)
[2024-02-28] MEDS: MINERAL OIL/PET HY-PHL TOPICAL OINTMENT 454 GM JAR TP ONE (15:03)
[2024-02-28] MEDS: SODIUM BICARBONATE 8.4% 50 MEQ/50 ML VIAL IVPUSH ONE (15:40)
[2024-02-28] MEDS: DEXTROSE 5%-WATER - 1,000 ML with SODIUM BICARBONATE 8.4% - 50 MEQ IV SCH (17:24)
[2024-02-28] MEDS: SODIUM BICARBONATE 8.4% - 50 MEQ in DEXTROSE 5%-WATER - 1,000 ML IV SCH (17:27)
[2024-02-28] MEDS: SODIUM BICARBONATE 8.4% 50 MEQ/50 ML DISP.SYRIN IVPUSH ONE (17:30)
[2024-02-28] MEDS: MIRTAZAPINE 15 MG TABLET (FP) PO SCH (22:54)
[2024-02-29] MEDS: LEVOTHYROXINE NA 25 MCG TABLET (FP) PO SCH (07:04)
[2024-02-29 09:49] LABS: BASO % 0.4 % (0-2.0); HEMATOCRIT 22.2 % (35.4-49); HEMOGLOBIN 7.3 GM/dL (11.7-16.9); LYMPH % 16.7 % (8-40); MCH 28.2 pg (25.7-33.7); MEAN CELL VOLUME 85.6 fl (80-96); MEAN PLT VOLUME 8.7 fl (7.5-11.1); MONO % 2.7 % (3.8-10.2); NEUT % 78.2 % (42.8-82.8); PLATELET COUNT 64 10^3/uL (134-434); RBC 2.59 M/mm3 (4.00-5.60); RDW 16.9 % (11.9-15.9); WHITE BLOOD COUNT 6.8 K/mm3 (4.0-10.0)
[2024-02-29 09:59] LABS: POTASSIUM 3.5 mmol/L (3.5-5.1)
[2024-02-29 10:03] LABS: CALCIUM 7.1 mg/dL (8.5-10.1)
[2024-02-29 10:04] LABS: ALBUMIN 1.4 g/dl (3.4-5.0); BLOOD UREA NITROGEN 50.5 mg/dL (7-18)
[2024-02-29 10:07] LABS: CREATININE 7.2 mg/dL (0.55-1.3)
[2024-02-29 10:08] LABS: BILIRUBIN,TOTAL 0.4 mg/dL (0.2-1)
[2024-02-29 10:09] LABS: TOT PROT 5.6 g/dl (6.4-8.2)
[2024-02-29] MEDS: ARIPiprazole 2 MG TABLET PO SCH (19:37)
[2024-02-29] MEDS ORDERED: CYPROHEPTADINE HYDROCHLORIDE 2 MG/5 ML SOLUTION PO SCH (22:00)
[2024-02-29] MEDS: CYPROHEPTADINE HCL 4 MG TABLET PO SCH (22:28)
[2024-03-01] MEDS ORDERED: SODIUM CHLORIDE 250 ML IV PRN (16:15)
[2024-03-01] MEDS: SODIUM BICARBONATE 8.4% 50 MEQ/50 ML VIAL IVPUSH ONE (17:40)
[2024-03-02 10:03] LABS: HEMATOCRIT 18.7 % (35.4-49); MCHC 32.5 g/dl (32.0-35.9); MEAN PLT VOLUME 8.4 fl (7.5-11.1); PLATELET COUNT 136 10^3/uL (134-434); RBC 2.18 M/mm3 (4.00-5.60); RDW 16.6 % (11.9-15.9)
[2024-03-02 10:17] LABS: HEMOGLOBIN 6.1 GM/dL (11.7-16.9)
[2024-03-02 10:20] LABS: CHLORIDE 124 mmol/L (98-107); POTASSIUM 3.1 mmol/L (3.5-5.1); SODIUM 147 mmol/L (136-145)
[2024-03-02 10:32] LABS: ALBUMIN 1.4 g/dl (3.4-5.0); ANION GAP 10 mmol/L (4-13); CALCIUM 7.5 mg/dL (8.5-10.1); CO2 13 mmol/L (21-32); SGOT/AST 14 U/L (15-37); SGPT/ALT 9 U/L (13-61)
[2024-03-02 10:33] LABS: GLUCOSE,RANDOM 84 mg/dL (74-106)
[2024-03-02 10:34] LABS: BILIRUBIN,TOTAL 0.4 mg/dL (0.2-1)
[2024-03-02 10:39] LABS: TOT PROT 5.6 g/dl (6.4-8.2)
[2024-03-02 11:00] LABS: ALK PHOS 480 U/L (45-117); CREATININE 8.5 mg/dL (0.55-1.3)
[2024-03-02] MEDS ORDERED: MUPIROCIN 2% TOPICAL OINTMENT FOR DECOLONIZATION NS SCH (11:45)
[2024-03-02] MEDS: SODIUM CHLORIDE 0.9% 250 ML INFUS.BAG IV ONE (13:48)
[2024-03-02] MEDS ORDERED: CHLORHEXIDINE GLUCONATE 4% CLEANSER FOR DECOLONIZATION TP SCH (22:00)
[2024-03-02] MEDS: KCL 10 MEQ IVPB 10 MEQ/100 ML INFUS.BAG IVPB SCH (22:06)
[2024-03-02] MEDS ORDERED: SODIUM CHLORIDE 250 ML IV PRN (23:45)
[2024-03-03] MEDS: levETIRAcetam 500 MG/5 ML INJECTION VIAL IVPB SCH (01:04)
[2024-03-03] MEDS: SODIUM BICARBONATE 650 MG TABLET PO SCH (01:04)
[2024-03-03] MEDS: HEPARIN NA (PORCINE) 5,000 UNITS/ML 1ML VIAL SQ SCH (01:04)
[2024-03-03] MEDS: MIRTAZAPINE 15 MG TABLET (FP) PO SCH (01:04)
[2024-03-03] MEDS: CYPROHEPTADINE HCL 4 MG TABLET PO SCH (01:22)
[2024-03-03] MEDS: POTASSIUM CHLORIDE ORAL LIQUID 20 MEQ/15 ML PO SCH (01:25)
[2024-03-03] MEDS: PETROLATUM,WHITE OINTMENT 3.5 OZ JAR TP ONE (01:26)
[2024-03-03] MEDS: SODIUM BICARBONATE 8.4% - 50 MEQ in DEXTROSE 5%-WATER - 1,000 ML IV SCH (04:59)
[2024-03-03] MEDS: LEVOTHYROXINE NA 25 MCG TABLET (FP) PO SCH (06:37)
[2024-03-03 09:53] LABS: BASO % 0.4 % (0-2.0); EOS % 1.6 % (0-4.5); HEMATOCRIT 28.5 % (35.4-49); HEMOGLOBIN 9.9 GM/dL (11.7-16.9); LYMPH % 12.5 % (8-40); MCH 28.8 pg (25.7-33.7); MCHC 34.6 g/dl (32.0-35.9); MEAN CELL VOLUME 83.2 fl (80-96); MEAN PLT VOLUME 7.8 fl (7.5-11.1); MONO % 2.9 % (3.8-10.2); NEUT % 82.6 % (42.8-82.8); PLATELET COUNT 148 10^3/uL (134-434); RBC 3.43 M/mm3 (4.00-5.60); RDW 15.3 % (11.9-15.9); WHITE BLOOD COUNT 8.6 K/mm3 (4.0-10.0)
[2024-03-03 10:21] LABS: BLOOD UREA NITROGEN 26.6 mg/dL (7-18); CALCIUM 7.7 mg/dL (8.5-10.1)
[2024-03-03 10:25] LABS: CREATININE 5.1 mg/dL (0.55-1.3)
[2024-03-03 10:26] LABS: BILIRUBIN,TOTAL 0.7 mg/dL (0.2-1); TOT PROT 5.8 g/dl (6.4-8.2)
[2024-03-03 10:29] LABS: ALBUMIN 1.7 g/dl (3.4-5.0)
[2024-03-03] MEDS: PANTOPRAZOLE SODIUM 40 MG VIAL IVPUSH SCH (11:02)
[2024-03-03] MEDS: MIDODRINE HCL 5 MG TABLET PO SCH (11:03)
[2024-03-03] MEDS: TAMSULOSIN HCL 0.4 MG CAP PO SCH (11:05)
[2024-03-03] MEDS: ARIPiprazole 2 MG TABLET PO SCH (11:06)
[2024-03-03] MEDS: FERROUS SO4 325 MG TABLET (FP) PO SCH (11:06)
[2024-03-03] MEDS: ZINC SULFATE 220 MG CAPSULE (FP) PO SCH (11:07)
[2024-03-03] MEDS: CHOLESTYRAMINE/NUTRASWEET 4 GM PACKET PO SCH (11:07)
[2024-03-03] MEDS: CALCITRIOL 0.25 MCG CAPSULE (FP) PO SCH (11:08)
[2024-03-03] MEDS: THIAMINE 100 MG TABLET PO SCH (11:08)
[2024-03-03] MEDS: DEXTROSE 5%-0.45% SALINE 1,000 ML IV SCH (17:34)
[2024-03-03] MEDS: MINERAL OIL/PET HY-PHL TOPICAL OINTMENT 454 GM JAR TP SCH (22:44)
[2024-03-04] MEDS ORDERED: SODIUM CHLORIDE 1,000 ML IV ONE (11:30)
[2024-03-04] MEDS ORDERED: SODIUM CHLORIDE 250 ML IV PRN (13:19)
[2024-03-04 14:05] LABS: HEMATOCRIT 23.5 % (35.4-49); HEMOGLOBIN 7.9 GM/dL (11.7-16.9); MCH 28.9 pg (25.7-33.7); MCHC 33.7 g/dl (32.0-35.9); MEAN CELL VOLUME 85.9 fl (80-96); MEAN PLT VOLUME 7.9 fl (7.5-11.1); PLATELET COUNT 154 10^3/uL (134-434); RBC 2.74 M/mm3 (4.00-5.60); RDW 15.5 % (11.9-15.9)
[2024-03-04 14:34] LABS: CHLORIDE 119 mmol/L (98-107); SODIUM 147 mmol/L (136-145)
[2024-03-04 14:36] LABS: CALCIUM 7.2 mg/dL (8.5-10.1); POTASSIUM 2.6 mmol/L (3.5-5.1)
[2024-03-04 14:37] LABS: ALBUMIN 1.5 g/dl (3.4-5.0); ANION GAP 5 mmol/L (4-13); BLOOD UREA NITROGEN 27.2 mg/dL (7-18); CO2 22 mmol/L (21-32); GLUCOSE,RANDOM 79 mg/dL (74-106); MAGNESIUM 1.5 mg/dL (1.8-2.4)
[2024-03-04 14:40] LABS: CREATININE 5.4 mg/dL (0.55-1.3); PHOSPHOROUS 2.8 mg/dL (2.5-4.9); SGOT/AST 8 U/L (15-37); SGPT/ALT 7 U/L (13-61)
[2024-03-04 14:42] LABS: BILIRUBIN,TOTAL 0.5 mg/dL (0.2-1); TOT PROT 5.2 g/dl (6.4-8.2)
[2024-03-04 14:51] LABS: ALK PHOS 307 U/L (45-117)
[2024-03-04] MEDS: ALBUMIN HUMAN 25% 12.5 GM/50 ML VIAL IV SCH ×2 (14:53→21:28)
[2024-03-04] MEDS: EPOETIN ALFA-EPBX 10,000 UNIT/ML VIAL IVPUSH ONE (14:53)
[2024-03-04] MEDS: HEPARIN NA (PORCINE) 5,000 UNITS/ML 1ML VIAL IVPUSH ONE (14:56)
[2024-03-04] MEDS ORDERED: DEXTROSE 50%-WATER - 25 GM/50 ML VIAL IVPUSH PRN (15:11)
[2024-03-04] MEDS: POTASSIUM CHLORIDE ORAL LIQUID 20 MEQ/15 ML PO SCH (15:51)
[2024-03-04] MEDS: MAGNESIUM 2GM/50ML STERILE WATER IVPB IVPB ONE (15:51)
[2024-03-04] MEDS: KCL 10 MEQ IVPB 10 MEQ/100 ML INFUS.BAG IVPB SCH (15:51)
[2024-03-04 18:11] LABS: FREE KAPPA,SERUM 267.4 mg/L (3.3-19.4)
[2024-03-05 09:54] LABS: HEMATOCRIT 27.8 % (35.4-49); HEMOGLOBIN 9.3 GM/dL (11.7-16.9); MCH 28.6 pg (25.7-33.7); MCHC 33.5 g/dl (32.0-35.9); MEAN CELL VOLUME 85.4 fl (80-96); MEAN PLT VOLUME 7.8 fl (7.5-11.1); PLATELET COUNT 194 10^3/uL (134-434); RBC 3.25 M/mm3 (4.00-5.60); RDW 16.2 % (11.9-15.9)
[2024-03-05 09:59] LABS: BASO % 0.6 % (0-2.0); EOS % 1.8 % (0-4.5); HEMATOCRIT 27.8 % (35.4-49); HEMOGLOBIN 9.4 GM/dL (11.7-16.9); LYMPH % 25.3 % (8-40); MCH 28.7 pg (25.7-33.7); MCHC 33.8 g/dl (32.0-35.9); MEAN CELL VOLUME 85.1 fl (80-96); MEAN PLT VOLUME 8.2 fl (7.5-11.1); MONO % 4.1 % (3.8-10.2); NEUT % 68.2 % (42.8-82.8); PLATELET COUNT 206 10^3/uL (134-434); RBC 3.27 M/mm3 (4.00-5.60); RDW 15.9 % (11.9-15.9); WHITE BLOOD COUNT 6.2 K/mm3 (4.0-10.0)
[2024-03-05 10:03] LABS: CHLORIDE 117 mmol/L (98-107); POTASSIUM 3.3 mmol/L (3.5-5.1); SODIUM 145 mmol/L (136-145)
[2024-03-05 10:37] LABS: CALCIUM 8.2 mg/dL (8.5-10.1)
[2024-03-05 10:38] LABS: ANION GAP 5 mmol/L (4-13); BLOOD UREA NITROGEN 11.4 mg/dL (7-18); CO2 23 mmol/L (21-32); GLUCOSE,RANDOM 64 mg/dL (74-106); MAGNESIUM 1.9 mg/dL (1.8-2.4)
[2024-03-05 10:40] LABS: SGOT/AST 9 U/L (15-37)
[2024-03-05 10:41] LABS: BILIRUBIN,TOTAL 0.6 mg/dL (0.2-1); CREATININE 3.4 mg/dL (0.55-1.3); TOT PROT 6.2 g/dl (6.4-8.2)
[2024-03-05 10:44] LABS: ALK PHOS 458 U/L (45-117); SGPT/ALT < 6 U/L (13-61)
[2024-03-05] MEDS: DEXTROSE 5%-0.45% SALINE 1,000 ML IV SCH (15:23)
[2024-03-06] MEDS: DEXTROSE 50%-WATER 25 GM/50 ML DISP.SYRIN IVPUSH PRN (06:03)
[2024-03-06] MEDS: DEXTROSE 50%-WATER 25 GM/50 ML DISP.SYRIN IVPUSH ONE (06:20)
[2024-03-06] MEDS ORDERED: SODIUM CHLORIDE 250 ML IV PRN (19:14)
[2024-03-07 10:08] LABS: BASO % 1.7 % (0-2.0); EOS % 2.7 % (0-4.5); HEMATOCRIT 28.5 % (35.4-49); HEMOGLOBIN 9.5 GM/dL (11.7-16.9); MCH 28.8 pg (25.7-33.7); MCHC 33.4 g/dl (32.0-35.9); MEAN CELL VOLUME 86.2 fl (80-96); MEAN PLT VOLUME 7.4 fl (7.5-11.1); MONO % 9.5 % (3.8-10.2); NEUT % 52.1 % (42.8-82.8); PLATELET COUNT 229 10^3/uL (134-434); RBC 3.31 M/mm3 (4.00-5.60); RDW 15.9 % (11.9-15.9); WHITE BLOOD COUNT 3.4 K/mm3 (4.0-10.0)
[2024-03-07 10:24] LABS: CHLORIDE 121 mmol/L (98-107); SODIUM 146 mmol/L (136-145)
[2024-03-07 10:31] LABS: CALCIUM 8.5 mg/dL (8.5-10.1)
[2024-03-07 10:32] LABS: ALBUMIN 1.9 g/dl (3.4-5.0); ANION GAP 4 mmol/L (4-13); BLOOD UREA NITROGEN 18.9 mg/dL (7-18); CO2 21 mmol/L (21-32); GLUCOSE,RANDOM 57 mg/dL (74-106)
[2024-03-07 10:35] LABS: CREATININE 5.2 mg/dL (0.55-1.3); SGOT/AST 9 U/L (15-37)
[2024-03-07 10:37] LABS: BILIRUBIN,TOTAL 0.5 mg/dL (0.2-1); TOT PROT 6.6 g/dl (6.4-8.2)
[2024-03-07 10:40] LABS: ALK PHOS 847 U/L (45-117); SGPT/ALT < 6 U/L (13-61)
[2024-03-07] MEDS: KCL 10 MEQ IVPB 10 MEQ/100 ML INFUS.BAG IVPB SCH (17:24)
[2024-03-08] MEDS ORDERED: DEXTROSE 50%-WATER 25 GM/50 ML DISP.SYRIN IVPUSH PRN (06:09)
[2024-03-08 10:35] LABS: CHLORIDE 108 mmol/L (98-107); SODIUM 141 mmol/L (136-145)
[2024-03-08 10:36] LABS: POTASSIUM 2.7 mmol/L (3.5-5.1)
[2024-03-08 10:46] LABS: SGPT/ALT 6 U/L (13-61)
[2024-03-08 10:47] LABS: BILIRUBIN,TOTAL 0.6 mg/dL (0.2-1)
[2024-03-08 10:48] LABS: TOT PROT 6.9 g/dl (6.4-8.2)
[2024-03-08 10:52] LABS: BLOOD UREA NITROGEN 7.9 mg/dL (7-18)
[2024-03-08 10:55] LABS: CALCIUM 8.5 mg/dL (8.5-10.1); GLUCOSE,RANDOM 63 mg/dL (74-106)
[2024-03-08 10:56] LABS: ANION GAP 6 mmol/L (4-13); CO2 27 mmol/L (21-32); SGOT/AST 12 U/L (15-37)
[2024-03-08 11:01] LABS: CREATININE 2.9 mg/dL (0.55-1.3)
[2024-03-08 11:10] LABS: ALK PHOS 761 U/L (45-117)
[2024-03-08] MEDS: KCL 10 MEQ IVPB 10 MEQ/100 ML INFUS.BAG IVPB SCH ×2 (12:29→18:22)
[2024-03-08] MEDS ORDERED: LIDOCAINE HCL 1%, 10 MG/ML (20ML VIAL) ONE (13:21)
[2024-03-08] MEDS ORDERED: HEPARIN NA (PORCINE) 5,000 UNITS/ML 1ML VIAL ONE (13:21)
[2024-03-08] MEDS ORDERED: MIDAZOLAM HCL 2 MG/2 ML SINGLE DOSE VIAL ONE ×2 (14:06→14:59)
[2024-03-08] MEDS ORDERED: ONDANSETRON 4 MG/2 ML VIAL ONE (14:52)
[2024-03-08] MEDS: ceFAZolin SODIUM 1 GM VIAL IVPB ONE ×2 (15:00)
[2024-03-08] MEDS ORDERED: ceFAZolin SODIUM 1 GM VIAL ONE (15:03)
[2024-03-08] MEDS: LIDOCAINE HCL 1%, 10 MG/ML (20ML VIAL) NR ONE ×3 (15:05→15:06)
[2024-03-08] MEDS: HEPARIN NA (PORCINE) 5,000 UNITS/ML 1ML VIAL SQ ONE ×2 (15:09)
[2024-03-08] MEDS ORDERED: SODIUM CHLORIDE 250 ML IV PRN (17:05)
[2024-03-08] MEDS: MIDODRINE HCL 5 MG TABLET PO SCH (18:22)
[2024-03-08] MEDS: POTASSIUM CHLORIDE ORAL LIQUID 20 MEQ/15 ML PO ONE (19:03)
[2024-03-08] MEDS: SODIUM CHLORIDE 1,000 ML IV ONE (21:08)
[2024-03-08] MEDS: HEPARIN NA (PORCINE) 5,000 UNITS/ML 1ML VIAL SQ SCH (22:32)
[2024-03-08] MEDS: MIRTAZAPINE 15 MG TABLET (FP) PO SCH (22:32)
[2024-03-08] MEDS: levETIRAcetam 500 MG/5 ML INJECTION VIAL IVPB SCH (22:32)
[2024-03-08] MEDS: CYPROHEPTADINE HCL 4 MG TABLET PO SCH (22:33)
[2024-03-08] MEDS: MINERAL OIL/PET HY-PHL TOPICAL OINTMENT 454 GM JAR TP SCH (22:34)
[2024-03-09] MEDS: SODIUM CHLORIDE 500 ML IV STA (04:24)
[2024-03-09] MEDS: LEVOTHYROXINE NA 25 MCG TABLET (FP) PO SCH (06:50)
[2024-03-09] MEDS: THIAMINE 100 MG TABLET PO SCH (10:45)
[2024-03-09] MEDS: FERROUS SO4 325 MG TABLET (FP) PO SCH (10:45)
[2024-03-09] MEDS: CALCITRIOL 0.25 MCG CAPSULE (FP) PO SCH (10:45)
[2024-03-09] MEDS: PANTOPRAZOLE SODIUM 40 MG VIAL IVPUSH SCH (10:45)
[2024-03-09] MEDS: ZINC SULFATE 220 MG CAPSULE (FP) PO SCH (10:46)
[2024-03-09] MEDS: TAMSULOSIN HCL 0.4 MG CAP PO SCH (10:47)
[2024-03-09] MEDS: CHOLESTYRAMINE/NUTRASWEET 4 GM PACKET PO SCH (10:47)
[2024-03-09] MEDS: ARIPiprazole 2 MG TABLET PO SCH (10:47)
[2024-03-09] MEDS: HEPARIN NA (PORCINE) 5,000 UNITS/ML 1ML VIAL IVPUSH ONE (13:40)
[2024-03-09 14:14] LABS: HEMATOCRIT 28.7 % (35.4-49); HEMOGLOBIN 9.4 GM/dL (11.7-16.9); MCH 28.4 pg (25.7-33.7); MCHC 32.7 g/dl (32.0-35.9); MEAN CELL VOLUME 86.9 fl (80-96); MEAN PLT VOLUME 7.6 fl (7.5-11.1); PLATELET COUNT 246 10^3/uL (134-434); RBC 3.31 M/mm3 (4.00-5.60); RDW 16.3 % (11.9-15.9); WHITE BLOOD COUNT 4.1 K/mm3 (4.0-10.0)
[2024-03-09 15:06] LABS: CHLORIDE 114 mmol/L (98-107); POTASSIUM 3.5 mmol/L (3.5-5.1); SODIUM 142 mmol/L (136-145)
[2024-03-09 15:18] LABS: ALK PHOS 746 U/L (45-117); ANION GAP 6 mmol/L (4-13); BILIRUBIN,TOTAL 0.5 mg/dL (0.2-1); BLOOD UREA NITROGEN 10.9 mg/dL (7-18); CALCIUM 8.3 mg/dL (8.5-10.1); CO2 22 mmol/L (21-32); CREATININE 4.1 mg/dL (0.55-1.3); GLUCOSE,RANDOM 66 mg/dL (74-106); SGOT/AST 13 U/L (15-37); SGPT/ALT < 6 U/L (13-61); TOT PROT 7.1 g/dl (6.4-8.2)
[2024-03-09] MEDS: EPOETIN ALFA-EPBX 10,000 UNIT/ML VIAL SQ ONE (16:06)
[2024-03-09] MEDS: DEXTROSE 50%-WATER 25 GM/50 ML DISP.SYRIN IVPUSH PRN (18:31)
[2024-03-09] MEDS: levETIRAcetam 500 MG/5 ML ORAL SOLUTION (UNIT-DOSE CUPS) PO SCH (21:51)
[2024-03-10] MEDS: DEXTROSE 50%-WATER 25 GM/50 ML DISP.SYRIN IVPUSH PRN (06:13)
[2024-03-10] MEDS: PANTOPRAZOLE 40 MG TABLET PO SCH (10:43)
[2024-03-10 14:50] LABS: GAMMA GLUTAMYL TRANSPEPTIDASE 169 U/L (5-85)
[2024-03-10 17:39] LABS: CHOLESTEROL 75 mg/dL (50-200)
[2024-03-10 17:41] LABS: LDL CHOLESTEROL (ONLY SJRH) 27 mg/dL (5-100)
[2024-03-10 17:43] LABS: HDL CHOLESTEROL 30 mg/dL (40-60); N-TERMINAL BNP 4757.4 pg/ml (5-125)
[2024-03-10] MEDS: AMINO ACIDS 4.25%/D5W 1,000 ML IV SCH (17:59)
[2024-03-10] MEDS: levETIRAcetam 500 MG/5 ML ORAL SOLUTION (UNIT-DOSE CUPS) PO SCH (21:25)
[2024-03-10] MEDS: MIRTAZAPINE 15 MG TABLET (FP) PO SCH (21:25)
[2024-03-10] MEDS: MINERAL OIL/PET HY-PHL TOPICAL OINTMENT 454 GM JAR TP SCH (21:50)
[2024-03-10] MEDS: CYPROHEPTADINE HCL 4 MG TABLET PO SCH (21:50)
[2024-03-11] MEDS: LEVOTHYROXINE NA 25 MCG TABLET (FP) PO SCH (06:18)
[2024-03-11] MEDS: DEXTROSE 50%-WATER 25 GM/50 ML DISP.SYRIN IVPUSH PRN (06:50)
[2024-03-11 07:43] LABS: HEMATOCRIT 30.5 % (35.4-49); MCH 28.2 pg (25.7-33.7); MCHC 32.7 g/dl (32.0-35.9); MEAN CELL VOLUME 86.3 fl (80-96); MEAN PLT VOLUME 7.7 fl (7.5-11.1); PLATELET COUNT 257 10^3/uL (134-434); RBC 3.54 M/mm3 (4.00-5.60); RDW 15.7 % (11.9-15.9); WHITE BLOOD COUNT 4.4 K/mm3 (4.0-10.0)
[2024-03-11 07:55] LABS: CHLORIDE 106 mmol/L (98-107); SODIUM 138 mmol/L (136-145)
[2024-03-11 07:59] LABS: CALCIUM 8.2 mg/dL (8.5-10.1)
[2024-03-11 08:00] LABS: ANION GAP 6 mmol/L (4-13); BLOOD UREA NITROGEN 6.1 mg/dL (7-18); CO2 26 mmol/L (21-32); GLUCOSE,RANDOM 140 mg/dL (74-106)
[2024-03-11 08:02] LABS: SGOT/AST 11 U/L (15-37)
[2024-03-11 08:03] LABS: CREATININE 3.8 mg/dL (0.55-1.3); SGPT/ALT < 6 U/L (13-61)
[2024-03-11 08:04] LABS: BILIRUBIN,TOTAL 0.5 mg/dL (0.2-1); TOT PROT 7.6 g/dl (6.4-8.2)
[2024-03-11 08:07] LABS: ALK PHOS 849 U/L (45-117)
[2024-03-11] MEDS: SODIUM CHLORIDE 500 ML IV STA (09:52)
[2024-03-11] MEDS: FERROUS SO4 325 MG TABLET (FP) PO SCH (10:38)
[2024-03-11] MEDS: TAMSULOSIN HCL 0.4 MG CAP PO SCH (10:38)
[2024-03-11] MEDS: MIDODRINE HCL 5 MG TABLET PO SCH (10:38)
[2024-03-11] MEDS: PANTOPRAZOLE 40 MG TABLET PO SCH (10:38)
[2024-03-11] MEDS: ZINC SULFATE 220 MG CAPSULE (FP) PO SCH (10:38)
[2024-03-11] MEDS: CHOLESTYRAMINE/NUTRASWEET 4 GM PACKET PO SCH (10:39)
[2024-03-11] MEDS: ARIPiprazole 5 MG TABLET PO SCH (10:39)
[2024-03-11] MEDS: CALCITRIOL 0.25 MCG CAPSULE (FP) PO SCH (10:39)
[2024-03-11] MEDS: THIAMINE 100 MG TABLET PO SCH (10:40)
[2024-03-11] MEDS: POTASSIUM CHLORIDE ORAL LIQUID 20 MEQ/15 ML PO ONE (10:41)
[2024-03-11] MEDS: AMINO ACIDS 4.25%/D5W 1,000 ML IV SCH (11:46)
[2024-03-11] MEDS ORDERED: SODIUM CHLORIDE 250 ML IV PRN (12:22)
[2024-03-11] MEDS: ALBUMIN HUMAN 25% 12.5 GM/50 ML VIAL IV SCH (13:00)
[2024-03-11] MEDS: EPOETIN ALFA-EPBX 10,000 UNIT/ML VIAL SQ ONE (13:39)
[2024-03-11] MEDS: AMINO ACIDS/PROTEIN HYDROLYS 30 ML LIQUID.PKT PO SCH (18:06)
[2024-03-11] MEDS: MIRTAZAPINE 15 MG TABLET (FP) PO SCH (21:31)
[2024-03-12] MEDS: PANTOPRAZOLE 40 MG TABLET PO SCH (11:26)
[2024-03-12] MEDS: CALCITRIOL 0.25 MCG CAPSULE (FP) PO SCH (11:28)
[2024-03-12] MEDS: HEPARIN NA (PORCINE) 5,000 UNITS/ML 1ML VIAL SQ SCH (11:33)
[2024-03-12] MEDS: PANTOPRAZOLE SODIUM 40 MG VIAL IVPUSH SCH (12:58)
[2024-03-13] MEDS: CALCITRIOL 1 MCG/ML BOT GT SCH (09:01)
[2024-03-13 11:17] LABS: BASO % 0.7 % (0-2.0); EOS % 0.7 % (0-4.5); HEMATOCRIT 37.9 % (35.4-49); HEMOGLOBIN 11.9 GM/dL (11.7-16.9); LYMPH % 21.5 % (8-40); MCH 27.8 pg (25.7-33.7); MCHC 31.3 g/dl (32.0-35.9); MEAN CELL VOLUME 88.7 fl (80-96); MEAN PLT VOLUME 8.4 fl (7.5-11.1); MONO % 6.1 % (3.8-10.2); PLATELET COUNT 300 10^3/uL (134-434); RBC 4.27 M/mm3 (4.00-5.60); RDW 16.4 % (11.9-15.9); WHITE BLOOD COUNT 6.8 K/mm3 (4.0-10.0)
[2024-03-13 11:43] LABS: POTASSIUM 3.4 mmol/L (3.5-5.1)
[2024-03-13 11:45] LABS: BLOOD UREA NITROGEN 17.5 mg/dL (7-18)
[2024-03-13 11:47] LABS: ALBUMIN 2.7 g/dl (3.4-5.0); CALCIUM 10.6 mg/dL (8.5-10.1)
[2024-03-13 11:49] LABS: CREATININE 4.6 mg/dL (0.55-1.3)
[2024-03-13 11:50] LABS: BILIRUBIN,TOTAL 0.5 mg/dL (0.2-1)
[2024-03-14] MEDS: MELATONIN 5 MG TABLETS PO ONE (00:15)
[2024-03-14] MEDS: SODIUM CHLORIDE 500 ML IV STA (06:59)
[2024-03-15] MEDS ORDERED: EPOETIN ALFA-EPBX 2,000 UNIT/ML VIAL SQ ONE (09:10)
[2024-03-15] MEDS ORDERED: SODIUM CHLORIDE 250 ML IV PRN (09:10)
[2024-03-15] MEDS ORDERED: HEPARIN NA (PORCINE) 5,000 UNITS/ML 1ML VIAL IVPUSH ONE (09:10)
[2024-03-15] MEDS ORDERED: ALBUMIN HUMAN 25% 12.5 GM/50 ML VIAL IV SCH (09:15)
[2024-03-15] MEDS: SODIUM CHLORIDE 500 ML IV STA (09:45)
[2024-03-16] MEDS ORDERED: ARTIFICIAL TEARS OPHTHALMIC DROPS OU PRN (06:09)
[2024-03-16 08:32] LABS: HEMATOCRIT 34.7 % (35.4-49); HEMOGLOBIN 11.3 GM/dL (11.7-16.9); MCH 28.6 pg (25.7-33.7); MCHC 32.6 g/dl (32.0-35.9); MEAN CELL VOLUME 87.8 fl (80-96); MEAN PLT VOLUME 9.2 fl (7.5-11.1); PLATELET COUNT 190 10^3/uL (134-434); RBC 3.95 M/mm3 (4.00-5.60); RDW 16.9 % (11.9-15.9); WHITE BLOOD COUNT 11.4 K/mm3 (4.0-10.0)
[2024-03-16 08:42] LABS: POTASSIUM 3.2 mmol/L (3.5-5.1)
[2024-03-16 08:45] LABS: ALBUMIN 2.3 g/dl (3.4-5.0); MAGNESIUM 2.4 mg/dL (1.8-2.4)
[2024-03-16 08:48] LABS: CREATININE 7.3 mg/dL (0.55-1.3); PHOSPHOROUS 4.4 mg/dL (2.5-4.9)
[2024-03-16 08:50] LABS: BILIRUBIN,TOTAL 0.4 mg/dL (0.2-1); TOT PROT 8.3 g/dl (6.4-8.2)
[2024-03-16 09:00] LABS: BLOOD UREA NITROGEN 44.6 mg/dL (7-18)
[2024-03-16] MEDS ORDERED: NOREPINEPHRINE BITARTRATE 4 MG/4 ML ML IV ONE (11:28)
[2024-03-16] MEDS ORDERED: VASopressin 20 UNITS/ML VIAL IV ONE (11:35)
[2024-03-16] MEDS: NOREPINEPHRINE BITARTRATE 4,000 MCG in DEXTROSE 5%-WATER - 496 ML IV SCH (11:35)
[2024-03-16] MEDS: SODIUM CHLORIDE 1,000 ML IV STA (11:45)
[2024-03-16] MEDS ORDERED: SODIUM CHLORIDE 0.45% 1,000 ML IV SCH (11:45)
[2024-03-16] MEDS: SODIUM CHLORIDE 0.45% 1,000 ML IV SCH (13:00)
[2024-03-16] MEDS: MUPIROCIN 2% TOPICAL OINTMENT FOR DECOLONIZATION NS SCH (15:56)
[2024-03-16] MEDS: KCL 10 MEQ IVPB 10 MEQ/100 ML INFUS.BAG IVPB SCH (16:05)
[2024-03-16] MEDS ORDERED: NOREPINEPHRINE 0.9 % NACL 8 MG/250 ML BAG IVPB SCH ×2 (17:00→23:45)
[2024-03-16] MEDS: MIDODRINE HCL 5 MG TABLET PO SCH (18:47)
[2024-03-16] MEDS: AMINO ACIDS/PROTEIN HYDROLYS 30 ML LIQUID.PKT PO SCH (18:47)
[2024-03-16] MEDS: CHLORHEXIDINE GLUCONATE 4% CLEANSER FOR DECOLONIZATION TP SCH (21:36)
[2024-03-16] MEDS: HEPARIN NA (PORCINE) 5,000 UNITS/ML 1ML VIAL SQ SCH (21:36)
[2024-03-16] MEDS: levETIRAcetam 500 MG/5 ML ORAL SOLUTION (UNIT-DOSE CUPS) PO SCH (21:36)
[2024-03-16] MEDS: MINERAL OIL/PET HY-PHL TOPICAL OINTMENT 454 GM JAR TP SCH (21:36)
[2024-03-16] MEDS: MIRTAZAPINE 15 MG TABLET (FP) PO SCH (21:37)
[2024-03-16] MEDS: PIPERACILLIN/TAZOB 2.25 GM 2.25 GM/50 ML BAG IVPB SCH (22:56)
[2024-03-16] MEDS ORDERED: DEXTROSE 50%-WATER 25 GM/50 ML DISP.SYRIN ONE (23:45)
[2024-03-16] MEDS ORDERED: RAPID SEQUENCE INTUBATION KIT NR ONE (23:51)
[2024-03-17] MEDS: CYPROHEPTADINE HCL 4 MG TABLET PO SCH (00:26)
[2024-03-17 00:53] LABS: ARTERIAL BLD GAS O2 SATURATION 98.9 % (95-98); ARTERIAL BLOOD GAS BASE EXCESS -23.5 mmol/L (-2-2); ARTERIAL BLOOD GAS PO2 229.3 mmHg (80-100)
[2024-03-17 00:54] LABS: VENT MODE V-A/C
[2024-03-17 00:55] LABS: ARTERIAL BLOOD GAS pH 6.935 (7.350-7.450); VENT RATE 15
[2024-03-17] MEDS ORDERED: SODIUM BICARBONATE 8.4% 50 MEQ/50 ML DISP.SYRIN ONE (01:02)
[2024-03-17] MEDS ORDERED: DEXMEDETOMIDINE PREMIX 400 MCG/100 ML BAG IVPB ONE (01:24)
[2024-03-17 02:06] LABS: EPI CELLS 258.7 /uL (0-25.1); URINE RBC 31.6 /uL (0-23.9); URINE WBC 6759.1 /uL (0-25.8)
[2024-03-17 02:07] LABS: HYALINE CASTS 483.08 /uL (0-3.1); URINE BACTERIA 3838.6 /uL (0-1359); YEAST NONE SEEN (NEGATIVE)
[2024-03-17 02:09] LABS: URINE APPEARANCE TURBID; URINE COLOR DK YELLOW
[2024-03-17 02:10] LABS: URINE BILIRUBIN SMALL (NEGATIVE); URINE GLUCOSE (UA) NEGATIVE (NEGATIVE); URINE KETONE NEGATIVE (NEGATIVE)
[2024-03-17 02:11] LABS: URINE LEUK ESTERASE LARGE (NEGATIVE); URINE NITRITE POSITIVE (NEGATIVE); URINE PROTEIN 300 (NEGATIVE); URINE UROBILINOGEN 0.2 mg/dL (0.2-1.0)
[2024-03-17] MEDS: SODIUM BICARBONATE 8.4% 50 MEQ/50 ML DISP.SYRIN IVPUSH ONE ×2 (02:15→06:13)
[2024-03-17] MEDS: NOREPINEPHRINE BITARTRATE/D5W 8 MG/250 ML BAG IVPB SCH (03:00)
[2024-03-17] MEDS: DEXMEDETOMIDINE PREMIX 400 MCG/100 ML BAG IVPB SCH (03:00)
[2024-03-17] MEDS: SODIUM CHLORIDE 500 ML IV STA (05:19)
[2024-03-17] MEDS: HYDROCORTISONE SOD SUCCINATE 100 MG/2 ML VIAL IVPB SCH (05:22)
[2024-03-17 05:53] LABS: ARTERIAL BLD GAS O2 SATURATION 96.2 % (95-98); ARTERIAL BLOOD GAS PO2 113.1 mmHg (80-100)
[2024-03-17 05:57] LABS: VENT MODE V-A/C; VENT RATE 20
[2024-03-17 05:58] LABS: ARTERIAL BLOOD GAS pH 7.064 (7.350-7.450)
[2024-03-17] MEDS: ARTIFICIAL TEARS OPHTHALMIC DROPS OU PRN (06:06)
[2024-03-17] MEDS: LEVOTHYROXINE NA 25 MCG TABLET (FP) PO SCH (06:13)
[2024-03-17] MEDS: VASopressin 40 UNITS/100 ML BAG IV SCH (06:32)
[2024-03-17 07:19] LABS: HEMOGLOBIN 12.7 GM/dL (11.7-16.9); MCH 28.3 pg (25.7-33.7); MEAN PLT VOLUME 9.3 fl (7.5-11.1); PLATELET COUNT 162 10^3/uL (134-434); RDW 17.4 % (11.9-15.9); WHITE BLOOD COUNT 8.6 K/mm3 (4.0-10.0)
[2024-03-17 07:31] LABS: POTASSIUM 3.6 mmol/L (3.5-5.1)
[2024-03-17 07:34] LABS: BLOOD UREA NITROGEN 41.6 mg/dL (7-18); MAGNESIUM 1.7 mg/dL (1.8-2.4)
[2024-03-17 07:35] LABS: CHLORIDE 128 mmol/L (98-107); SODIUM 153 mmol/L (136-145)
[2024-03-17 07:37] LABS: CREATININE 5.7 mg/dL (0.55-1.3); PHOSPHOROUS 3.5 mg/dL (2.5-4.9)
[2024-03-17 07:38] LABS: BILIRUBIN,TOTAL 0.4 mg/dL (0.2-1); TOT PROT 6.9 g/dl (6.4-8.2)
[2024-03-17 07:40] LABS: ALBUMIN 1.9 g/dl (3.4-5.0); BLOOD UREA NITROGEN 44.2 mg/dL (7-18); CO2 11 mmol/L (21-32); GLUCOSE,RANDOM 128 mg/dL (74-106)
[2024-03-17 07:42] LABS: BILIRUBIN,DIRECT 0.2 mg/dL (0.0-0.2); CREATININE 5.9 mg/dL (0.55-1.3); SGOT/AST 111 U/L (15-37)
[2024-03-17 07:43] LABS: BILIRUBIN,TOTAL 0.4 mg/dL (0.2-1)
[2024-03-17 07:44] LABS: SGPT/ALT 17 U/L (13-61); TOT PROT 6.9 g/dl (6.4-8.2)
[2024-03-17 07:45] LABS: ALK PHOS 458 U/L (45-117); ANION GAP 13 mmol/L (4-13); CALCIUM 8.1 mg/dL (8.5-10.1); POTASSIUM 2.9 mmol/L (3.5-5.1)
[2024-03-17 07:47] LABS: ALBUMIN 1.8 g/dl (3.4-5.0); CALCIUM 7.7 mg/dL (8.5-10.1)
[2024-03-17] MEDS: POTASSIUM CHLORIDE ORAL LIQUID 20 MEQ/15 ML PO ONE (09:20)
[2024-03-17] MEDS: KCL 10 MEQ IVPB 10 MEQ/100 ML INFUS.BAG IVPB SCH (09:21)
[2024-03-17] MEDS: MAGNESIUM 2GM/50ML STERILE WATER IVPB IVPB ONE (09:21)
[2024-03-17] MEDS: PANTOPRAZOLE SODIUM 40 MG VIAL IVPUSH SCH (09:21)
[2024-03-17 09:36] LABS: ANISOCYTOSIS 1+; MACROCYTOSIS 2+
[2024-03-17] MEDS ORDERED: FENTANYL NS IVPB 500 MCG/100 ML BAG IVPB ONE ×2 (09:47→19:57)
[2024-03-17] MEDS: MIDAZOLAM HCL 2 MG/2 ML SINGLE DOSE VIAL IVPUSH ONE (11:15)
[2024-03-17] MEDS: FENTANYL IVPB 500 MCG/100 ML BAG IVPB SCH (11:16)
[2024-03-17] MEDS: ARIPiprazole 5 MG TABLET PO SCH (11:18)
[2024-03-17] MEDS: FERROUS SO4 325 MG TABLET (FP) PO SCH (11:18)
[2024-03-17] MEDS: ZINC SULFATE 220 MG CAPSULE (FP) PO SCH (11:18)
[2024-03-17] MEDS: CHOLESTYRAMINE/NUTRASWEET 4 GM PACKET PO SCH (11:19)
[2024-03-17] MEDS: CALCITRIOL 1 MCG/ML BOT GT SCH (11:19)
[2024-03-17] MEDS: THIAMINE 100 MG TABLET PO SCH (11:19)
[2024-03-17 12:14] LABS: ARTERIAL BLD GAS O2 SATURATION 85.6 % (95-98); ARTERIAL BLOOD GAS BASE EXCESS -19.1 mmol/L (-2-2); ARTERIAL BLOOD GAS PO2 69.4 mmHg (80-100)
[2024-03-17 12:21] LABS: ALLENS TEST POSITIVE
[2024-03-17 12:22] LABS: VENT MODE V/AC; VENT RATE 24
[2024-03-17 12:23] LABS: ARTERIAL BLOOD GAS pH 7.055 (7.350-7.450)
[2024-03-17] MEDS: levETIRAcetam 500 MG/5 ML INJECTION VIAL IVPB SCH (14:54)
[2024-03-17 15:53] LABS: POTASSIUM 3.7 mmol/L (3.5-5.1)
[2024-03-17 15:55] LABS: CALCIUM 8.6 mg/dL (8.5-10.1)
[2024-03-17 15:56] LABS: ALBUMIN 1.6 g/dl (3.4-5.0); BLOOD UREA NITROGEN 52.7 mg/dL (7-18)
[2024-03-17 15:59] LABS: CREATININE 6.6 mg/dL (0.55-1.3)
[2024-03-17 16:00] LABS: BILIRUBIN,TOTAL 0.3 mg/dL (0.2-1); TOT PROT 5.8 g/dl (6.4-8.2)
[2024-03-17 16:05] LABS: LACTIC ACID 3.8 mmol/L (0.4-2.0)
[2024-03-17] MEDS: ACETAMINOPHEN 1000 MG/100 ML BAG IVPB ONE (16:27)
[2024-03-17] MEDS: DEXTROSE 50%-WATER 25 GM/50 ML DISP.SYRIN IVPUSH PRN (17:38)
[2024-03-17] MEDS: DEXTROSE 50%-WATER - 25 GM/50 ML VIAL IVPUSH ONE (19:04)
[2024-03-18] MEDS ORDERED: FENTANYL NS IVPB 500 MCG/100 ML BAG IVPB ONE ×3 (02:01→18:01)
[2024-03-18 08:38] LABS: HEMATOCRIT 27.9 % (35.4-49); HEMOGLOBIN 8.7 GM/dL (11.7-16.9); MCH 27.7 pg (25.7-33.7); MCHC 31.1 g/dl (32.0-35.9); MEAN CELL VOLUME 89.2 fl (80-96); MEAN PLT VOLUME 9.1 fl (7.5-11.1); PLATELET COUNT 95 10^3/uL (134-434); RBC 3.13 M/mm3 (4.00-5.60); RDW 17.6 % (11.9-15.9); WHITE BLOOD COUNT 26.9 K/mm3 (4.0-10.0)
[2024-03-18 08:40] LABS: INR 1.82 (0.83-1.09); PROTHROMBIN TIME (PATIENT) 20.2 SEC (9.7-13.0)
[2024-03-18 08:54] LABS: CHLORIDE 119 mmol/L (98-107); POTASSIUM 5.2 mmol/L (3.5-5.1); SODIUM 143 mmol/L (136-145)
[2024-03-18 08:56] LABS: ALBUMIN 1.4 g/dl (3.4-5.0); CALCIUM 8.1 mg/dL (8.5-10.1)
[2024-03-18 08:57] LABS: ANION GAP 11 mmol/L (4-13); BLOOD UREA NITROGEN 62.9 mg/dL (7-18); CO2 13 mmol/L (21-32); MAGNESIUM 2.4 mg/dL (1.8-2.4)
[2024-03-18 09:00] LABS: CREATININE 6.6 mg/dL (0.55-1.3); PHOSPHOROUS 5.2 mg/dL (2.5-4.9); SGOT/AST 194 U/L (15-37); SGPT/ALT 35 U/L (13-61)
[2024-03-18 09:01] LABS: BILIRUBIN,TOTAL 0.5 mg/dL (0.2-1); TOT PROT 5.5 g/dl (6.4-8.2)
[2024-03-18 09:03] LABS: ALK PHOS 384 U/L (45-117)
[2024-03-18 09:36] LABS: GLUCOSE,RANDOM 41 mg/dL (74-106); LACTIC ACID 3.3 mmol/L (0.4-2.0)
[2024-03-18] MEDS: FLUDROCORTISONE ACETATE 0.1 MG TABLET (FP) PEG SCH (10:11)
[2024-03-18] MEDS: ACETAMINOPHEN 1000 MG/100 ML BAG IVPB PRN (11:51)
[2024-03-18] MEDS: VANCOMYCIN/WATER FOR INJ (PEG) 1,000 MG/200 ML BAG IVPB ONE (11:51)
[2024-03-18 12:05] LABS: ARTERIAL BLD GAS O2 SATURATION 99.1 % (95-98); ARTERIAL BLOOD GAS PO2 224.1 mmHg (80-100)
[2024-03-18 12:07] LABS: VENT MODE V/AC; VENT RATE 24
[2024-03-18 12:08] LABS: ARTERIAL BLOOD GAS pH 7.071 (7.350-7.450)
[2024-03-18] MEDS ORDERED: SODIUM CHLORIDE 250 ML IV PRN (16:00)
[2024-03-18] MEDS: ALBUMIN HUMAN 25% 12.5 GM/50 ML VIAL IV SCH (18:29)
[2024-03-18] MEDS: HEPARIN NA (PORCINE) 5,000 UNITS/ML 1ML VIAL IVPUSH ONE (18:30)
[2024-03-18] MEDS: EPOETIN ALFA-EPBX 2,000 UNIT/ML VIAL SQ ONE (18:31)
[2024-03-18] MEDS ORDERED: ERTAPENEM SODIUM 0.5 GM in SODIUM CHLORIDE 50 ML IVPB SCH (20:15)
[2024-03-18] MEDS: SODIUM CHLORIDE 500 ML IV STA (20:23)
[2024-03-18] MEDS: AMINO ACIDS 4.25%/D5W 1,000 ML IV SCH (21:46)
[2024-03-19 02:08] LABS: ARTERIAL BLD GAS O2 SATURATION 99.2 % (95-98); ARTERIAL BLOOD GAS BASE EXCESS -15.9 mmol/L (-2-2); ARTERIAL BLOOD GAS PO2 213.8 mmHg (80-100)
[2024-03-19 02:09] LABS: ALLENS TEST POSITIVE
[2024-03-19 02:10] LABS: VENT MODE A/C; VENT RATE 26
[2024-03-19] MEDS ORDERED: FENTANYL NS IVPB 500 MCG/100 ML BAG IVPB ONE ×3 (02:14→18:54)
[2024-03-19 07:54] LABS: ARTERIAL BLD GAS O2 SATURATION 99.4 % (95-98); ARTERIAL BLOOD GAS BASE EXCESS -15.8 mmol/L (-2-2); ARTERIAL BLOOD GAS PO2 250.3 mmHg (80-100)
[2024-03-19 07:55] LABS: VENT MODE V-A/C; VENT RATE 28
[2024-03-19 07:56] LABS: ARTERIAL BLOOD GAS pH 7.191 (7.350-7.450)
[2024-03-19 08:29] LABS: HEMATOCRIT 21.9 % (35.4-49); MCH 27.8 pg (25.7-33.7); MCHC 31.9 g/dl (32.0-35.9); MEAN PLT VOLUME 8.6 fl (7.5-11.1); PLATELET COUNT 61 10^3/uL (134-434); RBC 2.52 M/mm3 (4.00-5.60); RDW 17.4 % (11.9-15.9); WHITE BLOOD COUNT 26.9 K/mm3 (4.0-10.0)
[2024-03-19] MEDS: levETIRAcetam 500 MG/5 ML INJECTION VIAL IVPB ONE (08:40)
[2024-03-19 08:45] LABS: CHLORIDE 112 mmol/L (98-107); POTASSIUM 4.9 mmol/L (3.5-5.1); SODIUM 138 mmol/L (136-145)
[2024-03-19 08:54] LABS: ALBUMIN 1.2 g/dl (3.4-5.0)
[2024-03-19 08:55] LABS: GLUCOSE,RANDOM 107 mg/dL (74-106)
[2024-03-19 08:56] LABS: ANION GAP 14 mmol/L (4-13); CALCIUM 6.7 mg/dL (8.5-10.1); CO2 13 mmol/L (21-32)
[2024-03-19 08:57] LABS: SGOT/AST 203 U/L (15-37); SGPT/ALT 39 U/L (13-61)
[2024-03-19 08:57] LABS: LACTIC ACID 3.8 mmol/L (0.4-2.0)
[2024-03-19 08:59] LABS: BILIRUBIN,TOTAL 0.8 mg/dL (0.2-1); CREATININE 5.2 mg/dL (0.55-1.3); PHOSPHOROUS 5.6 mg/dL (2.5-4.9)
[2024-03-19 09:01] LABS: TOT PROT 4.9 g/dl (6.4-8.2)
[2024-03-19 09:05] LABS: ALK PHOS 330 U/L (45-117)
[2024-03-19] MEDS: ERTAPENEM SODIUM 0.5 GM in SODIUM CHLORIDE 50 ML IVPB SCH (09:32)
[2024-03-19] MEDS ORDERED: SODIUM CHLORIDE 250 ML IV PRN (11:05)
[2024-03-19] MEDS: ALBUTEROL SO4 2.5/IPRATROPIUM 0.5 INH SOL 3 ML VIAL.NEB. NEB SCH (13:21)
[2024-03-19] MEDS ORDERED: LORazepam 2 MG/ML SDV VIAL ONE (15:07)
[2024-03-19] MEDS ORDERED: SODIUM BICARBONATE 8.4% 50 MEQ/50 ML DISP.SYRIN ONE (15:19)
[2024-03-19] MEDS ORDERED: EPINEPHrine 1:10,000 (P-F SYR) 1 MG/10 ML DISP.SYRIN ONE (15:19)
[2024-03-19 16:45] LABS: ARTERIAL BLD GAS O2 SATURATION 98.3 % (95-98); ARTERIAL BLOOD GAS BASE EXCESS -18.7 mmol/L (-2-2); ARTERIAL BLOOD GAS PO2 144.4 mmHg (80-100)
[2024-03-19 17:00] LABS: VENT MODE V-AC; VENT RATE 28
[2024-03-19 17:01] LABS: ARTERIAL BLOOD GAS pH 7.156 (7.350-7.450)
[2024-03-19] MEDS: SODIUM BICARBONATE 8.4% 50 MEQ/50 ML DISP.SYRIN IVPUSH ONE (17:08)
[2024-03-19] MEDS: FENTANYL NS IVPB 500 MCG/100 ML BAG IVPB SCH (17:09)
[2024-03-19 20:16] LABS: CHLORIDE 109 mmol/L (98-107); SODIUM 138 mmol/L (136-145)
[2024-03-19 20:18] LABS: ALBUMIN 1.2 g/dl (3.4-5.0); ANION GAP 17 mmol/L (4-13); BLOOD UREA NITROGEN 73.4 mg/dL (7-18); CO2 12 mmol/L (21-32); GLUCOSE,RANDOM 113 mg/dL (74-106)
[2024-03-19 20:21] LABS: CREATININE 5.6 mg/dL (0.55-1.3); SGOT/AST 225 U/L (15-37); SGPT/ALT 37 U/L (13-61)
[2024-03-19 20:23] LABS: TOT PROT 4.8 g/dl (6.4-8.2)
[2024-03-19 20:27] LABS: ALK PHOS 393 U/L (45-117); CALCIUM 6.6 mg/dL (8.5-10.1)
[2024-03-19] MEDS: SODIUM BICARBONATE 8.4% 50 MEQ/50 ML DISP.SYRIN IVPUSH SCH (21:17)
[2024-03-20 06:32] LABS: ARTERIAL BLD GAS O2 SATURATION 98.8 % (95-98); ARTERIAL BLOOD GAS BASE EXCESS -20.1 mmol/L (-2-2); ARTERIAL BLOOD GAS PO2 185.9 mmHg (80-100)
[2024-03-20 06:36] LABS: VENT MODE V-AC; VENT RATE 28
[2024-03-20 07:35] LABS: HEMATOCRIT 20.1 % (35.4-49); MCH 27.8 pg (25.7-33.7); MCHC 31.2 g/dl (32.0-35.9); MEAN CELL VOLUME 89.2 fl (80-96); MEAN PLT VOLUME 8.5 fl (7.5-11.1); PLATELET COUNT 38 10^3/uL (134-434); RBC 2.25 M/mm3 (4.00-5.60); RDW 17.6 % (11.9-15.9); WHITE BLOOD COUNT 23.6 K/mm3 (4.0-10.0)
[2024-03-20 07:45] LABS: HEMOGLOBIN 6.3 GM/dL (11.7-16.9)
[2024-03-20 07:52] LABS: CHLORIDE 119 mmol/L (98-107); POTASSIUM 4.2 mmol/L (3.5-5.1); SODIUM 142 mmol/L (136-145)
[2024-03-20 07:56] LABS: ANION GAP 14 mmol/L (4-13); BLOOD UREA NITROGEN 61.8 mg/dL (7-18); CO2 9 mmol/L (21-32); GLUCOSE,RANDOM 98 mg/dL (74-106); MAGNESIUM 1.7 mg/dL (1.8-2.4)
[2024-03-20 07:59] LABS: CREATININE 4.4 mg/dL (0.55-1.3); PHOSPHOROUS 5.8 mg/dL (2.5-4.9); SGOT/AST 183 U/L (15-37); SGPT/ALT 30 U/L (13-61)
[2024-03-20 08:01] LABS: BILIRUBIN,TOTAL 1.1 mg/dL (0.2-1); TOT PROT 3.7 g/dl (6.4-8.2)
[2024-03-20 08:02] LABS: ALK PHOS 404 U/L (45-117)
[2024-03-20 08:36] LABS: ALBUMIN 0.9 g/dl (3.4-5.0)
[2024-03-20] MEDS: ERTAPENEM SODIUM 1 GM in SODIUM CHLORIDE 50 ML IVPB SCH (09:16)
[2024-03-20] MEDS: PIPERACILLIN/TAZOB 2.25 GM 2.25 GM in DEXTROSE 5%-WATER - 50 ML IVPB SCH (09:16)
[2024-03-20] MEDS: MAGNESIUM 1GM/D5W - 1 GM/100 ML IVPB IVPB ONE (09:31)
[2024-03-20 10:43] LABS: ANISOCYTOSIS 0; MACROCYTOSIS 0
[2024-03-20 10:46] LABS: PLATELET ESTIMATE DECREASED
[2024-03-20] MEDS: LORazepam 2 MG/ML SDV VIAL IVPUSH PRN (15:10)
[2024-03-20] MEDS: LEVOTHYROXINE SODIUM 100 MCG 5 ML VIAL IVPUSH SCH (15:41)
[2024-03-20] MEDS: VALPROATE SODIUM INJECTION 250 MG in SODIUM CHLORIDE 50 ML IVPB SCH (15:57)
[2024-03-20] MEDS: VALPROATE SODIUM 500 MG/5 ML VIAL IVPB SCH (16:29)
[2024-03-20 20:25] LABS: HEMOGLOBIN 8.2 GM/dL (11.7-16.9); MCHC 32.8 g/dl (32.0-35.9); MEAN CELL VOLUME 88.4 fl (80-96); MEAN PLT VOLUME 8.3 fl (7.5-11.1); RBC 2.82 M/mm3 (4.00-5.60); RDW 16.4 % (11.9-15.9); WHITE BLOOD COUNT 17.5 K/mm3 (4.0-10.0)
[2024-03-20 20:30] LABS: PLATELET COUNT 19 10^3/uL (134-434)
[2024-03-20] MEDS: VANCOMYCIN/WATER FOR INJ (PEG) 1,000 MG/200 ML BAG IVPB ONE (20:31)
[2024-03-20 21:26] LABS: ANISOCYTOSIS 1+; TOXIC GRANULATION 1+
[2024-03-20 21:35] LABS: ARTERIAL BLD GAS O2 SATURATION 99.1 % (95-98); ARTERIAL BLOOD GAS BASE EXCESS -8.3 mmol/L (-2-2); ARTERIAL BLOOD GAS PO2 156.7 mmHg (80-100); ARTERIAL BLOOD GAS pH 7.397 (7.350-7.450)
[2024-03-20 21:37] LABS: VENT MODE AC; VENT RATE 28
[2024-03-20] MEDS: CALCIUM GLUCONATE 10% - 1,000 MG/10 ML VIAL IVPB ONE (21:48)
[2024-03-21] MEDS: VALPROATE SODIUM INJECTION 250 MG in SODIUM CHLORIDE 50 ML IVPB SCH (04:17)
[2024-03-21 06:52] LABS: CHLORIDE 103 mmol/L (98-107); POTASSIUM 3.6 mmol/L (3.5-5.1); SODIUM 145 mmol/L (136-145)
[2024-03-21 06:56] LABS: ANION GAP 21 mmol/L (4-13); BLOOD UREA NITROGEN 65.7 mg/dL (7-18); CO2 21 mmol/L (21-32); GLUCOSE,RANDOM 234 mg/dL (74-106); MAGNESIUM 1.9 mg/dL (1.8-2.4)
[2024-03-21 06:58] LABS: CREATININE 3.9 mg/dL (0.55-1.3); SGOT/AST 389 U/L (15-37); SGPT/ALT 64 U/L (13-61)
[2024-03-21 07:00] LABS: TOT PROT 4.2 g/dl (6.4-8.2)
[2024-03-21 07:02] LABS: HEMOGLOBIN 7.1 GM/dL (11.7-16.9); MCH 28.9 pg (25.7-33.7); MCHC 33.7 g/dl (32.0-35.9); MEAN CELL VOLUME 85.8 fl (80-96); MEAN PLT VOLUME 8.4 fl (7.5-11.1); PLATELET COUNT 43 10^3/uL (134-434); RBC 2.45 M/mm3 (4.00-5.60)
[2024-03-21 07:09] LABS: ARTERIAL BLD GAS O2 SATURATION 99.1 % (95-98); ARTERIAL BLOOD GAS BASE EXCESS -3.7 mmol/L (-2-2); ARTERIAL BLOOD GAS PO2 161.6 mmHg (80-100); ARTERIAL BLOOD GAS pH 7.429 (7.350-7.450)
[2024-03-21 07:10] LABS: ALBUMIN 1.2 g/dl (3.4-5.0); ALK PHOS 559 U/L (45-117); CALCIUM 6.2 mg/dL (8.5-10.1)
[2024-03-21 07:11] LABS: VENT MODE V A/C
[2024-03-21 07:12] LABS: VENT RATE 28
[2024-03-21 09:36] LABS: BILIRUBIN,DIRECT 1.5 mg/dL (0.0-0.2)
[2024-03-21] MEDS: THIAMINE HCL 200 MG/2 ML VIAL IVPB SCH (10:05)
[2024-03-21 10:15] LABS: ANISOCYTOSIS 2+; CORRECTED WBC 12.61 K/mm3; MACROCYTOSIS 1+
[2024-03-21] MEDS ORDERED: SODIUM CHLORIDE 250 ML IV PRN (15:14)
[2024-03-21 15:50] LABS: ARTERIAL BLD GAS O2 SATURATION 96.1 % (95-98); ARTERIAL BLOOD GAS BASE EXCESS -2.6 mmol/L (-2-2); ARTERIAL BLOOD GAS pH 7.331 (7.350-7.450)
[2024-03-21 15:51] LABS: VENT MODE A/C
[2024-03-21 15:52] LABS: VENT RATE 12
[2024-03-21] MEDS: TIGECYCLINE 100 MG in DEXTROSE 5%-WATER - 100 ML IVPB ONE (16:48)
[2024-03-21] MEDS: VALPROATE SODIUM INJECTION 250 MG in SODIUM CHLORIDE 100 ML IVPB SCH (16:49)
[2024-03-21 18:09] LABS: HEMATOCRIT 21.8 % (35.4-49); HEMOGLOBIN 7.1 GM/dL (11.7-16.9); MCH 28.4 pg (25.7-33.7); MCHC 32.6 g/dl (32.0-35.9); MEAN CELL VOLUME 87.2 fl (80-96); MEAN PLT VOLUME 8.5 fl (7.5-11.1); RBC 2.49 M/mm3 (4.00-5.60); RDW 16.6 % (11.9-15.9); WHITE BLOOD COUNT 14.9 K/mm3 (4.0-10.0)
[2024-03-21 18:13] LABS: PLATELET COUNT 20 10^3/uL (134-434)
[2024-03-21] MEDS: CALCIUM GLUCONATE 10% - 1,000 MG/10 ML VIAL IVPB ONE ×2 (21:08→22:04)
[2024-03-21 21:24] LABS: ARTERIAL BLD GAS O2 SATURATION 98.2 % (95-98); ARTERIAL BLOOD GAS BASE EXCESS -2.8 mmol/L (-2-2); ARTERIAL BLOOD GAS PO2 113.6 mmHg (80-100)
[2024-03-21 21:27] LABS: ANISOCYTOSIS 0; HELMET CELLS 0; HOWELL-JOLLY BODIES 0; MACROCYTOSIS 0; OVALOCYTE 0; ROULEAU 0; SICKELED CELLS 0; TARGET CELLS 0; TEAR DROP CELLS 0; TOXIC GRANULATION 0
[2024-03-21] MEDS: PANTOPRAZOLE SODIUM 40 MG VIAL IVPUSH SCH (21:29)
[2024-03-21 21:30] LABS: VENT MODE A/C; VENT RATE 18
[2024-03-21 22:00] LABS: LACTIC ACID 6.1 mmol/L (0.4-2.0)
[2024-03-22 00:12] LABS: EPI CELLS 7 /uL (0-25.1); HYALINE CASTS 2 /uL (0-3.1); PH,URINE 6.5 (5.0-8.0); URINE APPEARANCE CLOUDY; URINE BACTERIA 41 /uL (0-1359); URINE BILIRUBIN NEGATIVE (NEGATIVE); URINE COLOR YELLOW; URINE GLUCOSE (UA) NEGATIVE (NEGATIVE); URINE KETONE NEGATIVE (NEGATIVE); URINE LEUK ESTERASE 2+ (NEGATIVE); URINE NITRITE NEGATIVE (NEGATIVE); URINE PROTEIN 2+ (NEGATIVE); URINE UROBILINOGEN 0.2 mg/dL (0.2-1.0); URINE WBC 621 /uL (0-25.8)
[2024-03-22 01:45] LABS: URINE RBC 129.9 /uL (0-23.9)
[2024-03-22 01:46] LABS: YEAST NONE SEEN (NEGATIVE)
[2024-03-22 08:12] LABS: HEMATOCRIT 32.7 % (35.4-49); MCH 28.9 pg (25.7-33.7); MCHC 33.7 g/dl (32.0-35.9); MEAN CELL VOLUME 85.7 fl (80-96); MEAN PLT VOLUME 8.4 fl (7.5-11.1); PLATELET COUNT 52 10^3/uL (134-434); RBC 3.82 M/mm3 (4.00-5.60); RDW 15.4 % (11.9-15.9); WHITE BLOOD COUNT 20.8 K/mm3 (4.0-10.0)
[2024-03-22 08:12] LABS: ARTERIAL BLD GAS O2 SATURATION 92.9 % (95-98); ARTERIAL BLOOD GAS BASE EXCESS -6.9 mmol/L (-2-2); ARTERIAL BLOOD GAS PO2 69.5 mmHg (80-100); ARTERIAL BLOOD GAS pH 7.326 (7.350-7.450)
[2024-03-22 08:13] LABS: VENT MODE V-A/C; VENT RATE 18
[2024-03-22 08:29] LABS: INR 1.28 (0.83-1.09); PROTHROMBIN TIME (PATIENT) 14.4 SEC (9.7-13.0)
[2024-03-22 08:31] LABS: ACTIVATED PTT 44.5 SECONDS (25.2-36.5)
[2024-03-22 08:42] LABS: CHLORIDE 104 mmol/L (98-107); SODIUM 140 mmol/L (136-145)
[2024-03-22 08:43] LABS: POTASSIUM 3.1 mmol/L (3.5-5.1)
[2024-03-22 08:46] LABS: ALBUMIN 1.3 g/dl (3.4-5.0)
[2024-03-22 08:47] LABS: ANION GAP 15 mmol/L (4-13); CO2 21 mmol/L (21-32); GLUCOSE,RANDOM 231 mg/dL (74-106)
[2024-03-22 08:49] LABS: CREATININE 4.2 mg/dL (0.55-1.3)
[2024-03-22 08:50] LABS: CREATININE 4.3 mg/dL (0.55-1.3); PHOSPHOROUS 4.8 mg/dL (2.5-4.9); SGOT/AST 967 U/L (15-37); SGPT/ALT 143 U/L (13-61)
[2024-03-22 08:51] LABS: BILIRUBIN,TOTAL 2.9 mg/dL (0.2-1); BLOOD UREA NITROGEN 96.4 mg/dL (7-18); CALCIUM 6.7 mg/dL (8.5-10.1); TOT PROT 4.2 g/dl (6.4-8.2)
[2024-03-22 08:52] LABS: BLOOD UREA NITROGEN 100.3 mg/dL (7-18)
[2024-03-22 09:00] LABS: ALK PHOS > 1000 U/L (45-117)
[2024-03-22 09:23] LABS: ANISOCYTOSIS 3+; CORRECTED WBC 18.25 K/mm3; MACROCYTOSIS 0; OVALOCYTE 1+
[2024-03-22] MEDS: KCL 10 MEQ IVPB 10 MEQ/100 ML INFUS.BAG IVPB SCH (10:22)
[2024-03-22] MEDS: TIGECYCLINE 50 MG in DEXTROSE 5%-WATER - 100 ML IVPB SCH (10:37)
[2024-03-22] MEDS: EPOETIN ALFA-EPBX 10,000 UNIT/ML VIAL SQ ONE (11:11)
[2024-03-22 15:20] LABS: HEMATOCRIT 36.2 % (35.4-49); MCH 28.8 pg (25.7-33.7); MCHC 33.3 g/dl (32.0-35.9); MEAN CELL VOLUME 86.7 fl (80-96); MEAN PLT VOLUME 8.5 fl (7.5-11.1); RBC 4.18 M/mm3 (4.00-5.60); RDW 15.8 % (11.9-15.9)
[2024-03-22 15:27] LABS: WHITE BLOOD COUNT 27.2 K/mm3 (4.0-10.0)
[2024-03-22 15:44] LABS: PLATELET COUNT 36 10^3/uL (134-434)
[2024-03-22 16:02] LABS: ANISOCYTOSIS 3+; CORRECTED WBC 17.78 K/mm3; MACROCYTOSIS 0
[2024-03-22] MEDS ORDERED: VASopressin 20 UNITS/ML VIAL IV ONE (17:48)
[2024-03-22] MEDS: ACETAMINOPHEN 1000 MG/100 ML BAG IVPB ONE (22:04)
[2024-03-23 07:50] LABS: BASO % 0.3 % (0-2.0); EOS % 1.3 % (0-4.5); LYMPH % 10.8 % (8-40); MCH 28.4 pg (25.7-33.7); MCHC 32.5 g/dl (32.0-35.9); MEAN CELL VOLUME 87.2 fl (80-96); MEAN PLT VOLUME 9.3 fl (7.5-11.1); MONO % 0.7 % (3.8-10.2); NEUT % 86.9 % (42.8-82.8); PLATELET COUNT 40 10^3/uL (134-434); RBC 4.59 M/mm3 (4.00-5.60)
[2024-03-23 07:59] LABS: WHITE BLOOD COUNT 31.6 K/mm3 (4.0-10.0)
[2024-03-23 08:06] LABS: CHLORIDE 100 mmol/L (98-107); POTASSIUM 4.1 mmol/L (3.5-5.1); SODIUM 140 mmol/L (136-145)
[2024-03-23 08:18] LABS: ANION GAP 21 mmol/L (4-13); BLOOD UREA NITROGEN 94.5 mg/dL (7-18); CO2 19 mmol/L (21-32); GLUCOSE,RANDOM 74 mg/dL (74-106); MAGNESIUM 2.1 mg/dL (1.8-2.4)
[2024-03-23 08:20] LABS: CREATININE 3.5 mg/dL (0.55-1.3); SGPT/ALT 321 U/L (13-61)
[2024-03-23 08:21] LABS: PHOSPHOROUS 6.5 mg/dL (2.5-4.9)
[2024-03-23 08:22] LABS: BILIRUBIN,TOTAL 3.2 mg/dL (0.2-1); TOT PROT 3.6 g/dl (6.4-8.2)
[2024-03-23 08:26] LABS: INR 1.6 (0.83-1.09); PROTHROMBIN TIME (PATIENT) 18.2 SEC (9.7-13.0)
[2024-03-23 08:29] LABS: CALCIUM 6.7 mg/dL (8.5-10.1)
[2024-03-23 08:39] LABS: ALK PHOS 1540 U/L (45-117)
[2024-03-23 10:08] LABS: ANISOCYTOSIS 2+; CORRECTED WBC 23.07 K/mm3; MACROCYTOSIS 0; OVALOCYTE 1+
[2024-03-23 10:24] LABS: BILIRUBIN,DIRECT 2.2 mg/dL (0.0-0.2)
[2024-03-23 10:37] LABS: SGOT/AST 2577 U/L (15-37)
[2024-03-23] MEDS: CASPOFUNGIN ACETATE 70 MG in SODIUM CHLORIDE 250 ML IVPB ONE (12:28)
[2024-03-23] MEDS ORDERED: SODIUM CHLORIDE 250 ML IV PRN (13:02)
[2024-03-23] MEDS: AMINO ACIDS 4.25%/D5W 1,000 ML IV SCH (14:35)
[2024-03-23] MEDS: DEXTROSE 10%-WATER - 1,000 ML IV SCH (14:36)
[2024-03-23] MEDS: ACETAMINOPHEN 1000 MG/100 ML BAG IVPB ONE (20:01)
[2024-03-23] MEDS: VANCOMYCIN 1,000 MG in DEXTROSE 5%-WATER - 250 ML IVPB ONE (20:32)
[2024-03-24] MEDS: PIPERACILLIN/TAZOB 4.5 GM 4.5 GM in DEXTROSE 5%-WATER 100 ML IVPB ONE (00:38)
[2024-03-24 06:05] VITALS: BP 145/90; PULSE 96; RESP 18; TEMP 93.8
[2024-03-24] MEDS ORDERED: DEXTROSE 50%-WATER 25 GM/50 ML DISP.SYRIN ONE ×2 (06:43→08:18)
[2024-03-24] MEDS: DEXTROSE 10%-WATER - 1,000 ML IV SCH (06:59)
[2024-03-24] MEDS: DEXTROSE 50%-WATER 25 GM/50 ML DISP.SYRIN IVPUSH SCH (07:08)
[2024-03-24 07:20] LABS: MAGNESIUM 2.2 mg/dL (1.8-2.4)
[2024-03-24 07:28] LABS: ARTERIAL BLD GAS O2 SATURATION 33.6 % (95-98); ARTERIAL BLOOD GAS PO2 42.2 mmHg (80-100); ARTERIAL BLOOD GAS pH < 6.717 (7.350-7.450)
[2024-03-24 07:33] LABS: PHOSPHOROUS 11.6 mg/dL (2.5-4.9)
[2024-03-24 07:38] LABS: ANION GAP 25 mmol/L (4-13); BLOOD UREA NITROGEN 94.4 mg/dL (7-18); CALCIUM 5.6 mg/dL (8.5-10.1); CHLORIDE 88 mmol/L (98-107); CO2 8 mmol/L (21-32); CREATININE 3.7 mg/dL (0.55-1.3); GLUCOSE,RANDOM 664 mg/dL (74-106); POTASSIUM 6.4 mmol/L (3.5-5.1); SODIUM 121 mmol/L (136-145)
[2024-03-24 07:39] LABS: HEMATOCRIT 33.3 % (35.4-49); HEMOGLOBIN 9.2 GM/dL (11.7-16.9); MCH 27.7 pg (25.7-33.7); MCHC 27.5 g/dl (32.0-35.9); MEAN CELL VOLUME 100.7 fl (80-96); MEAN PLT VOLUME 8.4 fl (7.5-11.1); RDW 20.6 % (11.9-15.9)
[2024-03-24 07:44] LABS: WHITE BLOOD COUNT 29.8 K/mm3 (4.0-10.0)
[2024-03-24] MEDS ORDERED: EPINEPHrine 1:10,000 (P-F SYR) 1 MG/10 ML DISP.SYRIN ONE (08:11)
[2024-03-24] MEDS ORDERED: CALCIUM GLUCONATE 10% - 1,000 MG/10 ML VIAL IVPUSH ONE (08:13)
[2024-03-24] MEDS ORDERED: CALCIUM CHLORIDE 1 GM/10 ML *DISP.SYRIN ONE (08:16)
[2024-03-24] MEDS ORDERED: SODIUM BICARBONATE 8.4% 50 MEQ/50 ML DISP.SYRIN ONE (08:21)
[2024-03-24] MEDS: INSULIN REGULAR HUMAN 100 UNITS/ML *VIAL IVPUSH ONE (08:25)
[2024-03-24] MEDS: DEXTROSE 50%-WATER 25 GM/50 ML DISP.SYRIN IVPUSH PRN (08:26)
[2024-03-24] MEDS: SODIUM BICARBONATE 8.4% 50 MEQ/50 ML DISP.SYRIN IVPUSH ONE (08:28)
[2024-03-24] MEDS ORDERED: WATER IVPB SCH (08:30)
[2024-03-24] MEDS ORDERED: DEXTROSE 5% IVPB SCH (08:30)
[2024-03-24] MEDS ORDERED: SODIUM BICARBONATE IVPB SCH (08:30)
[2024-03-24 08:47] LABS: ANISOCYTOSIS 1+; CORRECTED WBC 24.23 K/mm3; MACROCYTOSIS 1+
[2024-03-24 08:52] LABS: PLATELET COUNT 21 10^3/uL (134-434)
[2024-03-24] MEDS ORDERED: ALBUMIN HUMAN 25% 12.5 GM/50 ML VIAL IV SCH (13:15)
== END 2024-03-24 14:00 | disposition expired | DRG 720 ==
LOC: JER 17:16 → JERBED 22:06 → JICU 22:34 → J8W 02-27 22:43 → J2W 03-10 16:11 → JICU 03-16 14:59
PROVIDERS: ADMIT Internal Medicine; ATTEND Internal Medicine
PROC: 0JH63XZ Insertion of Tunneled Vascular Access Device into Chest Subcutaneous Tissue and Fascia, Percutaneous Approach (ICD-10-PCS; 2024-03-10)
PROC: 02HV33Z Insertion of Infusion Device into Superior Vena Cava, Percutaneous Approach (ICD-10-PCS; 2024-03-10)
PROC: B518ZZA Fluoroscopy of Superior Vena Cava, Guidance (ICD-10-PCS; 2024-03-10)
PROC: 0DH63UZ Insertion of Feeding Device into Stomach, Percutaneous Approach (ICD-10-PCS; 2024-03-14)
PROC: BD12ZZZ Fluoroscopy of Stomach (ICD-10-PCS; 2024-03-14)
PROC: 3E0G76Z Introduction of Nutritional Substance into Upper GI, Via Natural or Artificial Opening (ICD-10-PCS; 2024-03-14)
PROC: 5A1955Z Respiratory Ventilation, Greater than 96 Consecutive Hours (ICD-10-PCS; principal; 2024-03-16)
PROC: 0BH17EZ Insertion of Endotracheal Airway into Trachea, Via Natural or Artificial Opening (ICD-10-PCS; 2024-03-16)
PROC: 04HL33Z Insertion of Infusion Device into Left Femoral Artery, Percutaneous Approach (ICD-10-PCS; 2024-03-17)
PROC: 4A133J1 Monitoring of Arterial Pulse, Peripheral, Percutaneous Approach (ICD-10-PCS; 2024-03-17)
PROC: 4A133B1 Monitoring of Arterial Pressure, Peripheral, Percutaneous Approach (ICD-10-PCS; 2024-03-17)
PROC: 4A133J1 Monitoring of Arterial Pulse, Peripheral, Percutaneous Approach (ICD-10-PCS; 2024-03-18)
PROC: 4A133B1 Monitoring of Arterial Pressure, Peripheral, Percutaneous Approach (ICD-10-PCS; 2024-03-18)
PROC: 05HM33Z Insertion of Infusion Device into Right Internal Jugular Vein, Percutaneous Approach (ICD-10-PCS; 2024-03-22)
PROC: B543ZZA Ultrasonography of Right Jugular Veins, Guidance (ICD-10-PCS; 2024-03-22)
PROC: 5A1D70Z Performance of Urinary Filtration, Intermittent, Less than 6 Hours Per Day (ICD-10-PCS; 2024-03-22)
PROC: 30233N1 Transfusion of Nonautologous Red Blood Cells into Peripheral Vein, Percutaneous Approach (ICD-10-PCS; 2024-03-22)
PROC: 30233R1 Transfusion of Nonautologous Platelets into Peripheral Vein, Percutaneous Approach (ICD-10-PCS; 2024-03-22)
PROC: 05PYX3Z Removal of Infusion Device from Upper Vein, External Approach (ICD-10-PCS; 2024-03-23)
DX: A41.9 Sepsis, unspecified organism (principal); G93.41 Metabolic encephalopathy; J69.0 Pneumonitis due to inhalation of food and vomit; J96.01 Acute respiratory failure with hypoxia; J96.20 Acute and chronic respiratory failure, unspecified whether with hypoxia or hypercapnia; E11.649 Type 2 diabetes mellitus with hypoglycemia without coma; M72.6 Necrotizing fasciitis; E43 Unspecified severe protein-calorie malnutrition; B49 Unspecified mycosis; C91.10 Chronic lymphocytic leukemia of B-cell type not having achieved remission; N18.6 End stage renal disease; I50.32 Chronic diastolic (congestive) heart failure; I46.9 Cardiac arrest, cause unspecified; K72.00 Acute and subacute hepatic failure without coma; R64 Cachexia; N17.9 Acute kidney failure, unspecified; E87.5 Hyperkalemia; E83.42 Hypomagnesemia; R56.9 Unspecified convulsions; E83.51 Hypocalcemia; K92.2 Gastrointestinal hemorrhage, unspecified; D69.6 Thrombocytopenia, unspecified; N39.0 Urinary tract infection, site not specified; F31.9 Bipolar disorder, unspecified; E03.9 Hypothyroidism, unspecified; Z68.21 Body mass index [BMI] 21.0-21.9, adult; D64.9 Anemia, unspecified; E86.0 Dehydration; E87.6 Hypokalemia
CPT/HCPCS: 0241U-QW; 31500; 36415; 36430; 36600; 49440; 70450-TC; 70551-TC; 71045-TC-FY; 74018-TC-FY; 76000-TC-FY; 76705-TC; 76775-TC; 80048; 80053; 80061; 80076; 80177; 81003; 82248; 82272; 82308; 82550; 82553; 82728; 82747; 82803; 82962; 82977; 83010; 83036; 83516; 83520; 83540; 83550; 83605; 83615; 83735; 83880; 83883; 83930; 84080; 84100; 84155; 84165; 84439; 84443; 84484; 85014; 85025; 85027; 85045; 85379; 85384; 85610; 85730; 86038; 86140; 86160; 86256; 86704; 86705; 86803; 86850; 86900; 86901; 86922; 87040; 87070; 87077; 87081; 87086; 87102; 87106; 87186; 87205; 87210; 87324; 87340; 87449; 87481; 87517; 93005; 93010; 94002; 94640; 94760; 95816; 99291; C1750; G0480; J0131; J1644; J3243; J3490; P9034; P9037; P9047; P9058; Q5106